=== PATIENT | female | born 1965 | race Caucasian/White ===

== ENCOUNTER 2020-05-15 10:30 | Inpatient (IN) ==
[2020-05-15 13:14] LABS: BASOPHILS % (AUTO) 0.3 % (0.2-1.0); EOSINOPHILS % (AUTO) 0.1 % (0.9-2.9); HEMATOCRIT 40.4 % (36.0-47.0); HEMOGLOBIN 13.4 g/dL (12.0-16.0); LYMPHOCYTES # (AUTO) 0.5 X10^3/uL (1.3-2.9); LYMPHOCYTES % (AUTO) 9.8 % (21.0-51.0); MEAN CORPUSCULAR HEMOGLOBIN 30.5 pg (27.0-34.0); MEAN CORPUSCULAR HGB CONC 33.1 g/dL (33.0-35.0); MEAN CORPUSCULAR VOLUME 92.3 fL (80.0-100.0); MEAN PLATELET VOLUME 7.5 fL (7.4-11.0); MONOCYTES # (AUTO) 0.2 x10^3/uL (0.3-0.8); MONOCYTES % (AUTO) 4.6 % (0.0-13.0); NEUTROPHILS # (AUTO) 4.4 x10^3/uL (2.2-4.8); NEUTROPHILS % (AUTO) 85.2 % (42.0-75.0); PLATELET COUNT 182 X10^3/uL (150.0-450.0); RED BLOOD COUNT 4.37 X10^6/uL (3.5-5.4); WHITE BLOOD COUNT 5.2 X10^3/uL (3.6-10.0)
[2020-05-15] MEDS ORDERED: NS 100 ML IV 100 ML IV ONE ×2 (13:15→15:45)
[2020-05-15 13:22] LABS: ALANINE AMINOTRANSFERASE 94 Units/L (12-78); ALBUMIN 2.8 g/dL (3.4-5.0); ALKALINE PHOSPHATASE 96 Units/L (46-116); ASPARTATE AMINO TRANSFERASE 89 Units/L (15-37); BLOOD UREA NITROGEN 15 mg/dL (7-18); CALCIUM 8.3 mg/dL (8.5-10.1); CHLORIDE 104 mmol/L (98-107); COR CA(FOR HYPOALB) 9.3 mg/dL (8.5-10.1); SODIUM 139 mmol/L (136-145); TOTAL PROTEIN 6.6 g/dL (6.4-8.2); eGFR NON BLACK RACES > 60 (>60)
[2020-05-15] MEDS: ZOSYN VIAL 3.375 GRAMS 3.375 G in NS 50 ML IV + SPIKE MINIBAG* 50 ML IV SCH ×3 (13:31→21:03)
[2020-05-15] MEDS: DUONEB 0.5 MG/3 MG (3 mL) NEB SCH ×3 (13:39→20:48)
[2020-05-15] MEDS: PULMICORT NEB TX 0.5 MG NEB SCH ×2 (13:39→20:48)
[2020-05-15 13:41] LABS: BILIRUBIN,URINE NEGATIVE (NEGATIVE); BLOOD/HEMOGLOBIN,URINE NEGATIVE (NEGATIVE); GLUCOSE, URINE NEGATIVE (NEGATIVE); KETONES,URINE NEGATIVE (NEGATIVE); LEUKOCYTE ESTERASE ,URINE NEGATIVE (NEGATIVE); NITRITES,URINE NEGATIVE (NEGATIVE); PROTEIN,URINE NEGATIVE (NEGATIVE); UROBILINOGEN,URINE NORMAL (NORMAL)
--- NOTE | 2020-05-15 13:42 | DR.H&P ---
H&P - History & Physical for Day of: H&P Date: 05/15/20 - Chief Complaint Chief Complaint: CCC, SOB, COVID - History of Present Illness History of Present Illness: PT IS 54 WM ADMITTED WITH INCREASED SOB, COVID +, FAILED OUT PT THERAPY. PT HAD ONSET OF SYMPTOMS ON TUESDAY, THEN TESTED POSITIVE ON TUESDAY AND TAKING ZITHROMAX, PREDNISONE AND DUO NEBS WITHOUT IMPROVEMENT. PT HAS PMH OF HTN, OA, GERD AND MO. - Past Medical History Past Medical History: Arthritis, Depression, GERD, Hypertension - Past Surgical History Surgical History: , Cholecystectomy, Other - Family History Family Medical History: Diabetes Mellitus, Cancer, NE, Hypertension - Social History Does patient currently use any type of tobacco product: No Have you used tobacco products in the last 12 months: No Type of Tobacco Use: None Does any household member use tobacco: No Alcohol Use: None Drug Use: None - Medications Home Medications: No Known Drug Allergies Allergy (Verified 04/17/18 05:13) CONTINUE taking the following medications acetaminophen-codeine 1 tab PO BID 05/15/20 [History] azithromycin 500 mg PO DAILY 05/15/20 [History] diclofenac sodium 75 mg PO BID 05/15/20 [History] furosemide 20 mg PO DAILY 05/15/20 [History] gabapentin 400 mg PO TID 05/15/20 [History] hydrochlorothiazide 25 mg PO DAILY 05/15/20 [History] magnesium oxide 400 mg PO DAILY 05/15/20 [History] omeprazole 40 mg PO DAILY 05/15/20 [History] paroxetine HCl 20 mg PO DAILY 05/15/20 [History] potassium chloride 10 meq PO DAILY 05/15/20 [History] prednisone 30 mg PO DAILY 05/15/20 [History] promethazine 25 mg PO Q6H PRN 05/15/20 [History] ropinirole 1 mg PO TID 05/15/20 [History] tizanidine 4 mg PO HS 05/15/20 [History] topiramate 50 mg PO DAILY 05/15/20 [History] - Review of Systems Constitutional: Weakness Eyes: No Symptoms Reported ENT: No Symptoms Reported Respiratory: Shortness of Breath, SOB with Excertion Cardiovascular: No Symptoms Reported Gastrointestinal: Nausea Genitourinary: No Symptoms Reported Musculoskeletal: No Symptoms Reported Skin: No Symptoms Reported Neurological: No Symptoms Reported - Physical Exam Vital Signs: Temperature 99.3 F Pulse Rate [Left] 92 Respiratory Rate 30 Blood Pressure [Right Arm] 136/83 Blood Pressure 128/82 O2 Sat by Pulse Oximetry 92 Oriented: Normal Eyes: Normal Ear: Normal Nose: Normal Throat: Normal Respiratory: Wheezes Throughout, RLL Diminished, LLL Diminished Cardiovascular: Normal, Edema : Normal Auscultation: Bowel Sounds: Normal Palpation: Normal Tenderness: Normal Skin: Decreased Turgur Musculoskeletal: Right, Left, Knee, Back:Lumbar Psychiatric: Anxiety Mood Description: Anxious Affect: Anxious Speech Pattern: Clear, Appropriate - Assessment/Plan (1) Pneumonia due to COVID-19 virus Status: Acute Plan: ADMIT, BLOOD AND SPUTUM CULTURE ON ADMISSION. EKG AND CXR, ABG ON ADMISSION. AM LABS, DUO NEBS, VERIFY HOME MEDICATION. IV ATBX, REMDESIVIR, IV SOLU MEDROL - Allergies Allergies/Adverse Reactions: Allergies Allergy/AdvReac Type Severity Reaction Status Date / Time No Known Drug Allergies Allergy Verified 04/17/18 05:13
[2020-05-15 13:45] LABS: APPEARANCE,URINE CLEAR (CLEAR); COLOR,URINE YELLOW (YELLOW)
[2020-05-15 13:45] LABS: ABG BASE EXCESS 3.7 mmol/L (-2.0-2.0); ABG HCO3 28.5 mmol/L (22-26)
[2020-05-15] MEDS ORDERED: REMDESIVIR 200 MG in NS 250 ML IV 250 ML IV NR (14:00)
[2020-05-15] MEDS: NS 1000 ML 1,000 ML IV SCH (15:09)
[2020-05-15] MEDS: PROTONIX INJ 40 MG VIAL IVP SCH ×2 (15:10→20:52)
[2020-05-15] MEDS: ROBITUSSIN DM PO SCH ×3 (15:11→20:52)
[2020-05-15] MEDS: SOLU-Medrol 125 MG VIAL IVP SCH ×2 (15:11→21:03)
[2020-05-15] MEDS: ZITHROMAX INJ 500 MG VIAL 500 MG in NS 250 ML IV 250 ML IV SCH ×2 (15:46→17:41)
[2020-05-15 15:52] LABS: ABG BASE EXCESS 3.9 mmol/L (-2.0-2.0); ABG HCO3 28.5 mmol/L (22-26)
--- NOTE | 2020-05-15 16:27 | CT ---
HISTORY:Elevated D-dimer, COVID-19 positiveStudy: CTA chestComparison:NoneTechnique: Multiple axial images of the chest were obtained after the administration of IV contrast. 3D reconstructions were performed utilizing radial maximum intensity projection imaging. Dose reduction techniques including Automated Exposure Control (AEC) and adjustment of mA and kV were utilized.Findings:No large central pulmonary embolism identified. The distal segmental and subsegmental branches are inadequately opacified to exclude PE. Normal appearance of the heart and pericardium . The aorta appears normal in course and caliber. Multifocal ground-glass infiltrates present throughout the lungs compatible with the provided history of COVID-19. Airways are patient. No effusion or pneumothorax.The soft tissues and osseous structures appear intact . The visualized portions of the upper abdomen are grossly unremarkable. Gallbladder is removed.IMPRESSION:Multifocal ground-glass infiltrates throughout both lungs compatible with the provided history of COVID-19.No large central pulmonary embolism identified. Distal segmental and subsegmental branches are suboptimally opacified.Electronically signed by: COURTNEY MORENO (May 15, 2020 16:26:38)
[2020-05-15] MEDS: LOVENOX INJ 30 MG SYR SC SCH (16:45)
[2020-05-15] MEDS: TYLENOL 325 MG TAB PO PRN (17:58)
[2020-05-15] MEDS: LEVAQUIN PREMIX IV 500 MG 500 MG/100 ML BAG IV SCH (18:10)
[2020-05-15] MEDS: ZANAFLEX PO SCH (20:52)
[2020-05-15] MEDS: NORCO 5/325 MG TAB PO PRN (20:52)
[2020-05-15] MEDS: NEURONTIN CAP 400 MG PO SCH (21:02)
[2020-05-15] MEDS: REQUIP PO SCH (21:03)
[2020-05-15] MEDS ORDERED: NS 250 ML IV 250 ML IV ONE (21:23)
[2020-05-16 04:42] LABS: ABG BASE EXCESS 2.8 mmol/L (-2.0-2.0); ABG HCO3 27.9 mmol/L (22-26)
[2020-05-16] MEDS: SOLU-Medrol 125 MG VIAL IVP SCH ×3 (05:07→21:06)
[2020-05-16] MEDS: REQUIP PO SCH ×2 (05:07→20:38)
[2020-05-16] MEDS: ZOSYN VIAL 3.375 GRAMS 3.375 G in NS 50 ML IV + SPIKE MINIBAG* 50 ML IV SCH ×3 (05:07→21:06)
[2020-05-16] MEDS: NEURONTIN CAP 400 MG PO SCH ×2 (05:07→20:40)
[2020-05-16] MEDS: NORCO 5/325 MG TAB PO PRN ×3 (05:08→22:00)
[2020-05-16] MEDS: NS 1000 ML 1,000 ML IV SCH ×3 (05:08→17:21)
[2020-05-16 05:39] LABS: ALANINE AMINOTRANSFERASE 82 Units/L (12-78); ALBUMIN 2.7 g/dL (3.4-5.0); ALKALINE PHOSPHATASE 95 Units/L (46-116); ASPARTATE AMINO TRANSFERASE 61 Units/L (15-37); BLOOD UREA NITROGEN 16 mg/dL (7-18); CALCIUM 8.8 mg/dL (8.5-10.1); CHLORIDE 104 mmol/L (98-107); COR CA(FOR HYPOALB) 9.8 mg/dL (8.5-10.1); COR NA(FOR HYPERGLY) 143 mmol/L (136-145); SODIUM 141 mmol/L (136-145); TOTAL PROTEIN 6.8 g/dL (6.4-8.2); eGFR NON BLACK RACES > 60 (>60)
--- NOTE | 2020-05-16 05:57 | RAD ---
STUDY: FRONTAL VIEW CHESTCOMPARISON: NoneHISTORY: COVID+FINDINGS:Multifocal alveolar airspace disease is seen throughout the right and left lung baseThe heart size is magnified on this portable techniqueThe mediastinum is unremarkable.There is no evidence of pleural effusion or gross pneumothorax.The trachea is midline.IMPRESSION:1. Multifocal alveolar airspace disease is seen throughout the right and left lung. Given the patient's history, this could represent COVID-19 pneumonia.Electronically signed by: Guanakito Richards (May 16, 2020 05:55:49)
[2020-05-16 06:04] LABS: BASOPHILS % (AUTO) 0.1 % (0.2-1.0); HEMATOCRIT 42.7 % (36.0-47.0); HEMOGLOBIN 13.9 g/dL (12.0-16.0); LYMPHOCYTES # (AUTO) 0.4 X10^3/uL (1.3-2.9); LYMPHOCYTES % (AUTO) 12.6 % (21.0-51.0); MEAN CORPUSCULAR HEMOGLOBIN 30.3 pg (27.0-34.0); MEAN CORPUSCULAR HGB CONC 32.4 g/dL (33.0-35.0); MEAN CORPUSCULAR VOLUME 93.3 fL (80.0-100.0); MEAN PLATELET VOLUME 7.5 fL (7.4-11.0); MONOCYTES # (AUTO) 0.2 x10^3/uL (0.3-0.8); NEUTROPHILS # (AUTO) 2.8 x10^3/uL (2.2-4.8); NEUTROPHILS % (AUTO) 82.3 % (42.0-75.0); PLATELET COUNT 172 X10^3/uL (150.0-450.0); RED BLOOD COUNT 4.58 X10^6/uL (3.5-5.4); RED CELL DISTRIBUTION WIDTH 14.1 % (11.6-16.5); WHITE BLOOD COUNT 3.4 X10^3/uL (3.6-10.0)
[2020-05-16 06:36] LABS: CARBON DIOXIDE 25.2 mmol/L (21-32)
[2020-05-16] MEDS: DUONEB 0.5 MG/3 MG (3 mL) NEB SCH ×4 (08:10→21:31)
[2020-05-16] MEDS: PULMICORT NEB TX 0.5 MG NEB SCH ×2 (08:10→21:31)
[2020-05-16] MEDS: REMDESIVIR 100 MG in NS 250 ML IV 250 ML IV SCH (08:33)
[2020-05-16] MEDS: LOVENOX INJ 30 MG SYR SC SCH ×2 (08:33→20:38)
[2020-05-16] MEDS ORDERED: ZITHROMAX TAB 250 MG PO ONE (09:00)
[2020-05-16] MEDS: MICRO K EXTEN CAP 10 MEQ PO SCH (09:31)
[2020-05-16] MEDS: LASIX PO SCH (09:31)
[2020-05-16] MEDS: PROTONIX INJ 40 MG VIAL IVP SCH ×2 (09:31→20:38)
[2020-05-16] MEDS: PAXIL PO SCH (09:32)
[2020-05-16] MEDS: LEVAQUIN PREMIX IV 500 MG 500 MG/100 ML BAG IV SCH (09:32)
[2020-05-16] MEDS: ROBITUSSIN DM PO SCH ×4 (09:32→20:38)
[2020-05-16] MEDS: ZANAFLEX PO SCH (20:38)
[2020-05-16] MEDS: NS 250 ML IV 250 ML IV PRN (21:06)
[2020-05-17] MEDS ORDERED: AYR NASAL DROPS PRN (03:23)
[2020-05-17 04:16] LABS: ABG BASE EXCESS 4.6 mmol/L (-2.0-2.0)
[2020-05-17 04:18] LABS: ABG HCO3 30.4 mmol/L (22-26)
[2020-05-17] MEDS: SOLU-Medrol 125 MG VIAL IVP SCH ×3 (05:26→21:11)
[2020-05-17] MEDS: ZOSYN VIAL 3.375 GRAMS 3.375 G in NS 50 ML IV + SPIKE MINIBAG* 50 ML IV SCH ×3 (05:26→21:12)
[2020-05-17] MEDS ORDERED: HALDOL INJ ONE (05:53)
--- NOTE | 2020-05-17 06:20 | RAD ---
HISTORYCOVID-19STUDYCHEST, 1 [id number]/18/2020FINDINGSMultiple EKG leads overlie the chest. The cardiac silhouette is enlarged. Pulmonary vasculature remains obscured by bilateral pulmonary airspace disease. No sizable pleural effusion or pneumothorax.IMPRESSIONStable chest.Electronically signed by: Ricky Pearson (May 17, 2020 06:18:53)
[2020-05-17] MEDS: HALDOL INJ IVP SCH ×4 (06:53→21:09)
[2020-05-17] MEDS: NORCO 5/325 MG TAB PO PRN ×3 (07:06→22:33)
[2020-05-17] MEDS: LEVAQUIN PREMIX IV 500 MG 500 MG/100 ML BAG IV SCH (08:12)
[2020-05-17] MEDS: NS 1000 ML 1,000 ML IV SCH ×2 (08:16→22:32)
[2020-05-17 08:34] LABS: BASOPHILS % (AUTO) 0.2 % (0.2-1.0); HEMATOCRIT 41.5 % (36.0-47.0); HEMOGLOBIN 13.5 g/dL (12.0-16.0); LYMPHOCYTES # (AUTO) 0.7 X10^3/uL (1.3-2.9); LYMPHOCYTES % (AUTO) 8.4 % (21.0-51.0); MEAN CORPUSCULAR HEMOGLOBIN 30.2 pg (27.0-34.0); MEAN CORPUSCULAR HGB CONC 32.7 g/dL (33.0-35.0); MEAN CORPUSCULAR VOLUME 92.5 fL (80.0-100.0); MEAN PLATELET VOLUME 7.4 fL (7.4-11.0); MONOCYTES # (AUTO) 0.4 x10^3/uL (0.3-0.8); MONOCYTES % (AUTO) 4.8 % (0.0-13.0); NEUTROPHILS # (AUTO) 7.1 x10^3/uL (2.2-4.8); NEUTROPHILS % (AUTO) 86.6 % (42.0-75.0); PLATELET COUNT 199 X10^3/uL (150.0-450.0); RED BLOOD COUNT 4.48 X10^6/uL (3.5-5.4); RED CELL DISTRIBUTION WIDTH 13.8 % (11.6-16.5); WHITE BLOOD COUNT 8.1 X10^3/uL (3.6-10.0)
[2020-05-17 08:42] LABS: ALANINE AMINOTRANSFERASE 66 Units/L (12-78); ALBUMIN 2.7 g/dL (3.4-5.0); ALKALINE PHOSPHATASE 112 Units/L (46-116); ASPARTATE AMINO TRANSFERASE 70 Units/L (15-37); BLOOD UREA NITROGEN 25 mg/dL (7-18); CALCIUM 8.7 mg/dL (8.5-10.1); CARBON DIOXIDE 28.8 mmol/L (21-32); CHLORIDE 106 mmol/L (98-107); COR CA(FOR HYPOALB) 9.7 mg/dL (8.5-10.1); COR NA(FOR HYPERGLY) 144 mmol/L (136-145); CREATININE 0.96 mg/dL (0.55-1.02); SODIUM 143 mmol/L (136-145); TOTAL PROTEIN 6.6 g/dL (6.4-8.2); eGFR NON BLACK RACES > 60 (>60)
[2020-05-17] MEDS: LASIX PO SCH (09:23)
[2020-05-17] MEDS: LOVENOX INJ 30 MG SYR SC SCH ×2 (09:23→21:10)
[2020-05-17] MEDS: NEURONTIN CAP 400 MG PO SCH ×2 (09:23→21:11)
[2020-05-17] MEDS: MICRO K EXTEN CAP 10 MEQ PO SCH (09:23)
[2020-05-17] MEDS: PAXIL PO SCH (09:24)
[2020-05-17] MEDS: PROTONIX INJ 40 MG VIAL IVP SCH ×2 (09:24→21:11)
[2020-05-17] MEDS: ROBITUSSIN DM PO SCH ×5 (09:45→21:10)
[2020-05-17] MEDS: REMDESIVIR 100 MG in NS 250 ML IV 250 ML IV SCH (09:45)
[2020-05-17] MEDS: PULMICORT NEB TX 0.5 MG NEB SCH ×2 (09:52→21:31)
[2020-05-17] MEDS: DUONEB 0.5 MG/3 MG (3 mL) NEB SCH ×4 (09:52→21:31)
[2020-05-17 10:45] LABS: ABG BASE EXCESS 5.2 mmol/L (-2.0-2.0)
[2020-05-17 10:46] LABS: ABG HCO3 31.8 mmol/L (22-26)
[2020-05-17] MEDS: LASIX IVP SCH (11:56)
[2020-05-17] MEDS: BENADRYL INJ 50 MG VIAL IVP SCH ×2 (13:46→21:12)
[2020-05-17 13:59] LABS: BILIRUBIN,URINE NEGATIVE (NEGATIVE); BLOOD/HEMOGLOBIN,URINE NEGATIVE (NEGATIVE); GLUCOSE, URINE NEGATIVE (NEGATIVE); KETONES,URINE NEGATIVE (NEGATIVE); LEUKOCYTE ESTERASE ,URINE NEGATIVE (NEGATIVE); NITRITES,URINE NEGATIVE (NEGATIVE); PROTEIN,URINE NEGATIVE (NEGATIVE); UROBILINOGEN,URINE NORMAL (NORMAL)
[2020-05-17 14:01] LABS: APPEARANCE,URINE CLEAR (CLEAR); COLOR,URINE YELLOW (YELLOW)
[2020-05-17] MEDS: REQUIP PO SCH (21:09)
[2020-05-17] MEDS: ZANAFLEX PO SCH (21:11)
[2020-05-18] MEDS: BENADRYL INJ 50 MG VIAL IVP SCH ×5 (00:24→21:06)
[2020-05-18] MEDS: HALDOL INJ IVP SCH ×5 (04:13→23:31)
[2020-05-18 05:34] LABS: BASOPHILS % (AUTO) 0.2 % (0.2-1.0); HEMATOCRIT 41.2 % (36.0-47.0); HEMOGLOBIN 13.6 g/dL (12.0-16.0); LYMPHOCYTES # (AUTO) 0.5 X10^3/uL (1.3-2.9); LYMPHOCYTES % (AUTO) 9.3 % (21.0-51.0); MEAN CORPUSCULAR HEMOGLOBIN 30.6 pg (27.0-34.0); MEAN CORPUSCULAR VOLUME 92.8 fL (80.0-100.0); MEAN PLATELET VOLUME 7.5 fL (7.4-11.0); MONOCYTES # (AUTO) 0.3 x10^3/uL (0.3-0.8); MONOCYTES % (AUTO) 5.5 % (0.0-13.0); NEUTROPHILS # (AUTO) 4.6 x10^3/uL (2.2-4.8); PLATELET COUNT 214 X10^3/uL (150.0-450.0); RED BLOOD COUNT 4.44 X10^6/uL (3.5-5.4); RED CELL DISTRIBUTION WIDTH 14.1 % (11.6-16.5); WHITE BLOOD COUNT 5.4 X10^3/uL (3.6-10.0)
[2020-05-18] MEDS: ZOSYN VIAL 3.375 GRAMS 3.375 G in NS 50 ML IV + SPIKE MINIBAG* 50 ML IV SCH ×3 (05:58→21:04)
[2020-05-18] MEDS: SOLU-Medrol 125 MG VIAL IVP SCH ×3 (05:58→21:04)
[2020-05-18 05:59] LABS: ALANINE AMINOTRANSFERASE 67 Units/L (12-78); ALBUMIN 2.7 g/dL (3.4-5.0); ALKALINE PHOSPHATASE 134 Units/L (46-116); ASPARTATE AMINO TRANSFERASE 73 Units/L (15-37); BLOOD UREA NITROGEN 23 mg/dL (7-18); CALCIUM 8.6 mg/dL (8.5-10.1); CARBON DIOXIDE 30.7 mmol/L (21-32); CHLORIDE 105 mmol/L (98-107); COR CA(FOR HYPOALB) 9.6 mg/dL (8.5-10.1); COR NA(FOR HYPERGLY) 144 mmol/L (136-145); CREATININE 0.88 mg/dL (0.55-1.02); SODIUM 143 mmol/L (136-145); TOTAL PROTEIN 6.7 g/dL (6.4-8.2); eGFR NON BLACK RACES > 60 (>60)
[2020-05-18] MEDS: NS 1000 ML 1,000 ML IV SCH ×2 (05:59→13:03)
[2020-05-18] MEDS: DUONEB 0.5 MG/3 MG (3 mL) NEB SCH ×4 (09:19→21:00)
[2020-05-18] MEDS: PULMICORT NEB TX 0.5 MG NEB SCH ×2 (09:19→21:00)
[2020-05-18 09:26] LABS: ABG BASE EXCESS 8.9 mmol/L (-2.0-2.0)
[2020-05-18 09:27] LABS: ABG HCO3 34.6 mmol/L (22-26)
[2020-05-18] MEDS: LEVAQUIN PREMIX IV 500 MG 500 MG/100 ML BAG IV SCH (09:37)
[2020-05-18] MEDS: LASIX IVP SCH (09:37)
[2020-05-18] MEDS: LASIX PO SCH (09:37)
[2020-05-18] MEDS: MICRO K EXTEN CAP 10 MEQ PO SCH (09:38)
[2020-05-18] MEDS: PAXIL PO SCH (09:38)
[2020-05-18] MEDS: NEURONTIN CAP 400 MG PO SCH ×2 (09:38→21:05)
[2020-05-18] MEDS: LOVENOX INJ 30 MG SYR SC SCH ×2 (09:38→21:03)
[2020-05-18] MEDS: ROBITUSSIN DM PO SCH ×4 (09:39→21:05)
[2020-05-18] MEDS: REMDESIVIR 100 MG in NS 250 ML IV 250 ML IV SCH (09:39)
[2020-05-18] MEDS: PROTONIX INJ 40 MG VIAL IVP SCH ×2 (09:39→21:03)
--- NOTE | 2020-05-18 12:19 | RAD ---
EXAM: CHEST X-RAYHISTORY: Covid pneumonia.TECHNIQUE: AP chest x-ray dated 05/18/2020 at 11:01 AM.COMPARISON: CXR dated May 17, [address] dated May 15, 2020.FINDINGS:There is evidence for cardiomegaly. The pulmonary vascularity and interstitial markings are diffusely prominent, differential diagnosis includes (but is not limited to) interstitial (Covid) pneumonia in the appropriate clinical setting, and mild CHF or volume overload.There is no gross focal lung consolidation, pleural effusion, or pneumothorax seen. The visualized bony structures are within normal limits.IMPRESSION:1. Mild interval improvement of diffuse bilateral lung infiltrates in keeping with improving interstitial (Covid) pneumonia and/or CHF or volume overload.2. Recommend clinical correlation and appropriate follow up evaluation (consider CT) to ensure complete clearance.Electronically signed by: Michelet Ag (May 18, 2020 12:17:28)
[2020-05-18] MEDS: NORCO 5/325 MG TAB PO PRN ×2 (14:02→22:00)
[2020-05-18] MEDS: ZANAFLEX PO SCH (21:04)
[2020-05-18] MEDS: REQUIP PO SCH (21:04)
[2020-05-18] MEDS: NS 250 ML IV 250 ML IV PRN (21:07)
[2020-05-19] MEDS: NS 1000 ML 1,000 ML IV SCH ×2 (02:44→16:54)
[2020-05-19 05:07] LABS: ABG BASE EXCESS 11.1 mmol/L (-2.0-2.0)
[2020-05-19 05:08] LABS: ABG ALLEN TEST POS; ABG HCO3 36.4 mmol/L (22-26)
[2020-05-19 05:57] LABS: ALANINE AMINOTRANSFERASE 58 Units/L (12-78); ALBUMIN 2.6 g/dL (3.4-5.0); ALKALINE PHOSPHATASE 143 Units/L (46-116); ASPARTATE AMINO TRANSFERASE 53 Units/L (15-37); BLOOD UREA NITROGEN 24 mg/dL (7-18); CALCIUM 8.7 mg/dL (8.5-10.1); CARBON DIOXIDE 30.6 mmol/L (21-32); CHLORIDE 104 mmol/L (98-107); COR CA(FOR HYPOALB) 9.8 mg/dL (8.5-10.1); COR NA(FOR HYPERGLY) 143 mmol/L (136-145); CREATININE 0.84 mg/dL (0.55-1.02); SODIUM 142 mmol/L (136-145); TOTAL PROTEIN 6.2 g/dL (6.4-8.2); eGFR NON BLACK RACES > 60 (>60)
[2020-05-19 06:06] LABS: BASOPHILS % (AUTO) 0.1 % (0.2-1.0); HEMATOCRIT 41.8 % (36.0-47.0); HEMOGLOBIN 13.7 g/dL (12.0-16.0); LYMPHOCYTES # (AUTO) 0.7 X10^3/uL (1.3-2.9); LYMPHOCYTES % (AUTO) 10.1 % (21.0-51.0); MEAN CORPUSCULAR HEMOGLOBIN 30.2 pg (27.0-34.0); MEAN CORPUSCULAR HGB CONC 32.7 g/dL (33.0-35.0); MEAN CORPUSCULAR VOLUME 92.6 fL (80.0-100.0); MEAN PLATELET VOLUME 7.8 fL (7.4-11.0); MONOCYTES # (AUTO) 0.4 x10^3/uL (0.3-0.8); MONOCYTES % (AUTO) 6.8 % (0.0-13.0); NEUTROPHILS # (AUTO) 5.4 x10^3/uL (2.2-4.8); PLATELET COUNT 207 X10^3/uL (150.0-450.0); RED BLOOD COUNT 4.51 X10^6/uL (3.5-5.4); RED CELL DISTRIBUTION WIDTH 13.7 % (11.6-16.5); WHITE BLOOD COUNT 6.5 X10^3/uL (3.6-10.0)
[2020-05-19] MEDS: SOLU-Medrol 125 MG VIAL IVP SCH ×3 (06:22→21:59)
[2020-05-19] MEDS: HALDOL INJ IVP SCH ×4 (06:22→20:25)
[2020-05-19] MEDS: ZOSYN VIAL 3.375 GRAMS 3.375 G in NS 50 ML IV + SPIKE MINIBAG* 50 ML IV SCH ×3 (06:22→22:00)
[2020-05-19] MEDS: BENADRYL INJ 50 MG VIAL IVP SCH ×3 (06:23→21:59)
[2020-05-19 06:52] LABS: PLATELET MORPHOLOGY COMMENT NORMAL (NORMAL)
--- NOTE | 2020-05-19 07:47 | RAD ---
HISTORYCOVID+STUDYCHEST, 1 [id number]/20/2020FINDINGSThe trachea is midline. There is stable mild cardiomegaly. There is persistent ground-glass diffusely through the lungs. There is no evidence of pneumothorax or pleural effusionIMPRESSIONNo interval change. Stable ground-glass radiopacities throughout the lungs without confluent zones.Electronically signed by: Ekaterina Zazueta (May 19, 2020 07:45:32)
[2020-05-19] MEDS: LEVAQUIN PREMIX IV 500 MG 500 MG/100 ML BAG IV SCH (08:17)
[2020-05-19] MEDS: NEURONTIN CAP 400 MG PO SCH ×2 (09:39→20:26)
[2020-05-19] MEDS: LASIX IVP SCH (09:39)
[2020-05-19] MEDS: MICRO K EXTEN CAP 10 MEQ PO SCH (09:39)
[2020-05-19] MEDS: PAXIL PO SCH (09:40)
[2020-05-19] MEDS: PROTONIX INJ 40 MG VIAL IVP SCH ×2 (09:40→20:26)
[2020-05-19] MEDS: REMDESIVIR 100 MG in NS 250 ML IV 250 ML IV SCH (09:40)
[2020-05-19] MEDS: DUONEB 0.5 MG/3 MG (3 mL) NEB SCH ×2 (09:57→13:56)
[2020-05-19] MEDS: PULMICORT NEB TX 0.5 MG NEB SCH ×2 (09:57→21:05)
[2020-05-19] MEDS: LOVENOX INJ 30 MG SYR SC SCH ×2 (09:57→21:59)
[2020-05-19] MEDS: NORVASC TAB 5 MG PO SCH (09:58)
[2020-05-19] MEDS: ROBITUSSIN DM PO SCH ×4 (09:59→20:26)
[2020-05-19] MEDS ORDERED: PATIENT'S HOME MEDICATION PO SCH ×2 (10:30→21:00)
[2020-05-19] MEDS: NORCO 5/325 MG TAB PO PRN (15:41)
[2020-05-19] MEDS ORDERED: XOPENEX 1.25 MG/3 ML NEBULE NEB ONE (17:14)
[2020-05-19] MEDS: XOPENEX 1.25 MG/3 ML NEBULE NEB SCH (17:24)
[2020-05-19] MEDS: REQUIP PO SCH (20:26)
[2020-05-19] MEDS: ZANAFLEX PO SCH (20:26)
[2020-05-20] MEDS: HALDOL INJ IVP SCH ×4 (02:42→20:48)
[2020-05-20] MEDS: BENADRYL INJ 50 MG VIAL IVP SCH ×3 (05:44→21:08)
[2020-05-20] MEDS: NS 1000 ML 1,000 ML IV SCH ×3 (05:44→21:41)
[2020-05-20] MEDS: SOLU-Medrol 125 MG VIAL IVP SCH ×3 (05:44→21:08)
[2020-05-20] MEDS: ZOSYN VIAL 3.375 GRAMS 3.375 G in NS 50 ML IV + SPIKE MINIBAG* 50 ML IV SCH ×3 (05:45→21:08)
[2020-05-20 06:13] LABS: ALANINE AMINOTRANSFERASE 50 Units/L (12-78); ALBUMIN 2.6 g/dL (3.4-5.0); ALKALINE PHOSPHATASE 153 Units/L (46-116); ASPARTATE AMINO TRANSFERASE 42 Units/L (15-37); BASOPHILS % (AUTO) 0.1 % (0.2-1.0); BLOOD UREA NITROGEN 21 mg/dL (7-18); CALCIUM 8.5 mg/dL (8.5-10.1); CARBON DIOXIDE 33.2 mmol/L (21-32); CHLORIDE 103 mmol/L (98-107); COR CA(FOR HYPOALB) 9.6 mg/dL (8.5-10.1); COR NA(FOR HYPERGLY) 145 mmol/L (136-145); CREATININE 0.84 mg/dL (0.55-1.02); HEMATOCRIT 41.1 % (36.0-47.0); HEMOGLOBIN 13.7 g/dL (12.0-16.0); LYMPHOCYTES # (AUTO) 0.5 X10^3/uL (1.3-2.9); LYMPHOCYTES % (AUTO) 5.5 % (21.0-51.0); MEAN CORPUSCULAR HEMOGLOBIN 30.4 pg (27.0-34.0); MEAN CORPUSCULAR HGB CONC 33.3 g/dL (33.0-35.0); MEAN CORPUSCULAR VOLUME 91.5 fL (80.0-100.0); MEAN PLATELET VOLUME 7.8 fL (7.4-11.0); MONOCYTES # (AUTO) 0.5 x10^3/uL (0.3-0.8); MONOCYTES % (AUTO) 5.4 % (0.0-13.0); NEUTROPHILS # (AUTO) 7.6 x10^3/uL (2.2-4.8); PLATELET COUNT 204 X10^3/uL (150.0-450.0); RED CELL DISTRIBUTION WIDTH 13.5 % (11.6-16.5); SODIUM 143 mmol/L (136-145); TOTAL PROTEIN 6.3 g/dL (6.4-8.2); WHITE BLOOD COUNT 8.5 X10^3/uL (3.6-10.0); eGFR NON BLACK RACES > 60 (>60)
[2020-05-20] MEDS: XOPENEX 1.25 MG/3 ML NEBULE NEB SCH ×3 (06:41→17:43)
--- NOTE | 2020-05-20 07:14 | RAD ---
HISTORYFollow-up COVID-19STUDYChest AP [id number]/21/2020FIND INGSHypo inflation accentuates the heart size. Is likely increased, however. Bilateral ground-glass infiltrates are unchanged. No pleural effusions are identified. Bony thorax is unremarkable.IMPRESSIONNo change marked hypo inflationNo change bilateral ground-glass infiltratesNo change cardiomegaly without congestive heart failureElectronically signed by: CANDELARIA MILLER (May 20, 2020 07:12:59)
[2020-05-20 07:35] LABS: ABG BASE EXCESS 11.9 mmol/L (-2.0-2.0)
[2020-05-20 07:36] LABS: ABG ALLEN TEST POS; ABG HCO3 37.2 mmol/L (22-26)
[2020-05-20] MEDS: PULMICORT NEB TX 0.5 MG NEB SCH ×2 (09:20→20:05)
[2020-05-20] MEDS: LASIX IVP SCH (09:24)
[2020-05-20] MEDS: LOVENOX INJ 30 MG SYR SC SCH ×2 (09:25→21:12)
[2020-05-20] MEDS: NEURONTIN CAP 400 MG PO SCH ×2 (09:26→20:48)
[2020-05-20] MEDS: MICRO K EXTEN CAP 10 MEQ PO SCH (09:26)
[2020-05-20] MEDS: LEVAQUIN PREMIX IV 500 MG 500 MG/100 ML BAG IV SCH (09:26)
[2020-05-20] MEDS: NORVASC TAB 5 MG PO SCH (09:26)
[2020-05-20] MEDS: PAXIL PO SCH (09:27)
[2020-05-20] MEDS: ROBITUSSIN DM PO SCH ×4 (09:27→20:49)
[2020-05-20] MEDS: PROTONIX INJ 40 MG VIAL IVP SCH ×2 (09:32→20:49)
[2020-05-20] MEDS: NORCO 5/325 MG TAB PO PRN (20:00)
[2020-05-20] MEDS: ZANAFLEX PO SCH (20:48)
[2020-05-20] MEDS: REQUIP PO SCH (20:48)
[2020-05-21] MEDS: XOPENEX 1.25 MG/3 ML NEBULE NEB SCH ×5 (00:35→17:35)
[2020-05-21] MEDS: HALDOL INJ IVP SCH ×4 (03:11→21:34)
[2020-05-21 04:41] LABS: ABG BASE EXCESS 12.2 mmol/L (-2.0-2.0)
[2020-05-21 04:42] LABS: ABG ALLEN TEST POS; ABG HCO3 37.8 mmol/L (22-26)
--- NOTE | 2020-05-21 05:16 | RAD ---
HISTORYPNEUMONIASTUDYCHEST, 1 [id number]/22/2020FINDINGSThe trachea is midline. The cardiac silhouette is enlarged, stable. Bilateral pulmonary opacities/infiltrates. Similar to prior exam. No pneumothorax.. The bony thorax is unremarkable.IMPRESSIONNo significant interval change.Electronically signed by: Katheryn Love (May 21, 2020 05:15:06)
[2020-05-21] MEDS: BENADRYL INJ 50 MG VIAL IVP SCH ×3 (05:35→21:36)
[2020-05-21] MEDS: ZOSYN VIAL 3.375 GRAMS 3.375 G in NS 50 ML IV + SPIKE MINIBAG* 50 ML IV SCH ×3 (05:37→21:37)
[2020-05-21] MEDS: SOLU-Medrol 125 MG VIAL IVP SCH ×3 (05:37→21:45)
[2020-05-21 05:42] LABS: BASOPHILS % (AUTO) 0.3 % (0.2-1.0); EOSINOPHILS % (AUTO) 0.4 % (0.9-2.9); HEMATOCRIT 40.5 % (36.0-47.0); HEMOGLOBIN 13.4 g/dL (12.0-16.0); LYMPHOCYTES # (AUTO) 0.6 X10^3/uL (1.3-2.9); LYMPHOCYTES % (AUTO) 5.9 % (21.0-51.0); MEAN CORPUSCULAR HEMOGLOBIN 30.5 pg (27.0-34.0); MEAN CORPUSCULAR HGB CONC 33.1 g/dL (33.0-35.0); MEAN PLATELET VOLUME 7.7 fL (7.4-11.0); MONOCYTES # (AUTO) 0.8 x10^3/uL (0.3-0.8); MONOCYTES % (AUTO) 7.7 % (0.0-13.0); NEUTROPHILS # (AUTO) 8.8 x10^3/uL (2.2-4.8); NEUTROPHILS % (AUTO) 85.7 % (42.0-75.0); PLATELET COUNT 185 X10^3/uL (150.0-450.0); RED BLOOD COUNT 4.41 X10^6/uL (3.5-5.4); RED CELL DISTRIBUTION WIDTH 13.3 % (11.6-16.5); WHITE BLOOD COUNT 10.2 X10^3/uL (3.6-10.0)
[2020-05-21 06:09] LABS: ALANINE AMINOTRANSFERASE 42 Units/L (12-78); ALBUMIN 2.5 g/dL (3.4-5.0); ALKALINE PHOSPHATASE 162 Units/L (46-116); ASPARTATE AMINO TRANSFERASE 32 Units/L (15-37); BLOOD UREA NITROGEN 22 mg/dL (7-18); CALCIUM 8.4 mg/dL (8.5-10.1); CARBON DIOXIDE 32.9 mmol/L (21-32); CHLORIDE 103 mmol/L (98-107); COR CA(FOR HYPOALB) 9.6 mg/dL (8.5-10.1); COR NA(FOR HYPERGLY) 143 mmol/L (136-145); CREATININE 0.86 mg/dL (0.55-1.02); SODIUM 142 mmol/L (136-145); TOTAL PROTEIN 5.9 g/dL (6.4-8.2); eGFR NON BLACK RACES > 60 (>60)
[2020-05-21] MEDS: PULMICORT NEB TX 0.5 MG NEB SCH ×2 (08:50→20:50)
[2020-05-21] MEDS: PAXIL PO SCH (10:06)
[2020-05-21] MEDS: ROBITUSSIN DM PO SCH ×4 (10:06→21:36)
[2020-05-21] MEDS: PROTONIX INJ 40 MG VIAL IVP SCH ×2 (10:06→21:35)
[2020-05-21] MEDS: MICRO K EXTEN CAP 10 MEQ PO SCH (10:06)
[2020-05-21] MEDS: NORVASC TAB 5 MG PO SCH (10:07)
[2020-05-21] MEDS: LOVENOX INJ 30 MG SYR SC SCH ×2 (10:07→21:34)
[2020-05-21] MEDS: NEURONTIN CAP 400 MG PO SCH ×2 (10:07→21:35)
[2020-05-21] MEDS: LEVAQUIN PREMIX IV 500 MG 500 MG/100 ML BAG IV SCH (10:08)
[2020-05-21] MEDS: LASIX IVP SCH (10:08)
[2020-05-21] MEDS: NS 1000 ML 1,000 ML IV SCH (10:09)
[2020-05-21] MEDS: NORCO 5/325 MG TAB PO PRN ×2 (12:44→21:40)
[2020-05-21] MEDS ORDERED: POTASSIUM CHL 40 MEQ/NS 0.45% 500 ML IV PRN (13:51)
[2020-05-21] MEDS ORDERED: K-RIDER 10 MEQ/NS 100 ML 10 MEQ/100 ML BAG IV PRN (13:51)
[2020-05-21] MEDS ORDERED: POTASSIUM CHL 60 MEQ/NS 0.45% 500 ML IV PRN (13:51)
[2020-05-21] MEDS ORDERED: POTASSIUM CHLORIDE LIQ 20 MEQ UDC PO PRN (13:51)
[2020-05-21] MEDS ORDERED: KLOR-CON PO PRN (13:51)
[2020-05-21] MEDS: K-DUR TAB 20 MEQ PO PRN (15:00)
[2020-05-21] MEDS: MAGNESIUM SULFATE 1 GRAM/100 mL PREMIX 1 GM/100 ML BAG IV PRN ×2 (16:43→18:05)
[2020-05-21] MEDS: REQUIP PO SCH (21:36)
[2020-05-21] MEDS: ZANAFLEX PO SCH (21:36)
[2020-05-22] MEDS: NS 1000 ML 1,000 ML IV SCH ×3 (00:09→21:30)
[2020-05-22] MEDS: XOPENEX 1.25 MG/3 ML NEBULE NEB SCH ×4 (00:50→16:58)
[2020-05-22] MEDS: HALDOL INJ IVP SCH ×2 (03:00→10:52)
[2020-05-22 05:35] LABS: BASOPHILS % (AUTO) 0.1 % (0.2-1.0); HEMOGLOBIN 13.4 g/dL (12.0-16.0); LYMPHOCYTES # (AUTO) 0.4 X10^3/uL (1.3-2.9); LYMPHOCYTES % (AUTO) 4.2 % (21.0-51.0); MEAN CORPUSCULAR HEMOGLOBIN 30.1 pg (27.0-34.0); MEAN CORPUSCULAR HGB CONC 32.7 g/dL (33.0-35.0); MEAN CORPUSCULAR VOLUME 91.9 fL (80.0-100.0); MEAN PLATELET VOLUME 7.9 fL (7.4-11.0); MONOCYTES # (AUTO) 0.4 x10^3/uL (0.3-0.8); NEUTROPHILS # (AUTO) 8.8 x10^3/uL (2.2-4.8); NEUTROPHILS % (AUTO) 91.7 % (42.0-75.0); PLATELET COUNT 164 X10^3/uL (150.0-450.0); RED BLOOD COUNT 4.46 X10^6/uL (3.5-5.4); RED CELL DISTRIBUTION WIDTH 13.8 % (11.6-16.5); WHITE BLOOD COUNT 9.6 X10^3/uL (3.6-10.0)
[2020-05-22] MEDS: BENADRYL INJ 50 MG VIAL IVP SCH ×3 (05:48→21:22)
[2020-05-22] MEDS: ZOSYN VIAL 3.375 GRAMS 3.375 G in NS 50 ML IV + SPIKE MINIBAG* 50 ML IV SCH ×3 (05:48→21:30)
[2020-05-22] MEDS: SOLU-Medrol 125 MG VIAL IVP SCH ×3 (05:48→21:30)
[2020-05-22 05:52] LABS: ALANINE AMINOTRANSFERASE 40 Units/L (12-78); ALBUMIN 2.5 g/dL (3.4-5.0); ALKALINE PHOSPHATASE 163 Units/L (46-116); ASPARTATE AMINO TRANSFERASE 30 Units/L (15-37); BLOOD UREA NITROGEN 20 mg/dL (7-18); CALCIUM 8.2 mg/dL (8.5-10.1); CARBON DIOXIDE 33.1 mmol/L (21-32); CHLORIDE 104 mmol/L (98-107); COR CA(FOR HYPOALB) 9.4 mg/dL (8.5-10.1); COR NA(FOR HYPERGLY) 143 mmol/L (136-145); CREATININE 0.86 mg/dL (0.55-1.02); MAGNESIUM 2.3 mg/dL (1.7-2.9); SODIUM 141 mmol/L (136-145); eGFR NON BLACK RACES > 60 (>60)
[2020-05-22 05:57] LABS: PLATELET MORPHOLOGY COMMENT NORMAL (NORMAL)
[2020-05-22 06:03] LABS: ABG BASE EXCESS 10.2 mmol/L (-2.0-2.0); ABG HCO3 35.6 mmol/L (22-26)
[2020-05-22 06:04] LABS: ABG ALLEN TEST POS
[2020-05-22] MEDS: PULMICORT NEB TX 0.5 MG NEB SCH ×2 (08:55→21:20)
[2020-05-22] MEDS: LOVENOX INJ 30 MG SYR SC SCH ×2 (09:30→21:30)
[2020-05-22] MEDS: PAXIL PO SCH (09:30)
[2020-05-22] MEDS: MICRO K EXTEN CAP 10 MEQ PO SCH (09:30)
[2020-05-22] MEDS: LASIX IVP SCH (09:30)
[2020-05-22] MEDS: ROBITUSSIN DM PO SCH ×4 (09:30→21:30)
[2020-05-22] MEDS: PROTONIX INJ 40 MG VIAL IVP SCH ×2 (09:30→21:20)
[2020-05-22] MEDS: NORVASC TAB 5 MG PO SCH (09:30)
[2020-05-22] MEDS: NEURONTIN CAP 400 MG PO SCH ×2 (09:30→21:30)
--- NOTE | 2020-05-22 10:34 | RAD ---
HISTORYPNEUMONIA, COVID +STUDYCHEST, 1 VIEWCOMPARISONPortable chest May 21, 2020FINDINGSThe trachea is midline. The cardiac silhouette is mildly enlarged but stable. The lungs are unchanged from yesterday's exam with interstitial process perihilar region right greater than left. There is no effusion or pneumothorax. The bony thorax is unremarkable.IMPRESSIONStable cardiomegaly and bilateral right greater than left perihilar interstitial infiltrates.Electronically signed by: MISAEL GAONA (May 22, 2020 10:32:43)
[2020-05-22] MEDS: LEVAQUIN PREMIX IV 500 MG 500 MG/100 ML BAG IV SCH (10:55)
[2020-05-22] MEDS ORDERED: HALDOL INJ IVP PRN (11:20)
[2020-05-22] MEDS: NS 250 ML IV 250 ML IV PRN (14:27)
[2020-05-22] MEDS: VALTREX PO SCH ×2 (15:29→21:30)
[2020-05-22] MEDS: NORCO 5/325 MG TAB PO PRN (19:04)
[2020-05-22] MEDS: REQUIP PO SCH (21:30)
[2020-05-22] MEDS: ZANAFLEX PO SCH (21:30)
[2020-05-23] MEDS: XOPENEX 1.25 MG/3 ML NEBULE NEB SCH ×4 (00:10→17:00)
[2020-05-23 04:06] LABS: ABG BASE EXCESS 10.7 mmol/L (-2.0-2.0)
[2020-05-23 04:07] LABS: ABG ALLEN TEST POS; ABG HCO3 36.7 mmol/L (22-26)
[2020-05-23] MEDS: NS 1000 ML 1,000 ML IV SCH (04:26)
[2020-05-23 06:17] LABS: BASOPHILS % (AUTO) 0.2 % (0.2-1.0); HEMATOCRIT 39.3 % (36.0-47.0); HEMOGLOBIN 12.7 g/dL (12.0-16.0); LYMPHOCYTES # (AUTO) 0.3 X10^3/uL (1.3-2.9); LYMPHOCYTES % (AUTO) 2.4 % (21.0-51.0); MEAN CORPUSCULAR HGB CONC 32.3 g/dL (33.0-35.0); MEAN CORPUSCULAR VOLUME 92.8 fL (80.0-100.0); MEAN PLATELET VOLUME 8.1 fL (7.4-11.0); MONOCYTES # (AUTO) 0.5 x10^3/uL (0.3-0.8); MONOCYTES % (AUTO) 3.8 % (0.0-13.0); NEUTROPHILS # (AUTO) 11.6 x10^3/uL (2.2-4.8); NEUTROPHILS % (AUTO) 93.6 % (42.0-75.0); PLATELET COUNT 112 X10^3/uL (150.0-450.0); RED BLOOD COUNT 4.24 X10^6/uL (3.5-5.4); RED CELL DISTRIBUTION WIDTH 13.7 % (11.6-16.5); WHITE BLOOD COUNT 12.5 X10^3/uL (3.6-10.0)
[2020-05-23] MEDS: SOLU-Medrol 125 MG VIAL IVP SCH ×3 (06:29→21:00)
[2020-05-23] MEDS: ZOSYN VIAL 3.375 GRAMS 3.375 G in NS 50 ML IV + SPIKE MINIBAG* 50 ML IV SCH ×3 (06:29→21:00)
[2020-05-23] MEDS: BENADRYL INJ 50 MG VIAL IVP SCH ×3 (06:29→21:00)
[2020-05-23 06:31] LABS: ALANINE AMINOTRANSFERASE 36 Units/L (12-78); ALBUMIN 2.3 g/dL (3.4-5.0); ALKALINE PHOSPHATASE 172 Units/L (46-116); ASPARTATE AMINO TRANSFERASE 32 Units/L (15-37); BLOOD UREA NITROGEN 21 mg/dL (7-18); CALCIUM 8.3 mg/dL (8.5-10.1); CARBON DIOXIDE 31.5 mmol/L (21-32); CHLORIDE 105 mmol/L (98-107); COR CA(FOR HYPOALB) 9.7 mg/dL (8.5-10.1); COR NA(FOR HYPERGLY) 144 mmol/L (136-145); CREATININE 0.82 mg/dL (0.55-1.02); SODIUM 142 mmol/L (136-145); TOTAL PROTEIN 5.6 g/dL (6.4-8.2); eGFR NON BLACK RACES > 60 (>60)
--- NOTE | 2020-05-23 07:12 | RAD ---
HISTORYCOVID+STUDYCHEST, 1 [id number]/24/2020FINDINGSStable cardiomegaly. Multifocal bilateral pulmonary opacities appear stable to slightly worsened. No sizable effusion or visible pneumothorax. No acute osseous finding.IMPRESSIONStable to slight worsening of multifocal bilateral pulmonary opacities.Electronically signed by: Chadwick Bear (May 23, 2020 07:11:08)
[2020-05-23 07:39] LABS: PLATELET MORPHOLOGY COMMENT NORMAL (NORMAL)
[2020-05-23] MEDS: LASIX IVP SCH (09:06)
[2020-05-23] MEDS: LOVENOX INJ 30 MG SYR SC SCH ×2 (09:06→21:01)
[2020-05-23] MEDS: LEVAQUIN PREMIX IV 500 MG 500 MG/100 ML BAG IV SCH (09:06)
[2020-05-23] MEDS: MICRO K EXTEN CAP 10 MEQ PO SCH (09:07)
[2020-05-23] MEDS: NEURONTIN CAP 400 MG PO SCH ×2 (09:07→20:58)
[2020-05-23] MEDS: PROTONIX INJ 40 MG VIAL IVP SCH ×2 (09:08→21:01)
[2020-05-23] MEDS: ROBITUSSIN DM PO SCH ×4 (09:08→21:00)
[2020-05-23] MEDS: PAXIL PO SCH (09:08)
[2020-05-23] MEDS: VALTREX PO SCH ×2 (09:08→20:59)
[2020-05-23] MEDS: NORVASC TAB 5 MG PO SCH (09:08)
[2020-05-23] MEDS: PULMICORT NEB TX 0.5 MG NEB SCH ×2 (09:20→21:52)
--- NOTE | 2020-05-23 11:37 | PCM.PROG ---
Progress Note Progress Note for Day of Date of Exam: 05/23/20 Subjective Subjective: Patient seen at bedside, no overnight events. Patient has been on BiPAP. She was weaned down to 95% just now and sats have been >90%. She reports feeling slightly better this morning. She does use HHF when eating. Denies N/V/D or abdominal pain. Denies fever or chills. Labs: WBC 12.5 Hgb 12.7 Plt: 112 ABG 7.48/33/54/24.6 CRP 89.6 CXR: worsening multifocal bilateral pulmonary opacities Plan: wean down BiPAP as tolerated to keep sats > 90%. Continue IV solumedrol and IV zosyn/Levaquin. Aggressive pulmonary toilet. Continue duonebs and pulmicort. Monitor AM labs. Monitor respiratory status closely. Patient seems to be comfortable and does not have labored breathing. DC IVF. Monitor respiratory status closely. Time spent for clinical assessment, physical examination, reviewing labs/imaging and decision making more than 45 mins. Past Medical Family Social History Past Med/Fam/Surg Hx: No changes since H&P Allergies: Allergies No Known Drug Allergies Allergy (Verified 04/17/18 05:13) Review of Systems ROS: No change since H&P Vital Signs and I&O's Vital Signs: Temperature 97.6 F Pulse Rate [Left] 92 Pulse Rate 97 Respiratory Rate 36 Blood Pressure [Right Arm] 136/83 Blood Pressure 113/60 O2 Sat by Pulse Oximetry 95 Intake and Output: Intake & Output 05/20/20 05/21/20 05/22/20 05/23/20 23:59 23:59 23:59 23:59 Intake Total 4136 / 4136 2249 / 2249 2424 / 2424 240 / 240 Output Total 2049 1925 / 1925 1900 / 1900 300 / 300 Balance 2085 / 2086 324 / 324 524 / 524 -60 / -60 Physical Exam Oriented: Normal Eyes: Normal Ear: Normal Nose: Normal Throat: Normal Respiratory: Generalized, Diminished and Rhonchi Cardiovascular: Normal and Edema Auscultation: Bowel Sounds: Normal Tenderness: Normal Skin: Decreased Turgur Musculoskeletal: Right, Left, Knee and Back:Lumbar Psychiatric: Anxiety Mood Description: Calm Affect: Normal Speech Pattern: Clear and Appropriate Laboratory and Diagnostics Result Diagrams: 05/23/20 04:49 05/23/20 04:49 Labs: 05/15/20 12:35 Blood Blood Culture - Final 05/15/20 12:25 Blood Blood Culture - Final Laboratory WBC 12.5 X10^3/uL (3.6-10.0) H 05/23/20 04:49 RBC 4.24 X10^6/uL (3.5-5.4) 05/23/20 04:49 Hgb 12.7 g/dL (12.0-16.0) 05/23/20 04:49 Hct 39.3 % (36.0-47.0) 05/23/20 04:49 MCV 92.8 fL (80.0-100.0) 05/23/20 04:49 MCH 30.0 pg (27.0-34.0) 05/23/20 04:49 MCHC 32.3 g/dL (33.0-35.0) L 05/23/20 04:49 RDW 13.7 % (11.6-16.5) 05/23/20 04:49 Plt Count 112 X10^3/uL (150.0-450.0) L 05/23/20 04:49 Plt Count Comment Decreased (ADEQUATE) A 05/23/20 04:49 MPV 8.1 fL (7.4-11.0) 05/23/20 04:49 Neut % (Auto) 93.6 % (42.0-75.0) H 05/23/20 04:49 Lymph % (Auto) 2.4 % (21.0-51.0) L 05/23/20 04:49 [place] % (Auto) 3.8 % (0.0-13.0) 05/23/20 04:49 Eos % (Auto) 0.0 % (0.9-2.9) L 05/23/20 04:49 Baso % (Auto) 0.2 % (0.2-1.0) 05/23/20 04:49 Neut # (Auto) 11.6 x10^3/uL (2.2-4.8) H 05/23/20 04:49 Lymph # (Auto) 0.3 X10^3/uL (1.3-2.9) L 05/23/20 04:49 [place] # (Auto) 0.5 x10^3/uL (0.3-0.8) 05/23/20 04:49 Eos # (Auto) 0.0 x10^3/uL (0.0-0.2) 05/23/20 04:49 Baso # (Auto) 0.0 X10^3/uL (0.0-0.1) 05/23/20 04:49 Absolute Nucleated RBC 0.0 /100WBC 05/23/20 04:49 Total Counted 100 05/23/20 04:49 Neutrophils % (Manual) 92 % (39-76) H 05/23/20 04:49 Lymphocytes % (Manual) 6 % (13-43) L 05/23/20 04:49 Monocytes % (Manual) 2 % (4-9) L 05/23/20 04:49 Plt Morphology Comment Normal (NORMAL) 05/23/20 04:49 RBC Morphology Normal (NORMAL) 05/23/20 04:49 D-Dimer 0.80 ug/ml (0.0-0.57) H* 05/15/20 12:25 Sample Site Rr 05/23/20 04:00 ABG pH 7.440 (7.35-7.45) 05/23/20 04:00 ABG pCO2 54.0 mmHg (35.0-45.0) H* 05/23/20 04:00 ABG pO2 73.0 mmHg (80.0-100.0) L 05/23/20 04:00 ABG HCO3 36.7 mmol/L (22-26) H* 05/23/20 04:00 ABG O2 Saturation 95.0 % (90-100) 05/23/20 04:00 ABG Base Excess 10.7 mmol/L (-2.0-2.0) H 05/23/20 04:00 Bigg Test Pos 05/23/20 04:00 A-a Gradient 573.0 mmHg 05/23/20 04:00 FiO2 100.0 05/23/20 04:00 Blood Gas Comments Kaylynn well ae 05/23/20 04:00 Sodium 142 mmol/L (136-145) 05/23/20 04:49 Corrected Sodium 144 mmol/L (136-145) 05/23/20 04:49 Potassium 3.8 mmol/L (3.5-5.1) 05/23/20 04:49 Chloride 105 mmol/L (98-107) 05/23/20 04:49 Carbon Dioxide 31.5 mmol/L (21-32) 05/23/20 04:49 BUN 21 mg/dL (7-18) H 05/23/20 04:49 Creatinine 0.82 mg/dL (0.55-1.02) 05/23/20 04:49 Est GFR (MDRD) Af Amer > 60 (>60) 05/23/20 04:49 Est GFR (MDRD) Non-Af > 60 (>60) 05/23/20 04:49 Glucose 176 mg/dL (65-99) H 05/23/20 04:49 Calcium 8.3 mg/dL (8.5-10.1) L 05/23/20 04:49 Corrected Calcium 9.7 mg/dL (8.5-10.1) 05/23/20 04:49 Magnesium 2.3 mg/dL (1.7-2.9) 05/22/20 04:25 Ferritin 240 ng/mL (8-252) 05/21/20 04:21 Total Bilirubin 0.40 mg/dL (0.2-1.0) 05/23/20 04:49 AST 32 Units/L (15-37) 05/23/20 04:49 ALT 36 Units/L (12-78) 05/23/20 04:49 Alkaline Phosphatase 172 Units/L (46-116) H 05/23/20 04:49 C-Reactive Protein 1.70 mg/L (0-3.0) 05/21/20 04:21 Total Protein 5.6 g/dL (6.4-8.2) L 05/23/20 04:49 Albumin 2.3 g/dL (3.4-5.0) L 05/23/20 04:49 Globulin 3.3 g/dL (2.5-4.5) 05/23/20 04:49 Albumin/Globulin Ratio 0.7 Ratio (1.1-2.1) L 05/23/20 04:49 Specimen Type Catherized urine 05/17/20 13:40 Urine Color Yellow (YELLOW) 05/17/20 13:40 Urine Appearance Clear (CLEAR) 05/17/20 13:40 Urine pH 5.0 (5.0 - 8.0) 05/17/20 13:40 Ur Specific [place] 1.010 (1.000-1.030) 05/17/20 13:40 Urine Protein Negative (NEGATIVE) 05/17/20 13:40 Urine Glucose (UA) Negative (NEGATIVE) 05/17/20 13:40 Urine Ketones Negative (NEGATIVE) 05/17/20 13:40 Urine Occult Blood Negative (NEGATIVE) 05/17/20 13:40 Urine Nitrite Negative (NEGATIVE) 05/17/20 13:40 Urine Bilirubin Negative (NEGATIVE) 05/17/20 13:40 Urine Urobilinogen Normal (NORMAL) 05/17/20 13:40 Ur Leukocyte Esterase Negative (NEGATIVE) 05/17/20 13:40 SARS CoV-2 RNA Rapid KIRA Positive (NEGATIVE) A 05/15/20 13:15 Blood Type O POSITIVE 05/16/20 09:08 Plan (1) Pneumonia due to COVID-19 virus: Status: Acute Plan: ADMIT, BLOOD AND SPUTUM CULTURE ON ADMISSION EKG AND CXR, ABG ON ADMISSION AM LABS, DUO NEBS, VERIFY HOME MEDICATION IV ATBX, REMDESIVIR, IV SOLU MEDROL (2) Acute respiratory failure with hypoxia: Status: Acute (3) Thrombocytopenia: Status: Acute (4) BiPAP (biphasic positive airway pressure) dependence: Status: Acute
[2020-05-23] MEDS: ZANAFLEX PO SCH (20:59)
[2020-05-23] MEDS: REQUIP PO SCH (20:59)
[2020-05-23] MEDS ORDERED: HALDOL INJ ONE (22:41)
[2020-05-24] MEDS: XOPENEX 1.25 MG/3 ML NEBULE NEB SCH ×4 (01:00→17:07)
[2020-05-24] MEDS: BENADRYL INJ 50 MG VIAL IVP SCH ×3 (05:21→21:39)
[2020-05-24] MEDS: ZOSYN VIAL 3.375 GRAMS 3.375 G in NS 50 ML IV + SPIKE MINIBAG* 50 ML IV SCH ×3 (05:21→21:40)
[2020-05-24] MEDS: SOLU-Medrol 125 MG VIAL IVP SCH ×3 (05:22→21:39)
[2020-05-24 05:37] LABS: BASOPHILS % (AUTO) 0.1 % (0.2-1.0); HEMATOCRIT 38.7 % (36.0-47.0); HEMOGLOBIN 12.9 g/dL (12.0-16.0); LYMPHOCYTES # (AUTO) 0.3 X10^3/uL (1.3-2.9); LYMPHOCYTES % (AUTO) 2.9 % (21.0-51.0); MEAN CORPUSCULAR HEMOGLOBIN 30.4 pg (27.0-34.0); MEAN CORPUSCULAR HGB CONC 33.2 g/dL (33.0-35.0); MEAN CORPUSCULAR VOLUME 91.5 fL (80.0-100.0); MEAN PLATELET VOLUME 7.6 fL (7.4-11.0); MONOCYTES # (AUTO) 0.5 x10^3/uL (0.3-0.8); MONOCYTES % (AUTO) 4.6 % (0.0-13.0); NEUTROPHILS # (AUTO) 9.1 x10^3/uL (2.2-4.8); NEUTROPHILS % (AUTO) 92.4 % (42.0-75.0); PLATELET COUNT 78 X10^3/uL (150.0-450.0); RED BLOOD COUNT 4.23 X10^6/uL (3.5-5.4); RED CELL DISTRIBUTION WIDTH 13.6 % (11.6-16.5); WHITE BLOOD COUNT 9.8 X10^3/uL (3.6-10.0)
[2020-05-24 06:11] LABS: ALANINE AMINOTRANSFERASE 33 Units/L (12-78); ALBUMIN 2.2 g/dL (3.4-5.0); ALKALINE PHOSPHATASE 154 Units/L (46-116); ASPARTATE AMINO TRANSFERASE 31 Units/L (15-37); BLOOD UREA NITROGEN 19 mg/dL (7-18); CALCIUM 8.1 mg/dL (8.5-10.1); CARBON DIOXIDE 31.4 mmol/L (21-32); CHLORIDE 104 mmol/L (98-107); COR CA(FOR HYPOALB) 9.5 mg/dL (8.5-10.1); COR NA(FOR HYPERGLY) 145 mmol/L (136-145); CREATININE 0.84 mg/dL (0.55-1.02); SODIUM 142 mmol/L (136-145); TOTAL PROTEIN 5.4 g/dL (6.4-8.2); eGFR NON BLACK RACES > 60 (>60)
--- NOTE | 2020-05-24 06:41 | RAD ---
HISTORYcovidSTUDYAP [id number]/25/2020FINDINGSDiffuse, confluent airspace disease is noted in both lungs, with helena e interval progression especially on the left. The heart is obscured. The study is technically limite d by rotation and technical underpenetration.IMPRESSIONInterval progression of bilateral airspace dis ease consistent with progression of bilateral pneumonia/pulmonary edema.Electronically signed by: JEFFREY MUNROE (May 24, 2020 06:40:16)
[2020-05-24 06:44] LABS: PLATELET MORPHOLOGY COMMENT NORMAL (NORMAL)
[2020-05-24 07:07] LABS: ABG BASE EXCESS 11.4 mmol/L (-2.0-2.0)
[2020-05-24 07:09] LABS: ABG ALLEN TEST POS; ABG HCO3 36.5 mmol/L (22-26)
[2020-05-24] MEDS: PULMICORT NEB TX 0.5 MG NEB SCH ×2 (09:15→21:00)
[2020-05-24] MEDS: ROBITUSSIN DM PO SCH ×4 (09:30→21:39)
[2020-05-24] MEDS ORDERED: LOVENOX INJ 30 MG SYR SC ONE (10:04)
[2020-05-24] MEDS: MICRO K EXTEN CAP 10 MEQ PO SCH (10:06)
[2020-05-24] MEDS: PAXIL PO SCH (10:07)
[2020-05-24] MEDS: VALTREX PO SCH ×2 (10:07→21:39)
[2020-05-24] MEDS: NORVASC TAB 5 MG PO SCH (10:08)
[2020-05-24] MEDS ORDERED: ATIVAN TAB 1 MG PO PRN (11:42)
[2020-05-24] MEDS ORDERED: ATIVAN TAB 0.5 MG PO PRN (12:00)
--- NOTE | 2020-05-24 12:28 | RAD ---
HISTORYcentral line placementSTUDYCHEST, 1 VIEWCOMPARISONEarlier same dayFINDINGSThe trachea is midline. The cardiac silhouette is stable. There is a right-sided IJ line with tip overlying the cavoatrial junction.. The lungs demonstrate persistent edema versus multifocal pneumonia unchanged from prior the bony thorax is unremarkable.IMPRESSIONRight-sided central line placement as above otherwise stable chest.Electronically signed by: GABO BANG (May 24, 2020 12:26:20)
--- NOTE | 2020-05-24 12:29 | DR.UPDATE ---
H&P Update History and Physical Update: History and Physical reviewed and patient examined. Changes noted: NO Yes with the following:will place central line secondary to exhaustion of peripheral iv access. H&P Reviewed: Yes Patient was examined?: Yes Procedures (ALL) - Central Line Placement PCM.CLCO: written consent Time out performed: Yes Patient placed pm monitor/pulse ox: Yes MD prep: mask, gown, gloves, other Centrial line prep: chlorhexidine scrub, sterile drapes applied Local anesthsia used: lidocane 1% Ultrasound used for placement: Yes (right IJ id'd via u/s and cannulation visualized on u/s) Central line lumen ininserted: triple Post procedure: sutured in place, good blood return, all ports aspirated, flushed,capped, sterile dressing applied Post procedure xray: tip oc catheter in good position, no pneumothorax seen Patient tolerated procedure: Yes Complications: none
--- NOTE | 2020-05-24 12:54 | PCM.PROG ---
Progress Note Progress Note for Day of Date of Exam: 05/24/20 Subjective Subjective: Patient seen at bedside. Overnight, patient's BiPAP was turned up to 100% FiO2 due to patient having a panic attack. She was given Haldol prn. She is currently on 100% FiO2 on the BiPAP. She is able to eat with HHF, sats in high 80s. She states her breathing is better compared to yesterday. Denies fever or chills. Denies GI Sx. She does have chronic anxiety, not on any home medications. Denies any bleeding. Patient does not have IV access, multiple attempts made but were unsuccessful. [employer] will be coming to put in a central line. Labs: WBC 9.8 Hgb 12.9 Plt: 78 ABG 7.48/49/48/36.5 CXR: progression of bilateral disease, progression of bilateral pneumonia or edema Received one unit of convalescent plasma on 05/16 Plan: wean down BiPAP as tolerated to keep sats > 90%. Hold lovenox due to thrombocytopenia. Continue IV solumedrol and IV zosyn/Levaquin. Will increase Lasix to 40 mg IV. Aggressive pulmonary toilet. Continue duonebs and pulmicort. Will give another unit of convalescent plasma. Monitor AM labs. Monitor respiratory status closely. Patient seems to be comfortable and does not have labored breathing.Monitor respiratory status closely. Discussed with patient that if BiPAP unable to hold sats up then next step would be mechanical ventilation. Patient vernalized understanding and agrees to be on the vent if needed. Will DC Haldol and start Ativan prn for anxiety. Critical care Time spent for clinical assessment, physical examination, reviewing labs/imaging and decision making more than 75 mins. Past Medical Family Social History Past Med/Fam/Surg Hx: No changes since H&P Allergies: Allergies No Known Drug Allergies Allergy (Verified 04/17/18 05:13) Review of Systems ROS: No change since H&P Vital Signs and I&O's Vital Signs: Temperature 97.8 F Pulse Rate [Left] 92 Pulse Rate 97 Respiratory Rate 38 Blood Pressure [Right Arm] 136/83 Blood Pressure 113/59 O2 Sat by Pulse Oximetry 95 Intake and Output: Intake & Output 05/21/20 05/22/20 05/23/20 05/24/20 23:59 23:59 23:59 23:59 Intake Total 2249 / 2249 2424 / 2424 3065 / 3065 150 / 150 Output Total 192 / 1925 1900 / 1900 1900 / 1900 300 / 300 Balance 324 / 324 524 / 524 1165 / 1165 -150 / -150 Physical Exam Oriented: Normal Eyes: Normal Ear: Normal Nose: Normal Throat: Normal Respiratory: Generalized and Diminished Cardiovascular: Normal and Edema : Normal Auscultation: Bowel Sounds: Normal Tenderness: Normal Musculoskeletal: Right, Left, Knee and Back:Lumbar Psychiatric: Anxiety Mood Description: Calm Affect: Normal Speech Pattern: Clear and Appropriate Laboratory and Diagnostics Result Diagrams: 05/24/20 04:45 05/24/20 04:45 Labs: 05/15/20 12:35 Blood Blood Culture - Final 05/15/20 12:25 Blood Blood Culture - Final Laboratory WBC 9.8 X10^3/uL (3.6-10.0) 05/24/20 04:45 RBC 4.23 X10^6/uL (3.5-5.4) 05/24/20 04:45 Hgb 12.9 g/dL (12.0-16.0) 05/24/20 04:45 Hct 38.7 % (36.0-47.0) 05/24/20 04:45 MCV 91.5 fL (80.0-100.0) 05/24/20 04:45 MCH 30.4 pg (27.0-34.0) 05/24/20 04:45 MCHC 33.2 g/dL (33.0-35.0) 05/24/20 04:45 RDW 13.6 % (11.6-16.5) 05/24/20 04:45 Plt Count 78 X10^3/uL (150.0-450.0) L 05/24/20 04:45 Plt Count Comment Decreased (ADEQUATE) A 05/24/20 04:45 MPV 7.6 fL (7.4-11.0) 05/24/20 04:45 Neut % (Auto) 92.4 % (42.0-75.0) H 05/24/20 04:45 Lymph % (Auto) 2.9 % (21.0-51.0) L 05/24/20 04:45 [place] % (Auto) 4.6 % (0.0-13.0) 05/24/20 04:45 Eos % (Auto) 0.0 % (0.9-2.9) L 05/24/20 04:45 Baso % (Auto) 0.1 % (0.2-1.0) L 05/24/20 04:45 Neut # (Auto) 9.1 x10^3/uL (2.2-4.8) H 05/24/20 04:45 Lymph # (Auto) 0.3 X10^3/uL (1.3-2.9) L 05/24/20 04:45 [place] # (Auto) 0.5 x10^3/uL (0.3-0.8) 05/24/20 04:45 Eos # (Auto) 0.0 x10^3/uL (0.0-0.2) 05/24/20 04:45 Baso # (Auto) 0.0 X10^3/uL (0.0-0.1) 05/24/20 04:45 Absolute Nucleated RBC 0.0 /100WBC 05/24/20 04:45 Total Counted 100 05/24/20 04:45 Neutrophils % (Manual) 95 % (39-76) H 05/24/20 04:45 Lymphocytes % (Manual) 4 % (13-43) L 05/24/20 04:45 Monocytes % (Manual) 1 % (4-9) L 05/24/20 04:45 Plt Morphology Comment Normal (NORMAL) 05/24/20 04:45 RBC Morphology Normal (NORMAL) 05/24/20 04:45 D-Dimer 0.80 ug/ml (0.0-0.57) H* 05/15/20 12:25 Sample Site Rrad 05/24/20 07:05 ABG pH 7.480 (7.35-7.45) H 05/24/20 07:05 ABG pCO2 49.0 mmHg (35.0-45.0) H 05/24/20 07:05 ABG pO2 48.0 mmHg (80.0-100.0) L* 05/24/20 07:05 ABG HCO3 36.5 mmol/L (22-26) H* 05/24/20 07:05 ABG O2 Saturation 87.0 % (90-100) L 05/24/20 07:05 ABG Base Excess 11.4 mmol/L (-2.0-2.0) H 05/24/20 07:05 Bigg Test Pos 05/24/20 07:05 A-a Gradient 604.0 mmHg 05/24/20 07:05 FiO2 100.0 05/24/20 07:05 Blood Gas Comments Kaylynn abg well 05/24/20 07:05 Sodium 142 mmol/L (136-145) 05/24/20 04:45 Corrected Sodium 145 mmol/L (136-145) 05/24/20 04:45 Potassium 3.8 mmol/L (3.5-5.1) 05/24/20 04:45 Chloride 104 mmol/L (98-107) 05/24/20 04:45 Carbon Dioxide 31.4 mmol/L (21-32) 05/24/20 04:45 BUN 19 mg/dL (7-18) H 05/24/20 04:45 Creatinine 0.84 mg/dL (0.55-1.02) 05/24/20 04:45 Est GFR (MDRD) Af Amer > 60 (>60) 05/24/20 04:45 Est GFR (MDRD) Non-Af > 60 (>60) 05/24/20 04:45 Glucose 210 mg/dL (65-99) H 05/24/20 04:45 Calcium 8.1 mg/dL (8.5-10.1) L 05/24/20 04:45 Corrected Calcium 9.5 mg/dL (8.5-10.1) 05/24/20 04:45 Magnesium 2.3 mg/dL (1.7-2.9) 05/22/20 04:25 Ferritin 240 ng/mL (8-252) 05/21/20 04:21 Total Bilirubin 0.50 mg/dL (0.2-1.0) 05/24/20 04:45 AST 31 Units/L (15-37) 05/24/20 04:45 ALT 33 Units/L (12-78) 05/24/20 04:45 Alkaline Phosphatase 154 Units/L (46-116) H 05/24/20 04:45 C-Reactive Protein 1.70 mg/L (0-3.0) 05/21/20 04:21 Total Protein 5.4 g/dL (6.4-8.2) L 05/24/20 04:45 Albumin 2.2 g/dL (3.4-5.0) L 05/24/20 04:45 Globulin 3.2 g/dL (2.5-4.5) 05/24/20 04:45 Albumin/Globulin Ratio 0.7 Ratio (1.1-2.1) L 05/24/20 04:45 Specimen Type Catherized urine 05/17/20 13:40 Urine Color Yellow (YELLOW) 05/17/20 13:40 Urine Appearance Clear (CLEAR) 05/17/20 13:40 Urine pH 5.0 (5.0 - 8.0) 05/17/20 13:40 Ur Specific [place] 1.010 (1.000-1.030) 05/17/20 13:40 Urine Protein Negative (NEGATIVE) 05/17/20 13:40 Urine Glucose (UA) Negative (NEGATIVE) 05/17/20 13:40 Urine Ketones Negative (NEGATIVE) 05/17/20 13:40 Urine Occult Blood Negative (NEGATIVE) 05/17/20 13:40 Urine Nitrite Negative (NEGATIVE) 05/17/20 13:40 Urine Bilirubin Negative (NEGATIVE) 05/17/20 13:40 Urine Urobilinogen Normal (NORMAL) 05/17/20 13:40 Ur Leukocyte Esterase Negative (NEGATIVE) 05/17/20 13:40 SARS CoV-2 RNA Rapid KIRA Positive (NEGATIVE) A 05/15/20 13:15 Blood Type O POSITIVE 05/16/20 09:08 Plan (1) Pneumonia due to COVID-19 virus: Status: Acute Plan: ADMIT, BLOOD AND SPUTUM CULTURE ON ADMISSION EKG AND CXR, ABG ON ADMISSION AM LABS, DUO NEBS, VERIFY HOME MEDICATION IV ATBX, REMDESIVIR, IV SOLU MEDROL (2) Acute respiratory failure with hypoxia: Status: Acute (3) Thrombocytopenia: Status: Acute (4) BiPAP (biphasic positive airway pressure) dependence: Status: Acute (5) Anxiety: Status: Acute
[2020-05-24] MEDS: LOVENOX INJ 30 MG SYR SC SCH (13:29)
[2020-05-24] MEDS: PROTONIX INJ 40 MG VIAL IVP SCH ×2 (13:31→21:37)
[2020-05-24] MEDS: LEVAQUIN PREMIX IV 500 MG 500 MG/100 ML BAG IV SCH (15:09)
[2020-05-24] MEDS: NS 1000 ML 1,000 ML IV SCH (15:11)
[2020-05-24] MEDS: LASIX IVP SCH (15:11)
[2020-05-24] MEDS: NORCO 5/325 MG TAB PO PRN (17:18)
[2020-05-24] MEDS: NEURONTIN CAP 400 MG PO SCH (21:37)
[2020-05-24] MEDS: REQUIP PO SCH (21:37)
[2020-05-24] MEDS: ZANAFLEX PO SCH (21:39)
[2020-05-25] MEDS: XOPENEX 1.25 MG/3 ML NEBULE NEB SCH ×4 (05:29→17:20)
[2020-05-25 05:30] LABS: BASOPHILS % (AUTO) 0 % (0.2-1.0); HEMATOCRIT 38.1 % (36.0-47.0); HEMOGLOBIN 12.4 g/dL (12.0-16.0); LYMPHOCYTES # (AUTO) 0.3 X10^3/uL (1.3-2.9); MEAN CORPUSCULAR HEMOGLOBIN 30.2 pg (27.0-34.0); MEAN CORPUSCULAR HGB CONC 32.5 g/dL (33.0-35.0); MEAN CORPUSCULAR VOLUME 92.7 fL (80.0-100.0); MEAN PLATELET VOLUME 8.1 fL (7.4-11.0); MONOCYTES # (AUTO) 0.4 x10^3/uL (0.3-0.8); MONOCYTES % (AUTO) 3.7 % (0.0-13.0); NEUTROPHILS # (AUTO) 10.1 x10^3/uL (2.2-4.8); NEUTROPHILS % (AUTO) 93.3 % (42.0-75.0); PLATELET COUNT 66 X10^3/uL (150.0-450.0); RED BLOOD COUNT 4.11 X10^6/uL (3.5-5.4); RED CELL DISTRIBUTION WIDTH 13.6 % (11.6-16.5); WHITE BLOOD COUNT 10.9 X10^3/uL (3.6-10.0)
[2020-05-25 05:31] LABS: ABG BASE EXCESS 10.2 mmol/L (-2.0-2.0)
[2020-05-25 05:32] LABS: ABG HCO3 35.6 mmol/L (22-26)
[2020-05-25 05:33] LABS: ABG ALLEN TEST POS
[2020-05-25 05:46] LABS: ALANINE AMINOTRANSFERASE 47 Units/L (12-78); ALBUMIN 2.3 g/dL (3.4-5.0); ALKALINE PHOSPHATASE 163 Units/L (46-116); ASPARTATE AMINO TRANSFERASE 36 Units/L (15-37); BLOOD UREA NITROGEN 20 mg/dL (7-18); CALCIUM 8.3 mg/dL (8.5-10.1); CARBON DIOXIDE 33.8 mmol/L (21-32); CHLORIDE 104 mmol/L (98-107); COR CA(FOR HYPOALB) 9.7 mg/dL (8.5-10.1); COR NA(FOR HYPERGLY) 144 mmol/L (136-145); CREATININE 0.82 mg/dL (0.55-1.02); SODIUM 142 mmol/L (136-145); TOTAL PROTEIN 5.5 g/dL (6.4-8.2); eGFR NON BLACK RACES > 60 (>60)
[2020-05-25] MEDS: ZOSYN VIAL 3.375 GRAMS 3.375 G in NS 50 ML IV + SPIKE MINIBAG* 50 ML IV SCH (06:00)
[2020-05-25] MEDS: SOLU-Medrol 125 MG VIAL IVP SCH ×3 (06:00→21:00)
[2020-05-25] MEDS: BENADRYL INJ 50 MG VIAL IVP SCH ×3 (06:00→23:12)
[2020-05-25 06:47] LABS: PLATELET MORPHOLOGY COMMENT NORMAL (NORMAL)
[2020-05-25] MEDS: MICRO K EXTEN CAP 10 MEQ PO SCH (09:20)
[2020-05-25] MEDS: LEVAQUIN PREMIX IV 500 MG 500 MG/100 ML BAG IV SCH (09:20)
[2020-05-25] MEDS: LASIX IVP SCH (09:20)
[2020-05-25] MEDS: PAXIL PO SCH (09:21)
[2020-05-25] MEDS: PROTONIX INJ 40 MG VIAL IVP SCH (09:21)
[2020-05-25] MEDS: NEURONTIN CAP 400 MG PO SCH ×3 (09:21→23:10)
[2020-05-25] MEDS: ROBITUSSIN DM PO SCH ×4 (09:21→21:00)
[2020-05-25] MEDS: NORVASC TAB 5 MG PO SCH ×2 (09:21→09:57)
[2020-05-25] MEDS: PULMICORT NEB TX 0.5 MG NEB SCH ×2 (09:22→21:15)
[2020-05-25] MEDS: NORCO 5/325 MG TAB PO PRN ×2 (09:35→17:39)
[2020-05-25] MEDS: VALTREX PO SCH (09:56)
[2020-05-25] MEDS ORDERED: NS IV ONE (11:35)
[2020-05-25] MEDS ORDERED: ACTEMRA IV ONE (11:35)
[2020-05-25] MEDS: NYSTATIN SUSP PO SCH ×3 (12:31→21:00)
[2020-05-25] MEDS: PriLOSEC PO SCH (12:31)
--- NOTE | 2020-05-25 12:48 | PCM.PROG ---
Progress Note Progress Note for Day of Date of Exam: 05/25/20 Subjective Subjective: Patient seen at bedside. No acute overnight events. She remains on BiPAP at FiO2 100%. She was not able to wean down yesterday. She does use the HHF while eating with sats in mid 80s. Patient did refuse the 2nd dose of plasma because after the first dose she was noted to have PVCs and Bigeminy. She states she feels about the same as yesterday. She states she is not getting tired and seems to be comfortable wearing the Bipap. She tends to desat while sleeping, likely has underlying SHANIQUE that was not treated. She did have central line placed yesterday for IV access. Labs: WBC 10.9 Hgb 12.4 Plt: 66 ABG 7.46/50/52/35.6 CXR yesterday : progression of bilateral disease, progression of bilateral pneumonia or edema Received one unit of convalescent plasma on 05/16 Plan: wean down BiPAP as tolerated to keep sats > 90%. Hold lovenox due to thrombocytopenia. Continue IV solumedrol and IV zosyn/Levaquin. Continue lasix 40 mg IV. Aggressive pulmonary toilet. Continue duonebs and pulmicort. Will give one dose of Actemra. Monitor AM labs. Patient seems to be comfortable and does not have labored breathing.Monitor respiratory status closely. Discussed with patient if unable to wean off BiPAP then next step would be mechanical ventilation. Patient vernalized understanding and agrees to be on the vent if needed. Patient remains in the critical state. Critical care Time spent for clinical assessment, physical examination, reviewing labs/imaging and decision making more than 75 mins. Past Medical Family Social History Past Med/Fam/Surg Hx: No changes since H&P Allergies: Allergies No Known Drug Allergies Allergy (Verified 04/17/18 05:13) Review of Systems ROS: No change since H&P Vital Signs and I&O's Vital Signs: Temperature 97.9 F Pulse Rate [Left] 92 Pulse Rate 97 Respiratory Rate 22 Blood Pressure [Right Arm] 136/83 Blood Pressure 123/68 O2 Sat by Pulse Oximetry 86 Intake and Output: Intake & Output 05/22/20 05/23/20 05/24/20 05/25/20 23:59 23:59 23:59 23:59 Intake Total 2424 / 2424 3065 / 3065 2625 / 2625 446 / 446 Output Total 1900 / 1900 1900 / 1900 800 / 800 300 / 300 Balance 524 / 524 1165 / 1165 1825 / 1825 146 / 146 Physical Exam Oriented: Normal Eyes: Normal Ear: Normal Nose: Normal Throat: Normal Respiratory: Generalized and Diminished Cardiovascular: Normal and Edema Auscultation: Bowel Sounds: Normal Tenderness: Normal Skin: Decreased Turgur Musculoskeletal: Right, Left, Knee and Back:Lumbar Psychiatric: Anxiety Mood Description: Calm Affect: Normal Speech Pattern: Clear and Appropriate Laboratory and Diagnostics Result Diagrams: 05/25/20 04:40 05/25/20 04:40 Labs: 05/15/20 12:35 Blood Blood Culture - Final 05/15/20 12:25 Blood Blood Culture - Final Laboratory WBC 10.9 X10^3/uL (3.6-10.0) H 05/25/20 04:40 RBC 4.11 X10^6/uL (3.5-5.4) 05/25/20 04:40 Hgb 12.4 g/dL (12.0-16.0) 05/25/20 04:40 Hct 38.1 % (36.0-47.0) 05/25/20 04:40 MCV 92.7 fL (80.0-100.0) 05/25/20 04:40 MCH 30.2 pg (27.0-34.0) 05/25/20 04:40 MCHC 32.5 g/dL (33.0-35.0) L 05/25/20 04:40 RDW 13.6 % (11.6-16.5) 05/25/20 04:40 Plt Count 66 X10^3/uL (150.0-450.0) L 05/25/20 04:40 Plt Count Comment Decreased (ADEQUATE) A 05/25/20 04:40 MPV 8.1 fL (7.4-11.0) 05/25/20 04:40 Neut % (Auto) 93.3 % (42.0-75.0) H 05/25/20 04:40 Lymph % (Auto) 3.0 % (21.0-51.0) L 05/25/20 04:40 [place] % (Auto) 3.7 % (0.0-13.0) 05/25/20 04:40 Eos % (Auto) 0.0 % (0.9-2.9) L 05/25/20 04:40 Baso % (Auto) 0 % (0.2-1.0) L 05/25/20 04:40 Neut # (Auto) 10.1 x10^3/uL (2.2-4.8) H 05/25/20 04:40 Lymph # (Auto) 0.3 X10^3/uL (1.3-2.9) L 05/25/20 04:40 [place] # (Auto) 0.4 x10^3/uL (0.3-0.8) 05/25/20 04:40 Eos # (Auto) 0.0 x10^3/uL (0.0-0.2) 05/25/20 04:40 Baso # (Auto) 0.0 X10^3/uL (0.0-0.1) 05/25/20 04:40 Absolute Nucleated RBC 0.0 /100WBC 05/25/20 04:40 Total Counted 100 05/25/20 04:40 Neutrophils % (Manual) 92 % (39-76) H 05/25/20 04:40 Lymphocytes % (Manual) 6 % (13-43) L 05/25/20 04:40 Monocytes % (Manual) 2 % (4-9) L 05/25/20 04:40 Plt Morphology Comment Normal (NORMAL) 05/25/20 04:40 RBC Morphology Normal (NORMAL) 05/25/20 04:40 D-Dimer 0.80 ug/ml (0.0-0.57) H* 05/15/20 12:25 Sample Site Rr 05/25/20 05:25 ABG pH 7.460 (7.35-7.45) H 05/25/20 05:25 ABG pCO2 50.0 mmHg (35.0-45.0) H 05/25/20 05:25 ABG pO2 52.0 mmHg (80.0-100.0) L 05/25/20 05:25 ABG HCO3 35.6 mmol/L (22-26) H* 05/25/20 05:25 ABG O2 Saturation 88.0 % (90-100) L 05/25/20 05:25 ABG Base Excess 10.2 mmol/L (-2.0-2.0) H 05/25/20 05:25 Bigg Test Pos 05/25/20 05:25 A-a Gradient 599.0 mmHg 05/25/20 05:25 FiO2 100.0 05/25/20 05:25 Blood Gas Comments Kyalynn well ae 05/25/20 05:25 Sodium 142 mmol/L (136-145) 05/25/20 04:40 Corrected Sodium 144 mmol/L (136-145) 05/25/20 04:40 Potassium 4.1 mmol/L (3.5-5.1) 05/25/20 04:40 Chloride 104 mmol/L (98-107) 05/25/20 04:40 Carbon Dioxide 33.8 mmol/L (21-32) H 05/25/20 04:40 BUN 20 mg/dL (7-18) H 05/25/20 04:40 Creatinine 0.82 mg/dL (0.55-1.02) 05/25/20 04:40 Est GFR (MDRD) Af Amer > 60 (>60) 05/25/20 04:40 Est GFR (MDRD) Non-Af > 60 (>60) 05/25/20 04:40 Glucose 193 mg/dL (65-99) H 05/25/20 04:40 Calcium 8.3 mg/dL (8.5-10.1) L 05/25/20 04:40 Corrected Calcium 9.7 mg/dL (8.5-10.1) 05/25/20 04:40 Magnesium 2.3 mg/dL (1.7-2.9) 05/22/20 04:25 Ferritin 240 ng/mL (8-252) 05/21/20 04:21 Total Bilirubin 0.60 mg/dL (0.2-1.0) 05/25/20 04:40 AST 36 Units/L (15-37) 05/25/20 04:40 ALT 47 Units/L (12-78) 05/25/20 04:40 Alkaline Phosphatase 163 Units/L (46-116) H 05/25/20 04:40 C-Reactive Protein 1.70 mg/L (0-3.0) 05/21/20 04:21 Total Protein 5.5 g/dL (6.4-8.2) L 05/25/20 04:40 Albumin 2.3 g/dL (3.4-5.0) L 05/25/20 04:40 Globulin 3.2 g/dL (2.5-4.5) 05/25/20 04:40 Albumin/Globulin Ratio 0.7 Ratio (1.1-2.1) L 05/25/20 04:40 Specimen Type Catherized urine 05/17/20 13:40 Urine Color Yellow (YELLOW) 05/17/20 13:40 Urine Appearance Clear (CLEAR) 05/17/20 13:40 Urine pH 5.0 (5.0 - 8.0) 05/17/20 13:40 Ur Specific [place] 1.010 (1.000-1.030) 05/17/20 13:40 Urine Protein Negative (NEGATIVE) 05/17/20 13:40 Urine Glucose (UA) Negative (NEGATIVE) 05/17/20 13:40 Urine Ketones Negative (NEGATIVE) 05/17/20 13:40 Urine Occult Blood Negative (NEGATIVE) 05/17/20 13:40 Urine Nitrite Negative (NEGATIVE) 05/17/20 13:40 Urine Bilirubin Negative (NEGATIVE) 05/17/20 13:40 Urine Urobilinogen Normal (NORMAL) 05/17/20 13:40 Ur Leukocyte Esterase Negative (NEGATIVE) 05/17/20 13:40 SARS CoV-2 RNA Rapid KIRA Positive (NEGATIVE) A 05/15/20 13:15 Blood Type O POSITIVE 05/16/20 09:08 Plan (1) Pneumonia due to COVID-19 virus: Status: Acute (2) Acute respiratory failure with hypoxia: Status: Acute (3) Thrombocytopenia: Status: Acute (4) BiPAP (biphasic positive airway pressure) dependence: Status: Acute (5) Anxiety: Status: Acute
[2020-05-25] MEDS: NS 1000 ML 1,000 ML IV SCH (18:35)
[2020-05-25] MEDS: REQUIP PO SCH (21:00)
[2020-05-25] MEDS: ZANAFLEX PO SCH (21:00)
[2020-05-26] MEDS: XOPENEX 1.25 MG/3 ML NEBULE NEB SCH ×4 (00:44→17:06)
[2020-05-26] MEDS: NORCO 5/325 MG TAB PO PRN ×3 (03:34→23:00)
[2020-05-26 04:10] LABS: ABG BASE EXCESS 10.8 mmol/L (-2.0-2.0)
[2020-05-26 04:11] LABS: ABG HCO3 36.3 mmol/L (22-26)
[2020-05-26 04:12] LABS: ABG ALLEN TEST POS
[2020-05-26] MEDS: ATIVAN TAB 0.5 MG PO PRN ×2 (04:49→23:00)
[2020-05-26 06:08] LABS: BASOPHILS % (AUTO) 0.1 % (0.2-1.0); HEMOGLOBIN 12.2 g/dL (12.0-16.0); LYMPHOCYTES # (AUTO) 0.3 X10^3/uL (1.3-2.9); LYMPHOCYTES % (AUTO) 3.8 % (21.0-51.0); MEAN CORPUSCULAR HEMOGLOBIN 30.4 pg (27.0-34.0); MEAN CORPUSCULAR VOLUME 92.1 fL (80.0-100.0); MEAN PLATELET VOLUME 9.1 fL (7.4-11.0); MONOCYTES # (AUTO) 0.4 x10^3/uL (0.3-0.8); MONOCYTES % (AUTO) 4.9 % (0.0-13.0); NEUTROPHILS # (AUTO) 7.5 x10^3/uL (2.2-4.8); NEUTROPHILS % (AUTO) 91.2 % (42.0-75.0); PLATELET COUNT 56 X10^3/uL (150.0-450.0); RED BLOOD COUNT 4.02 X10^6/uL (3.5-5.4); RED CELL DISTRIBUTION WIDTH 13.7 % (11.6-16.5); WHITE BLOOD COUNT 8.2 X10^3/uL (3.6-10.0)
--- NOTE | 2020-05-26 06:10 | RAD ---
HISTORYHYPOXIASTUDYCHEST, 1 [id number]/26/2020FINDINGSThe trachea is midline. Right IJ central line tip in SVC unchanged. The cardiac silhouette is stable. Diffuse bilateral interstitial edema and/or infiltrates unchanged. No pneumothorax.. The bony thorax is unremarkable.IMPRESSIONStable portable chestElectronically signed by: Colt Young (May 26, 2020 06:08:57)
[2020-05-26] MEDS: BENADRYL INJ 50 MG VIAL IVP SCH ×2 (06:31→15:04)
[2020-05-26] MEDS: SOLU-Medrol 125 MG VIAL IVP SCH ×3 (06:32→21:00)
[2020-05-26 06:46] LABS: BLOOD UREA NITROGEN 25 mg/dL (7-18); CALCIUM 8.3 mg/dL (8.5-10.1); CARBON DIOXIDE 31.5 mmol/L (21-32); CHLORIDE 103 mmol/L (98-107); COR NA(FOR HYPERGLY) 143 mmol/L (136-145); SODIUM 141 mmol/L (136-145); eGFR NON BLACK RACES > 60 (>60)
[2020-05-26 07:52] LABS: BAND NEUTROPHILS % 3 % (0-10); PLATELET MORPHOLOGY COMMENT NORMAL (NORMAL)
[2020-05-26] MEDS: MICRO K EXTEN CAP 10 MEQ PO SCH (08:15)
[2020-05-26] MEDS: LASIX IVP SCH (08:15)
[2020-05-26] MEDS: NYSTATIN SUSP PO SCH ×5 (08:16→21:00)
[2020-05-26] MEDS: NEURONTIN CAP 400 MG PO SCH ×2 (08:16→08:35)
[2020-05-26] MEDS: NORVASC TAB 5 MG PO SCH (08:16)
[2020-05-26] MEDS: ROBITUSSIN DM PO SCH ×5 (08:16→21:00)
[2020-05-26] MEDS: PriLOSEC PO SCH (08:17)
[2020-05-26] MEDS: PAXIL PO SCH (08:17)
[2020-05-26] MEDS: LEVAQUIN PREMIX IV 500 MG 500 MG/100 ML BAG IV SCH (09:06)
[2020-05-26] MEDS: PULMICORT NEB TX 0.5 MG NEB SCH ×2 (09:53→21:00)
[2020-05-26 12:30] LABS: BASOPHILS % (AUTO) 0 % (0.2-1.0); HEMATOCRIT 39.9 % (36.0-47.0); HEMOGLOBIN 13.3 g/dL (12.0-16.0); LYMPHOCYTES # (AUTO) 0.4 X10^3/uL (1.3-2.9); LYMPHOCYTES % (AUTO) 3.5 % (21.0-51.0); MEAN CORPUSCULAR HEMOGLOBIN 30.3 pg (27.0-34.0); MEAN CORPUSCULAR HGB CONC 33.3 g/dL (33.0-35.0); MEAN CORPUSCULAR VOLUME 90.9 fL (80.0-100.0); MEAN PLATELET VOLUME 7.8 fL (7.4-11.0); MONOCYTES # (AUTO) 0.6 x10^3/uL (0.3-0.8); NEUTROPHILS # (AUTO) 10.7 x10^3/uL (2.2-4.8); NEUTROPHILS % (AUTO) 91.5 % (42.0-75.0); PLATELET COUNT 61 X10^3/uL (150.0-450.0); RED BLOOD COUNT 4.39 X10^6/uL (3.5-5.4); RED CELL DISTRIBUTION WIDTH 13.8 % (11.6-16.5); WHITE BLOOD COUNT 11.7 X10^3/uL (3.6-10.0)
[2020-05-26 12:41] LABS: BAND NEUTROPHILS % 3 % (0-10)
[2020-05-26 12:42] LABS: PLATELET MORPHOLOGY COMMENT NORMAL (NORMAL)
[2020-05-26] MEDS ORDERED: DIFLUCAN 200 MG IV PREMIX* 200 MG/100 ML BAG IV SCH (13:00)
[2020-05-26] MEDS: NS 1000 ML 1,000 ML IV SCH (15:03)
[2020-05-26] MEDS: REQUIP PO SCH (21:00)
[2020-05-26] MEDS: ZANAFLEX PO SCH (21:00)
[2020-05-26] MEDS: NYSTATIN CREAM TOP SCH (21:00)
[2020-05-27] MEDS: XOPENEX 1.25 MG/3 ML NEBULE NEB SCH ×4 (00:05→17:22)
[2020-05-27] MEDS: NEURONTIN CAP 400 MG PO SCH ×3 (00:11→21:53)
[2020-05-27] MEDS: BENADRYL INJ 50 MG VIAL IVP SCH ×4 (00:15→21:55)
[2020-05-27 05:32] LABS: BASOPHILS # (AUTO) 0.2 X10^3/uL (0.0-0.1); BASOPHILS % (AUTO) 1.8 % (0.2-1.0); HEMATOCRIT 38.3 % (36.0-47.0); HEMOGLOBIN 12.4 g/dL (12.0-16.0); LYMPHOCYTES # (AUTO) 0.3 X10^3/uL (1.3-2.9); LYMPHOCYTES % (AUTO) 3.4 % (21.0-51.0); MEAN CORPUSCULAR HEMOGLOBIN 30.1 pg (27.0-34.0); MEAN CORPUSCULAR HGB CONC 32.4 g/dL (33.0-35.0); MEAN PLATELET VOLUME 8.6 fL (7.4-11.0); MONOCYTES # (AUTO) 0.4 x10^3/uL (0.3-0.8); MONOCYTES % (AUTO) 4.5 % (0.0-13.0); NEUTROPHILS # (AUTO) 7.7 x10^3/uL (2.2-4.8); NEUTROPHILS % (AUTO) 90.3 % (42.0-75.0); PLATELET COUNT 56 X10^3/uL (150.0-450.0); RED BLOOD COUNT 4.12 X10^6/uL (3.5-5.4); RED CELL DISTRIBUTION WIDTH 13.6 % (11.6-16.5); WHITE BLOOD COUNT 8.5 X10^3/uL (3.6-10.0)
[2020-05-27 06:05] LABS: ALANINE AMINOTRANSFERASE 52 Units/L (12-78); ALBUMIN 2.3 g/dL (3.4-5.0); ALKALINE PHOSPHATASE 121 Units/L (46-116); ASPARTATE AMINO TRANSFERASE 34 Units/L (15-37); BLOOD UREA NITROGEN 27 mg/dL (7-18); CALCIUM 8.3 mg/dL (8.5-10.1); CARBON DIOXIDE 32.5 mmol/L (21-32); CHLORIDE 104 mmol/L (98-107); COR CA(FOR HYPOALB) 9.7 mg/dL (8.5-10.1); COR NA(FOR HYPERGLY) 144 mmol/L (136-145); CREATININE 0.76 mg/dL (0.55-1.02); SODIUM 141 mmol/L (136-145); TOTAL PROTEIN 5.5 g/dL (6.4-8.2); eGFR NON BLACK RACES > 60 (>60)
[2020-05-27] MEDS: SOLU-Medrol 125 MG VIAL IVP SCH ×3 (06:46→21:55)
[2020-05-27 07:15] LABS: ABG BASE EXCESS 13.5 mmol/L (-2.0-2.0)
[2020-05-27 07:16] LABS: ABG ALLEN TEST POS; ABG HCO3 38.9 mmol/L (22-26)
[2020-05-27 07:21] LABS: BAND NEUTROPHILS % 4 % (0-10); PLATELET MORPHOLOGY COMMENT NORMAL (NORMAL)
[2020-05-27] MEDS: MICRO K EXTEN CAP 10 MEQ PO SCH (08:48)
[2020-05-27] MEDS: LEVAQUIN PREMIX IV 500 MG 500 MG/100 ML BAG IV SCH (08:48)
[2020-05-27] MEDS: LASIX IVP SCH (08:48)
[2020-05-27] MEDS: PAXIL PO SCH (08:49)
[2020-05-27] MEDS: NYSTATIN CREAM TOP SCH ×2 (08:49→21:54)
[2020-05-27] MEDS: ROBITUSSIN DM PO SCH ×4 (08:49→21:54)
[2020-05-27] MEDS: NORVASC TAB 5 MG PO SCH (08:49)
[2020-05-27] MEDS: PriLOSEC PO SCH (08:50)
[2020-05-27] MEDS: NYSTATIN SUSP PO SCH ×4 (08:51→21:54)
[2020-05-27] MEDS: NORCO 5/325 MG TAB PO PRN ×2 (08:58→21:45)
[2020-05-27] MEDS: PULMICORT NEB TX 0.5 MG NEB SCH ×2 (09:53→21:00)
[2020-05-27] MEDS: ATIVAN TAB 0.5 MG PO PRN (10:18)
--- NOTE | 2020-05-27 11:09 | RAD ---
HISTORYFollow-up COVID-19STUDYChest AP [id number]/28/2020FINDIN GSPatient is rotated to the left. There is a right IJ line in good position. The heart remains enlarged. Diffuse bilateral interstitial and ground-glass infiltrates are unchanged. There does appear to be an area of consolidation in the retrocardiac left lower lobe. Air bronchograms are present. No pleural effusions are identified. Bony thorax is unremarkable.IMPRESSIONNo change diffuse bilateral interstitial ground-glass infiltratesArea of consolidation in the retrocardiac area of the left lower lobe better demonstrated on today's examination than on the prior examinationCardiomegaly without definite congestive heart failureElectronically signed by: CANDELARIA MILLER (May 27, 2020 11:08:08)
[2020-05-27] MEDS: NS 1000 ML 1,000 ML IV SCH (13:40)
[2020-05-27] MEDS: REQUIP PO SCH (21:54)
[2020-05-27] MEDS: ZANAFLEX PO SCH (21:55)
[2020-05-28] MEDS: XOPENEX 1.25 MG/3 ML NEBULE NEB SCH ×5 (00:15→21:00)
[2020-05-28] MEDS: ATIVAN TAB 0.5 MG PO PRN (04:24)
[2020-05-28] MEDS: BENADRYL INJ 50 MG VIAL IVP SCH ×3 (05:34→21:46)
[2020-05-28] MEDS: SOLU-Medrol 125 MG VIAL IVP SCH ×3 (05:34→21:46)
[2020-05-28 06:13] LABS: BASOPHILS % (AUTO) 0.2 % (0.2-1.0); HEMATOCRIT 39.5 % (36.0-47.0); HEMOGLOBIN 12.8 g/dL (12.0-16.0); LYMPHOCYTES # (AUTO) 0.2 X10^3/uL (1.3-2.9); MEAN CORPUSCULAR HGB CONC 32.5 g/dL (33.0-35.0); MEAN CORPUSCULAR VOLUME 92.2 fL (80.0-100.0); MEAN PLATELET VOLUME 8.5 fL (7.4-11.0); MONOCYTES # (AUTO) 0.4 x10^3/uL (0.3-0.8); MONOCYTES % (AUTO) 4.4 % (0.0-13.0); NEUTROPHILS # (AUTO) 9.4 x10^3/uL (2.2-4.8); NEUTROPHILS % (AUTO) 93.4 % (42.0-75.0); PLATELET COUNT 67 X10^3/uL (150.0-450.0); RED BLOOD COUNT 4.29 X10^6/uL (3.5-5.4); RED CELL DISTRIBUTION WIDTH 13.7 % (11.6-16.5); WHITE BLOOD COUNT 10.1 X10^3/uL (3.6-10.0)
[2020-05-28 06:27] LABS: ALANINE AMINOTRANSFERASE 60 Units/L (12-78); ALBUMIN 2.6 g/dL (3.4-5.0); ALKALINE PHOSPHATASE 101 Units/L (46-116); ASPARTATE AMINO TRANSFERASE 30 Units/L (15-37); BLOOD UREA NITROGEN 30 mg/dL (7-18); CALCIUM 8.3 mg/dL (8.5-10.1); CARBON DIOXIDE 31.7 mmol/L (21-32); CHLORIDE 103 mmol/L (98-107); COR CA(FOR HYPOALB) 9.4 mg/dL (8.5-10.1); COR NA(FOR HYPERGLY) 144 mmol/L (136-145); CREATININE 0.84 mg/dL (0.55-1.02); SODIUM 141 mmol/L (136-145); TOTAL PROTEIN 5.8 g/dL (6.4-8.2); eGFR NON BLACK RACES > 60 (>60)
--- NOTE | 2020-05-28 06:45 | RAD ---
HISTORYSOBSTUDYCHEST, 1 [id number]/29/2020FINDINGSThe trachea is midline. Right IJ central line tip in SVC. The cardiac silhouette is mildly enlarged.. Diffuse bilateral interstitial and ground-glass infiltrates unchanged. No pneumothorax.. The bony thorax is unremarkable.IMPRESSIONStable portable chestElectronically signed by: Colt Young (May 28, 2020 06:43:37)
[2020-05-28 07:48] LABS: BAND NEUTROPHILS % 3 % (0-10); PLATELET MORPHOLOGY COMMENT NORMAL (NORMAL)
[2020-05-28 08:00] LABS: ABG BASE EXCESS 13.5 mmol/L (-2.0-2.0)
[2020-05-28 08:01] LABS: ABG ALLEN TEST POS; ABG HCO3 38.3 mmol/L (22-26)
[2020-05-28] MEDS: LASIX IVP SCH (08:30)
[2020-05-28] MEDS: NYSTATIN SUSP PO SCH ×4 (08:31→20:43)
[2020-05-28] MEDS: LEVAQUIN PREMIX IV 500 MG 500 MG/100 ML BAG IV SCH (08:31)
[2020-05-28] MEDS: MICRO K EXTEN CAP 10 MEQ PO SCH (08:31)
[2020-05-28] MEDS: ROBITUSSIN DM PO SCH ×4 (08:31→20:44)
[2020-05-28] MEDS: NEURONTIN CAP 400 MG PO SCH ×2 (08:32→20:43)
[2020-05-28] MEDS: NORVASC TAB 5 MG PO SCH (08:32)
[2020-05-28] MEDS: PriLOSEC PO SCH (08:32)
[2020-05-28] MEDS: PAXIL PO SCH (08:32)
[2020-05-28] MEDS: NYSTATIN CREAM TOP SCH ×2 (08:33→20:43)
[2020-05-28] MEDS: PULMICORT NEB TX 0.5 MG NEB SCH (09:40)
[2020-05-28] MEDS: ELIQUIS PO SCH ×2 (10:54→20:42)
[2020-05-28 18:06] LABS: ABG BASE EXCESS 13.5 mmol/L (-2.0-2.0)
[2020-05-28 18:07] LABS: ABG HCO3 38.3 mmol/L (22-26)
[2020-05-28 18:08] LABS: ABG ALLEN TEST POS
[2020-05-28] MEDS: ZANAFLEX PO SCH (20:44)
[2020-05-28] MEDS: REQUIP PO SCH (20:44)
[2020-05-28] MEDS: NS 1000 ML 1,000 ML IV SCH (22:32)
[2020-05-28] MEDS: TYLENOL 325 MG TAB PO PRN (22:58)
[2020-05-29] MEDS: PULMICORT NEB TX 0.5 MG NEB SCH ×3 (04:12→20:35)
[2020-05-29] MEDS: XOPENEX 1.25 MG/3 ML NEBULE NEB SCH ×4 (04:13→17:25)
[2020-05-29] MEDS: SOLU-Medrol 125 MG VIAL IVP SCH ×3 (05:59→22:51)
[2020-05-29] MEDS: BENADRYL INJ 50 MG VIAL IVP SCH ×3 (05:59→23:58)
[2020-05-29 06:24] LABS: BASOPHILS % (AUTO) 0 % (0.2-1.0); HEMATOCRIT 40.9 % (36.0-47.0); HEMOGLOBIN 13.6 g/dL (12.0-16.0); LYMPHOCYTES # (AUTO) 0.3 X10^3/uL (1.3-2.9); LYMPHOCYTES % (AUTO) 2.8 % (21.0-51.0); MEAN CORPUSCULAR HEMOGLOBIN 30.6 pg (27.0-34.0); MEAN CORPUSCULAR HGB CONC 33.2 g/dL (33.0-35.0); MEAN CORPUSCULAR VOLUME 92.2 fL (80.0-100.0); MEAN PLATELET VOLUME 8.7 fL (7.4-11.0); MONOCYTES # (AUTO) 0.5 x10^3/uL (0.3-0.8); MONOCYTES % (AUTO) 4.7 % (0.0-13.0); NEUTROPHILS # (AUTO) 10.3 x10^3/uL (2.2-4.8); NEUTROPHILS % (AUTO) 92.5 % (42.0-75.0); PLATELET COUNT 76 X10^3/uL (150.0-450.0); RED BLOOD COUNT 4.43 X10^6/uL (3.5-5.4); RED CELL DISTRIBUTION WIDTH 13.8 % (11.6-16.5); WHITE BLOOD COUNT 11.1 X10^3/uL (3.6-10.0)
[2020-05-29] MEDS: TYLENOL 325 MG TAB PO PRN (06:26)
[2020-05-29 06:41] LABS: ALANINE AMINOTRANSFERASE 69 Units/L (12-78); ALBUMIN 2.9 g/dL (3.4-5.0); ALKALINE PHOSPHATASE 108 Units/L (46-116); ASPARTATE AMINO TRANSFERASE 32 Units/L (15-37); BLOOD UREA NITROGEN 31 mg/dL (7-18); CALCIUM 8.8 mg/dL (8.5-10.1); CARBON DIOXIDE 33.4 mmol/L (21-32); CHLORIDE 100 mmol/L (98-107); COR CA(FOR HYPOALB) 9.7 mg/dL (8.5-10.1); COR NA(FOR HYPERGLY) 142 mmol/L (136-145); SODIUM 140 mmol/L (136-145); TOTAL PROTEIN 6.1 g/dL (6.4-8.2); eGFR NON BLACK RACES > 60 (>60)
[2020-05-29 07:18] LABS: BAND NEUTROPHILS % 5 % (0-10); PLATELET MORPHOLOGY COMMENT NORMAL (NORMAL)
[2020-05-29] MEDS: NORCO 5/325 MG TAB PO PRN ×2 (08:00→17:00)
[2020-05-29 08:05] LABS: ABG ALLEN TEST POS; ABG BASE EXCESS 13.2 mmol/L (-2.0-2.0); ABG HCO3 38.2 mmol/L (22-26)
[2020-05-29] MEDS: ROBITUSSIN DM PO SCH ×4 (08:30→22:53)
[2020-05-29] MEDS: NYSTATIN SUSP PO SCH ×4 (08:30→22:55)
[2020-05-29] MEDS: NYSTATIN CREAM TOP SCH ×2 (08:30→23:08)
[2020-05-29] MEDS: ELIQUIS PO SCH ×2 (08:30→22:54)
[2020-05-29] MEDS: NORVASC TAB 5 MG PO SCH (08:30)
[2020-05-29] MEDS: PAXIL PO SCH (08:30)
[2020-05-29] MEDS: PriLOSEC PO SCH (08:30)
[2020-05-29] MEDS: LEVAQUIN PREMIX IV 500 MG 500 MG/100 ML BAG IV SCH (09:15)
[2020-05-29] MEDS: LASIX IVP SCH (09:15)
[2020-05-29] MEDS: MICRO K EXTEN CAP 10 MEQ PO SCH (09:16)
[2020-05-29] MEDS: NEURONTIN CAP 400 MG PO SCH ×2 (09:16→22:54)
[2020-05-29] MEDS ORDERED: VOLTAREN 1 % GEL MULTI DOSE TUBE TOP PRN (12:22)
[2020-05-29] MEDS: ATIVAN TAB 0.5 MG PO PRN (18:43)
[2020-05-29] MEDS ORDERED: IVERMECTIN PO ONE (20:27)
[2020-05-29] MEDS ORDERED: VITAMIN A PO SCH (21:00)
[2020-05-29] MEDS: NS IV SCH (22:51)
[2020-05-29] MEDS: ZINC SULFATE PO SCH (22:51)
[2020-05-29] MEDS: ASCORBIC ACID MULTI IV SCH (22:51)
[2020-05-29] MEDS: VIBRAMYCIN PO SCH (22:52)
[2020-05-29] MEDS: ZANAFLEX PO SCH (22:52)
[2020-05-29] MEDS: THIAMINE HCL INJ IVP SCH (22:53)
[2020-05-29] MEDS: LIPITOR TAB 40 MG PO SCH (22:54)
[2020-05-29] MEDS: REQUIP PO SCH (23:05)
[2020-05-29] MEDS: PEPCID TAB 20 MG PO SCH (23:06)
[2020-05-29] MEDS: VITAMIN D (1.25MG) PO SCH (23:08)
[2020-05-30] MEDS: XOPENEX 1.25 MG/3 ML NEBULE NEB SCH ×4 (00:25→17:30)
[2020-05-30] MEDS: NS IV SCH ×4 (02:43→21:36)
[2020-05-30] MEDS: ASCORBIC ACID MULTI IV SCH ×4 (02:43→21:36)
[2020-05-30] MEDS: ATIVAN TAB 0.5 MG PO PRN ×2 (03:15→20:04)
[2020-05-30] MEDS: SOLU-Medrol 125 MG VIAL IVP SCH ×3 (05:27→21:36)
[2020-05-30] MEDS: BENADRYL INJ 50 MG VIAL IVP SCH ×3 (05:27→23:17)
[2020-05-30 06:17] LABS: BASOPHILS % (AUTO) 0.3 % (0.2-1.0); EOSINOPHILS % (AUTO) 0.1 % (0.9-2.9); HEMATOCRIT 39.5 % (36.0-47.0); HEMOGLOBIN 13.2 g/dL (12.0-16.0); LYMPHOCYTES # (AUTO) 0.1 X10^3/uL (1.3-2.9); LYMPHOCYTES % (AUTO) 1.6 % (21.0-51.0); MEAN CORPUSCULAR HEMOGLOBIN 30.7 pg (27.0-34.0); MEAN CORPUSCULAR HGB CONC 33.3 g/dL (33.0-35.0); MEAN PLATELET VOLUME 8.6 fL (7.4-11.0); MONOCYTES # (AUTO) 0.5 x10^3/uL (0.3-0.8); MONOCYTES % (AUTO) 5.7 % (0.0-13.0); NEUTROPHILS # (AUTO) 8.1 x10^3/uL (2.2-4.8); NEUTROPHILS % (AUTO) 92.3 % (42.0-75.0); PLATELET COUNT 67 X10^3/uL (150.0-450.0); RED BLOOD COUNT 4.29 X10^6/uL (3.5-5.4); RED CELL DISTRIBUTION WIDTH 13.8 % (11.6-16.5); WHITE BLOOD COUNT 8.8 X10^3/uL (3.6-10.0)
[2020-05-30 06:29] LABS: ALANINE AMINOTRANSFERASE 71 Units/L (12-78); ALBUMIN 2.7 g/dL (3.4-5.0); ALKALINE PHOSPHATASE 87 Units/L (46-116); ASPARTATE AMINO TRANSFERASE 47 Units/L (15-37); BLOOD UREA NITROGEN 31 mg/dL (7-18); CALCIUM 8.5 mg/dL (8.5-10.1); CARBON DIOXIDE 32.6 mmol/L (21-32); CHLORIDE 102 mmol/L (98-107); COR CA(FOR HYPOALB) 9.5 mg/dL (8.5-10.1); COR NA(FOR HYPERGLY) 144 mmol/L (136-145); CREATININE 0.72 mg/dL (0.55-1.02); SODIUM 141 mmol/L (136-145); TOTAL PROTEIN 5.6 g/dL (6.4-8.2); eGFR NON BLACK RACES > 60 (>60)
--- NOTE | 2020-05-30 07:20 | RAD ---
HISTORYSOB, COVID +STUDYCHEST, 1 [id number]/30/2020TECHNIQUEAP view of the chest, 2 imagesFINDINGSRight IJ central line in good position. Cardiac silhouette is mostly obscured. Stable left worse than right lung airspace disease. No large pleural effusion. No discernible pneumothorax. Soft tissue attenuation limits evaluation.IMPRESSIONNo significant change.Electronically signed by: Reji Obrien (May 30, 2020 07:18:16)
[2020-05-30 07:35] LABS: PLATELET MORPHOLOGY COMMENT NORMAL (NORMAL)
[2020-05-30] MEDS ORDERED: NS 50 ML IV 50 ML IV ONE (08:33)
[2020-05-30] MEDS: LEVAQUIN PREMIX IV 500 MG 500 MG/100 ML BAG IV SCH (08:35)
[2020-05-30] MEDS: PEPCID TAB 20 MG PO SCH ×2 (09:31→21:38)
[2020-05-30] MEDS: ROBITUSSIN DM PO SCH ×5 (09:31→21:38)
[2020-05-30] MEDS: ZINC SULFATE PO SCH ×2 (09:31→21:39)
[2020-05-30] MEDS: MICRO K EXTEN CAP 10 MEQ PO SCH (09:32)
[2020-05-30] MEDS: LIPITOR TAB 40 MG PO SCH (09:32)
[2020-05-30] MEDS: PriLOSEC PO SCH (09:32)
[2020-05-30] MEDS: VITAMIN D (1.25MG) PO SCH (09:33)
[2020-05-30] MEDS: PAXIL PO SCH (09:33)
[2020-05-30] MEDS: NYSTATIN CREAM TOP SCH ×3 (09:34→21:37)
[2020-05-30] MEDS: NORVASC TAB 5 MG PO SCH (09:34)
[2020-05-30] MEDS: LASIX IVP SCH (09:35)
[2020-05-30] MEDS: NYSTATIN SUSP PO SCH ×5 (09:35→21:37)
[2020-05-30] MEDS: NEURONTIN CAP 400 MG PO SCH ×2 (09:35→21:37)
[2020-05-30] MEDS: THIAMINE HCL INJ IVP SCH ×2 (09:36→21:38)
[2020-05-30] MEDS: ELIQUIS PO SCH ×2 (09:37→21:36)
[2020-05-30] MEDS: NS 1000 ML 1,000 ML IV SCH ×3 (09:38→13:02)
[2020-05-30] MEDS: VIBRAMYCIN PO SCH ×2 (09:40→21:39)
[2020-05-30] MEDS: PULMICORT NEB TX 0.5 MG NEB SCH ×2 (10:03→20:10)
[2020-05-30] MEDS: NORCO 5/325 MG TAB PO PRN ×2 (10:09→20:03)
[2020-05-30 10:17] LABS: ABG BASE EXCESS 12.2 mmol/L (-2.0-2.0)
[2020-05-30 10:18] LABS: ABG HCO3 37.8 mmol/L (22-26)
[2020-05-30 10:19] LABS: ABG ALLEN TEST POS
[2020-05-30] MEDS ORDERED: NS 100 ML IV 100 ML IV ONE (12:48)
[2020-05-30] MEDS: ZANAFLEX PO SCH (21:38)
[2020-05-30] MEDS: REQUIP PO SCH (21:39)
[2020-05-31] MEDS: XOPENEX 1.25 MG/3 ML NEBULE NEB SCH ×5 (00:30→17:03)
[2020-05-31] MEDS: ASCORBIC ACID MULTI IV SCH ×4 (03:04→21:37)
[2020-05-31] MEDS: NS IV SCH ×4 (03:04→21:37)
[2020-05-31] MEDS: SOLU-Medrol 125 MG VIAL IVP SCH ×3 (05:14→21:37)
[2020-05-31] MEDS: NS 1000 ML 1,000 ML IV SCH ×2 (05:47→14:13)
[2020-05-31] MEDS: BENADRYL INJ 50 MG VIAL IVP SCH ×3 (05:56→21:37)
[2020-05-31 06:38] LABS: BASOPHILS % (AUTO) 0.6 % (0.2-1.0); HEMATOCRIT 36.6 % (36.0-47.0); HEMOGLOBIN 12.4 g/dL (12.0-16.0); LYMPHOCYTES # (AUTO) 0.2 X10^3/uL (1.3-2.9); LYMPHOCYTES % (AUTO) 2.5 % (21.0-51.0); MEAN CORPUSCULAR HEMOGLOBIN 31.2 pg (27.0-34.0); MEAN CORPUSCULAR VOLUME 91.7 fL (80.0-100.0); MEAN PLATELET VOLUME 7.8 fL (7.4-11.0); MONOCYTES # (AUTO) 0.2 x10^3/uL (0.3-0.8); NEUTROPHILS # (AUTO) 7.3 x10^3/uL (2.2-4.8); NEUTROPHILS % (AUTO) 93.9 % (42.0-75.0); PLATELET COUNT 55 X10^3/uL (150.0-450.0); RED BLOOD COUNT 3.99 X10^6/uL (3.5-5.4); RED CELL DISTRIBUTION WIDTH 13.7 % (11.6-16.5); WHITE BLOOD COUNT 7.8 X10^3/uL (3.6-10.0)
[2020-05-31 06:51] LABS: ALANINE AMINOTRANSFERASE 67 Units/L (12-78); ALBUMIN 2.5 g/dL (3.4-5.0); ALKALINE PHOSPHATASE 79 Units/L (46-116); ASPARTATE AMINO TRANSFERASE 32 Units/L (15-37); BLOOD UREA NITROGEN 30 mg/dL (7-18); CALCIUM 8.4 mg/dL (8.5-10.1); CARBON DIOXIDE 33.6 mmol/L (21-32); CHLORIDE 103 mmol/L (98-107); COR CA(FOR HYPOALB) 9.6 mg/dL (8.5-10.1); COR NA(FOR HYPERGLY) 144 mmol/L (136-145); CREATININE 0.73 mg/dL (0.55-1.02); SODIUM 141 mmol/L (136-145); TOTAL PROTEIN 5.2 g/dL (6.4-8.2); eGFR NON BLACK RACES > 60 (>60)
[2020-05-31 07:44] LABS: BAND NEUTROPHILS % 4 % (0-10); PLATELET MORPHOLOGY COMMENT NORMAL (NORMAL)
[2020-05-31] MEDS: NYSTATIN CREAM TOP SCH ×2 (08:10→21:40)
[2020-05-31] MEDS: LEVAQUIN PREMIX IV 500 MG 500 MG/100 ML BAG IV SCH (08:40)
[2020-05-31] MEDS: PULMICORT NEB TX 0.5 MG NEB SCH ×2 (09:13→21:00)
[2020-05-31] MEDS: VITAMIN D3 125 mcg (5,000 UNITS) PO SCH (09:23)
[2020-05-31] MEDS: ELIQUIS PO SCH ×2 (09:24→21:40)
[2020-05-31] MEDS: PAXIL PO SCH (09:24)
[2020-05-31] MEDS: ROBITUSSIN DM PO SCH ×4 (09:24→21:38)
[2020-05-31] MEDS: PriLOSEC PO SCH (09:24)
[2020-05-31] MEDS: NORVASC TAB 5 MG PO SCH (09:24)
[2020-05-31] MEDS: MICRO K EXTEN CAP 10 MEQ PO SCH (09:24)
[2020-05-31] MEDS: ZINC SULFATE PO SCH ×2 (09:24→21:38)
[2020-05-31] MEDS: VITAMIN A PO SCH (09:25)
[2020-05-31] MEDS: NEURONTIN CAP 400 MG PO SCH ×2 (09:25→21:39)
[2020-05-31] MEDS: NYSTATIN SUSP PO SCH ×4 (09:25→21:39)
[2020-05-31] MEDS: LASIX IVP SCH (09:26)
[2020-05-31] MEDS: THIAMINE HCL INJ IVP SCH ×2 (09:55→21:38)
[2020-05-31] MEDS: LIPITOR TAB 40 MG PO SCH (09:56)
[2020-05-31] MEDS: PEPCID TAB 20 MG PO SCH ×2 (09:56→21:39)
[2020-05-31] MEDS: VIBRAMYCIN PO SCH ×2 (09:56→21:38)
[2020-05-31] MEDS: NORCO 5/325 MG TAB PO PRN (20:04)
[2020-05-31] MEDS: ATIVAN TAB 0.5 MG PO PRN (20:06)
[2020-05-31] MEDS: ZANAFLEX PO SCH (21:37)
[2020-05-31] MEDS: REQUIP PO SCH (21:39)
[2020-06-01] MEDS: XOPENEX 1.25 MG/3 ML NEBULE NEB SCH ×5 (00:15→17:00)
[2020-06-01] MEDS: ATIVAN TAB 0.5 MG PO PRN (02:39)
[2020-06-01] MEDS: ASCORBIC ACID MULTI IV SCH ×4 (03:30→21:01)
[2020-06-01] MEDS: NS IV SCH ×4 (03:30→21:01)
[2020-06-01] MEDS: SOLU-Medrol 125 MG VIAL IVP SCH ×2 (05:30→13:48)
[2020-06-01 06:03] LABS: BASOPHILS # (AUTO) 0.1 X10^3/uL (0.0-0.1); BASOPHILS % (AUTO) 0.9 % (0.2-1.0); HEMATOCRIT 38.1 % (36.0-47.0); HEMOGLOBIN 12.4 g/dL (12.0-16.0); LYMPHOCYTES # (AUTO) 0.1 X10^3/uL (1.3-2.9); LYMPHOCYTES % (AUTO) 1.6 % (21.0-51.0); MEAN CORPUSCULAR HEMOGLOBIN 30.1 pg (27.0-34.0); MEAN CORPUSCULAR HGB CONC 32.4 g/dL (33.0-35.0); MEAN CORPUSCULAR VOLUME 92.8 fL (80.0-100.0); MEAN PLATELET VOLUME 8.6 fL (7.4-11.0); MONOCYTES # (AUTO) 0.3 x10^3/uL (0.3-0.8); MONOCYTES % (AUTO) 3.5 % (0.0-13.0); NEUTROPHILS # (AUTO) 7.3 x10^3/uL (2.2-4.8); PLATELET COUNT 59 X10^3/uL (150.0-450.0); RED BLOOD COUNT 4.11 X10^6/uL (3.5-5.4); RED CELL DISTRIBUTION WIDTH 13.9 % (11.6-16.5); WHITE BLOOD COUNT 7.7 X10^3/uL (3.6-10.0)
[2020-06-01 06:18] LABS: ALANINE AMINOTRANSFERASE 77 Units/L (12-78); ALBUMIN 2.5 g/dL (3.4-5.0); ALKALINE PHOSPHATASE 80 Units/L (46-116); ASPARTATE AMINO TRANSFERASE 35 Units/L (15-37); BLOOD UREA NITROGEN 34 mg/dL (7-18); CALCIUM 8.3 mg/dL (8.5-10.1); CARBON DIOXIDE 32.6 mmol/L (21-32); CHLORIDE 104 mmol/L (98-107); COR CA(FOR HYPOALB) 9.5 mg/dL (8.5-10.1); COR NA(FOR HYPERGLY) 146 mmol/L (136-145); CREATININE 0.79 mg/dL (0.55-1.02); SODIUM 142 mmol/L (136-145); eGFR NON BLACK RACES > 60 (>60)
[2020-06-01] MEDS: BENADRYL INJ 50 MG VIAL IVP SCH ×3 (06:34→21:03)
[2020-06-01 07:20] LABS: PLATELET MORPHOLOGY COMMENT NORMAL (NORMAL)
[2020-06-01] MEDS: LEVAQUIN PREMIX IV 500 MG 500 MG/100 ML BAG IV SCH (08:13)
[2020-06-01] MEDS: THIAMINE HCL INJ IVP SCH ×2 (08:14→21:06)
[2020-06-01] MEDS: PULMICORT NEB TX 0.5 MG NEB SCH ×2 (08:45→21:15)
[2020-06-01] MEDS: PriLOSEC PO SCH (09:19)
[2020-06-01] MEDS: VITAMIN A PO SCH (09:19)
[2020-06-01] MEDS: VITAMIN D3 125 mcg (5,000 UNITS) PO SCH (09:19)
[2020-06-01] MEDS: ELIQUIS PO SCH ×2 (09:20→21:02)
[2020-06-01] MEDS: ROBITUSSIN DM PO SCH ×5 (09:20→21:07)
[2020-06-01] MEDS: LIPITOR TAB 40 MG PO SCH (09:20)
[2020-06-01] MEDS: MICRO K EXTEN CAP 10 MEQ PO SCH (09:20)
[2020-06-01] MEDS: PAXIL PO SCH (09:20)
[2020-06-01] MEDS: NEURONTIN CAP 400 MG PO SCH ×2 (09:21→21:06)
[2020-06-01] MEDS: LASIX IVP SCH (09:21)
[2020-06-01] MEDS: NORVASC TAB 5 MG PO SCH (09:22)
[2020-06-01] MEDS: PEPCID TAB 20 MG PO SCH ×2 (09:22→21:07)
[2020-06-01] MEDS: NYSTATIN SUSP PO SCH ×4 (09:23→21:07)
[2020-06-01] MEDS: NYSTATIN CREAM TOP SCH ×2 (09:23→21:05)
[2020-06-01] MEDS: ZINC SULFATE PO SCH ×2 (09:36→21:02)
[2020-06-01] MEDS: VIBRAMYCIN PO SCH ×2 (09:37→21:04)
[2020-06-01] MEDS ORDERED: NS 100 ML IV 100 ML IV ONE ×2 (09:39→13:48)
[2020-06-01] MEDS: NORCO 5/325 MG TAB PO PRN ×2 (11:52→21:08)
[2020-06-01] MEDS: NS 1000 ML 1,000 ML IV SCH (13:09)
[2020-06-01] MEDS ORDERED: ASCORBIC ACID INJ MULTI-DOSE VIAL IV ONE (13:52)
[2020-06-01] MEDS: ZANAFLEX PO SCH (21:03)
[2020-06-01] MEDS: REQUIP PO SCH (21:06)
[2020-06-02] MEDS: XOPENEX 1.25 MG/3 ML NEBULE NEB SCH ×4 (00:29→19:10)
[2020-06-02] MEDS: ASCORBIC ACID MULTI IV SCH ×4 (02:43→20:00)
[2020-06-02] MEDS: NS IV SCH ×4 (02:43→20:00)
[2020-06-02] MEDS: SOLU-Medrol 40 MG VIAL IVP SCH ×3 (05:33→21:00)
[2020-06-02] MEDS: BENADRYL INJ 50 MG VIAL IVP SCH ×3 (05:59→21:00)
[2020-06-02 06:22] LABS: BASOPHILS % (AUTO) 0.4 % (0.2-1.0); HEMATOCRIT 38.7 % (36.0-47.0); HEMOGLOBIN 13.1 g/dL (12.0-16.0); LYMPHOCYTES # (AUTO) 0.3 X10^3/uL (1.3-2.9); LYMPHOCYTES % (AUTO) 3.1 % (21.0-51.0); MEAN CORPUSCULAR HEMOGLOBIN 30.9 pg (27.0-34.0); MEAN CORPUSCULAR HGB CONC 33.9 g/dL (33.0-35.0); MEAN CORPUSCULAR VOLUME 91.1 fL (80.0-100.0); MEAN PLATELET VOLUME 8.3 fL (7.4-11.0); MONOCYTES # (AUTO) 0.6 x10^3/uL (0.3-0.8); MONOCYTES % (AUTO) 6.1 % (0.0-13.0); NEUTROPHILS # (AUTO) 8.4 x10^3/uL (2.2-4.8); NEUTROPHILS % (AUTO) 90.4 % (42.0-75.0); PLATELET COUNT 59 X10^3/uL (150.0-450.0); RED BLOOD COUNT 4.25 X10^6/uL (3.5-5.4); RED CELL DISTRIBUTION WIDTH 13.6 % (11.6-16.5); WHITE BLOOD COUNT 9.3 X10^3/uL (3.6-10.0)
[2020-06-02 06:35] LABS: ALANINE AMINOTRANSFERASE 85 Units/L (12-78); ALBUMIN 2.6 g/dL (3.4-5.0); ALKALINE PHOSPHATASE 87 Units/L (46-116); ASPARTATE AMINO TRANSFERASE 47 Units/L (15-37); BLOOD UREA NITROGEN 33 mg/dL (7-18); CALCIUM 8.2 mg/dL (8.5-10.1); CARBON DIOXIDE 32.7 mmol/L (21-32); CHLORIDE 104 mmol/L (98-107); COR CA(FOR HYPOALB) 9.3 mg/dL (8.5-10.1); COR NA(FOR HYPERGLY) 145 mmol/L (136-145); SODIUM 142 mmol/L (136-145); TOTAL PROTEIN 5.2 g/dL (6.4-8.2); eGFR NON BLACK RACES > 60 (>60)
[2020-06-02 06:49] LABS: PLATELET MORPHOLOGY COMMENT NORMAL (NORMAL)
--- NOTE | 2020-06-02 08:04 | RAD ---
HISTORYCOVID PNEUMONIASTUDYCHEST, 1 [id number]/31/2020FINDINGSThere is more opacity in the lungs than previously. This represents progressed pneumonia.No pleural effusion or pneumothorax.Cannot evaluate the heart size.Bones are unremarkable.EKG leads are noted. Right jugular central venous catheter is in the expected location of the superior vena cava.IMPRESSION1. Progressed bronchopneumoniaElectronically signed by: Jayce Padilla (Jun 02, 2020 08:03:28)
[2020-06-02] MEDS: PULMICORT NEB TX 0.5 MG NEB SCH ×2 (08:50→20:15)
[2020-06-02] MEDS: LEVAQUIN PREMIX IV 500 MG 500 MG/100 ML BAG IV SCH (09:27)
[2020-06-02] MEDS: ELIQUIS PO SCH ×2 (09:27→20:00)
[2020-06-02] MEDS: LASIX IVP SCH (09:28)
[2020-06-02] MEDS: MICRO K EXTEN CAP 10 MEQ PO SCH (09:28)
[2020-06-02] MEDS: LIPITOR TAB 40 MG PO SCH (09:28)
[2020-06-02] MEDS: PAXIL PO SCH (09:29)
[2020-06-02] MEDS: ZINC SULFATE PO SCH ×2 (09:29→20:00)
[2020-06-02] MEDS: NEURONTIN CAP 400 MG PO SCH ×2 (09:29→20:00)
[2020-06-02] MEDS: PriLOSEC PO SCH (09:30)
[2020-06-02] MEDS: VIBRAMYCIN PO SCH ×2 (09:30→20:00)
[2020-06-02] MEDS: VITAMIN A PO SCH (09:30)
[2020-06-02] MEDS: ROBITUSSIN DM PO SCH ×5 (09:31→21:35)
[2020-06-02] MEDS: VITAMIN D3 125 mcg (5,000 UNITS) PO SCH (09:32)
[2020-06-02] MEDS: THIAMINE HCL INJ IVP SCH ×2 (09:32→20:00)
[2020-06-02] MEDS: PEPCID TAB 20 MG PO SCH ×2 (09:33→20:00)
[2020-06-02] MEDS: NYSTATIN SUSP PO SCH ×4 (10:14→20:00)
[2020-06-02] MEDS: NYSTATIN CREAM TOP SCH ×2 (10:14→20:00)
[2020-06-02] MEDS: NORVASC TAB 5 MG PO SCH (15:34)
[2020-06-02] MEDS: BUTT CREAM (COMPOUND) EXT PRN (18:43)
[2020-06-02] MEDS: REQUIP PO SCH (20:00)
[2020-06-02] MEDS: NORCO 5/325 MG TAB PO PRN (20:00)
[2020-06-02] MEDS: ZANAFLEX PO SCH (21:19)
[2020-06-03] MEDS: XOPENEX 1.25 MG/3 ML NEBULE NEB SCH ×4 (00:25→17:22)
[2020-06-03] MEDS: NS IV SCH ×4 (02:57→20:00)
[2020-06-03] MEDS: ASCORBIC ACID MULTI IV SCH ×4 (02:57→20:00)
[2020-06-03 05:18] LABS: ABG BASE EXCESS 9.2 mmol/L (-2.0-2.0)
[2020-06-03 05:19] LABS: ABG ALLEN TEST POS; ABG HCO3 34.2 mmol/L (22-26)
--- NOTE | 2020-06-03 05:38 | RAD ---
STUDY: CHEST, 1 VIEWCOMPARISON: 06/02/2020HISTORY: PNEUMONIAFINDINGS:Persistent multifocal alveolar airspace disease is seen in the left lung and right lower lung zone. The appearance of the pleural parenchymal lung markings are unchanged. Cardiomediastinal contour is stable.No pleural effusion or pneumothorax is seen.Trachea is midlineIMPRESSION:There is no significant change from prior examElectronically signed by: Guanakito Richards (Jun 03, 2020 05:36:45)
[2020-06-03 05:56] LABS: BASOPHILS % (AUTO) 0.6 % (0.2-1.0); HEMOGLOBIN 13.6 g/dL (12.0-16.0); LYMPHOCYTES # (AUTO) 0.2 X10^3/uL (1.3-2.9); LYMPHOCYTES % (AUTO) 2.4 % (21.0-51.0); MEAN CORPUSCULAR HEMOGLOBIN 29.8 pg (27.0-34.0); MEAN CORPUSCULAR HGB CONC 32.3 g/dL (33.0-35.0); MEAN PLATELET VOLUME 8.3 fL (7.4-11.0); MONOCYTES # (AUTO) 0.4 x10^3/uL (0.3-0.8); MONOCYTES % (AUTO) 4.6 % (0.0-13.0); NEUTROPHILS # (AUTO) 7.1 x10^3/uL (2.2-4.8); NEUTROPHILS % (AUTO) 92.4 % (42.0-75.0); PLATELET COUNT 57 X10^3/uL (150.0-450.0); RED BLOOD COUNT 4.56 X10^6/uL (3.5-5.4); WHITE BLOOD COUNT 7.7 X10^3/uL (3.6-10.0)
[2020-06-03 06:03] LABS: ALANINE AMINOTRANSFERASE 110 Units/L (12-78); ALBUMIN 2.8 g/dL (3.4-5.0); ALKALINE PHOSPHATASE 93 Units/L (46-116); ASPARTATE AMINO TRANSFERASE 73 Units/L (15-37); BLOOD UREA NITROGEN 30 mg/dL (7-18); CALCIUM 8.2 mg/dL (8.5-10.1); CARBON DIOXIDE 31.4 mmol/L (21-32); CHLORIDE 102 mmol/L (98-107); COR CA(FOR HYPOALB) 9.2 mg/dL (8.5-10.1); COR NA(FOR HYPERGLY) 144 mmol/L (136-145); CREATININE 0.62 mg/dL (0.55-1.02); SODIUM 142 mmol/L (136-145); TOTAL PROTEIN 5.5 g/dL (6.4-8.2); eGFR NON BLACK RACES > 60 (>60)
[2020-06-03] MEDS: NS 1000 ML 1,000 ML IV SCH ×2 (06:04→20:53)
[2020-06-03] MEDS: SOLU-Medrol 40 MG VIAL IVP SCH ×3 (06:32→22:00)
[2020-06-03] MEDS: BENADRYL INJ 50 MG VIAL IVP SCH ×3 (06:32→22:00)
[2020-06-03 07:11] LABS: PLATELET MORPHOLOGY COMMENT NORMAL (NORMAL)
[2020-06-03] MEDS: PULMICORT NEB TX 0.5 MG NEB SCH (08:42)
[2020-06-03] MEDS: NORVASC TAB 5 MG PO SCH (09:15)
[2020-06-03] MEDS: ELIQUIS PO SCH ×2 (09:15→20:00)
[2020-06-03] MEDS: PAXIL PO SCH (09:15)
[2020-06-03] MEDS: LIPITOR TAB 40 MG PO SCH (09:15)
[2020-06-03] MEDS: VITAMIN A PO SCH (09:15)
[2020-06-03] MEDS: MICRO K EXTEN CAP 10 MEQ PO SCH (09:15)
[2020-06-03] MEDS: ROBITUSSIN DM PO SCH ×4 (09:15→20:00)
[2020-06-03] MEDS: LASIX IVP SCH (09:15)
[2020-06-03] MEDS: NYSTATIN SUSP PO SCH ×4 (09:15→20:00)
[2020-06-03] MEDS: NYSTATIN CREAM TOP SCH (09:15)
[2020-06-03] MEDS: PEPCID TAB 20 MG PO SCH ×2 (09:15→20:00)
[2020-06-03] MEDS: PriLOSEC PO SCH (09:15)
[2020-06-03] MEDS: VIBRAMYCIN PO SCH ×2 (09:15→20:00)
[2020-06-03] MEDS: THIAMINE HCL INJ IVP SCH ×2 (09:15→20:00)
[2020-06-03] MEDS: ZINC SULFATE PO SCH ×2 (09:15→20:00)
[2020-06-03] MEDS: NEURONTIN CAP 400 MG PO SCH ×2 (09:15→20:00)
[2020-06-03] MEDS: VITAMIN D3 125 mcg (5,000 UNITS) PO SCH (09:15)
[2020-06-03] MEDS: LEVAQUIN PREMIX IV 500 MG 500 MG/100 ML BAG IV SCH (10:13)
[2020-06-03] MEDS: NORCO 5/325 MG TAB PO PRN (12:13)
[2020-06-03] MEDS: ATIVAN TAB 0.5 MG PO PRN (13:40)
[2020-06-03] MEDS: REQUIP PO SCH (20:00)
[2020-06-03] MEDS: NYSTATIN POWDER TOP SCH (20:00)
[2020-06-03] MEDS: ZANAFLEX PO SCH (20:54)
[2020-06-04] MEDS: PULMICORT NEB TX 0.5 MG NEB SCH ×3 (00:24→23:10)
[2020-06-04] MEDS: XOPENEX 1.25 MG/3 ML NEBULE NEB SCH ×5 (00:33→23:10)
[2020-06-04] MEDS: NS IV SCH ×4 (03:35→21:10)
[2020-06-04] MEDS: ASCORBIC ACID MULTI IV SCH ×4 (03:35→21:10)
[2020-06-04 04:46] LABS: ABG BASE EXCESS 5.9 mmol/L (-2.0-2.0)
[2020-06-04 04:47] LABS: ABG ALLEN TEST POS; ABG HCO3 31.2 mmol/L (22-26)
[2020-06-04] MEDS: BENADRYL INJ 50 MG VIAL IVP SCH ×3 (05:43→21:10)
[2020-06-04] MEDS: SOLU-Medrol 40 MG VIAL IVP SCH ×3 (05:44→21:18)
[2020-06-04 05:45] LABS: ALANINE AMINOTRANSFERASE 56 Units/L (12-78); ALBUMIN 2.7 g/dL (3.4-5.0); ALKALINE PHOSPHATASE 52 Units/L (46-116); ASPARTATE AMINO TRANSFERASE 117 Units/L (15-37); BASOPHILS % (AUTO) 0.1 % (0.2-1.0); BLOOD UREA NITROGEN 49 mg/dL (7-18); CALCIUM 7.9 mg/dL (8.5-10.1); CARBON DIOXIDE 36.7 mmol/L (21-32); CHLORIDE 106 mmol/L (98-107); COR CA(FOR HYPOALB) 8.9 mg/dL (8.5-10.1); COR NA(FOR HYPERGLY) 143 mmol/L (136-145); CREATININE 0.93 mg/dL (0.55-1.02); HEMATOCRIT 34.2 % (36.0-47.0); LYMPHOCYTES # (AUTO) 0.3 X10^3/uL (1.3-2.9); LYMPHOCYTES % (AUTO) 1.8 % (21.0-51.0); MEAN CORPUSCULAR HEMOGLOBIN 29.4 pg (27.0-34.0); MEAN CORPUSCULAR HGB CONC 32.2 g/dL (33.0-35.0); MEAN CORPUSCULAR VOLUME 91.3 fL (80.0-100.0); MEAN PLATELET VOLUME 11.2 fL (7.4-11.0); MONOCYTES # (AUTO) 0.3 x10^3/uL (0.3-0.8); MONOCYTES % (AUTO) 1.6 % (0.0-13.0); NEUTROPHILS % (AUTO) 96.5 % (42.0-75.0); PLATELET COUNT 33 X10^3/uL (150.0-450.0); RED BLOOD COUNT 3.74 X10^6/uL (3.5-5.4); RED CELL DISTRIBUTION WIDTH 14.1 % (11.6-16.5); SODIUM 142 mmol/L (136-145); TOTAL PROTEIN 5.3 g/dL (6.4-8.2); WHITE BLOOD COUNT 17.6 X10^3/uL (3.6-10.0); eGFR NON BLACK RACES > 60 (>60)
[2020-06-04 06:55] LABS: BAND NEUTROPHILS % 11 % (0-10)
[2020-06-04 06:56] LABS: PLATELET MORPHOLOGY COMMENT NORMAL (NORMAL)
--- NOTE | 2020-06-04 07:31 | RAD ---
HISTORYFOLLOW UP TO PREVIOUSSTUDYCHEST, 1 VIEWCOMPARISONOne day prior.TECHNIQUEAP view of the chestFINDINGSPatient is significantly rotated limiting evaluation. Right IJ central line likely in good position cardiac and mediastinal contours appear altered. Stable diffuse bilateral airspace disease. No definite pleural effusion or pneumothorax. Soft tissue attenuation limits evaluation.IMPRESSIONStable airspace disease. Right IJ central line likely in good position. Limited study due to patient rotation.Electronically signed by: Reji Obrien (Jun 04, 2020 07:29:53)
[2020-06-04] MEDS: ZINC SULFATE PO SCH ×2 (09:16→21:18)
[2020-06-04] MEDS: VITAMIN D3 125 mcg (5,000 UNITS) PO SCH (09:17)
[2020-06-04] MEDS: ROBITUSSIN DM PO SCH ×4 (09:18→21:20)
[2020-06-04] MEDS: VITAMIN A PO SCH (09:18)
[2020-06-04] MEDS: PriLOSEC PO SCH (09:19)
[2020-06-04] MEDS: PAXIL PO SCH (09:19)
[2020-06-04] MEDS: VIBRAMYCIN PO SCH ×3 (09:19→21:18)
[2020-06-04] MEDS: THIAMINE HCL INJ IVP SCH ×2 (09:19→21:15)
[2020-06-04] MEDS: NYSTATIN SUSP PO SCH ×4 (09:20→21:18)
[2020-06-04] MEDS: NYSTATIN POWDER TOP SCH ×2 (09:20→21:30)
[2020-06-04] MEDS: ELIQUIS PO SCH ×2 (09:21→21:18)
[2020-06-04] MEDS: NEURONTIN CAP 400 MG PO SCH ×2 (09:21→21:18)
[2020-06-04] MEDS: LIPITOR TAB 40 MG PO SCH (09:22)
[2020-06-04 09:23] LABS: ALANINE AMINOTRANSFERASE 104 Units/L (12-78); ALBUMIN 2.7 g/dL (3.4-5.0); ALKALINE PHOSPHATASE 115 Units/L (46-116); ASPARTATE AMINO TRANSFERASE 43 Units/L (15-37); BLOOD UREA NITROGEN 29 mg/dL (7-18); CALCIUM 7.9 mg/dL (8.5-10.1); CARBON DIOXIDE 30.1 mmol/L (21-32); CHLORIDE 104 mmol/L (98-107); COR CA(FOR HYPOALB) 8.9 mg/dL (8.5-10.1); COR NA(FOR HYPERGLY) 144 mmol/L (136-145); CREATININE 0.72 mg/dL (0.55-1.02); SODIUM 141 mmol/L (136-145); TOTAL PROTEIN 5.3 g/dL (6.4-8.2); eGFR NON BLACK RACES > 60 (>60)
[2020-06-04] MEDS: LASIX IVP SCH (09:24)
[2020-06-04] MEDS: NORVASC TAB 5 MG PO SCH (09:24)
[2020-06-04] MEDS: KAYEXALATE SUSP PO SCH ×2 (09:28→09:58)
[2020-06-04] MEDS: PEPCID TAB 20 MG PO SCH ×2 (09:28→21:18)
[2020-06-04] MEDS ORDERED: NS 1/2 1000 ML IV 1,000 ML IV ONE (09:38)
[2020-06-04] MEDS: NS 1/2 1000 ML IV 1,000 ML IV SCH ×2 (09:45→23:24)
[2020-06-04] MEDS: LEVAQUIN PREMIX IV 500 MG 500 MG/100 ML BAG IV SCH (11:00)
[2020-06-04] MEDS: ATIVAN TAB 0.5 MG PO PRN (14:05)
[2020-06-04 19:30] LABS: BASOPHILS % (AUTO) 0 % (0.2-1.0); HEMATOCRIT 39.3 % (36.0-47.0); HEMOGLOBIN 13.2 g/dL (12.0-16.0); LYMPHOCYTES # (AUTO) 0.3 X10^3/uL (1.3-2.9); LYMPHOCYTES % (AUTO) 5.8 % (21.0-51.0); MEAN CORPUSCULAR HEMOGLOBIN 30.5 pg (27.0-34.0); MEAN CORPUSCULAR HGB CONC 33.7 g/dL (33.0-35.0); MEAN CORPUSCULAR VOLUME 90.6 fL (80.0-100.0); MEAN PLATELET VOLUME 8.4 fL (7.4-11.0); MONOCYTES # (AUTO) 0.3 x10^3/uL (0.3-0.8); MONOCYTES % (AUTO) 4.9 % (0.0-13.0); NEUTROPHILS # (AUTO) 4.9 x10^3/uL (2.2-4.8); NEUTROPHILS % (AUTO) 89.3 % (42.0-75.0); PLATELET COUNT 43 X10^3/uL (150.0-450.0); RED BLOOD COUNT 4.33 X10^6/uL (3.5-5.4); RED CELL DISTRIBUTION WIDTH 13.8 % (11.6-16.5)
[2020-06-04 19:35] LABS: WHITE BLOOD COUNT 5.4 X10^3/uL (3.6-10.0)
[2020-06-04] MEDS: NORCO 5/325 MG TAB PO PRN (21:18)
[2020-06-04] MEDS: REQUIP PO SCH (21:18)
[2020-06-04] MEDS: ZANAFLEX PO SCH (23:23)
[2020-06-05] MEDS: NS IV SCH ×4 (02:43→21:50)
[2020-06-05] MEDS: ASCORBIC ACID MULTI IV SCH ×4 (02:43→21:50)
[2020-06-05] MEDS ORDERED: NS 100 ML IV 100 ML IV ONE (04:12)
[2020-06-05] MEDS: SOLU-Medrol 40 MG VIAL IVP SCH ×3 (05:55→22:03)
[2020-06-05] MEDS: BENADRYL INJ 50 MG VIAL IVP SCH ×3 (05:55→22:05)
[2020-06-05 06:06] LABS: BASOPHILS % (AUTO) 0.1 % (0.2-1.0); HEMATOCRIT 37.4 % (36.0-47.0); HEMOGLOBIN 12.6 g/dL (12.0-16.0); LYMPHOCYTES # (AUTO) 0.2 X10^3/uL (1.3-2.9); LYMPHOCYTES % (AUTO) 4.1 % (21.0-51.0); MEAN CORPUSCULAR HEMOGLOBIN 30.6 pg (27.0-34.0); MEAN CORPUSCULAR HGB CONC 33.7 g/dL (33.0-35.0); MEAN CORPUSCULAR VOLUME 90.8 fL (80.0-100.0); MEAN PLATELET VOLUME 8.3 fL (7.4-11.0); MONOCYTES # (AUTO) 0.3 x10^3/uL (0.3-0.8); MONOCYTES % (AUTO) 5.3 % (0.0-13.0); NEUTROPHILS # (AUTO) 4.4 x10^3/uL (2.2-4.8); NEUTROPHILS % (AUTO) 90.5 % (42.0-75.0); PLATELET COUNT 40 X10^3/uL (150.0-450.0); RED BLOOD COUNT 4.12 X10^6/uL (3.5-5.4); RED CELL DISTRIBUTION WIDTH 13.9 % (11.6-16.5); WHITE BLOOD COUNT 4.9 X10^3/uL (3.6-10.0)
[2020-06-05 06:19] LABS: ALANINE AMINOTRANSFERASE 90 Units/L (12-78); ALBUMIN 2.7 g/dL (3.4-5.0); ALKALINE PHOSPHATASE 109 Units/L (46-116); ASPARTATE AMINO TRANSFERASE 34 Units/L (15-37); BLOOD UREA NITROGEN 28 mg/dL (7-18); CALCIUM 8.1 mg/dL (8.5-10.1); CHLORIDE 103 mmol/L (98-107); COR CA(FOR HYPOALB) 9.1 mg/dL (8.5-10.1); COR NA(FOR HYPERGLY) 144 mmol/L (136-145); CREATININE 0.72 mg/dL (0.55-1.02); SODIUM 140 mmol/L (136-145); eGFR NON BLACK RACES > 60 (>60)
[2020-06-05 06:30] LABS: ABG BASE EXCESS 7.8 mmol/L (-2.0-2.0)
[2020-06-05] MEDS: XOPENEX 1.25 MG/3 ML NEBULE NEB SCH ×3 (06:30→17:45)
[2020-06-05 06:32] LABS: ABG HCO3 32.7 mmol/L (22-26)
[2020-06-05 06:33] LABS: ABG ALLEN TEST POSS
[2020-06-05 06:54] LABS: PLATELET MORPHOLOGY COMMENT NORMAL (NORMAL)
[2020-06-05] MEDS: PULMICORT NEB TX 0.5 MG NEB SCH ×2 (09:35→22:21)
[2020-06-05] MEDS: ELIQUIS PO SCH ×2 (09:56→21:57)
[2020-06-05] MEDS: LIPITOR TAB 40 MG PO SCH (09:57)
[2020-06-05] MEDS: LASIX IVP SCH (09:57)
[2020-06-05] MEDS: NORVASC TAB 5 MG PO SCH (09:57)
[2020-06-05] MEDS: NEURONTIN CAP 400 MG PO SCH ×2 (09:57→21:57)
[2020-06-05] MEDS: PAXIL PO SCH (09:58)
[2020-06-05] MEDS: PEPCID TAB 20 MG PO SCH ×2 (09:58→21:47)
[2020-06-05] MEDS: NYSTATIN POWDER TOP SCH ×2 (09:58→21:00)
[2020-06-05] MEDS: NYSTATIN SUSP PO SCH ×4 (09:58→21:57)
[2020-06-05] MEDS: PriLOSEC PO SCH (09:59)
[2020-06-05] MEDS: ROBITUSSIN DM PO SCH ×4 (09:59→21:57)
[2020-06-05] MEDS: VIBRAMYCIN PO SCH ×2 (10:00→21:57)
[2020-06-05] MEDS: VITAMIN D3 125 mcg (5,000 UNITS) PO SCH (10:00)
[2020-06-05] MEDS: THIAMINE HCL INJ IVP SCH ×2 (10:00→22:00)
[2020-06-05] MEDS: ZINC SULFATE PO SCH ×2 (10:00→21:57)
[2020-06-05] MEDS: VITAMIN A PO SCH (10:00)
[2020-06-05] MEDS: LEVAQUIN PREMIX IV 500 MG 500 MG/100 ML BAG IV SCH (11:00)
[2020-06-05] MEDS: NS 1/2 1000 ML IV 1,000 ML IV SCH ×2 (12:53→21:50)
[2020-06-05] MEDS: ATIVAN TAB 0.5 MG PO PRN (13:30)
[2020-06-05 15:43] LABS: BASOPHILS % (AUTO) 0.2 % (0.2-1.0); EOSINOPHILS % (AUTO) 0.2 % (0.9-2.9); HEMATOCRIT 42.2 % (36.0-47.0); HEMOGLOBIN 13.9 g/dL (12.0-16.0); LYMPHOCYTES # (AUTO) 0.4 X10^3/uL (1.3-2.9); LYMPHOCYTES % (AUTO) 5.9 % (21.0-51.0); MEAN CORPUSCULAR HEMOGLOBIN 29.9 pg (27.0-34.0); MEAN CORPUSCULAR HGB CONC 32.8 g/dL (33.0-35.0); MEAN CORPUSCULAR VOLUME 90.9 fL (80.0-100.0); MONOCYTES # (AUTO) 0.5 x10^3/uL (0.3-0.8); MONOCYTES % (AUTO) 6.9 % (0.0-13.0); NEUTROPHILS # (AUTO) 6.4 x10^3/uL (2.2-4.8); NEUTROPHILS % (AUTO) 86.8 % (42.0-75.0); PLATELET COUNT 56 X10^3/uL (150.0-450.0); RED BLOOD COUNT 4.65 X10^6/uL (3.5-5.4); RED CELL DISTRIBUTION WIDTH 13.6 % (11.6-16.5); WHITE BLOOD COUNT 7.3 X10^3/uL (3.6-10.0)
[2020-06-05 15:57] LABS: BAND NEUTROPHILS % 1 % (0-10); METAMYELOCYTES % 1; MYELOCYTES % 1
[2020-06-05 15:58] LABS: PLATELET MORPHOLOGY COMMENT NORMAL (NORMAL)
[2020-06-05] MEDS ORDERED: NS 1/2 1000 ML IV 1,000 ML IV ONE (21:03)
[2020-06-05] MEDS: REQUIP PO SCH (21:57)
[2020-06-05] MEDS: NORCO 5/325 MG TAB PO PRN (21:57)
[2020-06-05] MEDS: ZANAFLEX PO SCH (23:07)
[2020-06-06] MEDS: XOPENEX 1.25 MG/3 ML NEBULE NEB SCH ×5 (00:47→18:30)
[2020-06-06] MEDS: NS 1/2 1000 ML IV 1,000 ML IV SCH ×2 (01:19→13:52)
[2020-06-06] MEDS: ASCORBIC ACID MULTI IV SCH ×4 (02:14→23:18)
[2020-06-06] MEDS: NS IV SCH ×4 (02:14→23:18)
[2020-06-06] MEDS: BENADRYL INJ 50 MG VIAL IVP SCH ×3 (05:30→22:36)
[2020-06-06] MEDS: SOLU-Medrol 40 MG VIAL IVP SCH ×3 (05:30→22:32)
[2020-06-06 06:17] LABS: BASOPHILS % (AUTO) 0.3 % (0.2-1.0); HEMATOCRIT 37.3 % (36.0-47.0); HEMOGLOBIN 12.7 g/dL (12.0-16.0); LYMPHOCYTES # (AUTO) 0.3 X10^3/uL (1.3-2.9); LYMPHOCYTES % (AUTO) 6.9 % (21.0-51.0); MEAN CORPUSCULAR HEMOGLOBIN 30.7 pg (27.0-34.0); MEAN CORPUSCULAR VOLUME 90.5 fL (80.0-100.0); MEAN PLATELET VOLUME 8.6 fL (7.4-11.0); MONOCYTES # (AUTO) 0.2 x10^3/uL (0.3-0.8); MONOCYTES % (AUTO) 5.5 % (0.0-13.0); NEUTROPHILS # (AUTO) 3.7 x10^3/uL (2.2-4.8); NEUTROPHILS % (AUTO) 87.3 % (42.0-75.0); PLATELET COUNT 41 X10^3/uL (150.0-450.0); RED BLOOD COUNT 4.12 X10^6/uL (3.5-5.4); RED CELL DISTRIBUTION WIDTH 13.8 % (11.6-16.5); WHITE BLOOD COUNT 4.2 X10^3/uL (3.6-10.0)
[2020-06-06 06:28] LABS: ALANINE AMINOTRANSFERASE 82 Units/L (12-78); ALBUMIN 2.7 g/dL (3.4-5.0); ALKALINE PHOSPHATASE 106 Units/L (46-116); ASPARTATE AMINO TRANSFERASE 32 Units/L (15-37); BLOOD UREA NITROGEN 30 mg/dL (7-18); CALCIUM 8.1 mg/dL (8.5-10.1); CARBON DIOXIDE 31.3 mmol/L (21-32); CHLORIDE 101 mmol/L (98-107); COR CA(FOR HYPOALB) 9.1 mg/dL (8.5-10.1); COR NA(FOR HYPERGLY) 142 mmol/L (136-145); CREATININE 0.65 mg/dL (0.55-1.02); SODIUM 138 mmol/L (136-145); TOTAL PROTEIN 4.9 g/dL (6.4-8.2); eGFR NON BLACK RACES > 60 (>60)
[2020-06-06 06:39] LABS: ABG BASE EXCESS 8.4 mmol/L (-2.0-2.0)
[2020-06-06 06:40] LABS: ABG ALLEN TEST POS; ABG HCO3 33.4 mmol/L (22-26)
--- NOTE | 2020-06-06 07:24 | RAD ---
HISTORYPNEUMONIA, COVID+STUDYCHEST, 1 VIEWCOMPARISONJanuary 6TECHNIQUEPortable chestFINDINGSHypoventilatory chest x-ray with residual diffuse bilateral alveolar ground-glass opacities with more dense peripheral consolidation noted within the left lower lobe. Air bronchograms are demonstrated within the right perihilar region and left infrahilar region. No evolving pleural fluid collections are identified. There is no evidence of free air or pneumothorax. Central venous catheter position within the right internal jugular vein terminates in the distal SVC. The heart size is stable.IMPRESSIONUnchanged bilateral pulmonary opacities/infiltrates associated with an atypical pneumonia pattern.Electronically signed by: PRESLEY MATIAS (Jun 06, 2020 07:24:45)
[2020-06-06] MEDS: PULMICORT NEB TX 0.5 MG NEB SCH ×2 (09:05→20:00)
[2020-06-06] MEDS: ELIQUIS PO SCH ×2 (09:08→22:30)
[2020-06-06] MEDS: NEURONTIN CAP 400 MG PO SCH ×2 (09:17→22:30)
[2020-06-06] MEDS: LIPITOR TAB 40 MG PO SCH (09:17)
[2020-06-06] MEDS: NYSTATIN SUSP PO SCH ×4 (09:18→22:30)
[2020-06-06] MEDS: NORVASC TAB 5 MG PO SCH (09:18)
[2020-06-06] MEDS: NYSTATIN POWDER TOP SCH ×2 (09:18→22:30)
[2020-06-06] MEDS: PAXIL PO SCH (09:19)
[2020-06-06] MEDS: PEPCID TAB 20 MG PO SCH ×2 (09:20→22:30)
[2020-06-06] MEDS: PriLOSEC PO SCH (09:20)
[2020-06-06] MEDS: ROBITUSSIN DM PO SCH ×4 (09:21→22:30)
[2020-06-06] MEDS: VITAMIN A PO SCH (09:21)
[2020-06-06] MEDS: VIBRAMYCIN PO SCH ×2 (09:21→22:30)
[2020-06-06] MEDS: VITAMIN D3 125 mcg (5,000 UNITS) PO SCH (09:23)
[2020-06-06] MEDS: ZINC SULFATE PO SCH ×2 (09:23→22:30)
[2020-06-06] MEDS: LASIX IVP SCH (09:51)
[2020-06-06] MEDS: THIAMINE HCL INJ IVP SCH ×2 (09:52→22:34)
[2020-06-06] MEDS: LEVAQUIN PREMIX IV 500 MG 500 MG/100 ML BAG IV SCH (10:43)
--- NOTE | 2020-06-06 11:54 | US ---
HISTORYPELVIC PAINSTUDYPELVIC (NON OB)COMPARISONNoneTECHNIQUEMultiple bolivar scale and color flow Doppler images of the pelvis were obtained.FINDINGSThe uterus is normal in its appearance, measuring 6.6 x 3.4 x 3.7 cm. No evidence for myometrial masses or calcifications can be observed . The endometrial stripe is normal in size measuring 0.13 cm. Right ovary measures 1.8 x 1.3 x 1.5 cm, with normal sonographic appearance and normal Doppler flow. Left ovary is reportedly surgically absent. No cystic or solid mass in either adnexa. No free fluid.IMPRESSION1. Unremarkable sonographic appearance of the uterus and right ovary.2. Surgically absent left ovary.Electronically signed by: Ricky Pearson (Jun 06, 2020 11:52:18)
--- NOTE | 2020-06-06 11:55 | US ---
HISTORYBLOOD IN URINESTUDYRENAL USSAINT FRANCIS MED[facility] CENTERPARISONNoneTECHNIQUEMultiple bolivar scale and color flow Doppler images of the kidneys were obtained. The region of the urinary bladder was evaluated as well.FINDINGSThe right kidney is normal in echotexture and size. The right kidney measures 9.6 x 6.6 x 8.1 cm. No focal mass, hydronephrosis, or stones identified.The left kidney is unremarkable in its echotexture and size. The left kidney measures 11.3 x 6.6 x 6.4 cm. No focal mass, hydronephrosis, or stone can be seen within the left kidney.The region of the urinary bladder is grossly unremarkable.IMPRESSIONUnremarkable evaluation of the kidneys.Electronically signed by: Ricky Pearson (Jun 06, 2020 11:53:41)
[2020-06-06 15:56] LABS: BILIRUBIN,URINE NEGATIVE (NEGATIVE); BLOOD/HEMOGLOBIN,URINE 5+ (NEGATIVE); GLUCOSE, URINE 1+ (NEGATIVE); KETONES,URINE 1+ (NEGATIVE); LEUKOCYTE ESTERASE ,URINE 3+ (NEGATIVE); NITRITES,URINE POSITIVE (NEGATIVE); PROTEIN,URINE 3+ (NEGATIVE); UROBILINOGEN,URINE 1+ (NORMAL)
[2020-06-06 16:06] LABS: APPEARANCE,URINE CLOUDY (CLEAR); COLOR,URINE RED (YELLOW); RBC,URINE 30-50 /HPF (0-3)
[2020-06-06 16:07] LABS: BACTERIA,URINE 1+ /HPF (NEGATIVE); SQUAMOUS EPITHELIAL CELL,UR NEGATIVE /HPF (NEGATIVE); YEAST,URINE MODERATE /HPF (NEGATIVE)
[2020-06-06 19:08] LABS: BASOPHILS % (AUTO) 0.6 % (0.2-1.0); HEMATOCRIT 40.7 % (36.0-47.0); HEMOGLOBIN 13.4 g/dL (12.0-16.0); LYMPHOCYTES # (AUTO) 0.4 X10^3/uL (1.3-2.9); LYMPHOCYTES % (AUTO) 6.3 % (21.0-51.0); MEAN CORPUSCULAR HEMOGLOBIN 29.9 pg (27.0-34.0); MEAN CORPUSCULAR VOLUME 90.5 fL (80.0-100.0); MEAN PLATELET VOLUME 8.2 fL (7.4-11.0); MONOCYTES # (AUTO) 0.3 x10^3/uL (0.3-0.8); MONOCYTES % (AUTO) 4.9 % (0.0-13.0); NEUTROPHILS # (AUTO) 5.8 x10^3/uL (2.2-4.8); NEUTROPHILS % (AUTO) 88.2 % (42.0-75.0); PLATELET COUNT 57 X10^3/uL (150.0-450.0); RED CELL DISTRIBUTION WIDTH 13.8 % (11.6-16.5); WHITE BLOOD COUNT 6.6 X10^3/uL (3.6-10.0)
[2020-06-06 19:54] LABS: BAND NEUTROPHILS % 1 % (0-10); PLATELET MORPHOLOGY COMMENT NORMAL (NORMAL)
[2020-06-06] MEDS: NORCO 5/325 MG TAB PO PRN (22:30)
[2020-06-06] MEDS: REQUIP PO SCH (22:30)
[2020-06-07] MEDS: XOPENEX 1.25 MG/3 ML NEBULE NEB SCH ×4 (00:09→17:21)
[2020-06-07] MEDS: ZANAFLEX PO SCH ×2 (02:16→22:12)
[2020-06-07] MEDS: NS 1/2 1000 ML IV 1,000 ML IV SCH ×3 (02:18→14:46)
[2020-06-07] MEDS: ASCORBIC ACID MULTI IV SCH ×4 (02:35→21:00)
[2020-06-07] MEDS: NS IV SCH ×4 (02:35→21:00)
[2020-06-07 05:21] LABS: ABG BASE EXCESS 9.5 mmol/L (-2.0-2.0); ABG HCO3 34.8 mmol/L (22-26)
[2020-06-07 05:22] LABS: ABG ALLEN TEST POS
[2020-06-07] MEDS ORDERED: NS 1/2 1000 ML IV 1,000 ML IV ONE (05:29)
[2020-06-07 05:47] LABS: BASOPHILS % (AUTO) 0.8 % (0.2-1.0); HEMATOCRIT 38.2 % (36.0-47.0); HEMOGLOBIN 12.6 g/dL (12.0-16.0); LYMPHOCYTES # (AUTO) 0.3 X10^3/uL (1.3-2.9); LYMPHOCYTES % (AUTO) 7.3 % (21.0-51.0); MEAN CORPUSCULAR HEMOGLOBIN 29.9 pg (27.0-34.0); MEAN CORPUSCULAR HGB CONC 32.9 g/dL (33.0-35.0); MEAN CORPUSCULAR VOLUME 90.9 fL (80.0-100.0); MEAN PLATELET VOLUME 8.5 fL (7.4-11.0); MONOCYTES # (AUTO) 0.2 x10^3/uL (0.3-0.8); MONOCYTES % (AUTO) 5.6 % (0.0-13.0); NEUTROPHILS # (AUTO) 3.7 x10^3/uL (2.2-4.8); NEUTROPHILS % (AUTO) 86.3 % (42.0-75.0); PLATELET COUNT 43 X10^3/uL (150.0-450.0); RED BLOOD COUNT 4.21 X10^6/uL (3.5-5.4); RED CELL DISTRIBUTION WIDTH 13.8 % (11.6-16.5); WHITE BLOOD COUNT 4.2 X10^3/uL (3.6-10.0)
[2020-06-07 06:08] LABS: ALANINE AMINOTRANSFERASE 82 Units/L (12-78); ALBUMIN 2.7 g/dL (3.4-5.0); ALKALINE PHOSPHATASE 92 Units/L (46-116); ASPARTATE AMINO TRANSFERASE 45 Units/L (15-37); BLOOD UREA NITROGEN 29 mg/dL (7-18); CALCIUM 8.1 mg/dL (8.5-10.1); CARBON DIOXIDE 32.6 mmol/L (21-32); CHLORIDE 102 mmol/L (98-107); COR CA(FOR HYPOALB) 9.1 mg/dL (8.5-10.1); COR NA(FOR HYPERGLY) 141 mmol/L (136-145); CREATININE 0.55 mg/dL (0.55-1.02); SODIUM 137 mmol/L (136-145); TOTAL PROTEIN 4.9 g/dL (6.4-8.2); eGFR NON BLACK RACES > 60 (>60)
--- NOTE | 2020-06-07 06:15 | RAD ---
Chest AP portableIndication: COVID-19 pneumoniaCOMPARISONJanuary 2020FINDINGS: There is no pneumothorax. Right IJ catheter tip is over the cavoatrial junction. Monitor leads obscure minimal detail. Patchy bilateral pulmonary opacities are noted, similar to the prior.IMPRESSIONPersistent pulmonary opacities of viral pneumonitis, unchanged.Electronically signed by: LUAN FRAIRE (Jun 07, 2020 06:13:45)
[2020-06-07] MEDS: BENADRYL INJ 50 MG VIAL IVP SCH ×3 (06:20→21:00)
[2020-06-07] MEDS: SOLU-Medrol 40 MG VIAL IVP SCH ×3 (06:20→21:00)
[2020-06-07] MEDS: ELIQUIS PO SCH ×2 (09:27→21:00)
[2020-06-07] MEDS: NEURONTIN CAP 400 MG PO SCH ×2 (09:28→21:00)
[2020-06-07] MEDS: LIPITOR TAB 40 MG PO SCH (09:28)
[2020-06-07] MEDS: PULMICORT NEB TX 0.5 MG NEB SCH ×2 (09:28→20:53)
[2020-06-07] MEDS: LASIX IVP SCH (09:28)
[2020-06-07] MEDS: NORVASC TAB 5 MG PO SCH (09:34)
[2020-06-07] MEDS: NYSTATIN POWDER TOP SCH ×2 (09:34→21:00)
[2020-06-07] MEDS: NYSTATIN SUSP PO SCH ×4 (09:42→21:00)
[2020-06-07] MEDS: PAXIL PO SCH (09:42)
[2020-06-07] MEDS: PEPCID TAB 20 MG PO SCH ×2 (09:43→21:00)
[2020-06-07] MEDS: PriLOSEC PO SCH (09:43)
[2020-06-07] MEDS: THIAMINE HCL INJ IVP SCH ×2 (09:44→21:00)
[2020-06-07] MEDS: ROBITUSSIN DM PO SCH ×4 (09:44→21:00)
[2020-06-07] MEDS: VITAMIN D3 125 mcg (5,000 UNITS) PO SCH (09:45)
[2020-06-07] MEDS: VITAMIN A PO SCH (09:45)
[2020-06-07] MEDS: ZINC SULFATE PO SCH ×2 (09:46→21:00)
[2020-06-07] MEDS: LEVAQUIN PREMIX IV 500 MG 500 MG/100 ML BAG IV SCH (09:47)
--- NOTE | 2020-06-07 12:42 | PCM.PROG ---
Progress Note Progress Note for Day of Date of Exam: 06/07/20 Subjective Subjective: Patient seen at bedside. No acute overnight events. She remains on BiPAP at FiO2 80%. Patient has been admitted for covid-19 pneumonia with acute respiratory failure. Patient has been BiPAP dependent. Today is Day 23 of her admission. She uses non-rebreather when eating. She reports feeling a little better each day. She is currently on the BiPAP, sats high 80s to low 90s. She appears comfortable with no labored breathing. patient denies active bleeding. She was noted to have hematuria yesterday, pelvic and renal ultrasound were negative for any acute process. Labs: WBC 4.2 Hgb 12.6 Plt: 43 ABG 7.46/49/51/34 sats 88% on BiPAP 80%. CXR: persistent patchy bilateral opacities, no significant change Received one unit of convalescent plasma on 05/16 Plan: wean down BiPAP as tolerated to keep sats > 90%. Continue IV solumedrol and IV Levaquin. Will DC doxycycline. Continue eliquis. Aggressive pulmonary toilet. Continue duonebs and pulmicort. Monitor AM labs, ABG and imaging. Patient seems to be comfortable and does not have labored breathing.Monitor respiratory status closely. Patient remains in the critical state. Critical care Time spent for clinical assessment, physical examination, reviewing labs/imaging and decision making more than 75 mins. Past Medical Family Social History Past Med/Fam/Surg Hx: No changes since H&P Allergies: Allergies No Known Drug Allergies Allergy (Verified 04/17/18 05:13) Review of Systems ROS: No change since H&P Vital Signs and I&O's Vital Signs: Temperature 97.9 F Pulse Rate [Left] 92 Pulse Rate 109 Respiratory Rate 22 Blood Pressure [Right Arm] 136/83 Blood Pressure 117/79 O2 Sat by Pulse Oximetry 93 Intake and Output: Intake & Output 06/04/20 06/05/20 06/06/20 06/07/20 23:59 23:59 23:59 23:59 Intake Total 2460 / 2460 2550 / 2550 2533 / 2533 530 / 530 Output Total 2525 / 2525 1974 / 1974 375 / 375 400 / 400 Balance -65 / -65 575 / 575 2158 / 2158 130 / 130 Physical Exam Oriented: Normal Eyes: Normal Ear: Normal Nose: Normal Throat: Normal Respiratory: Generalized and Diminished Cardiovascular: Normal Auscultation: Bowel Sounds: Normal Tenderness: Normal Skin: Decreased Turgur Musculoskeletal: Right, Left, Knee and Back:Lumbar Psychiatric: Normal Mood Description: Calm Affect: Normal Speech Pattern: Clear and Appropriate Laboratory and Diagnostics Result Diagrams: 06/07/20 04:55 06/07/20 04:55 Labs: 06/06/20 15:30 Urine,Clean Catch Urine Culture - Preliminary 05/15/20 12:35 Blood Blood Culture - Final 05/15/20 12:25 Blood Blood Culture - Final Laboratory WBC 4.2 X10^3/uL (3.6-10.0) 06/07/20 04:55 RBC 4.21 X10^6/uL (3.5-5.4) 06/07/20 04:55 Hgb 12.6 g/dL (12.0-16.0) 06/07/20 04:55 Hct 38.2 % (36.0-47.0) 06/07/20 04:55 MCV 90.9 fL (80.0-100.0) 06/07/20 04:55 MCH 29.9 pg (27.0-34.0) 06/07/20 04:55 MCHC 32.9 g/dL (33.0-35.0) L 06/07/20 04:55 RDW 13.8 % (11.6-16.5) 06/07/20 04:55 Plt Count 43 X10^3/uL (150.0-450.0) L 06/07/20 04:55 Plt Count Comment Decreased (ADEQUATE) A 06/06/20 18:59 MPV 8.5 fL (7.4-11.0) 06/07/20 04:55 Neut % (Auto) 86.3 % (42.0-75.0) H 06/07/20 04:55 Lymph % (Auto) 7.3 % (21.0-51.0) L 06/07/20 04:55 [place] % (Auto) 5.6 % (0.0-13.0) 06/07/20 04:55 Eos % (Auto) 0.0 % (0.9-2.9) L 06/07/20 04:55 Baso % (Auto) 0.8 % (0.2-1.0) 06/07/20 04:55 Neut # (Auto) 3.7 x10^3/uL (2.2-4.8) 06/07/20 04:55 Lymph # (Auto) 0.3 X10^3/uL (1.3-2.9) L 06/07/20 04:55 [place] # (Auto) 0.2 x10^3/uL (0.3-0.8) L 06/07/20 04:55 Eos # (Auto) 0.0 x10^3/uL (0.0-0.2) 06/07/20 04:55 Baso # (Auto) 0.0 X10^3/uL (0.0-0.1) 06/07/20 04:55 Absolute Nucleated RBC 0.2 /100WBC 06/07/20 04:55 Total Counted 100 06/06/20 18:59 Neutrophils % (Manual) 86 % (39-76) H 06/06/20 18:59 Band Neutrophils % 1 % (0-10) 06/06/20 18:59 Lymphocytes % (Manual) 9 % (13-43) L 06/06/20 18:59 Monocytes % (Manual) 4 % (4-9) 06/06/20 18:59 Metamyelocytes % 1 06/05/20 15:33 Myelocytes % 1 06/05/20 15:33 Plt Morphology Comment Normal (NORMAL) 06/06/20 18:59 RBC Morphology Normal (NORMAL) 06/06/20 18:59 D-Dimer 9.09 ug/ml (0.0-0.57) H* 05/28/20 04:55 Sample Site Rr 06/07/20 05:15 ABG pH 7.460 (7.35-7.45) H 06/07/20 05:15 ABG pCO2 49.0 mmHg (35.0-45.0) H 06/07/20 05:15 ABG pO2 51.0 mmHg (80.0-100.0) L 06/07/20 05:15 ABG HCO3 34.8 mmol/L (22-26) H* 06/07/20 05:15 ABG O2 Saturation 88.0 % (90-100) L 06/07/20 05:15 ABG Base Excess 9.5 mmol/L (-2.0-2.0) H 06/07/20 05:15 Bigg Test Pos 06/07/20 05:15 A-a Gradient 458.0 mmHg 06/07/20 05:15 FiO2 80.0 06/07/20 05:15 Blood Gas Comments Kaylynn well ae 06/07/20 05:15 Sodium 137 mmol/L (136-145) 06/07/20 04:55 Corrected Sodium 141 mmol/L (136-145) 06/07/20 04:55 Potassium 4.0 mmol/L (3.5-5.1) 06/07/20 04:55 Chloride 102 mmol/L (98-107) 06/07/20 04:55 Carbon Dioxide 32.6 mmol/L (21-32) H 06/07/20 04:55 BUN 29 mg/dL (7-18) H 06/07/20 04:55 Creatinine 0.55 mg/dL (0.55-1.02) 06/07/20 04:55 Est GFR (MDRD) Af Amer > 60 (>60) 06/07/20 04:55 Est GFR (MDRD) Non-Af > 60 (>60) 06/07/20 04:55 Glucose 276 mg/dL (65-99) H 06/07/20 04:55 Calcium 8.1 mg/dL (8.5-10.1) L 06/07/20 04:55 Corrected Calcium 9.1 mg/dL (8.5-10.1) 06/07/20 04:55 Magnesium 2.3 mg/dL (1.7-2.9) 05/22/20 04:25 Ferritin 240 ng/mL (8-252) 05/21/20 04:21 Total Bilirubin 1.10 mg/dL (0.2-1.0) H 06/07/20 04:55 AST 45 Units/L (15-37) H 06/07/20 04:55 ALT 82 Units/L (12-78) H 06/07/20 04:55 Alkaline Phosphatase 92 Units/L (46-116) 06/07/20 04:55 C-Reactive Protein 1.70 mg/L (0-3.0) 12/23/20 04:21 Total Protein 4.9 g/dL (6.4-8.2) L 06/07/20 04:55 Albumin 2.7 g/dL (3.4-5.0) L 06/07/20 04:55 Globulin 2.2 g/dL (2.5-4.5) L 06/07/20 04:55 Albumin/Globulin Ratio 1.2 Ratio (1.1-2.1) 06/07/20 04:55 Specimen Type Catherized urine 06/06/20 15:30 Urine Color Red (YELLOW) 06/06/20 15:30 Urine Appearance Cloudy (CLEAR) 06/06/20 15:30 Urine pH 5.0 (5.0 - 8.0) 06/06/20 15:30 Ur Specific [place] 1.020 (1.000-1.030) 06/06/20 15:30 Urine Protein 3+ (NEGATIVE) 06/06/20 15:30 Urine Glucose (UA) 1+ (NEGATIVE) 06/06/20 15:30 Urine Ketones 1+ (NEGATIVE) 06/06/20 15:30 Urine Occult Blood 5+ (NEGATIVE) 06/06/20 15:30 Urine Nitrite Positive (NEGATIVE) 06/06/20 15:30 Urine Bilirubin Negative (NEGATIVE) 06/06/20 15:30 Urine Urobilinogen 1+ (NORMAL) 06/06/20 15:30 Ur Leukocyte Esterase 3+ (NEGATIVE) 06/06/20 15:30 Urine RBC 30-50 /HPF (0-3) A 06/06/20 15:30 Urine WBC 10-20 /HPF (0-5) A 06/06/20 15:30 Ur Squamous Epith Cells Negative /HPF (NEGATIVE) 06/06/20 15:30 Urine Bacteria 1+ /HPF (NEGATIVE) 06/06/20 15:30 Urine Yeast Moderate /HPF (NEGATIVE) 06/06/20 15:30 Ur Culture Indicated? No/not indicated 06/06/20 15:30 SARS CoV-2 RNA Rapid KIRA Positive (NEGATIVE) A 05/15/20 13:15 Blood Type O POSITIVE 05/16/20 09:08 Plan (1) Pneumonia due to COVID-19 virus: Status: Acute (2) Acute respiratory failure with hypoxia: Status: Acute (3) Thrombocytopenia: Status: Acute (4) BiPAP (biphasic positive airway pressure) dependence: Status: Acute (5) Anxiety: Status: Acute
[2020-06-07] MEDS: REQUIP PO SCH (21:00)
[2020-06-08] MEDS: XOPENEX 1.25 MG/3 ML NEBULE NEB SCH ×5 (00:59→23:40)
[2020-06-08] MEDS: NS IV SCH ×4 (03:23→20:55)
[2020-06-08] MEDS: ASCORBIC ACID MULTI IV SCH ×4 (03:23→20:55)
[2020-06-08 04:17] LABS: ABG ALLEN TEST POS; ABG BASE EXCESS 12.2 mmol/L (-2.0-2.0); ABG HCO3 37.3 mmol/L (22-26)
[2020-06-08] MEDS: BENADRYL INJ 50 MG VIAL IVP SCH ×3 (05:24→21:51)
[2020-06-08] MEDS: SOLU-Medrol 40 MG VIAL IVP SCH ×3 (05:25→21:52)
[2020-06-08 05:51] LABS: BASOPHILS % (AUTO) 0.1 % (0.2-1.0); HEMATOCRIT 37.8 % (36.0-47.0); HEMOGLOBIN 12.4 g/dL (12.0-16.0); LYMPHOCYTES # (AUTO) 0.3 X10^3/uL (1.3-2.9); LYMPHOCYTES % (AUTO) 5.9 % (21.0-51.0); MEAN CORPUSCULAR HGB CONC 32.9 g/dL (33.0-35.0); MEAN CORPUSCULAR VOLUME 91.2 fL (80.0-100.0); MEAN PLATELET VOLUME 8.3 fL (7.4-11.0); MONOCYTES # (AUTO) 0.3 x10^3/uL (0.3-0.8); MONOCYTES % (AUTO) 5.7 % (0.0-13.0); NEUTROPHILS # (AUTO) 4.6 x10^3/uL (2.2-4.8); NEUTROPHILS % (AUTO) 88.3 % (42.0-75.0); PLATELET COUNT 47 X10^3/uL (150.0-450.0); RED BLOOD COUNT 4.14 X10^6/uL (3.5-5.4); WHITE BLOOD COUNT 5.2 X10^3/uL (3.6-10.0)
[2020-06-08 06:07] LABS: ALANINE AMINOTRANSFERASE 84 Units/L (12-78); ALBUMIN 2.7 g/dL (3.4-5.0); ALKALINE PHOSPHATASE 109 Units/L (46-116); ASPARTATE AMINO TRANSFERASE 41 Units/L (15-37); BLOOD UREA NITROGEN 27 mg/dL (7-18); CALCIUM 8.2 mg/dL (8.5-10.1); CARBON DIOXIDE 32.7 mmol/L (21-32); CHLORIDE 102 mmol/L (98-107); COR CA(FOR HYPOALB) 9.2 mg/dL (8.5-10.1); COR NA(FOR HYPERGLY) 145 mmol/L (136-145); CREATININE 0.65 mg/dL (0.55-1.02); SODIUM 140 mmol/L (136-145); TOTAL PROTEIN 4.9 g/dL (6.4-8.2); eGFR NON BLACK RACES > 60 (>60)
[2020-06-08] MEDS: NS 1/2 1000 ML IV 1,000 ML IV SCH ×2 (06:12→16:29)
[2020-06-08] MEDS: ELIQUIS PO SCH ×2 (09:00→20:59)
[2020-06-08] MEDS: LASIX IVP SCH (09:01)
[2020-06-08] MEDS: LIPITOR TAB 40 MG PO SCH (09:01)
[2020-06-08] MEDS: LEVAQUIN PREMIX IV 500 MG 500 MG/100 ML BAG IV SCH (09:01)
[2020-06-08] MEDS: NYSTATIN POWDER TOP SCH ×2 (09:02→20:59)
[2020-06-08] MEDS: NORVASC TAB 5 MG PO SCH (09:02)
[2020-06-08] MEDS: NEURONTIN CAP 400 MG PO SCH ×2 (09:02→20:57)
[2020-06-08] MEDS: PAXIL PO SCH (09:03)
[2020-06-08] MEDS: NYSTATIN SUSP PO SCH ×4 (09:03→20:57)
[2020-06-08] MEDS: PEPCID TAB 20 MG PO SCH ×2 (09:03→20:56)
[2020-06-08] MEDS: VITAMIN A PO SCH (09:04)
[2020-06-08] MEDS: THIAMINE HCL INJ IVP SCH ×2 (09:04→20:56)
[2020-06-08] MEDS: ROBITUSSIN DM PO SCH ×4 (09:04→20:56)
[2020-06-08] MEDS: VITAMIN D3 125 mcg (5,000 UNITS) PO SCH (09:04)
[2020-06-08] MEDS: PULMICORT NEB TX 0.5 MG NEB SCH ×2 (09:04→21:00)
[2020-06-08] MEDS: PriLOSEC PO SCH (09:04)
[2020-06-08] MEDS: ZINC SULFATE PO SCH ×2 (09:05→20:55)
--- NOTE | 2020-06-08 11:15 | PCM.PROG ---
Progress Note Progress Note for Day of Date of Exam: 06/08/20 Subjective Subjective: Patient seen at bedside. No acute overnight events. Patient states she feels slightly better today. She is on BiPAP at FiO2 75%, sats remain in low 90s. Patient has been admitted for covid-19 pneumonia with acute respiratory failure. Patient has been BiPAP dependent. She uses non-rebreather when eating. She appears comfortable with no labored breathing. patient denies active bleeding. Labs: WBC 52 Hgb 12.4Plt: 47 ABG 7.49/49/63/37 at 94% CXR: persistent patchy bilateral opacities, no significant change Received one unit of convalescent plasma on 05/16 Plan: wean down BiPAP as tolerated to keep sats > 90%. Continue IV solumedrol and IV Levaquin. Continue eliquis. Aggressive pulmonary toilet. Continue duonebs and pulmicort. Monitor AM labs, ABG and imaging. Patient seems to be comfortable and does not have labored breathing.Monitor respiratory status closely. Patient remains in the critical state. Critical care time spent for clinical assessment, physical examination, reviewing labs/imaging, decision making and documentation greater than 75 mins. Past Medical Family Social History Past Med/Fam/Surg Hx: No changes since H&P Allergies: Allergies No Known Drug Allergies Allergy (Verified 04/17/18 05:13) Review of Systems ROS: No change since H&P Vital Signs and I&O's Vital Signs: Temperature 97 F Pulse Rate [Left] 92 Pulse Rate 94 Respiratory Rate 28 Blood Pressure [Right Arm] 136/83 Blood Pressure 111/75 O2 Sat by Pulse Oximetry 89 Intake and Output: Intake & Output 06/05/20 06/06/20 06/07/20 06/08/20 23:59 23:59 23:59 23:59 Intake Total 2550 / 2550 2533 / 2533 2294 / 2294 646 / 646 Output Total 1974 375 / 375 2575 / 2575 500 / 500 Balance 575 / 575 2158 / 2158 -281 / -281 146 / 146 Physical Exam Oriented: Normal Eyes: Normal Ear: Normal Nose: Normal Throat: Normal Respiratory: Generalized and Diminished Cardiovascular: Normal Auscultation: Bowel Sounds: Normal Tenderness: Normal Skin: Decreased Turgur Musculoskeletal: Right, Left, Knee and Back:Lumbar Psychiatric: Normal Mood Description: Calm Affect: Normal Speech Pattern: Clear and Appropriate Laboratory and Diagnostics Result Diagrams: 06/08/20 04:40 06/08/20 04:40 Labs: 06/06/20 15:30 Urine,Clean Catch Urine Culture - Final 05/15/20 12:35 Blood Blood Culture - Final 05/15/20 12:25 Blood Blood Culture - Final Laboratory WBC 5.2 X10^3/uL (3.6-10.0) 06/08/20 04:40 RBC 4.14 X10^6/uL (3.5-5.4) 06/08/20 04:40 Hgb 12.4 g/dL (12.0-16.0) 06/08/20 04:40 Hct 37.8 % (36.0-47.0) 06/08/20 04:40 MCV 91.2 fL (80.0-100.0) 06/08/20 04:40 MCH 30.0 pg (27.0-34.0) 06/08/20 04:40 MCHC 32.9 g/dL (33.0-35.0) L 06/08/20 04:40 RDW 14.0 % (11.6-16.5) 06/08/20 04:40 Plt Count 47 X10^3/uL (150.0-450.0) L 06/08/20 04:40 Plt Count Comment Decreased (ADEQUATE) A 06/06/20 18:59 MPV 8.3 fL (7.4-11.0) 06/08/20 04:40 Neut % (Auto) 88.3 % (42.0-75.0) H 06/08/20 04:40 Lymph % (Auto) 5.9 % (21.0-51.0) L 06/08/20 04:40 [place] % (Auto) 5.7 % (0.0-13.0) 06/08/20 04:40 Eos % (Auto) 0.0 % (0.9-2.9) L 06/08/20 04:40 Baso % (Auto) 0.1 % (0.2-1.0) L 06/08/20 04:40 Neut # (Auto) 4.6 x10^3/uL (2.2-4.8) 06/08/20 04:40 Lymph # (Auto) 0.3 X10^3/uL (1.3-2.9) L 06/08/20 04:40 [place] # (Auto) 0.3 x10^3/uL (0.3-0.8) 06/08/20 04:40 Eos # (Auto) 0.0 x10^3/uL (0.0-0.2) 06/08/20 04:40 Baso # (Auto) 0.0 X10^3/uL (0.0-0.1) 06/08/20 04:40 Absolute Nucleated RBC 0.2 /100WBC 06/08/20 04:40 Total Counted 100 06/06/20 18:59 Neutrophils % (Manual) 86 % (39-76) H 06/06/20 18:59 Band Neutrophils % 1 % (0-10) 06/06/20 18:59 Lymphocytes % (Manual) 9 % (13-43) L 06/06/20 18:59 Monocytes % (Manual) 4 % (4-9) 06/06/20 18:59 Metamyelocytes % 1 06/05/20 15:33 Myelocytes % 1 06/05/20 15:33 Plt Morphology Comment Normal (NORMAL) 06/06/20 18:59 RBC Morphology Normal (NORMAL) 06/06/20 18:59 D-Dimer 9.09 ug/ml (0.0-0.57) H* 05/28/20 04:55 Sample Site Rr 06/08/20 04:12 ABG pH 7.490 (7.35-7.45) H 06/08/20 04:12 ABG pCO2 49.0 mmHg (35.0-45.0) H 06/08/20 04:12 ABG pO2 63.0 mmHg (80.0-100.0) L 06/08/20 04:12 ABG HCO3 37.3 mmol/L (22-26) H* 06/08/20 04:12 ABG O2 Saturation 94.0 % (90-100) 06/08/20 04:12 ABG Base Excess 12.2 mmol/L (-2.0-2.0) H 06/08/20 04:12 Bigg Test Pos 06/08/20 04:12 A-a Gradient 446.0 mmHg 06/08/20 04:12 FiO2 80.0 06/08/20 04:12 Blood Gas Comments Kaylynn well ae 06/08/20 04:12 Sodium 140 mmol/L (136-145) 06/08/20 04:40 Corrected Sodium 145 mmol/L (136-145) 06/08/20 04:40 Potassium 3.7 mmol/L (3.5-5.1) 06/08/20 04:40 Chloride 102 mmol/L (98-107) 06/08/20 04:40 Carbon Dioxide 32.7 mmol/L (21-32) H 06/08/20 04:40 BUN 27 mg/dL (7-18) H 06/08/20 04:40 Creatinine 0.65 mg/dL (0.55-1.02) 06/08/20 04:40 Est GFR (MDRD) Af Amer > 60 (>60) 06/08/20 04:40 Est GFR (MDRD) Non-Af > 60 (>60) 06/08/20 04:40 Glucose 294 mg/dL (65-99) H 06/08/20 04:40 Calcium 8.2 mg/dL (8.5-10.1) L 06/08/20 04:40 Corrected Calcium 9.2 mg/dL (8.5-10.1) 06/08/20 04:40 Magnesium 2.3 mg/dL (1.7-2.9) 05/22/20 04:25 Ferritin 240 ng/mL (8-252) 05/21/20 04:21 Total Bilirubin 1.00 mg/dL (0.2-1.0) 06/08/20 04:40 AST 41 Units/L (15-37) H 06/08/20 04:40 ALT 84 Units/L (12-78) H 06/08/20 04:40 Alkaline Phosphatase 109 Units/L (46-116) 06/08/20 04:40 C-Reactive Protein 1.70 mg/L (0-3.0) 05/21/20 04:21 Total Protein 4.9 g/dL (6.4-8.2) L 06/08/20 04:40 Albumin 2.7 g/dL (3.4-5.0) L 06/08/20 04:40 Globulin 2.2 g/dL (2.5-4.5) L 06/08/20 04:40 Albumin/Globulin Ratio 1.2 Ratio (1.1-2.1) 06/08/20 04:40 Specimen Type Catherized urine 06/06/20 15:30 Urine Color Red (YELLOW) 06/06/20 15:30 Urine Appearance Cloudy (CLEAR) 06/06/20 15:30 Urine pH 5.0 (5.0 - 8.0) 06/06/20 15:30 Ur Specific [place] 1.020 (1.000-1.030) 06/06/20 15:30 Urine Protein 3+ (NEGATIVE) 06/06/20 15:30 Urine Glucose (UA) 1+ (NEGATIVE) 06/06/20 15:30 Urine Ketones 1+ (NEGATIVE) 06/06/20 15:30 Urine Occult Blood 5+ (NEGATIVE) 06/06/20 15:30 Urine Nitrite Positive (NEGATIVE) 06/06/20 15:30 Urine Bilirubin Negative (NEGATIVE) 06/06/20 15:30 Urine Urobilinogen 1+ (NORMAL) 06/06/20 15:30 Ur Leukocyte Esterase 3+ (NEGATIVE) 06/06/20 15:30 Urine RBC 30-50 /HPF (0-3) A 06/06/20 15:30 Urine WBC 10-20 /HPF (0-5) A 06/06/20 15:30 Ur Squamous Epith Cells Negative /HPF (NEGATIVE) 06/06/20 15:30 Urine Bacteria 1+ /HPF (NEGATIVE) 06/06/20 15:30 Urine Yeast Moderate /HPF (NEGATIVE) 06/06/20 15:30 Ur Culture Indicated? No/not indicated 06/06/20 15:30 SARS CoV-2 RNA Rapid KIRA Positive (NEGATIVE) A 05/15/20 13:15 Blood Type O POSITIVE 05/16/20 09:08 Plan (1) Pneumonia due to COVID-19 virus: Status: Acute Plan: ADMIT, BLOOD AND SPUTUM CULTURE ON ADMISSION EKG AND CXR, ABG ON ADMISSION AM LABS, DUO NEBS, VERIFY HOME MEDICATION IV ATBX, REMDESIVIR, IV SOLU MEDROL (2) Acute respiratory failure with hypoxia: Status: Acute (3) Thrombocytopenia: Status: Acute (4) BiPAP (biphasic positive airway pressure) dependence: Status: Acute (5) Anxiety: Status: Acute
[2020-06-08] MEDS: ATIVAN TAB 0.5 MG PO PRN (18:01)
[2020-06-08] MEDS: ZANAFLEX PO SCH (20:55)
[2020-06-08] MEDS: REQUIP PO SCH (20:56)
[2020-06-09] MEDS: ASCORBIC ACID MULTI IV SCH ×4 (02:15→21:31)
[2020-06-09] MEDS: NS IV SCH ×4 (02:15→21:31)
[2020-06-09] MEDS: BENADRYL INJ 50 MG VIAL IVP SCH ×3 (05:07→21:29)
[2020-06-09] MEDS: SOLU-Medrol 40 MG VIAL IVP SCH ×3 (05:07→21:28)
[2020-06-09] MEDS: XOPENEX 1.25 MG/3 ML NEBULE NEB SCH ×3 (05:35→17:21)
[2020-06-09 06:09] LABS: BASOPHILS % (AUTO) 0.1 % (0.2-1.0); EOSINOPHILS % (AUTO) 0.1 % (0.9-2.9); HEMOGLOBIN 11.8 g/dL (12.0-16.0); LYMPHOCYTES # (AUTO) 0.3 X10^3/uL (1.3-2.9); LYMPHOCYTES % (AUTO) 7.1 % (21.0-51.0); MEAN CORPUSCULAR HEMOGLOBIN 31.2 pg (27.0-34.0); MEAN CORPUSCULAR HGB CONC 34.7 g/dL (33.0-35.0); MEAN CORPUSCULAR VOLUME 90.1 fL (80.0-100.0); MEAN PLATELET VOLUME 8.1 fL (7.4-11.0); MONOCYTES # (AUTO) 0.2 x10^3/uL (0.3-0.8); MONOCYTES % (AUTO) 4.5 % (0.0-13.0); NEUTROPHILS # (AUTO) 3.3 x10^3/uL (2.2-4.8); NEUTROPHILS % (AUTO) 88.2 % (42.0-75.0); PLATELET COUNT 40 X10^3/uL (150.0-450.0); RED BLOOD COUNT 3.78 X10^6/uL (3.5-5.4); RED CELL DISTRIBUTION WIDTH 14.1 % (11.6-16.5); WHITE BLOOD COUNT 3.8 X10^3/uL (3.6-10.0)
[2020-06-09 06:22] LABS: BLOOD UREA NITROGEN 22 mg/dL (7-18); CALCIUM 7.8 mg/dL (8.5-10.1); CARBON DIOXIDE 33.5 mmol/L (21-32); CHLORIDE 102 mmol/L (98-107); COR NA(FOR HYPERGLY) 143 mmol/L (136-145); CREATININE 0.57 mg/dL (0.55-1.02); SODIUM 139 mmol/L (136-145); eGFR NON BLACK RACES > 60 (>60)
[2020-06-09] MEDS ORDERED: NS 100 ML IV 100 ML IV ONE ×2 (07:08→17:44)
[2020-06-09] MEDS: NS 1/2 1000 ML IV 1,000 ML IV SCH ×2 (08:10→21:28)
[2020-06-09] MEDS: LASIX IVP SCH (08:50)
[2020-06-09] MEDS: NYSTATIN POWDER TOP SCH ×2 (08:50→21:30)
[2020-06-09] MEDS: PULMICORT NEB TX 0.5 MG NEB SCH ×2 (09:01→20:31)
[2020-06-09] MEDS: ATIVAN TAB 0.5 MG PO PRN ×2 (09:06→21:31)
[2020-06-09] MEDS: ELIQUIS PO SCH ×2 (09:06→21:31)
[2020-06-09] MEDS: LIPITOR TAB 40 MG PO SCH (09:06)
[2020-06-09] MEDS: PEPCID TAB 20 MG PO SCH ×2 (09:07→21:30)
[2020-06-09] MEDS: NORVASC TAB 5 MG PO SCH (09:07)
[2020-06-09] MEDS: NYSTATIN SUSP PO SCH ×4 (09:07→21:30)
[2020-06-09] MEDS: NEURONTIN CAP 400 MG PO SCH ×2 (09:07→21:31)
[2020-06-09] MEDS: PAXIL PO SCH (09:07)
[2020-06-09] MEDS: THIAMINE HCL INJ IVP SCH ×2 (09:08→21:29)
[2020-06-09] MEDS: VITAMIN A PO SCH (09:08)
[2020-06-09] MEDS: VITAMIN D3 125 mcg (5,000 UNITS) PO SCH (09:08)
[2020-06-09] MEDS: ROBITUSSIN DM PO SCH ×4 (09:08→21:30)
[2020-06-09] MEDS: PriLOSEC PO SCH (09:08)
[2020-06-09] MEDS: ZINC SULFATE PO SCH ×2 (09:09→21:29)
[2020-06-09] MEDS: LEVAQUIN PREMIX IV 500 MG 500 MG/100 ML BAG IV SCH (09:41)
--- NOTE | 2020-06-09 10:44 | RAD ---
HISTORYPNEUMONIASTUDYCHEST, 1 VIEWCOMPARISONChest radiograph dated June 07, 2020.FINDINGSThe trachea is midline. The cardiac silhouette is enlarged. There is abnormal but stable interstitial disease and patchy ground-glass changes seen throughout the lung stark with dense consolidation in the right medial lung base and retrocardiac region of the chest. These findings are most concerning for pneumonia or atypical edema. COVID-19 is possible. Subtle lucency around the superior pericardium could reflect pneumomediastinum. Follow-up with chest CT imaging is suggested when medically feasible.There is a stable right IJ CVL. No pneumothorax is observed. No other cardiopulmonary changes seen. The bony thorax is grossly stable.IMPRESSIONAs above.Electronically signed by: CADY MERCEDES III (Jun 09, 2020 10:41:53)
[2020-06-09] MEDS ORDERED: MAGIC MOUTHWASH MT PRN (13:52)
[2020-06-09] MEDS: MAGIC MOUTHWASH MT SCH ×3 (14:50→21:31)
[2020-06-09 16:24] LABS: ABG BASE EXCESS 11.3 mmol/L (-2.0-2.0)
[2020-06-09 16:25] LABS: ABG HCO3 35.9 mmol/L (22-26)
[2020-06-09 16:26] LABS: ABG ALLEN TEST POS
--- NOTE | 2020-06-09 18:14 | RAD ---
HISTORYPNEUMONIASTUDYCHEST, 1 VIEWCOMPARISONJanuary 2020FINDINGSThe trachea is midline. The cardiac silhouette is stable. The lungs demonstrate persistent multifocal airspace disease unchanged compared to prior. The bony thorax is unremarkable.IMPRESSIONStable multifocal pneumonia.Electronically signed by: GABO BANG (Jun 09, 2020 18:12:48)
[2020-06-09] MEDS: ZOVIRAX VIAL 500 MG 500 MG in NS 100 ML IV 100 ML IV SCH ×2 (18:32→23:00)
[2020-06-09] MEDS ORDERED: NS 1/2 1000 ML IV 1,000 ML IV ONE (19:42)
[2020-06-09] MEDS: ZANAFLEX PO SCH (21:29)
[2020-06-09] MEDS: REQUIP PO SCH (21:30)
[2020-06-09] MEDS: NORCO 5/325 MG TAB PO PRN (21:32)
[2020-06-10] MEDS: XOPENEX 1.25 MG/3 ML NEBULE NEB SCH ×2 (00:45→06:42)
[2020-06-10] MEDS ORDERED: NS 100 ML IV 100 ML IV ONE (02:36)
[2020-06-10] MEDS: NS IV SCH ×4 (03:48→22:00)
[2020-06-10] MEDS: ASCORBIC ACID MULTI IV SCH ×4 (03:48→22:00)
[2020-06-10 04:53] LABS: ABG ALLEN TEST POS; ABG BASE EXCESS 12.9 mmol/L (-2.0-2.0); ABG HCO3 38.1 mmol/L (22-26)
[2020-06-10] MEDS: SOLU-Medrol 40 MG VIAL IVP SCH ×3 (05:12→21:53)
[2020-06-10 06:25] LABS: BASOPHILS % (AUTO) 0 % (0.2-1.0); EOSINOPHILS % (AUTO) 0.1 % (0.9-2.9); HEMOGLOBIN 12.3 g/dL (12.0-16.0); LYMPHOCYTES # (AUTO) 0.2 X10^3/uL (1.3-2.9); LYMPHOCYTES % (AUTO) 6.9 % (21.0-51.0); MEAN CORPUSCULAR HEMOGLOBIN 30.8 pg (27.0-34.0); MEAN CORPUSCULAR VOLUME 90.5 fL (80.0-100.0); MONOCYTES # (AUTO) 0.2 x10^3/uL (0.3-0.8); MONOCYTES % (AUTO) 4.3 % (0.0-13.0); NEUTROPHILS # (AUTO) 3.1 x10^3/uL (2.2-4.8); NEUTROPHILS % (AUTO) 88.7 % (42.0-75.0); PLATELET COUNT 41 X10^3/uL (150.0-450.0); RED BLOOD COUNT 3.98 X10^6/uL (3.5-5.4); RED CELL DISTRIBUTION WIDTH 14.2 % (11.6-16.5); WHITE BLOOD COUNT 3.5 X10^3/uL (3.6-10.0)
[2020-06-10] MEDS: BENADRYL INJ 50 MG VIAL IVP SCH ×3 (06:30→21:51)
[2020-06-10] MEDS: ZOVIRAX VIAL 500 MG 500 MG in NS 100 ML IV 100 ML IV SCH ×3 (06:30→22:38)
[2020-06-10 07:05] LABS: ALANINE AMINOTRANSFERASE 93 Units/L (12-78); ALBUMIN 2.8 g/dL (3.4-5.0); ALKALINE PHOSPHATASE 99 Units/L (46-116); ASPARTATE AMINO TRANSFERASE 38 Units/L (15-37); BLOOD UREA NITROGEN 23 mg/dL (7-18); CALCIUM 8.6 mg/dL (8.5-10.1); CARBON DIOXIDE 33.4 mmol/L (21-32); CHLORIDE 104 mmol/L (98-107); COR CA(FOR HYPOALB) 9.6 mg/dL (8.5-10.1); COR NA(FOR HYPERGLY) 146 mmol/L (136-145); CREATININE 0.64 mg/dL (0.55-1.02); SODIUM 141 mmol/L (136-145); eGFR NON BLACK RACES > 60 (>60)
[2020-06-10] MEDS: NS 1/2 1000 ML IV 1,000 ML IV SCH ×2 (08:38→22:43)
[2020-06-10] MEDS: ELIQUIS PO SCH ×2 (08:38→21:57)
[2020-06-10] MEDS: LIPITOR TAB 40 MG PO SCH (08:39)
[2020-06-10] MEDS: LASIX IVP SCH (08:39)
[2020-06-10] MEDS: LEVAQUIN PREMIX IV 500 MG 500 MG/100 ML BAG IV SCH (08:39)
[2020-06-10] MEDS: MAGIC MOUTHWASH MT SCH ×4 (08:40→22:01)
[2020-06-10] MEDS: NORVASC TAB 5 MG PO SCH (08:40)
[2020-06-10] MEDS: NEURONTIN CAP 400 MG PO SCH ×2 (08:40→21:57)
[2020-06-10] MEDS: PAXIL PO SCH (08:41)
[2020-06-10] MEDS: PriLOSEC PO SCH (08:41)
[2020-06-10] MEDS: PEPCID TAB 20 MG PO SCH ×2 (08:41→21:57)
[2020-06-10] MEDS: NYSTATIN POWDER TOP SCH ×2 (08:41→22:50)
[2020-06-10] MEDS: NYSTATIN SUSP PO SCH ×4 (08:41→21:59)
[2020-06-10] MEDS: VITAMIN A PO SCH (08:42)
[2020-06-10] MEDS: THIAMINE HCL INJ IVP SCH ×2 (08:42→21:55)
[2020-06-10] MEDS: ROBITUSSIN DM PO SCH ×4 (08:42→21:58)
[2020-06-10] MEDS: VITAMIN D3 125 mcg (5,000 UNITS) PO SCH (08:42)
[2020-06-10] MEDS: ZINC SULFATE PO SCH ×2 (08:43→21:57)
--- NOTE | 2020-06-10 09:03 | RAD ---
HISTORYFollow-up COVID-19STUDYChest AP [id number]/[id number] appears to have been removal of the large bore right IJ eve e and replacement with a smaller right IJ line. Its tip is in the expected position of the superior v jayde cava. Heart size is difficult to assess due to obscuration of both heart borders by bilateral john und-glass and alveolar infiltrates unchanged in appearance from the prior examination. Hypo inflation remains present. No pleural effusions are identified. Bony thorax is unremarkable.IMPRESSIONNo arroyo e bilateral lung infiltratesElectronically signed by: CANDELARIA MILLER (Jun 10, 2020 09:01:51)
[2020-06-10] MEDS: PULMICORT NEB TX 0.5 MG NEB SCH ×2 (10:04→20:20)
[2020-06-10] MEDS: BUTT CREAM (COMPOUND) EXT PRN (20:55)
[2020-06-10] MEDS: ATIVAN TAB 0.5 MG PO PRN (21:57)
[2020-06-10] MEDS: REQUIP PO SCH (21:57)
[2020-06-10] MEDS: NORCO 5/325 MG TAB PO PRN (21:57)
[2020-06-10] MEDS: ZANAFLEX PO SCH (22:45)
[2020-06-11] MEDS: XOPENEX 1.25 MG/3 ML NEBULE NEB SCH ×5 (00:47→18:06)
[2020-06-11] MEDS: ASCORBIC ACID MULTI IV SCH ×4 (02:58→20:34)
[2020-06-11] MEDS: NS IV SCH ×4 (02:58→20:34)
[2020-06-11] MEDS: SOLU-Medrol 40 MG VIAL IVP SCH ×3 (06:04→21:35)
[2020-06-11] MEDS: BENADRYL INJ 50 MG VIAL IVP SCH ×3 (06:06→21:37)
[2020-06-11] MEDS: ZOVIRAX VIAL 500 MG 500 MG in NS 100 ML IV 100 ML IV SCH ×3 (06:08→21:40)
[2020-06-11 07:36] LABS: BASOPHILS % (AUTO) 0.2 % (0.2-1.0); EOSINOPHILS % (AUTO) 0.1 % (0.9-2.9); HEMATOCRIT 34.4 % (36.0-47.0); HEMOGLOBIN 11.9 g/dL (12.0-16.0); LYMPHOCYTES # (AUTO) 0.2 X10^3/uL (1.3-2.9); LYMPHOCYTES % (AUTO) 7.9 % (21.0-51.0); MEAN CORPUSCULAR HEMOGLOBIN 31.2 pg (27.0-34.0); MEAN CORPUSCULAR HGB CONC 34.5 g/dL (33.0-35.0); MEAN CORPUSCULAR VOLUME 90.2 fL (80.0-100.0); MEAN PLATELET VOLUME 8.3 fL (7.4-11.0); MONOCYTES # (AUTO) 0.1 x10^3/uL (0.3-0.8); MONOCYTES % (AUTO) 3.6 % (0.0-13.0); NEUTROPHILS # (AUTO) 2.6 x10^3/uL (2.2-4.8); NEUTROPHILS % (AUTO) 88.2 % (42.0-75.0); PLATELET COUNT 36 X10^3/uL (150.0-450.0); RED BLOOD COUNT 3.81 X10^6/uL (3.5-5.4); RED CELL DISTRIBUTION WIDTH 14.3 % (11.6-16.5); WHITE BLOOD COUNT 2.9 X10^3/uL (3.6-10.0)
[2020-06-11 07:40] LABS: ALANINE AMINOTRANSFERASE 94 Units/L (12-78); ALBUMIN 2.7 g/dL (3.4-5.0); ALKALINE PHOSPHATASE 108 Units/L (46-116); ASPARTATE AMINO TRANSFERASE 41 Units/L (15-37); BLOOD UREA NITROGEN 20 mg/dL (7-18); CALCIUM 8.3 mg/dL (8.5-10.1); CARBON DIOXIDE 31.9 mmol/L (21-32); CHLORIDE 104 mmol/L (98-107); COR CA(FOR HYPOALB) 9.3 mg/dL (8.5-10.1); COR NA(FOR HYPERGLY) 145 mmol/L (136-145); CREATININE 0.52 mg/dL (0.55-1.02); SODIUM 140 mmol/L (136-145); TOTAL PROTEIN 4.9 g/dL (6.4-8.2); eGFR NON BLACK RACES > 60 (>60)
[2020-06-11] MEDS ORDERED: NS 1/2 1000 ML IV 1,000 ML IV ONE (07:42)
[2020-06-11 07:55] LABS: PLATELET MORPHOLOGY COMMENT NORMAL (NORMAL)
[2020-06-11] MEDS: NORVASC TAB 5 MG PO SCH (08:15)
[2020-06-11] MEDS: ROBITUSSIN DM PO SCH ×4 (08:15→20:29)
[2020-06-11] MEDS: ELIQUIS PO SCH ×2 (08:15→20:28)
[2020-06-11] MEDS: LASIX IVP SCH (08:15)
[2020-06-11] MEDS: NEURONTIN CAP 400 MG PO SCH ×2 (08:15→20:28)
[2020-06-11] MEDS: LIPITOR TAB 40 MG PO SCH (08:15)
[2020-06-11] MEDS: PEPCID TAB 20 MG PO SCH ×2 (08:15→20:28)
[2020-06-11] MEDS: NS 1/2 1000 ML IV 1,000 ML IV SCH ×2 (08:15→23:38)
[2020-06-11] MEDS: THIAMINE HCL INJ IVP SCH ×2 (08:15→20:31)
[2020-06-11] MEDS: VITAMIN A PO SCH (08:15)
[2020-06-11] MEDS: ZINC SULFATE PO SCH ×2 (08:15→20:28)
[2020-06-11] MEDS: NYSTATIN SUSP PO SCH ×4 (08:15→20:30)
[2020-06-11] MEDS: PriLOSEC PO SCH (08:15)
[2020-06-11] MEDS: VITAMIN D3 125 mcg (5,000 UNITS) PO SCH (08:15)
[2020-06-11] MEDS: MAGIC MOUTHWASH MT SCH ×4 (08:15→20:31)
[2020-06-11] MEDS: LEVAQUIN PREMIX IV 500 MG 500 MG/100 ML BAG IV SCH (08:15)
[2020-06-11] MEDS: PAXIL PO SCH (08:15)
[2020-06-11] MEDS: NYSTATIN POWDER TOP SCH ×2 (08:15→22:16)
[2020-06-11] MEDS: PULMICORT NEB TX 0.5 MG NEB SCH ×2 (11:17→21:00)
[2020-06-11] MEDS: BUTT CREAM (COMPOUND) EXT PRN (20:20)
[2020-06-11] MEDS: NORCO 5/325 MG TAB PO PRN (20:28)
[2020-06-11] MEDS: REQUIP PO SCH (20:28)
[2020-06-11] MEDS: ATIVAN TAB 0.5 MG PO PRN (20:28)
[2020-06-11] MEDS: ZANAFLEX PO SCH (22:19)
[2020-06-12] MEDS: XOPENEX 1.25 MG/3 ML NEBULE NEB SCH ×3 (00:25→12:00)
[2020-06-12] MEDS: NS IV SCH ×4 (02:48→22:15)
[2020-06-12] MEDS: ASCORBIC ACID MULTI IV SCH ×4 (02:48→22:15)
[2020-06-12 05:15] LABS: ABG BASE EXCESS 12.2 mmol/L (-2.0-2.0)
[2020-06-12 05:16] LABS: ABG ALLEN TEST POS; ABG HCO3 37.8 mmol/L (22-26)
[2020-06-12] MEDS: SOLU-Medrol 40 MG VIAL IVP SCH ×3 (05:30→22:17)
[2020-06-12] MEDS: BENADRYL INJ 50 MG VIAL IVP SCH ×3 (05:32→22:18)
[2020-06-12] MEDS: ZOVIRAX VIAL 500 MG 500 MG in NS 100 ML IV 100 ML IV SCH ×3 (05:34→22:18)
[2020-06-12] MEDS ORDERED: NS 1/2 1000 ML IV 1,000 ML IV ONE (06:18)
[2020-06-12 06:23] LABS: BASOPHILS % (AUTO) 0.3 % (0.2-1.0); EOSINOPHILS % (AUTO) 0.1 % (0.9-2.9); HEMATOCRIT 35.7 % (36.0-47.0); HEMOGLOBIN 12.2 g/dL (12.0-16.0); LYMPHOCYTES # (AUTO) 0.3 X10^3/uL (1.3-2.9); MEAN CORPUSCULAR HGB CONC 34.2 g/dL (33.0-35.0); MEAN CORPUSCULAR VOLUME 90.6 fL (80.0-100.0); MEAN PLATELET VOLUME 8.1 fL (7.4-11.0); MONOCYTES # (AUTO) 0.1 x10^3/uL (0.3-0.8); MONOCYTES % (AUTO) 3.7 % (0.0-13.0); NEUTROPHILS # (AUTO) 2.7 x10^3/uL (2.2-4.8); NEUTROPHILS % (AUTO) 84.9 % (42.0-75.0); PLATELET COUNT 42 X10^3/uL (150.0-450.0); RED BLOOD COUNT 3.95 X10^6/uL (3.5-5.4); RED CELL DISTRIBUTION WIDTH 14.3 % (11.6-16.5); WHITE BLOOD COUNT 3.2 X10^3/uL (3.6-10.0)
[2020-06-12 06:33] LABS: ALANINE AMINOTRANSFERASE 102 Units/L (12-78); ALBUMIN 2.8 g/dL (3.4-5.0); ALKALINE PHOSPHATASE 110 Units/L (46-116); ASPARTATE AMINO TRANSFERASE 39 Units/L (15-37); BLOOD UREA NITROGEN 21 mg/dL (7-18); CALCIUM 8.2 mg/dL (8.5-10.1); CARBON DIOXIDE 32.6 mmol/L (21-32); CHLORIDE 103 mmol/L (98-107); COR CA(FOR HYPOALB) 9.2 mg/dL (8.5-10.1); COR NA(FOR HYPERGLY) 147 mmol/L (136-145); CREATININE 0.57 mg/dL (0.55-1.02); SODIUM 141 mmol/L (136-145); TOTAL PROTEIN 5.1 g/dL (6.4-8.2); eGFR NON BLACK RACES > 60 (>60)
--- NOTE | 2020-06-12 07:32 | RAD ---
Chest AP portableIndication: COVID-19Comparison: June 10, 2020.FINDINGSThere is no pneumothorax. Right IJ catheter tip is unchanged. Patient is rotated. Prominent heart size and patchy pulmonary opacities are similar to the prior, worse in the left lung.IMPRESSIONNo change in the bilateral pulmonary opacitiesElectronically signed by: LUAN FRAIRE (Jun 12, 2020 07:31:13)
[2020-06-12] MEDS ORDERED: HumuLIN R SUBCUT PRN (08:29)
[2020-06-12] MEDS: PULMICORT NEB TX 0.5 MG NEB SCH ×2 (09:00→22:00)
[2020-06-12] MEDS: PEPCID TAB 20 MG PO SCH ×2 (10:00→22:16)
[2020-06-12] MEDS: LIPITOR TAB 40 MG PO SCH (10:00)
[2020-06-12] MEDS: PAXIL PO SCH (10:00)
[2020-06-12] MEDS: MAGIC MOUTHWASH MT SCH ×4 (10:00→22:15)
[2020-06-12] MEDS: LEVAQUIN PREMIX IV 500 MG 500 MG/100 ML BAG IV SCH (10:00)
[2020-06-12] MEDS: VITAMIN A PO SCH (10:00)
[2020-06-12] MEDS: PriLOSEC PO SCH (10:00)
[2020-06-12] MEDS: NYSTATIN POWDER TOP SCH ×2 (10:00→22:16)
[2020-06-12] MEDS: VITAMIN D3 125 mcg (5,000 UNITS) PO SCH (10:00)
[2020-06-12] MEDS: ZINC SULFATE PO SCH ×2 (10:00→22:17)
[2020-06-12] MEDS: ELIQUIS PO SCH ×2 (10:00→22:15)
[2020-06-12] MEDS: NORVASC TAB 5 MG PO SCH (10:00)
[2020-06-12] MEDS: NYSTATIN SUSP PO SCH ×4 (10:00→22:16)
[2020-06-12] MEDS: ROBITUSSIN DM PO SCH ×4 (10:00→22:17)
[2020-06-12] MEDS: NEURONTIN CAP 400 MG PO SCH ×2 (10:00→22:15)
[2020-06-12] MEDS: LASIX IVP SCH (10:00)
[2020-06-12] MEDS: THIAMINE HCL INJ IVP SCH ×2 (10:00→22:17)
[2020-06-12] MEDS: HumuLIN R SUBCUT PRN ×3 (13:10→22:20)
[2020-06-12] MEDS: NS 1/2 1000 ML IV 1,000 ML IV SCH (16:05)
[2020-06-12] MEDS ORDERED: ARTIFICIAL TEARS DROPS AFFEYE SCH (21:00)
[2020-06-12] MEDS: SNACK - Diabetic Appropriate PO SCH (22:14)
[2020-06-12] MEDS: REQUIP PO SCH (22:16)
[2020-06-12] MEDS: ZANAFLEX PO SCH (22:17)
[2020-06-12] MEDS: ATIVAN TAB 0.5 MG PO PRN (22:19)
[2020-06-12] MEDS: NORCO 5/325 MG TAB PO PRN (22:19)
[2020-06-13] MEDS: XOPENEX 1.25 MG/3 ML NEBULE NEB SCH ×5 (00:15→22:00)
[2020-06-13] MEDS: NS 1/2 1000 ML IV 1,000 ML IV SCH ×3 (01:09→15:31)
[2020-06-13] MEDS: NS IV SCH ×4 (02:31→21:22)
[2020-06-13] MEDS: ASCORBIC ACID MULTI IV SCH ×4 (02:31→21:22)
[2020-06-13] MEDS: BENADRYL INJ 50 MG VIAL IVP SCH ×3 (05:50→21:22)
[2020-06-13] MEDS: HumuLIN R SUBCUT PRN ×4 (05:51→22:27)
[2020-06-13] MEDS: ZOVIRAX VIAL 500 MG 500 MG in NS 100 ML IV 100 ML IV SCH ×3 (05:51→21:22)
[2020-06-13 06:26] LABS: ABG BASE EXCESS 12.1 mmol/L (-2.0-2.0)
[2020-06-13 06:28] LABS: ABG ALLEN TEST POSS; ABG HCO3 36.7 mmol/L (22-26)
[2020-06-13 06:54] LABS: BASOPHILS % (AUTO) 0.1 % (0.2-1.0); HEMATOCRIT 36.1 % (36.0-47.0); HEMOGLOBIN 12.2 g/dL (12.0-16.0); LYMPHOCYTES # (AUTO) 0.3 X10^3/uL (1.3-2.9); LYMPHOCYTES % (AUTO) 9.2 % (21.0-51.0); MEAN CORPUSCULAR HEMOGLOBIN 30.8 pg (27.0-34.0); MEAN CORPUSCULAR HGB CONC 33.8 g/dL (33.0-35.0); MEAN CORPUSCULAR VOLUME 91.1 fL (80.0-100.0); MEAN PLATELET VOLUME 7.7 fL (7.4-11.0); MONOCYTES # (AUTO) 0.2 x10^3/uL (0.3-0.8); MONOCYTES % (AUTO) 5.6 % (0.0-13.0); NEUTROPHILS # (AUTO) 2.9 x10^3/uL (2.2-4.8); NEUTROPHILS % (AUTO) 85.1 % (42.0-75.0); PLATELET COUNT 49 X10^3/uL (150.0-450.0); RED BLOOD COUNT 3.96 X10^6/uL (3.5-5.4); RED CELL DISTRIBUTION WIDTH 14.3 % (11.6-16.5); WHITE BLOOD COUNT 3.5 X10^3/uL (3.6-10.0)
[2020-06-13 07:06] LABS: ALANINE AMINOTRANSFERASE 105 Units/L (12-78); ALBUMIN 2.7 g/dL (3.4-5.0); ALKALINE PHOSPHATASE 130 Units/L (46-116); ASPARTATE AMINO TRANSFERASE 40 Units/L (15-37); BLOOD UREA NITROGEN 21 mg/dL (7-18); CALCIUM 8.3 mg/dL (8.5-10.1); CHLORIDE 102 mmol/L (98-107); COR CA(FOR HYPOALB) 9.3 mg/dL (8.5-10.1); COR NA(FOR HYPERGLY) 147 mmol/L (136-145); CREATININE 0.61 mg/dL (0.55-1.02); SODIUM 141 mmol/L (136-145); TOTAL PROTEIN 5.1 g/dL (6.4-8.2); eGFR NON BLACK RACES > 60 (>60)
[2020-06-13 07:57] LABS: PLATELET MORPHOLOGY COMMENT NORMAL (NORMAL)
[2020-06-13] MEDS: LASIX IVP SCH (08:01)
[2020-06-13] MEDS: ELIQUIS PO SCH ×2 (08:01→21:23)
[2020-06-13] MEDS: NEURONTIN CAP 400 MG PO SCH ×2 (08:02→21:23)
[2020-06-13] MEDS: MAGIC MOUTHWASH MT SCH ×4 (08:02→21:47)
[2020-06-13] MEDS: LIPITOR TAB 40 MG PO SCH (08:02)
[2020-06-13] MEDS: NORVASC TAB 5 MG PO SCH (08:03)
[2020-06-13] MEDS: NYSTATIN POWDER TOP SCH ×2 (08:04→21:23)
[2020-06-13] MEDS: NYSTATIN SUSP PO SCH ×4 (08:04→21:47)
[2020-06-13] MEDS: ROBITUSSIN DM PO SCH ×4 (08:05→21:48)
[2020-06-13] MEDS: PriLOSEC PO SCH (08:05)
[2020-06-13] MEDS: PEPCID TAB 20 MG PO SCH ×2 (08:05→21:48)
[2020-06-13] MEDS: PAXIL PO SCH (08:05)
[2020-06-13] MEDS: SOLU-Medrol 40 MG VIAL IVP SCH ×2 (08:06→21:23)
[2020-06-13] MEDS: THIAMINE HCL INJ IVP SCH ×2 (08:06→21:23)
[2020-06-13] MEDS: VITAMIN A PO SCH (08:07)
[2020-06-13] MEDS: VITAMIN D3 125 mcg (5,000 UNITS) PO SCH (08:08)
[2020-06-13] MEDS: ZINC SULFATE PO SCH ×2 (08:08→21:22)
[2020-06-13] MEDS: PULMICORT NEB TX 0.5 MG NEB SCH ×2 (09:25→22:00)
[2020-06-13] MEDS ORDERED: ARTIFICIAL TEARS DROPS AFFEYE PRN (09:28)
[2020-06-13] MEDS: LEVAQUIN PREMIX IV 500 MG 500 MG/100 ML BAG IV SCH (10:30)
[2020-06-13] MEDS: ATIVAN TAB 0.5 MG PO PRN ×2 (14:07→22:27)
--- NOTE | 2020-06-13 15:37 | PCM.PROG ---
Progress Note - Progress Note for Day of Date of Exam: 06/13/20 - Subjective Subjective: Mrs. Estes is a 54-year-old white female who is currently being treated for bilateral COVID-19 pneumonia with hypoxia and respiratory failure requiring BiPAP therapy. The patient is still on antibiotic therapy, as well as anticoagulant therapy. She is on blood pressure control. The patient is still receiving Duonebs. She is on BiPAP, which has been decreased down to 70% FIO2 with PO2 at 49 today. The patient has been afebrile. Her blood pressure was stable this morning at 117/83. Her white count was 3.5, hemoglobin 12.2, and platelets 49. She has experienced some thrombocytopenia which has been going on for about two weeks now but her hemoglobin has been stable. We will continue to monitor. She has not had any obvious blood in stool, nose bleeding, or hemoptysis. The patient has had some hyperglycemia with no history of diabetes mellitus. The patient does have a history of obesity and has been on an extended course of corticosteroid therapy pretty much since admission. We did decrease her Solu-Medrol down to 40 mg every eight hours and we decreased it down to 40 every 12 hours today to help with weaning patient, as well as hyperglycemia. We obtained an A1C and started her on sliding scale insulin coverage with blood sugars before meals and at bedtime per protocol. This morning, the patient denied any chest pain. She states she feels well. The patient is tolerating good p.o. intake. The patient denies any headaches, nausea, or vomiting. - Past Medical Family Social History Past Med/Fam/Surg Hx: No changes since H&P Allergies: Allergies No Known Drug Allergies Allergy (Verified 04/17/18 05:13) - Review of Systems ROS: No change since H&P - Vital Signs and I&O's Vital Signs: Temperature 98.9 F Pulse Rate [Left] 92 Pulse Rate 104 Respiratory Rate 28 Blood Pressure [Right Arm] 136/83 Blood Pressure 126/84 O2 Sat by Pulse Oximetry 81 Intake and Output: Intake & Output 06/11/20 06/12/20 06/13/20 06/14/20 11:59 11:59 11:59 11:59 Intake Total 3621 / 3621 2073 / 2073 2519 / 2519 1339 / 1339 Output Total 3650 / 3650 3575 / 3575 3300 / 3300 1350 / 1350 Balance -29 / -29 -1502 / -1502 -781 / -781 -11 - Physical Exam Oriented: Normal Eyes: Normal Ear: Normal Nose: Normal Throat: Normal Respiratory: Generalized, Diminished Cardiovascular: Normal : Normal Auscultation: Bowel Sounds: Normal Tenderness: Normal Skin: Decreased Turgur Musculoskeletal: Right, Left, Knee, Back:Lumbar Psychiatric: Normal Mood Description: Calm Affect: Normal Speech Pattern: Clear, Appropriate - Laboratory and Diagnostics Result Diagrams: 06/13/20 05:40 06/13/20 05:40 Labs: 06/06/20 15:30 Urine,Clean Catch Urine Culture - Final 05/15/20 12:35 Blood Blood Culture - Final 05/15/20 12:25 Blood Blood Culture - Final Laboratory WBC 3.5 X10^3/uL (3.6-10.0) L 06/13/20 05:40 RBC 3.96 X10^6/uL (3.5-5.4) 06/13/20 05:40 Hgb 12.2 g/dL (12.0-16.0) 06/13/20 05:40 Hct 36.1 % (36.0-47.0) 06/13/20 05:40 MCV 91.1 fL (80.0-100.0) 06/13/20 05:40 MCH 30.8 pg (27.0-34.0) 06/13/20 05:40 MCHC 33.8 g/dL (33.0-35.0) 06/13/20 05:40 RDW 14.3 % (11.6-16.5) 06/13/20 05:40 Plt Count 49 X10^3/uL (150.0-450.0) L 06/13/20 05:40 Plt Count Comment Decreased (ADEQUATE) A 06/13/20 05:40 MPV 7.7 fL (7.4-11.0) 06/13/20 05:40 Neut % (Auto) 85.1 % (42.0-75.0) H 06/13/20 05:40 Lymph % (Auto) 9.2 % (21.0-51.0) L 06/13/20 05:40 [place] % (Auto) 5.6 % (0.0-13.0) 06/13/20 05:40 Eos % (Auto) 0.0 % (0.9-2.9) L 06/13/20 05:40 Baso % (Auto) 0.1 % (0.2-1.0) L 06/13/20 05:40 Neut # (Auto) 2.9 x10^3/uL (2.2-4.8) 06/13/20 05:40 Lymph # (Auto) 0.3 X10^3/uL (1.3-2.9) L 06/13/20 05:40 [place] # (Auto) 0.2 x10^3/uL (0.3-0.8) L 06/13/20 05:40 Eos # (Auto) 0.0 x10^3/uL (0.0-0.2) 06/13/20 05:40 Baso # (Auto) 0.0 X10^3/uL (0.0-0.1) 06/13/20 05:40 Absolute Nucleated RBC 0.9 /100WBC 06/13/20 05:40 Total Counted 100 06/06/20 18:59 Neutrophils % (Manual) 86 % (39-76) H 06/06/20 18:59 Band Neutrophils % 1 % (0-10) 06/06/20 18:59 Lymphocytes % (Manual) 9 % (13-43) L 06/06/20 18:59 Monocytes % (Manual) 4 % (4-9) 06/06/20 18:59 Metamyelocytes % 1 06/05/20 15:33 Myelocytes % 1 06/05/20 15:33 Plt Morphology Comment Normal (NORMAL) 06/13/20 05:40 RBC Morphology Normal (NORMAL) 06/13/20 05:40 D-Dimer 9.09 ug/ml (0.0-0.57) H* 05/28/20 04:55 Sample Site L rad 06/13/20 06:20 ABG pH 7.510 (7.35-7.45) H 06/13/20 06:20 ABG pCO2 46.0 mmHg (35.0-45.0) H 06/13/20 06:20 ABG pO2 49.0 mmHg (80.0-100.0) L* 06/13/20 06:20 ABG HCO3 36.7 mmol/L (22-26) H* 06/13/20 06:20 ABG O2 Saturation 88.0 % (90-100) L 06/13/20 06:20 ABG Base Excess 12.1 mmol/L (-2.0-2.0) H 06/13/20 06:20 Bigg Test Poss 06/13/20 06:20 A-a Gradient 393.0 mmHg 06/13/20 06:20 FiO2 70.0 06/13/20 06:20 Blood Gas Comments Kaylynn well kb 06/13/20 06:20 Sodium 141 mmol/L (136-145) 06/13/20 05:40 Corrected Sodium 147 mmol/L (136-145) H 06/13/20 05:40 Potassium 3.6 mmol/L (3.5-5.1) 06/13/20 05:40 Chloride 102 mmol/L (98-107) 06/13/20 05:40 Carbon Dioxide 33.0 mmol/L (21-32) H 06/13/20 05:40 BUN 21 mg/dL (7-18) H 06/13/20 05:40 Creatinine 0.61 mg/dL (0.55-1.02) 06/13/20 05:40 Est GFR (MDRD) Af Amer > 60 (>60) 06/13/20 05:40 Est GFR (MDRD) Non-Af > 60 (>60) 06/13/20 05:40 Glucose 337 mg/dL (65-99) H 06/13/20 05:40 POC Glucose (mg/dL) 349 mg/dL (65-99) H 06/13/20 12:15 Calcium 8.3 mg/dL (8.5-10.1) L 06/13/20 05:40 Corrected Calcium 9.3 mg/dL (8.5-10.1) 06/13/20 05:40 Magnesium 2.3 mg/dL (1.7-2.9) 05/22/20 04:25 Ferritin 240 ng/mL (8-252) 05/21/20 04:21 Total Bilirubin 1.10 mg/dL (0.2-1.0) H 06/13/20 05:40 AST 40 Units/L (15-37) H 06/13/20 05:40 ALT 105 Units/L (12-78) H 06/13/20 05:40 Alkaline Phosphatase 130 Units/L (46-116) H 06/13/20 05:40 C-Reactive Protein 1.70 mg/L (0-3.0) 05/21/20 04:21 Total Protein 5.1 g/dL (6.4-8.2) L 06/13/20 05:40 Albumin 2.7 g/dL (3.4-5.0) L 06/13/20 05:40 Globulin 2.4 g/dL (2.5-4.5) L 06/13/20 05:40 Albumin/Globulin Ratio 1.1 Ratio (1.1-2.1) 06/13/20 05:40 Specimen Type Catherized urine 06/06/20 15:30 Urine Color Red (YELLOW) 06/06/20 15:30 Urine Appearance Cloudy (CLEAR) 06/06/20 15:30 Urine pH 5.0 (5.0 - 8.0) 06/06/20 15:30 Ur Specific [place] 1.020 (1.000-1.030) 06/06/20 15:30 Urine Protein 3+ (NEGATIVE) 06/06/20 15:30 Urine Glucose (UA) 1+ (NEGATIVE) 06/06/20 15: Urine Ketones 1+ (NEGATIVE) 06/06/20 15:30 Urine Occult Blood 5+ (NEGATIVE) 06/06/20 15:30 Urine Nitrite Positive (NEGATIVE) 06/06/20 15:30 Urine Bilirubin Negative (NEGATIVE) 06/06/20 15:30 Urine Urobilinogen 1+ (NORMAL) 06/06/20 15:30 Ur Leukocyte Esterase 3+ (NEGATIVE) 06/06/20 15:30 Urine RBC 30-50 /HPF (0-3) A 06/06/20 15:30 Urine WBC 10-20 /HPF (0-5) A 06/06/20 15:30 Ur Squamous Epith Cells Negative /HPF (NEGATIVE) 06/06/20 15:30 Urine Bacteria 1+ /HPF (NEGATIVE) 06/06/20 15:30 Urine Yeast Moderate /HPF (NEGATIVE) 06/06/20 15:30 Ur Culture Indicated? No/not indicated 06/06/20 15:30 SARS CoV-2 RNA Rapid KIRA Positive (NEGATIVE) A 05/15/20 13:15 Blood Type O POSITIVE 05/16/20 09:08 - Plan (1) Pneumonia due to COVID-19 virus Status: Acute Plan: ADMIT, BLOOD AND SPUTUM CULTURE ON ADMISSION. EKG AND CXR, ABG ON ADMISSION. AM LABS, DUO NEBS, VERIFY HOME MEDICATION. IV ATBX, REMDESIVIR, IV SOLU MEDROL
[2020-06-13 16:36] LABS: HEMOGLOBIN A1C 7.7 %
[2020-06-13] MEDS: SNACK - Diabetic Appropriate PO SCH (21:21)
[2020-06-13] MEDS: ZANAFLEX PO SCH (21:23)
[2020-06-13] MEDS: NORCO 5/325 MG TAB PO PRN (21:47)
[2020-06-13] MEDS: REQUIP PO SCH (21:48)
[2020-06-14] MEDS: ASCORBIC ACID MULTI IV SCH ×4 (02:31→21:00)
[2020-06-14] MEDS: NS IV SCH ×4 (02:31→21:00)
[2020-06-14] MEDS: NS 1/2 1000 ML IV 1,000 ML IV SCH ×2 (03:28→15:45)
[2020-06-14] MEDS: ZOVIRAX VIAL 500 MG 500 MG in NS 100 ML IV 100 ML IV SCH ×3 (05:29→21:00)
[2020-06-14] MEDS: BENADRYL INJ 50 MG VIAL IVP SCH ×3 (05:29→21:00)
[2020-06-14] MEDS: HumuLIN R SUBCUT PRN ×4 (05:41→21:05)
[2020-06-14] MEDS: XOPENEX 1.25 MG/3 ML NEBULE NEB SCH ×4 (06:10→18:00)
[2020-06-14 06:52] LABS: BASOPHILS % (AUTO) 0.1 % (0.2-1.0); EOSINOPHILS % (AUTO) 0.1 % (0.9-2.9); HEMATOCRIT 34.3 % (36.0-47.0); HEMOGLOBIN 11.3 g/dL (12.0-16.0); LYMPHOCYTES # (AUTO) 0.3 X10^3/uL (1.3-2.9); LYMPHOCYTES % (AUTO) 14.8 % (21.0-51.0); MEAN CORPUSCULAR HEMOGLOBIN 30.3 pg (27.0-34.0); MEAN CORPUSCULAR HGB CONC 33.1 g/dL (33.0-35.0); MEAN CORPUSCULAR VOLUME 91.6 fL (80.0-100.0); MEAN PLATELET VOLUME 7.3 fL (7.4-11.0); MONOCYTES # (AUTO) 0.1 x10^3/uL (0.3-0.8); MONOCYTES % (AUTO) 5.3 % (0.0-13.0); NEUTROPHILS # (AUTO) 1.9 x10^3/uL (2.2-4.8); NEUTROPHILS % (AUTO) 79.7 % (42.0-75.0); PLATELET COUNT 58 X10^3/uL (150.0-450.0); RED BLOOD COUNT 3.74 X10^6/uL (3.5-5.4); RED CELL DISTRIBUTION WIDTH 14.6 % (11.6-16.5); WHITE BLOOD COUNT 2.3 X10^3/uL (3.6-10.0)
[2020-06-14 07:06] LABS: ALANINE AMINOTRANSFERASE 95 Units/L (12-78); ALBUMIN 2.6 g/dL (3.4-5.0); ALKALINE PHOSPHATASE 109 Units/L (46-116); ASPARTATE AMINO TRANSFERASE 33 Units/L (15-37); BLOOD UREA NITROGEN 22 mg/dL (7-18); CALCIUM 8.1 mg/dL (8.5-10.1); CARBON DIOXIDE 33.5 mmol/L (21-32); CHLORIDE 103 mmol/L (98-107); COR CA(FOR HYPOALB) 9.2 mg/dL (8.5-10.1); COR NA(FOR HYPERGLY) 147 mmol/L (136-145); CREATININE 0.47 mg/dL (0.55-1.02); SODIUM 142 mmol/L (136-145); eGFR NON BLACK RACES > 60 (>60)
[2020-06-14 07:47] LABS: BAND NEUTROPHILS % 10 % (0-10); PLATELET MORPHOLOGY COMMENT NORMAL (NORMAL)
[2020-06-14] MEDS: LASIX IVP SCH (08:00)
[2020-06-14] MEDS: NEURONTIN CAP 400 MG PO SCH ×2 (08:01→21:00)
[2020-06-14] MEDS: MAGIC MOUTHWASH MT SCH ×4 (08:01→21:00)
[2020-06-14] MEDS: LEVAQUIN PREMIX IV 500 MG 500 MG/100 ML BAG IV SCH (08:01)
[2020-06-14] MEDS: NYSTATIN POWDER TOP SCH ×2 (08:02→21:00)
[2020-06-14] MEDS: NYSTATIN SUSP PO SCH ×4 (08:02→21:00)
[2020-06-14] MEDS: SOLU-Medrol 40 MG VIAL IVP SCH ×2 (08:02→21:00)
[2020-06-14] MEDS: ROBITUSSIN DM PO SCH ×4 (08:03→21:00)
[2020-06-14] MEDS: THIAMINE HCL INJ IVP SCH ×2 (08:04→21:00)
[2020-06-14] MEDS: VITAMIN D3 125 mcg (5,000 UNITS) PO SCH (08:05)
[2020-06-14] MEDS: PAXIL PO SCH (08:05)
[2020-06-14] MEDS: NORVASC TAB 5 MG PO SCH (08:06)
[2020-06-14] MEDS: ELIQUIS PO SCH ×2 (08:07→21:00)
[2020-06-14] MEDS: LIPITOR TAB 40 MG PO SCH (08:07)
[2020-06-14] MEDS: PriLOSEC PO SCH (08:08)
[2020-06-14] MEDS: PEPCID TAB 20 MG PO SCH ×2 (08:09→21:00)
[2020-06-14] MEDS: ZINC SULFATE PO SCH ×2 (08:10→21:00)
[2020-06-14] MEDS: VITAMIN A PO SCH (08:10)
[2020-06-14] MEDS: PULMICORT NEB TX 0.5 MG NEB SCH ×2 (09:00→20:25)
[2020-06-14] MEDS ORDERED: NS 100 ML IV 100 ML IV ONE ×2 (09:51→14:15)
[2020-06-14] MEDS: NORCO 5/325 MG TAB PO PRN ×2 (14:38→21:00)
[2020-06-14] MEDS: ATIVAN TAB 0.5 MG PO PRN (21:00)
[2020-06-14] MEDS: SNACK - Diabetic Appropriate PO SCH (21:00)
[2020-06-14] MEDS: REQUIP PO SCH (21:00)
[2020-06-14] MEDS: ZANAFLEX PO SCH (23:27)
[2020-06-15] MEDS: XOPENEX 1.25 MG/3 ML NEBULE NEB SCH ×4 (00:30→18:00)
[2020-06-15] MEDS: ASCORBIC ACID MULTI IV SCH ×4 (02:27→21:28)
[2020-06-15] MEDS: NS IV SCH ×4 (02:27→21:28)
[2020-06-15] MEDS: NS 1/2 1000 ML IV 1,000 ML IV SCH ×2 (05:51→22:25)
[2020-06-15] MEDS: ZOVIRAX VIAL 500 MG 500 MG in NS 100 ML IV 100 ML IV SCH ×3 (05:51→22:32)
[2020-06-15] MEDS: BENADRYL INJ 50 MG VIAL IVP SCH ×3 (05:52→21:36)
[2020-06-15] MEDS: HumuLIN R SUBCUT PRN ×4 (05:54→21:39)
[2020-06-15 06:06] LABS: ABG BASE EXCESS 12.6 mmol/L (-2.0-2.0)
[2020-06-15 06:10] LABS: ABG ALLEN TEST POSS
[2020-06-15 06:14] LABS: BASOPHILS % (AUTO) 0.3 % (0.2-1.0); EOSINOPHILS % (AUTO) 0.2 % (0.9-2.9); HEMATOCRIT 34.2 % (36.0-47.0); HEMOGLOBIN 11.8 g/dL (12.0-16.0); LYMPHOCYTES # (AUTO) 0.4 X10^3/uL (1.3-2.9); LYMPHOCYTES % (AUTO) 16.1 % (21.0-51.0); MEAN CORPUSCULAR HEMOGLOBIN 31.2 pg (27.0-34.0); MEAN CORPUSCULAR HGB CONC 34.4 g/dL (33.0-35.0); MEAN CORPUSCULAR VOLUME 90.5 fL (80.0-100.0); MEAN PLATELET VOLUME 7.6 fL (7.4-11.0); MONOCYTES # (AUTO) 0.1 x10^3/uL (0.3-0.8); MONOCYTES % (AUTO) 3.8 % (0.0-13.0); NEUTROPHILS # (AUTO) 1.7 x10^3/uL (2.2-4.8); NEUTROPHILS % (AUTO) 79.6 % (42.0-75.0); PLATELET COUNT 58 X10^3/uL (150.0-450.0); RED BLOOD COUNT 3.78 X10^6/uL (3.5-5.4); RED CELL DISTRIBUTION WIDTH 14.3 % (11.6-16.5); WHITE BLOOD COUNT 2.2 X10^3/uL (3.6-10.0)
[2020-06-15 06:22] LABS: ALANINE AMINOTRANSFERASE 93 Units/L (12-78); ALBUMIN 2.6 g/dL (3.4-5.0); ALKALINE PHOSPHATASE 105 Units/L (46-116); ASPARTATE AMINO TRANSFERASE 39 Units/L (15-37); BLOOD UREA NITROGEN 18 mg/dL (7-18); CALCIUM 8.2 mg/dL (8.5-10.1); CARBON DIOXIDE 32.4 mmol/L (21-32); CHLORIDE 102 mmol/L (98-107); COR CA(FOR HYPOALB) 9.3 mg/dL (8.5-10.1); COR NA(FOR HYPERGLY) 147 mmol/L (136-145); SODIUM 142 mmol/L (136-145); TOTAL PROTEIN 5.2 g/dL (6.4-8.2); eGFR NON BLACK RACES > 60 (>60)
[2020-06-15 06:42] LABS: PLATELET MORPHOLOGY COMMENT NORMAL (NORMAL)
--- NOTE | 2020-06-15 07:01 | RAD ---
HISTORY:PneumoniaStudy: Single view chestComparison:06/12/2020FINDINGS/IMPRESSION:Lung volumes are reduced with persistent bilateral lung infiltrates that do not appear significantly changed from prior, worse in the left lower lobe. Stable right IJ CVL. No pneumothorax identified.Electronically signed by: COURTNEY MORENO (Jun 15, 2020 06:59:59)
[2020-06-15] MEDS: LEVAQUIN PREMIX IV 500 MG 500 MG/100 ML BAG IV SCH (08:52)
[2020-06-15] MEDS: ELIQUIS PO SCH ×2 (08:52→21:29)
[2020-06-15] MEDS: LASIX IVP SCH (08:52)
[2020-06-15] MEDS: NORVASC TAB 5 MG PO SCH (08:53)
[2020-06-15] MEDS: MAGIC MOUTHWASH MT SCH ×4 (08:53→21:35)
[2020-06-15] MEDS: NYSTATIN POWDER TOP SCH ×2 (08:53→21:46)
[2020-06-15] MEDS: LIPITOR TAB 40 MG PO SCH (08:53)
[2020-06-15] MEDS: NYSTATIN SUSP PO SCH ×4 (08:53→21:34)
[2020-06-15] MEDS: NEURONTIN CAP 400 MG PO SCH ×2 (08:53→21:29)
[2020-06-15] MEDS: PAXIL PO SCH (08:54)
[2020-06-15] MEDS: PEPCID TAB 20 MG PO SCH ×2 (08:54→21:29)
[2020-06-15] MEDS: PriLOSEC PO SCH (08:54)
[2020-06-15] MEDS: SOLU-Medrol 40 MG VIAL IVP SCH ×2 (08:54→21:37)
[2020-06-15] MEDS: ROBITUSSIN DM PO SCH ×4 (08:54→21:33)
[2020-06-15] MEDS: ZINC SULFATE PO SCH ×2 (08:55→21:29)
[2020-06-15] MEDS: VITAMIN D3 125 mcg (5,000 UNITS) PO SCH (08:55)
[2020-06-15] MEDS: VITAMIN A PO SCH (08:55)
[2020-06-15] MEDS: THIAMINE HCL INJ IVP SCH ×2 (08:55→21:40)
[2020-06-15] MEDS: ATIVAN TAB 0.5 MG PO PRN ×2 (09:45→21:29)
[2020-06-15] MEDS: PULMICORT NEB TX 0.5 MG NEB SCH ×2 (11:00→21:30)
[2020-06-15] MEDS: NORCO 5/325 MG TAB PO PRN ×2 (13:25→21:53)
[2020-06-15] MEDS: SNACK - Diabetic Appropriate PO SCH (20:45)
[2020-06-15] MEDS: REQUIP PO SCH (21:29)
[2020-06-15] MEDS: ZANAFLEX PO SCH (21:47)
[2020-06-15] MEDS: BUTT CREAM (COMPOUND) EXT PRN (21:53)
[2020-06-15] MEDS ORDERED: NS 1/2 1000 ML IV 1,000 ML IV ONE (22:24)
[2020-06-16] MEDS: XOPENEX 1.25 MG/3 ML NEBULE NEB SCH ×5 (00:38→21:20)
[2020-06-16] MEDS: NS 1/2 1000 ML IV 1,000 ML IV SCH ×3 (00:41→20:54)
[2020-06-16] MEDS: NS IV SCH ×4 (03:11→20:54)
[2020-06-16] MEDS: ASCORBIC ACID MULTI IV SCH ×4 (03:11→20:54)
[2020-06-16] MEDS: ZOVIRAX VIAL 500 MG 500 MG in NS 100 ML IV 100 ML IV SCH ×3 (05:40→21:03)
[2020-06-16] MEDS: BENADRYL INJ 50 MG VIAL IVP SCH ×3 (05:46→21:03)
[2020-06-16] MEDS: HumuLIN R SUBCUT PRN ×2 (06:03→21:05)
[2020-06-16 06:33] LABS: ALANINE AMINOTRANSFERASE 93 Units/L (12-78); ALBUMIN 2.4 g/dL (3.4-5.0); ALKALINE PHOSPHATASE 94 Units/L (46-116); ASPARTATE AMINO TRANSFERASE 45 Units/L (15-37); BLOOD UREA NITROGEN 19 mg/dL (7-18); CARBON DIOXIDE 32.5 mmol/L (21-32); CHLORIDE 104 mmol/L (98-107); COR CA(FOR HYPOALB) 9.3 mg/dL (8.5-10.1); COR NA(FOR HYPERGLY) 147 mmol/L (136-145); CREATININE 0.48 mg/dL (0.55-1.02); SODIUM 142 mmol/L (136-145); TOTAL PROTEIN 5.1 g/dL (6.4-8.2); eGFR NON BLACK RACES > 60 (>60)
[2020-06-16 07:22] LABS: BASOPHILS % (AUTO) 0.2 % (0.2-1.0); EOSINOPHILS % (AUTO) 0.2 % (0.9-2.9); HEMATOCRIT 34.6 % (36.0-47.0); HEMOGLOBIN 11.4 g/dL (12.0-16.0); LYMPHOCYTES # (AUTO) 0.4 X10^3/uL (1.3-2.9); LYMPHOCYTES % (AUTO) 16.3 % (21.0-51.0); MEAN CORPUSCULAR HEMOGLOBIN 30.5 pg (27.0-34.0); MEAN CORPUSCULAR VOLUME 92.5 fL (80.0-100.0); MEAN PLATELET VOLUME 7.5 fL (7.4-11.0); MONOCYTES # (AUTO) 0.1 x10^3/uL (0.3-0.8); MONOCYTES % (AUTO) 4.2 % (0.0-13.0); NEUTROPHILS # (AUTO) 2.1 x10^3/uL (2.2-4.8); NEUTROPHILS % (AUTO) 79.1 % (42.0-75.0); PLATELET COUNT 76 X10^3/uL (150.0-450.0); RED BLOOD COUNT 3.74 X10^6/uL (3.5-5.4); RED CELL DISTRIBUTION WIDTH 14.6 % (11.6-16.5); WHITE BLOOD COUNT 2.7 X10^3/uL (3.6-10.0)
[2020-06-16] MEDS: NORCO 5/325 MG TAB PO PRN ×2 (07:45→21:04)
[2020-06-16 07:59] LABS: BAND NEUTROPHILS % 1 % (0-10); PLATELET MORPHOLOGY COMMENT NORMAL (NORMAL)
[2020-06-16] MEDS: PULMICORT NEB TX 0.5 MG NEB SCH ×2 (09:00→21:20)
[2020-06-16] MEDS: SOLU-Medrol 40 MG VIAL IVP SCH ×2 (09:04→20:57)
[2020-06-16] MEDS: PEPCID TAB 20 MG PO SCH ×2 (09:04→20:56)
[2020-06-16] MEDS: NYSTATIN POWDER TOP SCH ×2 (09:05→20:56)
[2020-06-16] MEDS: LIPITOR TAB 40 MG PO SCH (09:05)
[2020-06-16] MEDS: ELIQUIS PO SCH ×2 (09:05→20:55)
[2020-06-16] MEDS: VITAMIN A PO SCH (09:05)
[2020-06-16] MEDS: ZINC SULFATE PO SCH ×2 (09:06→20:57)
[2020-06-16] MEDS: NORVASC TAB 5 MG PO SCH (09:06)
[2020-06-16] MEDS: VITAMIN D3 125 mcg (5,000 UNITS) PO SCH (09:07)
[2020-06-16] MEDS: NEURONTIN CAP 400 MG PO SCH ×2 (09:07→20:55)
[2020-06-16] MEDS: LEVAQUIN PREMIX IV 500 MG 500 MG/100 ML BAG IV SCH (09:08)
[2020-06-16] MEDS: PAXIL PO SCH (09:08)
[2020-06-16] MEDS: PriLOSEC PO SCH (09:08)
[2020-06-16] MEDS: ROBITUSSIN DM PO SCH ×4 (09:09→20:56)
[2020-06-16] MEDS: LASIX IVP SCH (09:09)
[2020-06-16] MEDS: THIAMINE HCL INJ IVP SCH ×2 (09:09→20:57)
[2020-06-16] MEDS: NYSTATIN SUSP PO SCH ×4 (09:15→20:56)
[2020-06-16] MEDS: MAGIC MOUTHWASH MT SCH ×4 (09:15→20:55)
[2020-06-16] MEDS: ATIVAN TAB 0.5 MG PO PRN ×2 (12:40→21:04)
[2020-06-16] MEDS: MUCOMYST 20% 200 MG/ML NEB SCH ×2 (17:25→21:20)
[2020-06-16] MEDS: SNACK - Diabetic Appropriate PO SCH (20:55)
[2020-06-16] MEDS: REQUIP PO SCH (20:56)
[2020-06-16] MEDS: ZANAFLEX PO SCH (20:57)
[2020-06-17] MEDS: XOPENEX 1.25 MG/3 ML NEBULE NEB SCH ×5 (00:38→18:23)
[2020-06-17] MEDS: NS IV SCH ×4 (02:14→21:38)
[2020-06-17] MEDS: ASCORBIC ACID MULTI IV SCH ×4 (02:14→21:38)
[2020-06-17] MEDS: BENADRYL INJ 50 MG VIAL IVP SCH ×3 (05:26→21:40)
[2020-06-17] MEDS: ZOVIRAX VIAL 500 MG 500 MG in NS 100 ML IV 100 ML IV SCH ×3 (05:26→21:40)
[2020-06-17] MEDS: HumuLIN R SUBCUT PRN ×4 (05:46→22:25)
[2020-06-17] MEDS: PEPCID TAB 20 MG PO SCH ×2 (08:23→21:39)
[2020-06-17] MEDS: NYSTATIN POWDER TOP SCH ×2 (08:23→21:38)
[2020-06-17] MEDS: LIPITOR TAB 40 MG PO SCH (08:24)
[2020-06-17] MEDS: NEURONTIN CAP 400 MG PO SCH ×2 (08:25→21:38)
[2020-06-17] MEDS: VITAMIN D3 125 mcg (5,000 UNITS) PO SCH (08:26)
[2020-06-17] MEDS: PriLOSEC PO SCH (08:26)
[2020-06-17] MEDS: ELIQUIS PO SCH ×2 (08:27→21:38)
[2020-06-17] MEDS: ZINC SULFATE PO SCH ×2 (08:27→21:40)
[2020-06-17] MEDS: SOLU-Medrol 40 MG VIAL IVP SCH ×2 (08:28→21:39)
[2020-06-17] MEDS: ROBITUSSIN DM PO SCH ×4 (08:29→21:39)
[2020-06-17] MEDS: NYSTATIN SUSP PO SCH ×4 (08:30→21:39)
[2020-06-17] MEDS: NORVASC TAB 5 MG PO SCH (08:30)
[2020-06-17] MEDS: LEVAQUIN PREMIX IV 500 MG 500 MG/100 ML BAG IV SCH (08:31)
[2020-06-17] MEDS: LASIX IVP SCH (08:33)
[2020-06-17] MEDS: MUCOMYST 20% 200 MG/ML NEB SCH ×3 (08:33→14:21)
[2020-06-17] MEDS: MAGIC MOUTHWASH MT SCH ×4 (08:34→21:38)
[2020-06-17] MEDS: PULMICORT NEB TX 0.5 MG NEB SCH ×2 (08:34→21:35)
[2020-06-17] MEDS: THIAMINE HCL INJ IVP SCH ×2 (08:35→21:39)
[2020-06-17] MEDS: VITAMIN A PO SCH (08:36)
[2020-06-17] MEDS: NS 1/2 1000 ML IV 1,000 ML IV SCH ×2 (08:37→22:25)
[2020-06-17] MEDS: PAXIL PO SCH (08:37)
[2020-06-17] MEDS: ATIVAN TAB 0.5 MG PO PRN ×2 (09:35→21:40)
[2020-06-17 10:13] LABS: ABG BASE EXCESS 14.4 mmol/L (-2.0-2.0)
[2020-06-17 10:14] LABS: ABG ALLEN TEST POS; ABG HCO3 39.2 mmol/L (22-26)
[2020-06-17] MEDS ORDERED: NS 100 ML IV 100 ML IV ONE (12:59)
[2020-06-17] MEDS: NORCO 5/325 MG TAB PO PRN (20:04)
[2020-06-17] MEDS: SNACK - Diabetic Appropriate PO SCH (21:37)
[2020-06-17] MEDS: REQUIP PO SCH (21:39)
[2020-06-17] MEDS: ZANAFLEX PO SCH (21:39)
[2020-06-18] MEDS: MUCOMYST (RESPIRATORY USE ONLY) NEB SCH ×4 (00:30→17:30)
[2020-06-18] MEDS: XOPENEX 1.25 MG/3 ML NEBULE NEB SCH ×4 (00:30→17:30)
[2020-06-18] MEDS: ASCORBIC ACID MULTI IV SCH ×4 (02:48→20:51)
[2020-06-18] MEDS: NS IV SCH ×4 (02:48→20:51)
[2020-06-18] MEDS: NORCO 5/325 MG TAB PO PRN ×2 (04:21→20:59)
[2020-06-18 05:15] LABS: ABG BASE EXCESS 13.2 mmol/L (-2.0-2.0)
[2020-06-18 05:16] LABS: ABG HCO3 38.7 mmol/L (22-26)
[2020-06-18 05:17] LABS: ABG ALLEN TEST POSS
[2020-06-18] MEDS: ZOVIRAX VIAL 500 MG 500 MG in NS 100 ML IV 100 ML IV SCH ×3 (05:25→21:37)
[2020-06-18] MEDS: BENADRYL INJ 50 MG VIAL IVP SCH ×3 (05:25→21:34)
[2020-06-18] MEDS: HumuLIN R SUBCUT PRN ×4 (05:34→20:52)
[2020-06-18 06:34] LABS: ALANINE AMINOTRANSFERASE 107 Units/L (12-78); ALBUMIN 2.5 g/dL (3.4-5.0); ALKALINE PHOSPHATASE 94 Units/L (46-116); ASPARTATE AMINO TRANSFERASE 53 Units/L (15-37); BLOOD UREA NITROGEN 21 mg/dL (7-18); CALCIUM 8.3 mg/dL (8.5-10.1); CHLORIDE 101 mmol/L (98-107); COR CA(FOR HYPOALB) 9.5 mg/dL (8.5-10.1); COR NA(FOR HYPERGLY) 145 mmol/L (136-145); CREATININE 0.57 mg/dL (0.55-1.02); SODIUM 140 mmol/L (136-145); TOTAL PROTEIN 5.2 g/dL (6.4-8.2); eGFR NON BLACK RACES > 60 (>60)
[2020-06-18 06:39] LABS: BASOPHILS % (AUTO) 0.3 % (0.2-1.0); EOSINOPHILS % (AUTO) 0.1 % (0.9-2.9); HEMATOCRIT 33.1 % (36.0-47.0); LYMPHOCYTES # (AUTO) 0.7 X10^3/uL (1.3-2.9); LYMPHOCYTES % (AUTO) 21.5 % (21.0-51.0); MEAN CORPUSCULAR HEMOGLOBIN 30.8 pg (27.0-34.0); MEAN CORPUSCULAR HGB CONC 33.3 g/dL (33.0-35.0); MEAN CORPUSCULAR VOLUME 92.5 fL (80.0-100.0); MEAN PLATELET VOLUME 7.8 fL (7.4-11.0); MONOCYTES # (AUTO) 0.1 x10^3/uL (0.3-0.8); MONOCYTES % (AUTO) 4.4 % (0.0-13.0); NEUTROPHILS # (AUTO) 2.3 x10^3/uL (2.2-4.8); NEUTROPHILS % (AUTO) 73.7 % (42.0-75.0); PLATELET COUNT 87 X10^3/uL (150.0-450.0); RED BLOOD COUNT 3.58 X10^6/uL (3.5-5.4); RED CELL DISTRIBUTION WIDTH 14.6 % (11.6-16.5); WHITE BLOOD COUNT 3.1 X10^3/uL (3.6-10.0)
--- NOTE | 2020-06-18 06:45 | RAD ---
Chest AP portableIndication: COVID-19 pneumonia follow-upCOMPARISONJan2020FINDINGSThere is cardiomegaly with increased interstitial markings. Right IJ catheter tip is over the SVC. There is no pneumothorax.IMPRESSION: Bilateral patchy pulmonary opacities compatible with COVID-19 viral pneumonitis/ARDS are unchanged.Electronically signed by: LUAN FRAIRE (Jun 18, 2020 06:43:33)
[2020-06-18 07:19] LABS: BAND NEUTROPHILS % 4 % (0-10); PLATELET MORPHOLOGY COMMENT NORMAL (NORMAL)
[2020-06-18] MEDS: LEVAQUIN PREMIX IV 500 MG 500 MG/100 ML BAG IV SCH (08:02)
[2020-06-18] MEDS: VITAMIN A PO SCH (08:41)
[2020-06-18] MEDS: ELIQUIS PO SCH ×2 (08:41→20:59)
[2020-06-18] MEDS: VITAMIN D3 125 mcg (5,000 UNITS) PO SCH (08:41)
[2020-06-18] MEDS: NYSTATIN SUSP PO SCH ×4 (08:42→21:07)
[2020-06-18] MEDS: ROBITUSSIN DM PO SCH ×4 (08:42→21:00)
[2020-06-18] MEDS: PriLOSEC PO SCH (08:42)
[2020-06-18] MEDS: PEPCID TAB 20 MG PO SCH ×2 (08:42→20:59)
[2020-06-18] MEDS: PAXIL PO SCH (08:43)
[2020-06-18] MEDS: ZINC SULFATE PO SCH ×2 (08:43→20:59)
[2020-06-18] MEDS: SOLU-Medrol 40 MG VIAL IVP SCH ×2 (08:43→20:55)
[2020-06-18] MEDS: LIPITOR TAB 40 MG PO SCH (08:43)
[2020-06-18] MEDS: THIAMINE HCL INJ IVP SCH ×2 (08:43→20:56)
[2020-06-18] MEDS: NEURONTIN CAP 400 MG PO SCH ×2 (08:44→20:59)
[2020-06-18] MEDS: LASIX IVP SCH (08:44)
[2020-06-18] MEDS: MAGIC MOUTHWASH MT SCH ×4 (08:45→21:06)
[2020-06-18] MEDS: NORVASC TAB 5 MG PO SCH (08:45)
[2020-06-18] MEDS: NYSTATIN POWDER TOP SCH ×2 (08:45→21:07)
[2020-06-18] MEDS: PULMICORT NEB TX 0.5 MG NEB SCH ×2 (09:03→22:00)
[2020-06-18] MEDS: LEVEMIR SC SCH (09:48)
[2020-06-18] MEDS: NS 1/2 1000 ML IV 1,000 ML IV SCH ×2 (10:20→20:49)
[2020-06-18] MEDS: MAGNESIUM SULFATE 1 GRAM/100 mL PREMIX 1 GM/100 ML BAG IV PRN ×2 (12:43→15:32)
[2020-06-18] MEDS: K-DUR TAB 20 MEQ PO PRN ×2 (14:01→18:00)
[2020-06-18] MEDS ORDERED: NS 1/2 1000 ML IV 1,000 ML IV ONE (20:13)
[2020-06-18] MEDS: REQUIP PO SCH (20:59)
[2020-06-18] MEDS: ATIVAN TAB 0.5 MG PO PRN (20:59)
[2020-06-18] MEDS: SNACK - Diabetic Appropriate PO SCH (21:05)
[2020-06-18] MEDS: ZANAFLEX PO SCH (21:09)
[2020-06-19] MEDS: ZOVIRAX VIAL 500 MG 500 MG in NS 100 ML IV 100 ML IV SCH ×3 (00:30→14:45)
[2020-06-19] MEDS: NS 1/2 1000 ML IV 1,000 ML IV SCH ×2 (00:57→17:52)
[2020-06-19] MEDS: XOPENEX 1.25 MG/3 ML NEBULE NEB SCH ×4 (01:30→17:15)
[2020-06-19] MEDS: MUCOMYST (RESPIRATORY USE ONLY) NEB SCH ×4 (01:30→17:15)
[2020-06-19] MEDS: NS IV SCH ×4 (02:46→21:04)
[2020-06-19] MEDS: ASCORBIC ACID MULTI IV SCH ×4 (02:46→21:04)
[2020-06-19] MEDS: BENADRYL INJ 50 MG VIAL IVP SCH ×2 (05:32→14:45)
[2020-06-19] MEDS: HumuLIN R SUBCUT PRN (05:54)
[2020-06-19 06:31] LABS: BASOPHILS % (AUTO) 0.3 % (0.2-1.0); HEMOGLOBIN 10.7 g/dL (12.0-16.0); LYMPHOCYTES # (AUTO) 0.8 X10^3/uL (1.3-2.9); MEAN CORPUSCULAR HEMOGLOBIN 31.5 pg (27.0-34.0); MEAN CORPUSCULAR HGB CONC 34.4 g/dL (33.0-35.0); MEAN CORPUSCULAR VOLUME 91.5 fL (80.0-100.0); MEAN PLATELET VOLUME 7.1 fL (7.4-11.0); MONOCYTES # (AUTO) 0.1 x10^3/uL (0.3-0.8); NEUTROPHILS # (AUTO) 2.7 x10^3/uL (2.2-4.8); NEUTROPHILS % (AUTO) 73.7 % (42.0-75.0); PLATELET COUNT 82 X10^3/uL (150.0-450.0); RED BLOOD COUNT 3.39 X10^6/uL (3.5-5.4); RED CELL DISTRIBUTION WIDTH 15.5 % (11.6-16.5); WHITE BLOOD COUNT 3.6 X10^3/uL (3.6-10.0)
[2020-06-19 06:40] LABS: ALANINE AMINOTRANSFERASE 103 Units/L (12-78); ALBUMIN 2.5 g/dL (3.4-5.0); ALKALINE PHOSPHATASE 94 Units/L (46-116); ASPARTATE AMINO TRANSFERASE 51 Units/L (15-37); BLOOD UREA NITROGEN 22 mg/dL (7-18); CALCIUM 8.2 mg/dL (8.5-10.1); CARBON DIOXIDE 33.5 mmol/L (21-32); CHLORIDE 102 mmol/L (98-107); COR CA(FOR HYPOALB) 9.4 mg/dL (8.5-10.1); COR NA(FOR HYPERGLY) 144 mmol/L (136-145); CREATININE 0.47 mg/dL (0.55-1.02); MAGNESIUM 1.9 mg/dL (1.7-2.9); SODIUM 140 mmol/L (136-145); TOTAL PROTEIN 5.2 g/dL (6.4-8.2); eGFR NON BLACK RACES > 60 (>60)
[2020-06-19 07:13] LABS: BAND NEUTROPHILS % 8 % (0-10); METAMYELOCYTES % 1; PLATELET MORPHOLOGY COMMENT NORMAL (NORMAL)
[2020-06-19 07:29] LABS: ABG BASE EXCESS 14.1 mmol/L (-2.0-2.0)
[2020-06-19 07:31] LABS: ABG HCO3 39.6 mmol/L (22-26)
[2020-06-19 07:32] LABS: ABG ALLEN TEST POSS
[2020-06-19] MEDS: PULMICORT NEB TX 0.5 MG NEB SCH ×2 (09:35→20:05)
[2020-06-19] MEDS: LEVAQUIN PREMIX IV 500 MG 500 MG/100 ML BAG IV SCH (09:38)
[2020-06-19] MEDS: ELIQUIS PO SCH ×2 (09:38→21:06)
[2020-06-19] MEDS: LASIX IVP SCH (09:38)
[2020-06-19] MEDS: LEVEMIR SC SCH (09:41)
[2020-06-19] MEDS: NEURONTIN CAP 400 MG PO SCH ×2 (09:42→21:07)
[2020-06-19] MEDS: LIPITOR TAB 40 MG PO SCH (09:42)
[2020-06-19] MEDS: MAGIC MOUTHWASH MT SCH ×4 (09:42→21:06)
[2020-06-19] MEDS: NYSTATIN POWDER TOP SCH ×2 (09:43→21:08)
[2020-06-19] MEDS: PAXIL PO SCH (09:43)
[2020-06-19] MEDS: NORVASC TAB 5 MG PO SCH (09:43)
[2020-06-19] MEDS: NYSTATIN SUSP PO SCH ×4 (09:43→21:08)
[2020-06-19] MEDS: ROBITUSSIN DM PO SCH ×4 (09:44→21:10)
[2020-06-19] MEDS: SOLU-Medrol 40 MG VIAL IVP SCH ×2 (09:44→21:10)
[2020-06-19] MEDS: PEPCID TAB 20 MG PO SCH ×2 (09:44→21:09)
[2020-06-19] MEDS: PriLOSEC PO SCH (09:44)
[2020-06-19] MEDS: VITAMIN D3 125 mcg (5,000 UNITS) PO SCH (09:45)
[2020-06-19] MEDS: ZINC SULFATE PO SCH ×2 (09:45→21:12)
[2020-06-19] MEDS: THIAMINE HCL INJ IVP SCH ×2 (09:45→21:11)
[2020-06-19] MEDS: VITAMIN A PO SCH (09:45)
[2020-06-19] MEDS: NORCO 5/325 MG TAB PO PRN (09:46)
[2020-06-19] MEDS: ATIVAN TAB 0.5 MG PO PRN ×3 (09:47→22:36)
[2020-06-19] MEDS: SNACK - Diabetic Appropriate PO SCH (21:05)
[2020-06-19] MEDS: REQUIP PO SCH (21:09)
[2020-06-19] MEDS: ZANAFLEX PO SCH (21:11)
[2020-06-19] MEDS ORDERED: XOPENEX 1.25 MG/3 ML NEBULE NEB ONE (23:57)
[2020-06-20] MEDS: BENADRYL INJ 50 MG VIAL IVP SCH ×4 (00:25→22:00)
[2020-06-20] MEDS: ZOVIRAX VIAL 500 MG 500 MG in NS 100 ML IV 100 ML IV SCH ×5 (00:26→23:29)
[2020-06-20] MEDS: XOPENEX 1.25 MG/3 ML NEBULE NEB SCH ×4 (00:51→17:05)
[2020-06-20] MEDS: MUCOMYST (RESPIRATORY USE ONLY) NEB SCH ×4 (00:51→17:05)
[2020-06-20] MEDS: ASCORBIC ACID MULTI IV SCH ×4 (02:41→21:52)
[2020-06-20] MEDS: NS IV SCH ×4 (02:41→21:52)
[2020-06-20] MEDS: NS 1/2 1000 ML IV 1,000 ML IV SCH (05:52)
[2020-06-20] MEDS: HumuLIN R SUBCUT PRN ×4 (06:27→21:53)
[2020-06-20 06:47] LABS: BASOPHILS % (AUTO) 0.2 % (0.2-1.0); EOSINOPHILS % (AUTO) 0.1 % (0.9-2.9); HEMATOCRIT 33.1 % (36.0-47.0); HEMOGLOBIN 11.1 g/dL (12.0-16.0); LYMPHOCYTES % (AUTO) 20.9 % (21.0-51.0); MEAN CORPUSCULAR HEMOGLOBIN 31.2 pg (27.0-34.0); MEAN CORPUSCULAR HGB CONC 33.4 g/dL (33.0-35.0); MEAN CORPUSCULAR VOLUME 93.3 fL (80.0-100.0); MEAN PLATELET VOLUME 8.6 fL (7.4-11.0); MONOCYTES # (AUTO) 0.2 x10^3/uL (0.3-0.8); MONOCYTES % (AUTO) 3.8 % (0.0-13.0); NEUTROPHILS # (AUTO) 3.7 x10^3/uL (2.2-4.8); PLATELET COUNT 90 X10^3/uL (150.0-450.0); RED BLOOD COUNT 3.55 X10^6/uL (3.5-5.4); RED CELL DISTRIBUTION WIDTH 16.2 % (11.6-16.5)
[2020-06-20 06:52] LABS: ALANINE AMINOTRANSFERASE 116 Units/L (12-78); ALBUMIN 2.5 g/dL (3.4-5.0); ALKALINE PHOSPHATASE 94 Units/L (46-116); ASPARTATE AMINO TRANSFERASE 61 Units/L (15-37); BLOOD UREA NITROGEN 22 mg/dL (7-18); CALCIUM 8.4 mg/dL (8.5-10.1); CARBON DIOXIDE 34.8 mmol/L (21-32); CHLORIDE 101 mmol/L (98-107); COR CA(FOR HYPOALB) 9.6 mg/dL (8.5-10.1); COR NA(FOR HYPERGLY) 144 mmol/L (136-145); CREATININE 0.54 mg/dL (0.55-1.02); SODIUM 140 mmol/L (136-145); TOTAL PROTEIN 5.5 g/dL (6.4-8.2); eGFR NON BLACK RACES > 60 (>60)
[2020-06-20 08:10] LABS: BAND NEUTROPHILS % 7 % (0-10)
[2020-06-20 08:11] LABS: PLATELET MORPHOLOGY COMMENT NORMAL (NORMAL)
[2020-06-20 08:48] LABS: ABG BASE EXCESS 14.8 mmol/L (-2.0-2.0)
[2020-06-20 08:49] LABS: ABG ALLEN TEST POS; ABG HCO3 39.9 mmol/L (22-26)
[2020-06-20] MEDS: PULMICORT NEB TX 0.5 MG NEB SCH ×2 (09:10→21:15)
--- NOTE | 2020-06-20 09:40 | RAD ---
HISTORYCOVIDSTUDYCHEST, 1 [id number]/20/2021TECHNIQUEAP view of the chest, 2 imagesFINDINGSRight IJ central line in good position. The cardiac silhouette is stably enlarged. Mediastinal contours appear stable. No significant change in bilateral airspace and interstitial opacities. Soft tissue attenuation limits evaluation. No definite pleural effusion or pneumothorax.IMPRESSIONNo significant change.Electronically signed by: Reji Obrien (Jun 20, 2020 09:38:54)
[2020-06-20] MEDS: LEVAQUIN PREMIX IV 500 MG 500 MG/100 ML BAG IV SCH (10:04)
[2020-06-20] MEDS: ELIQUIS PO SCH ×2 (10:05→23:50)
[2020-06-20] MEDS: NYSTATIN SUSP PO SCH ×3 (10:06→18:00)
[2020-06-20] MEDS: VITAMIN A PO SCH (10:06)
[2020-06-20] MEDS: ZINC SULFATE PO SCH ×2 (10:06→20:50)
[2020-06-20] MEDS: VITAMIN D3 125 mcg (5,000 UNITS) PO SCH (10:07)
[2020-06-20] MEDS: SOLU-Medrol 40 MG VIAL IVP SCH (10:07)
[2020-06-20] MEDS: LEVEMIR SC SCH (10:07)
[2020-06-20] MEDS: ROBITUSSIN DM PO SCH ×4 (10:08→21:09)
[2020-06-20] MEDS: PEPCID TAB 20 MG PO SCH ×2 (10:10→20:52)
[2020-06-20] MEDS: LASIX IVP SCH (10:10)
[2020-06-20] MEDS: PriLOSEC PO SCH (10:11)
[2020-06-20] MEDS: LIPITOR TAB 40 MG PO SCH (10:11)
[2020-06-20] MEDS: THIAMINE HCL INJ IVP SCH ×2 (10:12→20:53)
[2020-06-20] MEDS: NEURONTIN CAP 400 MG PO SCH ×2 (10:12→21:00)
[2020-06-20] MEDS: NYSTATIN POWDER TOP SCH ×2 (10:13→21:00)
[2020-06-20] MEDS: NORVASC TAB 5 MG PO SCH (10:14)
[2020-06-20] MEDS: PAXIL PO SCH (10:17)
[2020-06-20] MEDS: ATIVAN TAB 0.5 MG PO PRN ×2 (11:07→20:45)
[2020-06-20] MEDS: MAGIC MOUTHWASH MT SCH ×3 (11:07→17:59)
[2020-06-20] MEDS: NORCO 5/325 MG TAB PO PRN ×2 (11:10→20:54)
[2020-06-20] MEDS ORDERED: SOLU-Medrol 40 MG VIAL IVP ONE (11:44)
--- NOTE | 2020-06-20 12:05 | VAS ---
HISTORYR/O DVT, EDEMASTUDYLOWER EXT VENOUS, BILATERALCOMPARISONNoneTECHNIQUEMultiple bolivar scale and color flow Doppler images of the deep venous system were obtained of the right and left lower extremity.FINDINGSThe deep venous system of the right and left lower extremities were evaluated from the level of the common femoral vein through the popliteal vein. Normal color flow and augmentation can be observed. In addition, normal compression is seen throughout the deep venous system.IMPRESSIONNegative for DVT.Electronically signed by: GABO BANG (Jun 20, 2020 12:03:52)
[2020-06-20] MEDS: SOLU-Medrol 125 MG VIAL IVP SCH ×2 (13:38→20:47)
--- NOTE | 2020-06-20 14:29 | PCM.PROG ---
Progress Note - Progress Note for Day of Date of Exam: 06/19/20 - Subjective Subjective: Mrs. Estes is a 54-year-old white female currently being treated for complications following COVID-19, continued bilateral pneumonia, and respiratory failure requiring BiPAP therapy. The patient has agreed for an LTAC referral, which Case Management is working on. She is still adamant that she is going to be strong enough to go home but has allowed us to do an LTAC referral. She is still requiring 80% FIO2 with oxygen saturation in the 90s, it was 94 during the night. O2 sats 88% this am on 80%. The patient has been very emotional. She has now 3 pressure ulcerations on her left lateral side, which she favors because of a history of right advanced osteoarthritis despite being on pain control. 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 - Past Medical Family Social History Past Med/Fam/Surg Hx: No changes since H&P Allergies: Allergies No Known Drug Allergies Allergy (Verified 04/17/18 05:13) - Review of Systems ROS: No change since H&P - Vital Signs and I&O's Vital Signs: Temperature 99.1 F Pulse Rate [Left] 118 Pulse Rate 86 Respiratory Rate 28 Blood Pressure [Left Arm] 103/85 Blood Pressure [Left Calf] 114/77 Blood Pressure [Right Arm] 136/83 Blood Pressure 127/78 O2 Sat by Pulse Oximetry 86 Intake and Output: Intake & Output 06/18/20 06/19/20 06/20/20 06/21/20 11:59 11:59 11:59 11:59 Intake Total 2740 / 2740 2076 / 2076 1410 / 1410 Output Total 2925 / 2925 2100 / 2100 1100 / 1100 Balance -185 / -185 -24 / -24 310 / 310 - Physical Exam Oriented: Normal Eyes: Normal Ear: Normal Nose: Normal Throat: Normal Respiratory: Generalized, Diminished Cardiovascular: Normal : Normal Auscultation: Bowel Sounds: Normal Tenderness: Normal Skin: Decreased Turgur, Wound (stage 1 left lateral hip, stage 2 left lateral lower abdomen, and left lower lateral back/flank), Bruising Musculoskeletal: Right, Left, Knee, Back:Lumbar Psychiatric: Anxiety, Depression Mood Description: Depressed, Anxious Affect: Anxious, Depressed Speech Pattern: Clear, Appropriate - Laboratory and Diagnostics Result Diagrams: 06/20/20 06:05 06/20/20 06:05 Labs: 06/06/20 15:30 Urine,Clean Catch Urine Culture - Final 05/15/20 12:35 Blood Blood Culture - Final 05/15/20 12:25 Blood Blood Culture - Final Laboratory WBC 5.0 X10^3/uL (3.6-10.0) 06/20/20 06:05 RBC 3.55 X10^6/uL (3.5-5.4) 06/20/20 06:05 Hgb 11.1 g/dL (12.0-16.0) L 06/20/20 06:05 Hct 33.1 % (36.0-47.0) L 06/20/20 06:05 MCV 93.3 fL (80.0-100.0) 06/20/20 06:05 MCH 31.2 pg (27.0-34.0) 06/20/20 06:05 MCHC 33.4 g/dL (33.0-35.0) 06/20/20 06:05 RDW 16.2 % (11.6-16.5) 06/20/20 06:05 Plt Count 90 X10^3/uL (150.0-450.0) L 06/20/20 06:05 Plt Count Comment Decreased (ADEQUATE) A 06/20/20 06:05 MPV 8.6 fL (7.4-11.0) 06/20/20 06:05 Neut % (Auto) 75.0 % (42.0-75.0) 06/20/20 06:05 Lymph % (Auto) 20.9 % (21.0-51.0) L 06/20/20 06:05 [place] % (Auto) 3.8 % (0.0-13.0) 06/20/20 06:05 Eos % (Auto) 0.1 % (0.9-2.9) L 06/20/20 06:05 Baso % (Auto) 0.2 % (0.2-1.0) 06/20/20 06:05 Neut # (Auto) 3.7 x10^3/uL (2.2-4.8) 06/20/20 06:05 Lymph # (Auto) 1.0 X10^3/uL (1.3-2.9) L 06/20/20 06:05 [place] # (Auto) 0.2 x10^3/uL (0.3-0.8) L 06/20/20 06:05 Eos # (Auto) 0.0 x10^3/uL (0.0-0.2) 06/20/20 06:05 Baso # (Auto) 0.0 X10^3/uL (0.0-0.1) 06/20/20 06:05 Absolute Nucleated RBC 0.6 /100WBC 06/20/20 06:05 Total Counted 100 06/20/20 06:05 Neutrophils % (Manual) 68 % (39-76) 06/20/20 06:05 Band Neutrophils % 7 % (0-10) 06/20/20 06:05 Lymphocytes % (Manual) 20 % (13-43) 06/20/20 06:05 Monocytes % (Manual) 5 % (4-9) 06/20/20 06:05 Metamyelocytes % 1 06/19/20 05:34 Myelocytes % 1 06/05/20 15:33 Nucleated RBCs 2 06/18/20 05:13 Plt Clumps, EDTA Rare 06/20/20 06:05 Plt Morphology Comment Normal (NORMAL) 06/20/20 06:05 RBC Morphology Normal (NORMAL) 06/20/20 06:05 D-Dimer 9.09 ug/ml (0.0-0.57) H* 05/28/20 04:55 Sample Site Lrad 06/20/20 08:42 ABG pH 7.510 (7.35-7.45) H 06/20/20 08:42 ABG pCO2 50.0 mmHg (35.0-45.0) H 06/20/20 08:42 ABG pO2 64.0 mmHg (80.0-100.0) L 06/20/20 08:42 ABG HCO3 39.9 mmol/L (22-26) H* 06/20/20 08:42 ABG O2 Saturation 94.0 % (90-100) 06/20/20 08:42 ABG Base Excess 14.8 mmol/L (-2.0-2.0) H 06/20/20 08:42 Bigg Test Pos 06/20/20 08:42 A-a Gradient 444.0 mmHg 06/20/20 08:42 FiO2 80.0 06/20/20 08:42 Blood Gas Comments Pt tommy well elj 06/20/20 08:42 Sodium 140 mmol/L (136-145) 06/20/20 06:05 Corrected Sodium 144 mmol/L (136-145) 06/20/20 06:05 Potassium 4.1 mmol/L (3.5-5.1) 06/20/20 06:05 Chloride 101 mmol/L (98-107) 06/20/20 06:05 Carbon Dioxide 34.8 mmol/L (21-32) H 06/20/20 06:05 BUN 22 mg/dL (7-18) H 06/20/20 06:05 Creatinine 0.54 mg/dL (0.55-1.02) L 06/20/20 06:05 Est GFR (MDRD) Af Amer > 60 (>60) 06/20/20 06:05 Est GFR (MDRD) Non-Af > 60 (>60) 06/20/20 06:05 Glucose 277 mg/dL (65-99) H 06/20/20 06:05 POC Glucose (mg/dL) 219 mg/dL (65-99) H 06/20/20 12:14 Hemoglobin A1c 7.7 % 06/13/20 05:40 Calcium 8.4 mg/dL (8.5-10.1) L 06/20/20 06:05 Corrected Calcium 9.6 mg/dL (8.5-10.1) 06/20/20 06:05 Magnesium 1.9 mg/dL (1.7-2.9) 06/19/20 05:34 Ferritin 240 ng/mL (8-252) 05/21/20 04:21 Total Bilirubin 1.40 mg/dL (0.2-1.0) H 06/20/20 06:05 AST 61 Units/L (15-37) H 06/20/20 06:05 ALT 116 Units/L (12-78) H 06/20/20 06:05 Alkaline Phosphatase 94 Units/L (46-116) 06/20/20 06:05 C-Reactive Protein 1.10 mg/L (0-3.0) 06/13/20 05:40 Total Protein 5.5 g/dL (6.4-8.2) L 06/20/20 06:05 Albumin 2.5 g/dL (3.4-5.0) L 06/20/20 06:05 Globulin 3.0 g/dL (2.5-4.5) 06/20/20 06:05 Albumin/Globulin Ratio 0.8 Ratio (1.1-2.1) L 06/20/20 06:05 Specimen Type Catherized urine 06/06/20 15:30 Urine Color Red (YELLOW) 06/06/20 15:30 Urine Appearance Cloudy (CLEAR) 06/06/20 15:30 Urine pH 5.0 (5.0 - 8.0) 06/06/20 15:30 Ur Specific [place] 1.020 (1.000-1.030) 06/06/20 15:30 Urine Protein 3+ (NEGATIVE) 06/06/20 15:30 Urine Glucose (UA) 1+ (NEGATIVE) 06/06/20 15:30 Urine Ketones 1+ (NEGATIVE) 06/06/20 15:30 Urine Occult Blood 5+ (NEGATIVE) 06/06/20 15:30 Urine Nitrite Positive (NEGATIVE) 06/06/20 15:30 Urine Bilirubin Negative (NEGATIVE) 06/06/20 15:30 Urine Urobilinogen 1+ (NORMAL) 06/06/20 15:30 Ur Leukocyte Esterase 3+ (NEGATIVE) 06/06/20 15:30 Urine RBC 30-50 /HPF (0-3) A 06/06/20 15:30 Urine WBC 10-20 /HPF (0-5) A 06/06/20 15:30 Ur Squamous Epith Cells Negative /HPF (NEGATIVE) 06/06/20 15:30 Urine Bacteria 1+ /HPF (NEGATIVE) 06/06/20 15:30 Urine Yeast Moderate /HPF (NEGATIVE) 06/06/20 15:30 Ur Culture Indicated? No/not indicated 06/06/20 15:30 SARS CoV-2 RNA Rapid KIRA Positive (NEGATIVE) A 05/15/20 13:15 Miscellaneous Test Covid 19 06/10/20 06:36 Blood Type O POSITIVE 05/16/20 09:08 - Plan (1) Pneumonia due to COVID-19 virus Status: Acute Plan: COVID-19 pneumonia with hypoxia. We will continue antibiotic therapy, corticosteroids, PT, OT, and RT, aggressive respiratory weaning, as well as LTAC referral. wound care, strict i&os blood sugar control
[2020-06-20] MEDS: SNACK - Diabetic Appropriate PO SCH (20:43)
[2020-06-20] MEDS: REQUIP PO SCH (20:51)
[2020-06-21] MEDS: XOPENEX 1.25 MG/3 ML NEBULE NEB SCH ×4 (00:13→17:35)
[2020-06-21] MEDS: MUCOMYST (RESPIRATORY USE ONLY) NEB SCH ×4 (00:13→17:35)
[2020-06-21] MEDS: MAGIC MOUTHWASH MT SCH ×5 (00:41→23:55)
[2020-06-21] MEDS: ZANAFLEX PO SCH (00:47)
[2020-06-21] MEDS: NYSTATIN SUSP PO SCH ×5 (01:11→21:27)
[2020-06-21] MEDS: NS IV SCH ×4 (02:30→21:27)
[2020-06-21] MEDS: ASCORBIC ACID MULTI IV SCH ×4 (02:30→21:27)
[2020-06-21 05:32] LABS: ABG BASE EXCESS 14.4 mmol/L (-2.0-2.0)
[2020-06-21 05:33] LABS: ABG ALLEN TEST POS; ABG HCO3 40.2 mmol/L (22-26)
[2020-06-21] MEDS: NORCO 5/325 MG TAB PO PRN ×2 (06:12→21:29)
[2020-06-21] MEDS: BENADRYL INJ 50 MG VIAL IVP SCH ×3 (06:13→21:28)
[2020-06-21] MEDS: ZOVIRAX VIAL 500 MG 500 MG in NS 100 ML IV 100 ML IV SCH ×2 (06:14→16:42)
[2020-06-21] MEDS: NS 1/2 1000 ML IV 1,000 ML IV SCH ×2 (06:25→21:26)
[2020-06-21] MEDS: HumuLIN R SUBCUT PRN ×4 (06:30→22:00)
[2020-06-21 06:55] LABS: BASOPHILS % (AUTO) 0.5 % (0.2-1.0); EOSINOPHILS % (AUTO) 0.1 % (0.9-2.9); HEMATOCRIT 31.6 % (36.0-47.0); HEMOGLOBIN 10.7 g/dL (12.0-16.0); LYMPHOCYTES # (AUTO) 1.2 X10^3/uL (1.3-2.9); LYMPHOCYTES % (AUTO) 21.3 % (21.0-51.0); MEAN CORPUSCULAR HEMOGLOBIN 31.8 pg (27.0-34.0); MEAN CORPUSCULAR VOLUME 93.5 fL (80.0-100.0); MEAN PLATELET VOLUME 7.2 fL (7.4-11.0); MONOCYTES # (AUTO) 0.2 x10^3/uL (0.3-0.8); MONOCYTES % (AUTO) 2.9 % (0.0-13.0); NEUTROPHILS # (AUTO) 4.3 x10^3/uL (2.2-4.8); NEUTROPHILS % (AUTO) 75.2 % (42.0-75.0); PLATELET COUNT 96 X10^3/uL (150.0-450.0); RED BLOOD COUNT 3.37 X10^6/uL (3.5-5.4); RED CELL DISTRIBUTION WIDTH 15.8 % (11.6-16.5); WHITE BLOOD COUNT 5.8 X10^3/uL (3.6-10.0)
[2020-06-21 07:03] LABS: ALANINE AMINOTRANSFERASE 113 Units/L (12-78); ALBUMIN 2.6 g/dL (3.4-5.0); ALKALINE PHOSPHATASE 109 Units/L (46-116); ASPARTATE AMINO TRANSFERASE 53 Units/L (15-37); BLOOD UREA NITROGEN 17 mg/dL (7-18); CALCIUM 8.6 mg/dL (8.5-10.1); CARBON DIOXIDE 36.5 mmol/L (21-32); CHLORIDE 101 mmol/L (98-107); COR CA(FOR HYPOALB) 9.7 mg/dL (8.5-10.1); COR NA(FOR HYPERGLY) 146 mmol/L (136-145); SODIUM 141 mmol/L (136-145); TOTAL PROTEIN 5.6 g/dL (6.4-8.2); eGFR NON BLACK RACES > 60 (>60)
[2020-06-21] MEDS: LEVEMIR SC SCH (09:00)
[2020-06-21] MEDS: LEVAQUIN PREMIX IV 500 MG 500 MG/100 ML BAG IV SCH (09:03)
[2020-06-21] MEDS: PriLOSEC PO SCH (09:04)
[2020-06-21] MEDS: PEPCID TAB 20 MG PO SCH ×2 (09:05→21:26)
[2020-06-21] MEDS: ZINC SULFATE PO SCH ×2 (09:06→21:30)
[2020-06-21] MEDS: LASIX IVP SCH (09:06)
[2020-06-21] MEDS: ELIQUIS PO SCH ×2 (09:07→21:27)
[2020-06-21] MEDS: LIPITOR TAB 40 MG PO SCH (09:07)
[2020-06-21] MEDS: NEURONTIN CAP 400 MG PO SCH ×2 (09:08→21:28)
[2020-06-21] MEDS: VITAMIN D3 125 mcg (5,000 UNITS) PO SCH (09:09)
[2020-06-21] MEDS: THIAMINE HCL INJ IVP SCH ×2 (09:09→21:30)
[2020-06-21] MEDS: NYSTATIN POWDER TOP SCH ×2 (09:11→21:30)
[2020-06-21] MEDS: NORVASC TAB 5 MG PO SCH (09:11)
[2020-06-21] MEDS: VITAMIN A PO SCH (09:11)
[2020-06-21 09:13] LABS: BAND NEUTROPHILS % 6 % (0-10)
[2020-06-21 09:14] LABS: METAMYELOCYTES % 4; PLATELET MORPHOLOGY COMMENT NORMAL (NORMAL)
[2020-06-21] MEDS: PAXIL PO SCH (09:15)
[2020-06-21] MEDS: ROBITUSSIN DM PO SCH ×4 (09:16→21:30)
[2020-06-21] MEDS: SOLU-Medrol 125 MG VIAL IVP SCH ×2 (09:16→21:30)
[2020-06-21] MEDS: ATIVAN TAB 0.5 MG PO PRN (09:22)
[2020-06-21] MEDS: PULMICORT NEB TX 0.5 MG NEB SCH ×2 (09:30→21:30)
[2020-06-21] MEDS: SNACK - Diabetic Appropriate PO SCH (20:00)
[2020-06-21] MEDS ORDERED: NS 1/2 1000 ML IV 1,000 ML IV ONE (20:27)
[2020-06-21] MEDS ORDERED: XOPENEX 1.25 MG/3 ML NEBULE NEB ONE (21:07)
[2020-06-21] MEDS: REQUIP PO SCH (21:30)
[2020-06-22] MEDS: ZANAFLEX PO SCH ×2 (00:03→21:11)
[2020-06-22] MEDS: NS 1/2 1000 ML IV 1,000 ML IV SCH ×3 (00:53→19:42)
[2020-06-22] MEDS: MUCOMYST (RESPIRATORY USE ONLY) NEB SCH ×4 (01:33→17:05)
[2020-06-22] MEDS: XOPENEX 1.25 MG/3 ML NEBULE NEB SCH ×4 (01:33→17:05)
[2020-06-22] MEDS: ASCORBIC ACID MULTI IV SCH ×4 (03:30→20:01)
[2020-06-22] MEDS: NS IV SCH ×4 (03:30→20:01)
[2020-06-22 05:17] LABS: ABG BASE EXCESS 15.7 mmol/L (-2.0-2.0)
[2020-06-22 05:18] LABS: ABG HCO3 41.3 mmol/L (22-26)
[2020-06-22 05:19] LABS: ABG ALLEN TEST POS
[2020-06-22] MEDS: ZOVIRAX VIAL 500 MG 500 MG in NS 100 ML IV 100 ML IV SCH ×3 (06:00→21:13)
[2020-06-22] MEDS: BENADRYL INJ 50 MG VIAL IVP SCH ×3 (06:00→21:13)
[2020-06-22 06:47] LABS: BASOPHILS % (AUTO) 0.4 % (0.2-1.0); HEMATOCRIT 33.2 % (36.0-47.0); HEMOGLOBIN 11.1 g/dL (12.0-16.0); LYMPHOCYTES # (AUTO) 0.9 X10^3/uL (1.3-2.9); LYMPHOCYTES % (AUTO) 16.8 % (21.0-51.0); MEAN CORPUSCULAR HEMOGLOBIN 31.8 pg (27.0-34.0); MEAN CORPUSCULAR HGB CONC 33.3 g/dL (33.0-35.0); MEAN CORPUSCULAR VOLUME 95.5 fL (80.0-100.0); MEAN PLATELET VOLUME 7.2 fL (7.4-11.0); MONOCYTES # (AUTO) 0.2 x10^3/uL (0.3-0.8); MONOCYTES % (AUTO) 3.8 % (0.0-13.0); NEUTROPHILS # (AUTO) 4.4 x10^3/uL (2.2-4.8); PLATELET COUNT 109 X10^3/uL (150.0-450.0); RED BLOOD COUNT 3.48 X10^6/uL (3.5-5.4); RED CELL DISTRIBUTION WIDTH 16.4 % (11.6-16.5); WHITE BLOOD COUNT 5.6 X10^3/uL (3.6-10.0)
[2020-06-22 06:50] LABS: ALANINE AMINOTRANSFERASE 114 Units/L (12-78); ALBUMIN 2.8 g/dL (3.4-5.0); ALKALINE PHOSPHATASE 118 Units/L (46-116); ASPARTATE AMINO TRANSFERASE 45 Units/L (15-37); BLOOD UREA NITROGEN 22 mg/dL (7-18); CALCIUM 8.7 mg/dL (8.5-10.1); CARBON DIOXIDE 35.2 mmol/L (21-32); CHLORIDE 102 mmol/L (98-107); COR CA(FOR HYPOALB) 9.7 mg/dL (8.5-10.1); COR NA(FOR HYPERGLY) 147 mmol/L (136-145); CREATININE 0.61 mg/dL (0.55-1.02); SODIUM 142 mmol/L (136-145); TOTAL PROTEIN 5.9 g/dL (6.4-8.2); eGFR NON BLACK RACES > 60 (>60)
[2020-06-22] MEDS: HumuLIN R SUBCUT PRN ×4 (07:05→21:08)
--- NOTE | 2020-06-22 07:16 | RAD ---
HISTORYSOBSTUDYPortable AP [id number] cardiac enlargement with similar extent and distribution of bilateral infiltrates, left greater than right. Right IJ line extends to the right atrium. No complicating extrapulmonary air collection or developing pleural effusion. Detail is limited by patient habitus.IMPRESSIONNo change in appearance of the chest. Cardiomegaly and bilateral infiltrates/pneumonia.Electronically signed by: SHAUN MUNROE (Jun 22, 2020 07:15:02)
[2020-06-22 08:17] LABS: BAND NEUTROPHILS % 6 % (0-10); METAMYELOCYTES % 4; PLATELET MORPHOLOGY COMMENT NORMAL (NORMAL)
[2020-06-22] MEDS: PULMICORT NEB TX 0.5 MG NEB SCH ×2 (09:10→20:20)
[2020-06-22] MEDS: K-DUR TAB 20 MEQ PO PRN (09:30)
[2020-06-22] MEDS: LEVAQUIN PREMIX IV 500 MG 500 MG/100 ML BAG IV SCH (09:36)
[2020-06-22] MEDS: ZINC SULFATE PO SCH ×2 (09:38→21:12)
[2020-06-22] MEDS: VITAMIN D3 125 mcg (5,000 UNITS) PO SCH (09:38)
[2020-06-22] MEDS: THIAMINE HCL INJ IVP SCH ×2 (09:39→21:11)
[2020-06-22] MEDS: VITAMIN A PO SCH (09:39)
[2020-06-22] MEDS: SOLU-Medrol 125 MG VIAL IVP SCH ×2 (09:39→21:11)
[2020-06-22] MEDS: NYSTATIN SUSP PO SCH ×4 (09:41→21:08)
[2020-06-22] MEDS: ROBITUSSIN DM PO SCH ×4 (09:42→21:10)
[2020-06-22] MEDS: PriLOSEC PO SCH (09:42)
[2020-06-22] MEDS: PEPCID TAB 20 MG PO SCH ×2 (09:43→21:10)
[2020-06-22] MEDS: PAXIL PO SCH (09:43)
[2020-06-22] MEDS: NYSTATIN POWDER TOP SCH ×2 (09:44→21:08)
[2020-06-22] MEDS: NORVASC TAB 5 MG PO SCH (09:44)
[2020-06-22] MEDS: NEURONTIN CAP 400 MG PO SCH ×2 (09:45→20:02)
[2020-06-22] MEDS: MAGIC MOUTHWASH MT SCH ×4 (09:45→20:02)
[2020-06-22] MEDS: LASIX IVP SCH (09:46)
[2020-06-22] MEDS: LEVEMIR SC SCH (09:46)
[2020-06-22] MEDS: LIPITOR TAB 40 MG PO SCH (09:46)
[2020-06-22] MEDS: ELIQUIS PO SCH ×2 (09:47→20:02)
[2020-06-22 09:55] LABS: ABG BASE EXCESS 17.7 mmol/L (-2.0-2.0)
[2020-06-22 09:56] LABS: ABG HCO3 43.7 mmol/L (22-26)
[2020-06-22 09:57] LABS: ABG ALLEN TEST POS
[2020-06-22] MEDS: ATIVAN TAB 0.5 MG PO PRN ×2 (09:57→20:03)
[2020-06-22] MEDS: NORCO 5/325 MG TAB PO PRN ×2 (09:57→20:03)
[2020-06-22] MEDS: SNACK - Diabetic Appropriate PO SCH (19:42)
[2020-06-22] MEDS: REQUIP PO SCH (21:10)
--- NOTE | 2020-06-22 21:33 | PCM.PROG ---
Progress Note - Progress Note for Day of Date of Exam: 06/21/20 - Subjective Subjective: IS A 54 YEAR OLD PATIENT OF . SHE HAS BEEN IN THE HOSPITAL FOR APPROXIMTELY 5 WEEKS DUE TO COMPLICATIONS FROM COVID-19 PNEUMONIA WITH HYPOXIA AND RESPIRATORY FAILURE. SHE HAS ALSO HAD NEW ONSET HYPERTENSION. SHE HAS A HISTORY OF DIABETES MELLITIS. SHE HAS DEVELOPED THREE, STAGE 2, PRESSURE ULCERS DURING HER STAY. SHE HAS HAD NO OVERNIGHT EVENTS. STODAY, SHE IS ALERT, LYING IN BED ON MORNING ROUNDS. SHE CONTINUES WITH COMPLAINTS OF SHORTNESS OF BREATH AND WEAKNESS. HE REPORTS IMPROVEMENT IN SYMPTOMS SINCE YESTERDAY. SHE CONTINUES TO UTILIZE THE BIPAP. SATURATIONS HAVE BEEN 84-93% THIS MORNING AND THROUGHOUT THE NIGHT. STAFF REPORTS THAT WHILE LYING ON HER BACK, HER SATURATIONS FALL TO THE 70s. WHEN TURNING BACK TO HER LEFT SIDE, SATURATIONS INCREASE TO THE UPPER 80s TO LOWER 90s. ON EXAMINATION, HEART IS REGULAR IN RATE AND RHYTHM. BILATERAL LUNG SOUNDS ARE NOTED WITH EXPIRATORY WHEEZING, DIMINISHED. ABDOMEN IS OBESE, BUT NON-TENDER. NORMAL BOWEL SOUNDS ARE NOTED IN ALL QUADRANTS. THERE IS 1+ PITTING EDEMA TO LOWER EXTREMITIES. SHE HAS TWO STAGE 2 PRESSURE ULCERS, ONE TO THE LEFT LOWER ABDOMEN AND THE OTHER IS TO THE LEFT LOWER BACK. SHE ALSO HAS A STAGE 1 ULCER TO THE LEFT HIP AREA. THERE IS DRAINAGE NOTED TO THE LEFT LOWER BACK. THERE IS A BELLO CATHETER NOTED TO BEDSIDE DRAINAGE. HER VITALS THIS MORNING ARE: [id number]/77. LABS WERE OBTAINED. ABNORMAL LAB VALUES INCLUDE THE FOLLOWING: RBC 3.37, HGB 10.7, HCT 31.6, PLT COUNT 96, D-DIMER 0.84, POTASSIUM 3.4, CARBON DIOXIDE 36.5, CREATININE 0.50, GLUCOSE 306, AST 53, ALT 113, CRP 21.30, TOTAL PROTEIN 5.6, ALBUMIN 2.6. ABG REVEALED: PH 7.480, PC02 54, P02 52, HC03 40.2, 02 SAT 89, BASE EXCESS 14.4, A-A GRADIENT 451, FI02 80. PHYSICAL THERAPY HAS BEEN WORKING WITH PATIENT. PATIENT IS COOPERATIVE. TODAY, WE WILL CONTINUE WITH HER IV FLUIDS, IV ANTIBIOTICS, RESPIRATORY TREATMENTS, INSULIN, STEROIDS, AND CURRENT PLAN OF CARE. OTHERWISE, WE PLAN TO FOLLOW UP WITH AM LABS, ABG, CHEST XRAY, AND CONTINUE TO MONITOR. TIME SPENT ON CLINICAL ASSESSMENT, REVIEWING LABS AND IMAGING, DECISION MAKING, AND DOCUMENTATION GREATER THAN 75 MINUTES. - Past Medical Family Social History Past Med/Fam/Surg Hx: No changes since H&P Allergies: Allergies No Known Drug Allergies Allergy (Verified 04/17/18 05:13) - Review of Systems ROS: No change since H&P - Vital Signs and I&O's Vital Signs: Temperature 98.6 F Pulse Rate [Left] 122 Pulse Rate 99 Respiratory Rate 26 Blood Pressure [Left Arm] 138/69 Blood Pressure [Left Calf] 114/77 Blood Pressure [Right Arm] 114/78 Blood Pressure 127/78 O2 Sat by Pulse Oximetry 34 Intake and Output: Intake & Output 06/20/20 06/21/20 06/22/20 06/23/20 11:59 11:59 11:59 11:59 Intake Total 1410 / 1410 1322 / 1322 1760 / 1760 475 / 475 Output Total 1100 / 1100 1800 / 1800 1475 / 1475 1600 / 1600 Balance 310 / 310 -478 / -478 285 / 285 -1125 / -1125 - Physical Exam Oriented: Normal Eyes: Normal Ear: Normal Nose: Normal Throat: Normal Respiratory: Generalized, Diminished, Wheezes Cardiovascular: Normal : Normal Auscultation: Bowel Sounds: Normal Palpation: Normal Tenderness: Normal Skin: Decreased Turgur, Wound (stage 1 left lateral hip, stage 2 left lateral lower abdomen, and left lower lateral back/flank), Bruising Musculoskeletal: Right, Left, Knee, Back:Lumbar Psychiatric: Anxiety, Depression Mood Description: Depressed, Anxious Affect: Anxious, Depressed Speech Pattern: Clear - Laboratory and Diagnostics Result Diagrams: 06/22/20 05:35 06/22/20 05:35 Labs: 06/06/20 15:30 Urine,Clean Catch Urine Culture - Final 05/15/20 12:35 Blood Blood Culture - Final 05/15/20 12:25 Blood Blood Culture - Final Laboratory WBC 5.6 X10^3/uL (3.6-10.0) 06/22/20 05:35 RBC 3.48 X10^6/uL (3.5-5.4) L 06/22/20 05:35 Hgb 11.1 g/dL (12.0-16.0) L 06/22/20 05:35 Hct 33.2 % (36.0-47.0) L 06/22/20 05:35 MCV 95.5 fL (80.0-100.0) 06/22/20 05:35 MCH 31.8 pg (27.0-34.0) 06/22/20 05:35 MCHC 33.3 g/dL (33.0-35.0) 06/22/20 05:35 RDW 16.4 % (11.6-16.5) 06/22/20 05:35 Plt Count 109 X10^3/uL (150.0-450.0) L 06/22/20 05:35 Plt Count Comment Decreased (ADEQUATE) A 06/22/20 05:35 MPV 7.2 fL (7.4-11.0) L 06/22/20 05:35 Neut % (Auto) 79.0 % (42.0-75.0) H 06/22/20 05:35 Lymph % (Auto) 16.8 % (21.0-51.0) L 06/22/20 05:35 [place] % (Auto) 3.8 % (0.0-13.0) 06/22/20 05:35 Eos % (Auto) 0.0 % (0.9-2.9) L 06/22/20 05:35 Baso % (Auto) 0.4 % (0.2-1.0) 06/22/20 05:35 Neut # (Auto) 4.4 x10^3/uL (2.2-4.8) 06/22/20 05:35 Lymph # (Auto) 0.9 X10^3/uL (1.3-2.9) L 06/22/20 05:35 [place] # (Auto) 0.2 x10^3/uL (0.3-0.8) L 06/22/20 05:35 Eos # (Auto) 0.0 x10^3/uL (0.0-0.2) 06/22/20 05:35 Baso # (Auto) 0.0 X10^3/uL (0.0-0.1) 06/22/20 05:35 Absolute Nucleated RBC 0.6 /100WBC 06/22/20 05:35 Total Counted 100 06/22/20 05:35 Neutrophils % (Manual) 64 % (39-76) 06/22/20 05:35 Band Neutrophils % 6 % (0-10) 06/22/20 05:35 Lymphocytes % (Manual) 25 % (13-43) 06/22/20 05:35 Monocytes % (Manual) 1 % (4-9) L 06/22/20 05:35 Metamyelocytes % 4 06/22/20 05:35 Myelocytes % 1 06/05/20 15:33 Nucleated RBCs 2 06/18/20 05:13 Plt Clumps, EDTA Rare 06/20/20 06:05 Plt Morphology Comment Normal (NORMAL) 06/22/20 05:35 RBC Morphology Normal (NORMAL) 06/22/20 05:35 D-Dimer 0.33 ug/ml (0.0-0.57) 06/22/20 05:35 Sample Site Rra 06/22/20 09:13 ABG pH 7.500 (7.35-7.45) H 06/22/20 09:13 ABG pCO2 56.0 mmHg (35.0-45.0) H* 06/22/20 09:13 ABG pO2 83.0 mmHg (80.0-100.0) 06/22/20 09:13 ABG HCO3 43.7 mmol/L (22-26) H* 06/22/20 09:13 ABG O2 Saturation 97.0 % (90-100) 06/22/20 09:13 ABG Base Excess 17.7 mmol/L (-2.0-2.0) H 06/22/20 09:13 Bigg Test Pos 06/22/20 09:13 A-a Gradient 560.0 mmHg 06/22/20 09:13 FiO2 100 06/22/20 09:13 Blood Gas Comments Pt tommy well mt 06/22/20 09:13 Sodium 142 mmol/L (136-145) 06/22/20 05:35 Corrected Sodium 147 mmol/L (136-145) H 06/22/20 05:35 Potassium 3.4 mmol/L (3.5-5.1) L 06/22/20 05:35 Chloride 102 mmol/L (98-107) 06/22/20 05:35 Carbon Dioxide 35.2 mmol/L (21-32) H 06/22/20 05:35 BUN 22 mg/dL (7-18) H 06/22/20 05:35 Creatinine 0.61 mg/dL (0.55-1.02) 06/22/20 05:35 Est GFR (MDRD) Af Amer > 60 (>60) 06/22/20 05:35 Est GFR (MDRD) Non-Af > 60 (>60) 06/22/20 05:35 Glucose 317 mg/dL (65-99) H 06/22/20 05:35 POC Glucose (mg/dL) 349 mg/dL (65-99) H 06/22/20 19:13 Hemoglobin A1c 7.7 % 06/13/20 05:40 Calcium 8.7 mg/dL (8.5-10.1) 06/22/20 05:35 Corrected Calcium 9.7 mg/dL (8.5-10.1) 06/22/20 05:35 Magnesium 1.9 mg/dL (1.7-2.9) 06/19/20 05:34 Ferritin 240 ng/mL (8-252) 05/21/20 04:21 Total Bilirubin 1.00 mg/dL (0.2-1.0) 06/22/20 05:35 AST 45 Units/L (15-37) H 06/22/20 05:35 ALT 114 Units/L (12-78) H 06/22/20 05:35 Alkaline Phosphatase 118 Units/L (46-116) H 06/22/20 05:35 C-Reactive Protein 10.20 mg/L (0-3.0) H 06/22/20 05:35 B-Natriuretic Peptide 31.4 pg/mL (0-79) 06/22/20 05:35 Total Protein 5.9 g/dL (6.4-8.2) L 06/22/20 05:35 Albumin 2.8 g/dL (3.4-5.0) L 06/22/20 05:35 Globulin 3.1 g/dL (2.5-4.5) 06/22/20 05:35 Albumin/Globulin Ratio 0.9 Ratio (1.1-2.1) L 06/22/20 05:35 Specimen Type Catherized urine 06/06/20 15:30 Urine Color Red (YELLOW) 06/06/20 15:30 Urine Appearance Cloudy (CLEAR) 06/06/20 15:30 Urine pH 5.0 (5.0 - 8.0) 06/06/20 15:30 Ur Specific [place] 1.020 (1.000-1.030) 06/06/20 15:30 Urine Protein 3+ (NEGATIVE) 06/06/20 15:30 Urine Glucose (UA) 1+ (NEGATIVE) 06/06/20 15:30 Urine Ketones 1+ (NEGATIVE) 06/06/20 15:30 Urine Occult Blood 5+ (NEGATIVE) 06/06/20 15:30 Urine Nitrite Positive (NEGATIVE) 06/06/20 15:30 Urine Bilirubin Negative (NEGATIVE) 06/06/20 15:30 Urine Urobilinogen 1+ (NORMAL) 06/06/20 15:30 Ur Leukocyte Esterase 3+ (NEGATIVE) 06/06/20 15:30 Urine RBC 30-50 /HPF (0-3) A 06/06/20 15:30 Urine WBC 10-20 /HPF (0-5) A 06/06/20 15:30 Ur Squamous Epith Cells Negative /HPF (NEGATIVE) 06/06/20 15:30 Urine Bacteria 1+ /HPF (NEGATIVE) 06/06/20 15:30 Urine Yeast Moderate /HPF (NEGATIVE) 06/06/20 15:30 Ur Culture Indicated? No/not indicated 06/06/20 15:30 SARS CoV-2 RNA Rapid KIRA Positive (NEGATIVE) A 05/15/20 13:15 Miscellaneous Test Covid 19 06/10/20 06:36 Blood Type O POSITIVE 05/16/20 09:08 - Plan (1) Pneumonia due to COVID-19 virus Status: Acute Plan: COVID-19 pneumonia with hypoxia. We will continue antibiotic therapy, corticosteroids, PT, OT, and RT, aggressive respiratory weaning, wound care, strict i&os blood sugar control (2) Acute respiratory failure with hypoxia Status: Acute (3) BiPAP (biphasic positive airway pressure) dependence Status: Acute (4) Thrombocytopenia Status: Acute (5) Diabetes Status: Chronic Qualifiers: Diabetes mellitus type: type 2 Diabetes mellitus mcfp insulin use: unspecified terminal computer operator insulin use status Diabetes mellitus complication status: without complication Qualified Code(s): E11.9 - Type 2 diabetes mellitus without complications
--- NOTE | 2020-06-22 21:50 | PCM.PROG ---
Progress Note - Progress Note for Day of Date of Exam: 06/22/20 - Subjective Subjective: IS A 54 YEAR OLD PATIENT OF . SHE HAS BEEN IN THE HOSPITAL FOR APPROXIMTELY 5 WEEKS DUE TO COMPLICATIONS FROM COVID-19 PNEUMONIA WITH HYPOXIA AND RESPIRATORY FAILURE. SHE HAS ALSO HAD NEW ONSET HYPERTENSION. SHE HAS A HISTORY OF DIABETES MELLITIS. SHE HAS DEVELOPED THREE, STAGE 2, PRESSURE ULCERS DURING HER STAY. SHE HAS HAD NO OVERNIGHT EVENTS. TODAY, SHE IS ALERT, LYING IN BED ON MORNING ROUNDS. SHE CONTINUES WITH COMPLAINTS OF SHORTNESS OF BREATH AND WEAKNESS. SHE DENIES SIGNIFICANT IMPROVEMENT IN SYMPTOMS SINCE YESTERDAY. SHE CONTINUES TO UTILIZE THE BIPAP. SA TURATIONS HAVE BEEN 85-99% THIS MORNING AND THROUGHOUT THE NIGHT. HER SATURATIONS DID DROP TO THE 70s WHILE PATIENT WAS ON HER BACK THIS MORNING. IT INCREASED TO THE LOW 90s WHEN SHE TURNED TO HER LEFT SIDE. ON EXAMINATION, HEART IS REGULAR IN RATE AND RHYTHM. BILATERAL LUNG SOUNDS ARE NOTED WITH EXPIRATORY WHEEZING, DIMINISHED. ABDOMEN IS OBESE, BUT NON-TENDER. NORMAL BOWEL SOUNDS ARE NOTED IN ALL QUADRANTS. THERE IS 1+ PITTING EDEMA TO LOWER EXTREMITIES. SHE HAS TWO STAGE 2 PRESSURE ULCERS, ONE TO THE LEFT LOWER ABDOMEN AND THE OTHER IS TO THE LEFT LOWER BACK. SHE ALSO HAS A STAGE 1 ULCER TO THE LEFT HIP AREA. THERE IS DRAINAGE NOTED TO THE LEFT LOWER BACK. THERE IS A BELLO CATHETER NOTED TO BEDSIDE DRAINAGE. HER VITALS THIS MORNING ARE: 97.9-100-35-98%-114/76. LABS WERE OBTAINED. ABNORMAL LAB VALUES INCLUDE THE FOLLOWING: RBC 3.48, HGB 11.1, HCT 33.2, PLT COUNT 109, POTASSIUM 3.4, BUN 22, GLUCOSE 317, AST 45, ALT 114, ALK PHOS 118 CRP 10.20, TOTAL PROTEIN 5.9, ALBUMIN 2.8. ABG REVEALED: PH 7.500, PC02 56, P02 83, HC03 43.7, 02 SAT 97, A-A GRADIENT 560, FI02 100. A CHEST XRAY WAS O BTAINED AND REVEALED: No change in appearance of the chest. Cardiomegaly and bilateral infiltrates/pneumonia. PHYSICAL THERAPY HAS BEEN WORKING WITH PATIENT. PATIENT IS COOPERATIVE. TODAY, WE WILL CONTINUE WITH HER IV FLUIDS, IV ANTIBIOTICS, RESPIRATORY TREATMENTS, INSULIN, STEROIDS, AND CURRENT PLAN OF CARE. OTHERWISE, WE PLAN TO FOLLOW UP WITH AM LABS, ABG, CHEST XRAY, AND CONTINUE TO MONITOR. TIME SPENT ON CLINICAL ASSESSMENT, REVIEWING LABS AND IMAGING, DECISION MAKING, AND DOCUMENTATION GREATER THAN 75 MINUTES. - Past Medical Family Social History Past Med/Fam/Surg Hx: No changes since H&P Allergies: Allergies No Known Drug Allergies Allergy (Verified 04/17/18 05:13) - Review of Systems ROS: No change since H&P - Vital Signs and I&O's Vital Signs: Temperature 98.6 F Pulse Rate [Left] 122 Pulse Rate 99 Respiratory Rate 26 Blood Pressure [Left Arm] 138/69 Blood Pressure [Left Calf] 114/77 Blood Pressure [Right Arm] 114/78 Blood Pressure 127/78 O2 Sat by Pulse Oximetry 34 Intake and Output: Intake & Output 06/20/20 06/21/20 06/22/20 06/23/20 11:59 11:59 11:59 11:59 Intake Total 1410 / 1410 1322 / 1322 1760 / 1760 475 / 475 Output Total 1100 / 1100 1800 / 1800 1475 / 1475 1600 / 1600 Balance 310 / 310 -478 / -478 285 / 285 -1125 / -1125 - Physical Exam Oriented: Normal Eyes: Normal Ear: Normal Nose: Normal Throat: Normal Respiratory: Generalized, Diminished, Wheezes Cardiovascular: Normal : Normal Auscultation: Bowel Sounds: Normal Palpation: Normal Tenderness: Normal Skin: Decreased Turgur, Wound (stage 1 left lateral hip, stage 2 left lateral lower abdomen, and left lower lateral back/flank), Bruising Musculoskeletal: Right, Left, Knee, Back:Lumbar Psychiatric: Anxiety, Depression Mood Description: Depressed, Anxious Affect: Anxious, Depressed Speech Pattern: Clear - Laboratory and Diagnostics Result Diagrams: 06/22/20 05:35 06/22/20 05:35 Labs: 06/06/20 15:30 Urine,Clean Catch Urine Culture - Final 05/15/20 12:35 Blood Blood Culture - Final 05/15/20 12:25 Blood Blood Culture - Final Laboratory WBC 5.6 X10^3/uL (3.6-10.0) 06/22/20 05:35 RBC 3.48 X10^6/uL (3.5-5.4) L 06/22/20 05:35 Hgb 11.1 g/dL (12.0-16.0) L 06/22/20 05:35 Hct 33.2 % (36.0-47.0) L 06/22/20 05:35 MCV 95.5 fL (80.0-100.0) 06/22/20 05:35 MCH 31.8 pg (27.0-34.0) 06/22/20 05:35 MCHC 33.3 g/dL (33.0-35.0) 06/22/20 05:35 RDW 16.4 % (11.6-16.5) 06/22/20 05:35 Plt Count 109 X10^3/uL (150.0-450.0) L 06/22/20 05:35 Plt Count Comment Decreased (ADEQUATE) A 06/22/20 05:35 MPV 7.2 fL (7.4-11.0) L 06/22/20 05:35 Neut % (Auto) 79.0 % (42.0-75.0) H 06/22/20 05:35 Lymph % (Auto) 16.8 % (21.0-51.0) L 06/22/20 05:35 [place] % (Auto) 3.8 % (0.0-13.0) 06/22/20 05:35 Eos % (Auto) 0.0 % (0.9-2.9) L 06/22/20 05:35 Baso % (Auto) 0.4 % (0.2-1.0) 06/22/20 05:35 Neut # (Auto) 4.4 x10^3/uL (2.2-4.8) 06/22/20 05:35 Lymph # (Auto) 0.9 X10^3/uL (1.3-2.9) L 06/22/20 05:35 [place] # (Auto) 0.2 x10^3/uL (0.3-0.8) L 06/22/20 05:35 Eos # (Auto) 0.0 x10^3/uL (0.0-0.2) 06/22/20 05:35 Baso # (Auto) 0.0 X10^3/uL (0.0-0.1) 06/22/20 05:35 Absolute Nucleated RBC 0.6 /100WBC 06/22/20 05:35 Total Counted 100 06/22/20 05:35 Neutrophils % (Manual) 64 % (39-76) 06/22/20 05:35 Band Neutrophils % 6 % (0-10) 06/22/20 05:35 Lymphocytes % (Manual) 25 % (13-43) 06/22/20 05:35 Monocytes % (Manual) 1 % (4-9) L 06/22/20 05:35 Metamyelocytes % 4 06/22/20 05:35 Myelocytes % 1 06/05/20 15:33 Nucleated RBCs 2 06/18/20 05:13 Plt Clumps, EDTA Rare 06/20/20 06:05 Plt Morphology Comment Normal (NORMAL) 06/22/20 05:35 RBC Morphology Normal (NORMAL) 06/22/20 05:35 D-Dimer 0.33 ug/ml (0.0-0.57) 06/22/20 05:35 Sample Site Rra 06/22/20 09:13 ABG pH 7.500 (7.35-7.45) H 06/22/20 09:13 ABG pCO2 56.0 mmHg (35.0-45.0) H* 06/22/20 09:13 ABG pO2 83.0 mmHg (80.0-100.0) 06/22/20 09:13 ABG HCO3 43.7 mmol/L (22-26) H* 06/22/20 09:13 ABG O2 Saturation 97.0 % (90-100) 06/22/20 09:13 ABG Base Excess 17.7 mmol/L (-2.0-2.0) H 06/22/20 09:13 Bigg Test Pos 06/22/20 09:13 A-a Gradient 560.0 mmHg 06/22/20 09:13 FiO2 100 06/22/20 09:13 Blood Gas Comments Pt tommy well mt 06/22/20 09:13 Sodium 142 mmol/L (136-145) 06/22/20 05:35 Corrected Sodium 147 mmol/L (136-145) H 06/22/20 05:35 Potassium 3.4 mmol/L (3.5-5.1) L 06/22/20 05:35 Chloride 102 mmol/L (98-107) 06/22/20 05:35 Carbon Dioxide 35.2 mmol/L (21-32) H 06/22/20 05:35 BUN 22 mg/dL (7-18) H 06/22/20 05:35 Creatinine 0.61 mg/dL (0.55-1.02) 06/22/20 05:35 Est GFR (MDRD) Af Amer > 60 (>60) 06/22/20 05:35 Est GFR (MDRD) Non-Af > 60 (>60) 06/22/20 05:35 Glucose 317 mg/dL (65-99) H 06/22/20 05:35 POC Glucose (mg/dL) 349 mg/dL (65-99) H 06/22/20 19:13 Hemoglobin A1c 7.7 % 06/13/20 05:40 Calcium 8.7 mg/dL (8.5-10.1) 06/22/20 05:35 Corrected Calcium 9.7 mg/dL (8.5-10.1) 06/22/20 05:35 Magnesium 1.9 mg/dL (1.7-2.9) 06/19/20 05:34 Ferritin 240 ng/mL (8-252) 05/21/20 04:21 Total Bilirubin 1.00 mg/dL (0.2-1.0) 06/22/20 05:35 AST 45 Units/L (15-37) H 06/22/20 05:35 ALT 114 Units/L (12-78) H 06/22/20 05:35 Alkaline Phosphatase 118 Units/L (46-116) H 06/22/20 05:35 C-Reactive Protein 10.20 mg/L (0-3.0) H 06/22/20 05:35 B-Natriuretic Peptide 31.4 pg/mL (0-79) 06/22/20 05:35 Total Protein 5.9 g/dL (6.4-8.2) L 06/22/20 05:35 Albumin 2.8 g/dL (3.4-5.0) L 06/22/20 05:35 Globulin 3.1 g/dL (2.5-4.5) 06/22/20 05:35 Albumin/Globulin Ratio 0.9 Ratio (1.1-2.1) L 06/22/20 05:35 Specimen Type Catherized urine 06/06/20 15:30 Urine Color Red (YELLOW) 06/06/20 15:30 Urine Appearance Cloudy (CLEAR) 06/06/20 15:30 Urine pH 5.0 (5.0 - 8.0) 06/06/20 15:30 Ur Specific [place] 1.020 (1.000-1.030) 06/06/20 15:30 Urine Protein 3+ (NEGATIVE) 06/06/20 15:30 Urine Glucose (UA) 1+ (NEGATIVE) 06/06/20 15:30 Urine Ketones 1+ (NEGATIVE) 06/06/20 15:30 Urine Occult Blood 5+ (NEGATIVE) 06/06/20 15:30 Urine Nitrite Positive (NEGATIVE) 06/06/20 15:30 Urine Bilirubin Negative (NEGATIVE) 06/06/20 15:30 Urine Urobilinogen 1+ (NORMAL) 06/06/20 15:30 Ur Leukocyte Esterase 3+ (NEGATIVE) 06/06/20 15:30 Urine RBC 30-50 /HPF (0-3) A 06/06/20 15:30 Urine WBC 10-20 /HPF (0-5) A 06/06/20 15:30 Ur Squamous Epith Cells Negative /HPF (NEGATIVE) 06/06/20 15:30 Urine Bacteria 1+ /HPF (NEGATIVE) 06/06/20 15:30 Urine Yeast Moderate /HPF (NEGATIVE) 06/06/20 15:30 Ur Culture Indicated? No/not indicated 06/06/20 15:30 SARS CoV-2 RNA Rapid KIRA Positive (NEGATIVE) A 05/15/20 13:15 Miscellaneous Test Covid 19 06/10/20 06:36 Blood Type O POSITIVE 05/16/20 09:08 - Plan (1) Pneumonia due to COVID-19 virus Status: Acute Plan: COVID-19 pneumonia with hypoxia. We will continue antibiotic therapy, corticosteroids, PT, OT, and RT, aggressive respiratory weaning, wound care, strict i&os blood sugar control (2) Acute respiratory failure with hypoxia Status: Acute (3) BiPAP (biphasic positive airway pressure) dependence Status: Acute (4) Thrombocytopenia Status: Acute (5) Diabetes Status: Chronic Qualifiers: Diabetes mellitus type: type 2 Diabetes mellitus intermediate designer insulin use: unspecified intermediate designer insulin use status Diabetes mellitus complication status: without complication Qualified Code(s): E11.9 - Type 2 diabetes mellitus without complications
[2020-06-23] MEDS ORDERED: NORCO 5/325 MG TAB ONE (00:02)
[2020-06-23] MEDS: XOPENEX 1.25 MG/3 ML NEBULE NEB SCH ×4 (00:05→17:23)
[2020-06-23] MEDS: MUCOMYST (RESPIRATORY USE ONLY) NEB SCH ×4 (00:05→17:23)
[2020-06-23] MEDS: NORCO 5/325 MG TAB PO PRN ×3 (00:16→21:39)
[2020-06-23] MEDS: NS IV SCH ×4 (02:19→21:33)
[2020-06-23] MEDS: ASCORBIC ACID MULTI IV SCH ×4 (02:19→21:33)
[2020-06-23] MEDS: BENADRYL INJ 50 MG VIAL IVP SCH ×3 (06:08→21:36)
[2020-06-23] MEDS: ZOVIRAX VIAL 500 MG 500 MG in NS 100 ML IV 100 ML IV SCH ×3 (06:09→23:10)
[2020-06-23] MEDS: HumuLIN R SUBCUT PRN ×4 (06:10→22:55)
[2020-06-23 06:23] LABS: BASOPHILS % (AUTO) 0.3 % (0.2-1.0); HEMATOCRIT 28.1 % (36.0-47.0); HEMOGLOBIN 9.7 g/dL (12.0-16.0); LYMPHOCYTES # (AUTO) 0.7 X10^3/uL (1.3-2.9); LYMPHOCYTES % (AUTO) 18.1 % (21.0-51.0); MEAN CORPUSCULAR HGB CONC 34.5 g/dL (33.0-35.0); MEAN CORPUSCULAR VOLUME 95.5 fL (80.0-100.0); MEAN PLATELET VOLUME 7.5 fL (7.4-11.0); MONOCYTES # (AUTO) 0.2 x10^3/uL (0.3-0.8); MONOCYTES % (AUTO) 5.4 % (0.0-13.0); NEUTROPHILS # (AUTO) 2.9 x10^3/uL (2.2-4.8); NEUTROPHILS % (AUTO) 76.2 % (42.0-75.0); PLATELET COUNT 85 X10^3/uL (150.0-450.0); RED BLOOD COUNT 2.94 X10^6/uL (3.5-5.4); RED CELL DISTRIBUTION WIDTH 15.5 % (11.6-16.5); WHITE BLOOD COUNT 3.8 X10^3/uL (3.6-10.0)
[2020-06-23 06:28] LABS: ALANINE AMINOTRANSFERASE 102 Units/L (12-78); ALBUMIN 2.4 g/dL (3.4-5.0); ALKALINE PHOSPHATASE 106 Units/L (46-116); ASPARTATE AMINO TRANSFERASE 46 Units/L (15-37); BLOOD UREA NITROGEN 22 mg/dL (7-18); CALCIUM 8.7 mg/dL (8.5-10.1); CARBON DIOXIDE 37.6 mmol/L (21-32); CHLORIDE 101 mmol/L (98-107); COR NA(FOR HYPERGLY) 148 mmol/L (136-145); CREATININE 0.58 mg/dL (0.55-1.02); SODIUM 143 mmol/L (136-145); TOTAL PROTEIN 5.1 g/dL (6.4-8.2); eGFR NON BLACK RACES > 60 (>60)
[2020-06-23 07:09] LABS: BAND NEUTROPHILS % 2 % (0-10)
[2020-06-23 07:10] LABS: PLATELET MORPHOLOGY COMMENT NORMAL (NORMAL)
[2020-06-23] MEDS: THIAMINE HCL INJ IVP SCH ×2 (09:15→21:37)
[2020-06-23] MEDS: ELIQUIS PO SCH ×2 (09:15→21:39)
[2020-06-23] MEDS: VITAMIN D3 125 mcg (5,000 UNITS) PO SCH (09:16)
[2020-06-23] MEDS: ZINC SULFATE PO SCH ×2 (09:16→21:39)
[2020-06-23] MEDS: VITAMIN A PO SCH (09:16)
[2020-06-23] MEDS: ROBITUSSIN DM PO SCH ×4 (09:17→21:40)
[2020-06-23] MEDS: SOLU-Medrol 125 MG VIAL IVP SCH ×2 (09:17→21:35)
[2020-06-23] MEDS: PriLOSEC PO SCH (09:17)
[2020-06-23] MEDS: PAXIL PO SCH (09:18)
[2020-06-23] MEDS: PEPCID TAB 20 MG PO SCH ×2 (09:18→21:39)
[2020-06-23] MEDS: NYSTATIN SUSP PO SCH ×2 (09:18→12:27)
[2020-06-23] MEDS: NORVASC TAB 5 MG PO SCH (09:19)
[2020-06-23] MEDS: NEURONTIN CAP 400 MG PO SCH ×2 (09:19→21:39)
[2020-06-23] MEDS: LIPITOR TAB 40 MG PO SCH (09:20)
[2020-06-23] MEDS: LEVEMIR SC SCH (09:20)
[2020-06-23] MEDS: LASIX IVP SCH (09:21)
[2020-06-23] MEDS: LEVAQUIN PREMIX IV 500 MG 500 MG/100 ML BAG IV SCH (09:22)
[2020-06-23] MEDS: PULMICORT NEB TX 0.5 MG NEB SCH ×2 (09:34→20:29)
[2020-06-23] MEDS ORDERED: NS 1/2 1000 ML IV 1,000 ML IV ONE (09:34)
[2020-06-23] MEDS: NS 1/2 1000 ML IV 1,000 ML IV SCH ×2 (09:36→22:06)
[2020-06-23] MEDS: ATIVAN TAB 0.5 MG PO PRN ×2 (10:20→21:39)
[2020-06-23] MEDS: TobraDEX OPHTH SUSP AFFEYE SCH ×3 (12:25→22:08)
[2020-06-23] MEDS: MAGIC MOUTHWASH MT SCH ×2 (12:25→12:28)
[2020-06-23] MEDS: ZyrTEC TAB 10 MG PO SCH (12:26)
[2020-06-23] MEDS ORDERED: MAGIC MOUTHWASH MT PRN (16:26)
[2020-06-23] MEDS: NYSTATIN POWDER TOP SCH ×2 (17:56→22:06)
[2020-06-23] MEDS: REQUIP PO SCH (21:39)
[2020-06-23] MEDS: SNACK - Diabetic Appropriate PO SCH (22:05)
[2020-06-23] MEDS: ZANAFLEX PO SCH (22:08)
[2020-06-24] MEDS: MUCOMYST (RESPIRATORY USE ONLY) NEB SCH ×4 (00:04→17:10)
[2020-06-24] MEDS: XOPENEX 1.25 MG/3 ML NEBULE NEB SCH ×4 (00:04→17:10)
[2020-06-24] MEDS: NS IV SCH ×4 (02:39→21:26)
[2020-06-24] MEDS: ASCORBIC ACID MULTI IV SCH ×4 (02:39→21:26)
[2020-06-24] MEDS: TobraDEX OPHTH SUSP AFFEYE SCH ×4 (02:42→21:15)
[2020-06-24 04:28] LABS: ABG BASE EXCESS 20.9 mmol/L (-2.0-2.0)
[2020-06-24 04:29] LABS: ABG ALLEN TEST POS; ABG HCO3 47.6 mmol/L (22-26)
[2020-06-24] MEDS: BENADRYL INJ 50 MG VIAL IVP SCH ×3 (05:55→21:25)
[2020-06-24] MEDS: ZOVIRAX VIAL 500 MG 500 MG in NS 100 ML IV 100 ML IV SCH ×3 (05:56→22:23)
[2020-06-24] MEDS: HumuLIN R SUBCUT PRN ×4 (06:20→22:24)
[2020-06-24 06:22] LABS: BASOPHILS % (AUTO) 0.3 % (0.2-1.0); HEMOGLOBIN 9.4 g/dL (12.0-16.0); LYMPHOCYTES # (AUTO) 0.8 X10^3/uL (1.3-2.9); LYMPHOCYTES % (AUTO) 22.2 % (21.0-51.0); MEAN CORPUSCULAR HEMOGLOBIN 32.9 pg (27.0-34.0); MONOCYTES # (AUTO) 0.2 x10^3/uL (0.3-0.8); MONOCYTES % (AUTO) 5.7 % (0.0-13.0); NEUTROPHILS # (AUTO) 2.6 x10^3/uL (2.2-4.8); NEUTROPHILS % (AUTO) 71.8 % (42.0-75.0); PLATELET COUNT 82 X10^3/uL (150.0-450.0); RED BLOOD COUNT 2.87 X10^6/uL (3.5-5.4); RED CELL DISTRIBUTION WIDTH 16.8 % (11.6-16.5); WHITE BLOOD COUNT 3.6 X10^3/uL (3.6-10.0)
[2020-06-24 06:39] LABS: ALANINE AMINOTRANSFERASE 99 Units/L (12-78); ALBUMIN 2.4 g/dL (3.4-5.0); ALKALINE PHOSPHATASE 101 Units/L (46-116); ASPARTATE AMINO TRANSFERASE 43 Units/L (15-37); BLOOD UREA NITROGEN 25 mg/dL (7-18); CALCIUM 8.3 mg/dL (8.5-10.1); CHLORIDE 102 mmol/L (98-107); COR CA(FOR HYPOALB) 9.6 mg/dL (8.5-10.1); COR NA(FOR HYPERGLY) 147 mmol/L (136-145); CREATININE 0.53 mg/dL (0.55-1.02); SODIUM 142 mmol/L (136-145); eGFR NON BLACK RACES > 60 (>60)
[2020-06-24 07:32] LABS: BAND NEUTROPHILS % 2 % (0-10); PLATELET MORPHOLOGY COMMENT NORMAL (NORMAL)
[2020-06-24] MEDS: PULMICORT NEB TX 0.5 MG NEB SCH ×2 (08:17→21:30)
[2020-06-24] MEDS: LEVAQUIN PREMIX IV 500 MG 500 MG/100 ML BAG IV SCH (08:47)
[2020-06-24] MEDS: LASIX IVP SCH (08:48)
[2020-06-24] MEDS: LEVEMIR SC SCH (08:48)
[2020-06-24] MEDS: NORVASC TAB 5 MG PO SCH (08:49)
[2020-06-24] MEDS: LIPITOR TAB 40 MG PO SCH (08:49)
[2020-06-24] MEDS: NYSTATIN POWDER TOP SCH ×2 (08:49→23:16)
[2020-06-24] MEDS: NEURONTIN CAP 400 MG PO SCH ×2 (08:49→21:29)
[2020-06-24] MEDS: ROBITUSSIN DM PO SCH ×4 (08:50→21:00)
[2020-06-24] MEDS: PAXIL PO SCH (08:50)
[2020-06-24] MEDS: PriLOSEC PO SCH (08:50)
[2020-06-24] MEDS: SOLU-Medrol 125 MG VIAL IVP SCH ×2 (08:50→21:24)
[2020-06-24] MEDS: PEPCID TAB 20 MG PO SCH ×2 (08:50→21:29)
[2020-06-24] MEDS: VITAMIN D3 125 mcg (5,000 UNITS) PO SCH (08:51)
[2020-06-24] MEDS: ELIQUIS PO SCH ×2 (08:51→21:29)
[2020-06-24] MEDS: VITAMIN A PO SCH (08:51)
[2020-06-24] MEDS: ZyrTEC TAB 10 MG PO SCH (08:52)
[2020-06-24] MEDS: ZINC SULFATE PO SCH ×2 (08:52→21:29)
[2020-06-24] MEDS: NORCO 5/325 MG TAB PO PRN ×2 (09:06→21:29)
[2020-06-24] MEDS: ATIVAN TAB 0.5 MG PO PRN ×2 (09:06→21:29)
--- NOTE | 2020-06-24 09:23 | RAD ---
HISTORYSOBSTUDYCHEST, 1 VIEWCOMPARISONChest x-ray dated June 22, 2020.FINDINGSRight IJ central venous catheter appears unchanged given technique. The trachea is midline. The cardiac silhouette is unchanged given technique. Worsening bilateral airspace disease. Obscuration of the left hemidiaphragm which may represent small pleural effusion. No obvious pneumothorax. The bony thorax is unremarkable.IMPRESSIONWorsening bilateral airspace disease.Electronically signed by: PRECIOUS CHAPIN (Jun 24, 2020 09:22:12)
[2020-06-24] MEDS: THIAMINE HCL INJ IVP SCH (11:39)
[2020-06-24] MEDS: NS 1/2 1000 ML IV 1,000 ML IV SCH ×2 (12:35→23:18)
[2020-06-24] MEDS ORDERED: NS 1/2 1000 ML IV 1,000 ML IV ONE (12:41)
[2020-06-24] MEDS: SNACK - Diabetic Appropriate PO SCH (20:00)
[2020-06-24 21:15] LABS: BILIRUBIN,URINE NEGATIVE (NEGATIVE); BLOOD/HEMOGLOBIN,URINE 5+ (NEGATIVE); GLUCOSE, URINE 4+ (NEGATIVE); KETONES,URINE 1+ (NEGATIVE); LEUKOCYTE ESTERASE ,URINE 3+ (NEGATIVE); NITRITES,URINE NEGATIVE (NEGATIVE); PROTEIN,URINE 2+ (NEGATIVE); UROBILINOGEN,URINE 2+ (NORMAL)
[2020-06-24 21:22] LABS: APPEARANCE,URINE CLOUDY (CLEAR); COLOR,URINE BROWN (YELLOW)
[2020-06-24 21:23] LABS: RBC,URINE TNTC /HPF (0-3)
[2020-06-24 21:24] LABS: BACTERIA,URINE TRACE /HPF (NEGATIVE); SQUAMOUS EPITHELIAL CELL,UR RARE /HPF (NEGATIVE); YEAST,URINE NUMEROUS /HPF (NEGATIVE)
[2020-06-24] MEDS: REQUIP PO SCH (21:29)
[2020-06-24] MEDS: ZANAFLEX PO SCH (23:17)
[2020-06-25] MEDS: MUCOMYST (RESPIRATORY USE ONLY) NEB SCH ×4 (00:20→18:54)
[2020-06-25] MEDS: XOPENEX 1.25 MG/3 ML NEBULE NEB SCH ×4 (00:20→18:54)
[2020-06-25] MEDS: NS IV SCH ×2 (03:02→08:56)
[2020-06-25] MEDS: ASCORBIC ACID MULTI IV SCH ×2 (03:02→08:56)
[2020-06-25] MEDS: NORCO 5/325 MG TAB PO PRN ×4 (03:05→21:55)
[2020-06-25] MEDS: TobraDEX OPHTH SUSP AFFEYE SCH ×4 (03:14→20:46)
[2020-06-25 05:05] LABS: ABG ALLEN TEST POS; ABG BASE EXCESS 16.2 mmol/L (-2.0-2.0); ABG HCO3 42.4 mmol/L (22-26)
[2020-06-25] MEDS: ZOVIRAX VIAL 500 MG 500 MG in NS 100 ML IV 100 ML IV SCH ×3 (05:48→22:20)
[2020-06-25] MEDS: BENADRYL INJ 50 MG VIAL IVP SCH (05:50)
[2020-06-25] MEDS: HumuLIN R SUBCUT PRN ×4 (06:09→21:16)
[2020-06-25 06:44] LABS: BASOPHILS % (AUTO) 0.2 % (0.2-1.0); HEMATOCRIT 27.1 % (36.0-47.0); HEMOGLOBIN 9.4 g/dL (12.0-16.0); LYMPHOCYTES # (AUTO) 0.7 X10^3/uL (1.3-2.9); LYMPHOCYTES % (AUTO) 18.6 % (21.0-51.0); MEAN CORPUSCULAR HEMOGLOBIN 32.6 pg (27.0-34.0); MEAN CORPUSCULAR HGB CONC 34.6 g/dL (33.0-35.0); MEAN CORPUSCULAR VOLUME 94.3 fL (80.0-100.0); MEAN PLATELET VOLUME 7.5 fL (7.4-11.0); MONOCYTES # (AUTO) 0.2 x10^3/uL (0.3-0.8); MONOCYTES % (AUTO) 5.7 % (0.0-13.0); NEUTROPHILS # (AUTO) 2.8 x10^3/uL (2.2-4.8); NEUTROPHILS % (AUTO) 75.5 % (42.0-75.0); PLATELET COUNT 86 X10^3/uL (150.0-450.0); RED BLOOD COUNT 2.87 X10^6/uL (3.5-5.4); RED CELL DISTRIBUTION WIDTH 17.5 % (11.6-16.5); WHITE BLOOD COUNT 3.7 X10^3/uL (3.6-10.0)
[2020-06-25 07:03] LABS: ALANINE AMINOTRANSFERASE 95 Units/L (12-78); ALBUMIN 2.5 g/dL (3.4-5.0); ALKALINE PHOSPHATASE 110 Units/L (46-116); ASPARTATE AMINO TRANSFERASE 44 Units/L (15-37); BLOOD UREA NITROGEN 19 mg/dL (7-18); CALCIUM 8.5 mg/dL (8.5-10.1); CARBON DIOXIDE 36.2 mmol/L (21-32); CHLORIDE 101 mmol/L (98-107); COR CA(FOR HYPOALB) 9.7 mg/dL (8.5-10.1); COR NA(FOR HYPERGLY) 146 mmol/L (136-145); CREATININE 0.43 mg/dL (0.55-1.02); SODIUM 141 mmol/L (136-145); TOTAL PROTEIN 5.1 g/dL (6.4-8.2); eGFR NON BLACK RACES > 60 (>60)
[2020-06-25 07:44] LABS: BAND NEUTROPHILS % 3 % (0-10); PLATELET MORPHOLOGY COMMENT NORMAL (NORMAL)
[2020-06-25] MEDS: ELIQUIS PO SCH ×2 (08:56→20:40)
[2020-06-25] MEDS: LASIX IVP SCH (09:00)
[2020-06-25] MEDS: LEVAQUIN PREMIX IV 500 MG 500 MG/100 ML BAG IV SCH (09:01)
[2020-06-25] MEDS: LEVEMIR SC SCH (09:01)
[2020-06-25] MEDS: LIPITOR TAB 40 MG PO SCH (09:02)
[2020-06-25] MEDS: NEURONTIN CAP 400 MG PO SCH ×2 (09:02→20:40)
[2020-06-25] MEDS: NORVASC TAB 5 MG PO SCH (09:02)
[2020-06-25] MEDS: NYSTATIN POWDER TOP SCH ×2 (09:03→21:49)
[2020-06-25] MEDS: PEPCID TAB 20 MG PO SCH ×2 (09:03→20:40)
[2020-06-25] MEDS: PAXIL PO SCH (09:03)
[2020-06-25] MEDS: PriLOSEC PO SCH (09:03)
[2020-06-25] MEDS: SOLU-Medrol 125 MG VIAL IVP SCH ×2 (09:04→20:42)
[2020-06-25] MEDS: ROBITUSSIN DM PO SCH ×5 (09:04→20:44)
[2020-06-25] MEDS: ZyrTEC TAB 10 MG PO SCH (09:06)
[2020-06-25] MEDS: VITAMIN D3 125 mcg (5,000 UNITS) PO SCH (09:06)
[2020-06-25] MEDS: K-DUR TAB 20 MEQ PO PRN (09:07)
[2020-06-25] MEDS: ATIVAN TAB 0.5 MG PO PRN ×2 (10:01→20:40)
[2020-06-25] MEDS: ZINC SULFATE PO SCH ×2 (10:02→20:40)
[2020-06-25] MEDS: VITAMIN A PO SCH (10:04)
[2020-06-25] MEDS: PULMICORT NEB TX 0.5 MG NEB SCH ×2 (11:55→20:00)
[2020-06-25] MEDS: PREVACID PO SCH (11:57)
[2020-06-25] MEDS ORDERED: NS 1/2 1000 ML IV 1,000 ML IV ONE (16:37)
[2020-06-25] MEDS: NS 1/2 1000 ML IV 1,000 ML IV SCH ×2 (17:32→20:06)
[2020-06-25 18:26] LABS: MAGNESIUM 1.6 mg/dL (1.7-2.9)
[2020-06-25] MEDS: MAGNESIUM SULFATE 1 GRAM/100 mL PREMIX 1 GM/100 ML BAG IV PRN ×2 (20:08→21:15)
[2020-06-25] MEDS: REQUIP PO SCH (20:40)
[2020-06-25] MEDS: SNACK - Diabetic Appropriate PO SCH (21:48)
[2020-06-25] MEDS: ZANAFLEX PO SCH (21:51)
[2020-06-26] MEDS: XOPENEX 1.25 MG/3 ML NEBULE NEB SCH ×4 (00:20→17:45)
[2020-06-26] MEDS: MUCOMYST (RESPIRATORY USE ONLY) NEB SCH ×4 (00:20→17:45)
[2020-06-26] MEDS: NS 1/2 1000 ML IV 1,000 ML IV SCH ×3 (03:53→22:38)
[2020-06-26] MEDS: TobraDEX OPHTH SUSP AFFEYE SCH ×4 (03:54→21:40)
[2020-06-26] MEDS: ZOVIRAX VIAL 500 MG 500 MG in NS 100 ML IV 100 ML IV SCH ×2 (05:51→13:43)
[2020-06-26] MEDS: HumuLIN R SUBCUT PRN ×4 (05:52→20:36)
[2020-06-26 05:56] LABS: ABG HCO3 41.9 mmol/L (22-26)
[2020-06-26 06:21] LABS: BASOPHILS % (AUTO) 0.2 % (0.2-1.0); HEMATOCRIT 27.7 % (36.0-47.0); HEMOGLOBIN 9.5 g/dL (12.0-16.0); LYMPHOCYTES # (AUTO) 0.7 X10^3/uL (1.3-2.9); MEAN CORPUSCULAR HEMOGLOBIN 32.9 pg (27.0-34.0); MEAN CORPUSCULAR HGB CONC 34.4 g/dL (33.0-35.0); MEAN CORPUSCULAR VOLUME 95.6 fL (80.0-100.0); MONOCYTES # (AUTO) 0.2 x10^3/uL (0.3-0.8); MONOCYTES % (AUTO) 5.2 % (0.0-13.0); NEUTROPHILS # (AUTO) 3.3 x10^3/uL (2.2-4.8); NEUTROPHILS % (AUTO) 78.6 % (42.0-75.0); PLATELET COUNT 90 X10^3/uL (150.0-450.0); RED BLOOD COUNT 2.89 X10^6/uL (3.5-5.4); WHITE BLOOD COUNT 4.2 X10^3/uL (3.6-10.0)
[2020-06-26 07:01] LABS: BAND NEUTROPHILS % 1 % (0-10); PLATELET MORPHOLOGY COMMENT NORMAL (NORMAL)
[2020-06-26 07:06] LABS: ALANINE AMINOTRANSFERASE 102 Units/L (12-78); ALBUMIN 2.5 g/dL (3.4-5.0); ALKALINE PHOSPHATASE 127 Units/L (46-116); ASPARTATE AMINO TRANSFERASE 45 Units/L (15-37); BLOOD UREA NITROGEN 22 mg/dL (7-18); CALCIUM 8.4 mg/dL (8.5-10.1); CARBON DIOXIDE 37.3 mmol/L (21-32); CHLORIDE 101 mmol/L (98-107); COR CA(FOR HYPOALB) 9.6 mg/dL (8.5-10.1); COR NA(FOR HYPERGLY) 146 mmol/L (136-145); MAGNESIUM 2.2 mg/dL (1.7-2.9); SODIUM 141 mmol/L (136-145); eGFR NON BLACK RACES > 60 (>60)
[2020-06-26] MEDS: PULMICORT NEB TX 0.5 MG NEB SCH ×2 (08:20→21:05)
[2020-06-26] MEDS: ELIQUIS PO SCH ×2 (08:43→20:33)
[2020-06-26] MEDS: LASIX IVP SCH (08:43)
[2020-06-26] MEDS: LEVAQUIN PREMIX IV 500 MG 500 MG/100 ML BAG IV SCH (08:44)
[2020-06-26] MEDS: LIPITOR TAB 40 MG PO SCH (08:46)
[2020-06-26] MEDS: NORVASC TAB 5 MG PO SCH (08:46)
[2020-06-26] MEDS: NEURONTIN CAP 400 MG PO SCH ×2 (08:46→20:34)
[2020-06-26] MEDS: NYSTATIN POWDER TOP SCH ×2 (08:47→20:34)
[2020-06-26] MEDS: PAXIL PO SCH (08:47)
[2020-06-26] MEDS: PEPCID TAB 20 MG PO SCH ×2 (08:48→20:33)
[2020-06-26] MEDS: PriLOSEC PO SCH (08:48)
[2020-06-26] MEDS: PREVACID PO SCH (08:48)
[2020-06-26] MEDS: ROBITUSSIN DM PO SCH ×4 (08:48→20:35)
[2020-06-26] MEDS: VITAMIN A PO SCH (08:50)
[2020-06-26] MEDS: VITAMIN D3 125 mcg (5,000 UNITS) PO SCH (08:50)
[2020-06-26] MEDS: ZINC SULFATE PO SCH ×2 (08:51→20:33)
[2020-06-26] MEDS: ZyrTEC TAB 10 MG PO SCH (08:51)
[2020-06-26] MEDS: NORCO 5/325 MG TAB PO PRN ×2 (08:52→20:37)
[2020-06-26] MEDS: ATIVAN TAB 0.5 MG PO PRN ×2 (08:52→20:38)
[2020-06-26] MEDS: LEVEMIR SC SCH (08:54)
[2020-06-26] MEDS: SOLU-Medrol 40 MG VIAL IVP SCH ×2 (09:19→20:35)
--- NOTE | 2020-06-26 18:11 | PCM.PROG ---
Progress Note - Progress Note for Day of Date of Exam: 06/25/20 - Subjective Subjective: IS A 54 YEAR OLD PATIENT OF . SHE HAS BEEN IN THE HOSPITAL FOR APPROXIMTELY 6 WEEKS DUE TO COMPLICATIONS FROM COVID-19 PNEUMONIA WITH HYPOXIA AND RESPIRATORY FAILURE. SHE HAS ALSO HAD NEW ONSET HYPERTENSION. SHE HAS A HISTORY OF DIABETES MELLITIS. SHE HAS DEVELOPED THREE, STAGE 2, PRESSURE ULCERS DURING HER STAY. SHE HAS HAD NO OVERNIGHT EVENTS. TODAY, SHE IS ALERT, LYING IN BED ON MORNING ROUNDS. SHE CONTINUES WITH COMPLAINTS OF SHORTNESS OF BREATH AND WEAKNESS. SHE DENIES SIGNIFICANT IMPROVEMENT IN SYMPTOMS SINCE YESTERDAY. SHE CONTINUES TO UTILIZE THE BIPAP. SA TURATIONS HAVE BEEN 85-99% - Past Medical Family Social History Past Med/Fam/Surg Hx: No changes since H&P Allergies: Allergies No Known Drug Allergies Allergy (Verified 04/17/18 05:13) - Review of Systems ROS: No change since H&P - Vital Signs and I&O's Vital Signs: Temperature 99.3 F Pulse Rate [Left] 115 Pulse Rate 110 Respiratory Rate 26 Blood Pressure [Right Calf] 125/71 Blood Pressure [Left Arm] 121/79 Blood Pressure [Left Calf] 114/77 Blood Pressure [Right Arm] 114/78 Blood Pressure 127/78 O2 Sat by Pulse Oximetry 90 Intake and Output: Intake & Output 06/24/20 06/25/20 06/26/20 06/27/20 11:59 11:59 11:59 11:59 Intake Total 2444 / 2444 2442 / 2442 2877 / 2877 1050 / 1050 Output Total 5 / 1925 1974 / 1974 2725 / 2725 1300 / 1300 Balance 519 / 519 467 / 467 152 / 152 -250 / -250 - Physical Exam Oriented: Normal Eyes: Normal Ear: Normal Nose: Normal Throat: Normal Respiratory: Generalized, Diminished, Wheezes Cardiovascular: Normal : Normal Auscultation: Bowel Sounds: Normal Tenderness: Normal Skin: Decreased Turgur, Wound (stage 1 left lateral hip, stage 2 left lateral lower abdomen, and left lower lateral back/flank), Bruising Musculoskeletal: Right, Left, Knee, Back:Lumbar Psychiatric: Anxiety, Depression Mood Description: Depressed, Anxious Affect: Anxious, Depressed Speech Pattern: Clear - Laboratory and Diagnostics Result Diagrams: 06/26/20 05:15 06/26/20 05:15 Labs: 06/24/20 21:01 Urine,Catheterized Urine Culture - Final 06/06/20 15:30 Urine,Clean Catch Urine Culture - Final 05/15/20 12:35 Blood Blood Culture - Final 05/15/20 12:25 Blood Blood Culture - Final Laboratory WBC 4.2 X10^3/uL (3.6-10.0) 06/26/20 05:15 RBC 2.89 X10^6/uL (3.5-5.4) L 06/26/20 05:15 Hgb 9.5 g/dL (12.0-16.0) L 06/26/20 05:15 Hct 27.7 % (36.0-47.0) L 06/26/20 05:15 MCV 95.6 fL (80.0-100.0) 06/26/20 05:15 MCH 32.9 pg (27.0-34.0) 06/26/20 05:15 MCHC 34.4 g/dL (33.0-35.0) 06/26/20 05:15 RDW 18.0 % (11.6-16.5) H 06/26/20 05:15 Plt Count 90 X10^3/uL (150.0-450.0) L 06/26/20 05:15 Plt Count Comment Decreased (ADEQUATE) A 06/26/20 05:15 MPV 7.0 fL (7.4-11.0) L 06/26/20 05:15 Neut % (Auto) 78.6 % (42.0-75.0) H 06/26/20 05:15 Lymph % (Auto) 16.0 % (21.0-51.0) L 06/26/20 05:15 [place] % (Auto) 5.2 % (0.0-13.0) 06/26/20 05:15 Eos % (Auto) 0.0 % (0.9-2.9) L 06/26/20 05:15 Baso % (Auto) 0.2 % (0.2-1.0) 06/26/20 05:15 Neut # (Auto) 3.3 x10^3/uL (2.2-4.8) 06/26/20 05:15 Lymph # (Auto) 0.7 X10^3/uL (1.3-2.9) L 06/26/20 05:15 [place] # (Auto) 0.2 x10^3/uL (0.3-0.8) L 06/26/20 05:15 Eos # (Auto) 0.0 x10^3/uL (0.0-0.2) 06/26/20 05:15 Baso # (Auto) 0.0 X10^3/uL (0.0-0.1) 06/26/20 05:15 Absolute Nucleated RBC 0.6 /100WBC 06/26/20 05:15 Total Counted 100 06/26/20 05:15 Neutrophils % (Manual) 79 % (39-76) H 06/26/20 05:15 Band Neutrophils % 1 % (0-10) 06/26/20 05:15 Lymphocytes % (Manual) 11 % (13-43) L 06/26/20 05:15 Monocytes % (Manual) 9 % (4-9) 06/26/20 05:15 Metamyelocytes % 4 06/22/20 05:35 Myelocytes % 1 06/05/20 15:33 Nucleated RBCs 2 06/18/20 05:13 Plt Clumps, EDTA Rare 06/20/20 06:05 Plt Morphology Comment Normal (NORMAL) 06/26/20 05:15 RBC Morphology Normal (NORMAL) 06/26/20 05:15 D-Dimer 0.35 ug/ml (0.0-0.57) 06/24/20 05:45 Sample Site Lb 06/26/20 05:49 ABG pH 7.490 (7.35-7.45) H 06/26/20 05:49 ABG pCO2 55.0 mmHg (35.0-45.0) H* 06/26/20 05:49 ABG pO2 44.0 mmHg (80.0-100.0) L* 06/26/20 05:49 ABG HCO3 41.9 mmol/L (22-26) H* 06/26/20 05:49 ABG O2 Saturation 84.0 % (90-100) L* 06/26/20 05:49 ABG Base Excess 16.0 mmol/L (-2.0-2.0) H 06/26/20 05:49 Bigg Test N/a 06/26/20 05:49 A-a Gradient 529.0 mmHg 06/26/20 05:49 FiO2 90.0 06/26/20 05:49 Blood Gas Comments [facility]ly[facility] well ae 06/26/20 05:49 Sodium 141 mmol/L (136-145) 06/26/20 05:15 Corrected Sodium 146 mmol/L (136-145) H 06/26/20 05:15 Potassium 3.6 mmol/L (3.5-5.1) 06/26/20 05:15 Chloride 101 mmol/L (98-107) 06/26/20 05:15 Carbon Dioxide 37.3 mmol/L (21-32) H 06/26/20 05:15 BUN 22 mg/dL (7-18) H 06/26/20 05:15 Creatinine 0.50 mg/dL (0.55-1.02) L 06/26/20 05:15 Est GFR (MDRD) Af Amer > 60 (>60) 06/26/20 05:15 Est GFR (MDRD) Non-Af > 60 (>60) 06/26/20 05:15 Glucose 307 mg/dL (65-99) H 06/26/20 05:15 POC Glucose (mg/dL) 342 mg/dL (65-99) H 06/26/20 16:44 Hemoglobin A1c 7.7 % 06/13/20 05:40 Calcium 8.4 mg/dL (8.5-10.1) L 06/26/20 05:15 Corrected Calcium 9.6 mg/dL (8.5-10.1) 06/26/20 05:15 Magnesium 2.2 mg/dL (1.7-2.9) 06/26/20 05:15 Ferritin 240 ng/mL (8-252) 05/21/20 04:21 Total Bilirubin 0.80 mg/dL (0.2-1.0) 06/26/20 05:15 AST 45 Units/L (15-37) H 06/26/20 05:15 ALT 102 Units/L (12-78) H 06/26/20 05:15 Alkaline Phosphatase 127 Units/L (46-116) H 06/26/20 05:15 C-Reactive Protein < 0.50 mg/L (0-3.0) 06/25/20 05:49 B-Natriuretic Peptide 58.5 pg/mL (0-79) 06/25/20 05:49 Total Protein 5.0 g/dL (6.4-8.2) L 06/26/20 05:15 Albumin 2.5 g/dL (3.4-5.0) L 06/26/20 05:15 Globulin 2.5 g/dL (2.5-4.5) 06/26/20 05:15 Albumin/Globulin Ratio 1.0 Ratio (1.1-2.1) L 06/26/20 05:15 Specimen Type Catherized urine 06/24/20 21:01 Urine Color Brown (YELLOW) 06/24/20 21:01 Urine Appearance Cloudy (CLEAR) 06/24/20 21:01 Urine pH 6.0 (5.0 - 8.0) 06/24/20 21:01 Ur Specific [place] 1.020 (1.000-1.030) 06/24/20 21:01 Urine Protein 2+ (NEGATIVE) 06/24/20 21:01 Urine Glucose (UA) 4+ (NEGATIVE) 06/24/20 21:01 Urine Ketones 1+ (NEGATIVE) 06/24/20 21:01 Urine Occult Blood 5+ (NEGATIVE) 06/24/20 21: Urine Nitrite Negative (NEGATIVE) 06/24/20 21: Urine Bilirubin Negative (NEGATIVE) 06/24/20 21:01 Urine Urobilinogen 2+ (NORMAL) 06/24/20 21:01 Ur Leukocyte Esterase 3+ (NEGATIVE) 06/24/20 21:01 Urine RBC Tntc /HPF (0-3) A 06/24/20 21:01 Urine WBC 20-30 /HPF (0-5) A 06/24/20 21:01 Ur Squamous Epith Cells Rare /HPF (NEGATIVE) 06/24/20 21:01 Urine Bacteria Trace /HPF (NEGATIVE) 06/24/20 21:01 Urine Yeast Numerous /HPF (NEGATIVE) 06/24/20 21:01 Ur Culture Indicated? Yes/culture set up 06/24/20 21:01 SARS CoV-2 RNA Rapid KIRA Positive (NEGATIVE) A 05/15/20 13:15 Miscellaneous Test Covid 19 06/10/20 06:36 Blood Type O POSITIVE 05/16/20 09:08 - Plan (1) Pneumonia due to COVID-19 virus Status: Acute Plan: COVID-19 pneumonia with hypoxia. We will continue antibiotic therapy, corticosteroids, PT, OT, and RT, aggressive respiratory weaning, wound care, strict i&os blood sugar control
[2020-06-26] MEDS: SNACK - Diabetic Appropriate PO SCH (20:33)
[2020-06-26] MEDS: REQUIP PO SCH (20:34)
[2020-06-26] MEDS: ZANAFLEX PO SCH (20:35)
[2020-06-26] MEDS ORDERED: NS 1/2 1000 ML IV 1,000 ML IV ONE (21:24)
[2020-06-27] MEDS: XOPENEX 1.25 MG/3 ML NEBULE NEB SCH ×4 (00:15→17:30)
[2020-06-27] MEDS: MUCOMYST (RESPIRATORY USE ONLY) NEB SCH ×4 (00:15→17:30)
[2020-06-27] MEDS: TobraDEX OPHTH SUSP AFFEYE SCH ×4 (03:50→21:34)
[2020-06-27] MEDS: NS 1/2 1000 ML IV 1,000 ML IV SCH ×3 (03:50→20:00)
[2020-06-27] MEDS: ATIVAN TAB 0.5 MG PO PRN ×2 (05:55→21:32)
[2020-06-27] MEDS: HumuLIN R SUBCUT PRN ×4 (05:56→21:36)
[2020-06-27] MEDS: NORCO 5/325 MG TAB PO PRN ×2 (05:57→21:51)
--- NOTE | 2020-06-27 06:06 | RAD ---
HISTORYPNEUMONIASTUDYCHEST, 1 [id number]/26/2021.TECHNIQUEAP view of the chestFINDINGSCardiac silhouette is partially obscured particularly on the left. No significant change in left worse than right airspace and interstitial lung opacities. No definite pleural effusion or pneumothorax. Soft tissue attenuation limits evaluation. Right IJ central line in good position.IMPRESSIONNo significant change.Electronically signed by: Reji Obrien (Jun 27, 2020 06:04:49)
[2020-06-27 06:42] LABS: ALANINE AMINOTRANSFERASE 97 Units/L (12-78); ALBUMIN 2.5 g/dL (3.4-5.0); ALKALINE PHOSPHATASE 107 Units/L (46-116); ASPARTATE AMINO TRANSFERASE 42 Units/L (15-37); BLOOD UREA NITROGEN 22 mg/dL (7-18); CALCIUM 8.4 mg/dL (8.5-10.1); CARBON DIOXIDE 39.3 mmol/L (21-32); CHLORIDE 101 mmol/L (98-107); COR CA(FOR HYPOALB) 9.6 mg/dL (8.5-10.1); COR NA(FOR HYPERGLY) 144 mmol/L (136-145); CREATININE 0.39 mg/dL (0.55-1.02); SODIUM 140 mmol/L (136-145); eGFR NON BLACK RACES > 60 (>60)
[2020-06-27 06:48] LABS: BASOPHILS % (AUTO) 0.4 % (0.2-1.0); HEMATOCRIT 27.3 % (36.0-47.0); HEMOGLOBIN 9.4 g/dL (12.0-16.0); LYMPHOCYTES % (AUTO) 22.5 % (21.0-51.0); MEAN CORPUSCULAR HEMOGLOBIN 32.9 pg (27.0-34.0); MEAN CORPUSCULAR HGB CONC 34.4 g/dL (33.0-35.0); MEAN CORPUSCULAR VOLUME 95.5 fL (80.0-100.0); MEAN PLATELET VOLUME 7.2 fL (7.4-11.0); MONOCYTES # (AUTO) 0.2 x10^3/uL (0.3-0.8); MONOCYTES % (AUTO) 4.4 % (0.0-13.0); NEUTROPHILS # (AUTO) 3.1 x10^3/uL (2.2-4.8); NEUTROPHILS % (AUTO) 72.7 % (42.0-75.0); PLATELET COUNT 83 X10^3/uL (150.0-450.0); RED BLOOD COUNT 2.86 X10^6/uL (3.5-5.4); RED CELL DISTRIBUTION WIDTH 18.7 % (11.6-16.5); WHITE BLOOD COUNT 4.3 X10^3/uL (3.6-10.0)
[2020-06-27 07:48] LABS: ANISOCYTOSIS SLIGHT; BAND NEUTROPHILS % 4 % (0-10); PLATELET MORPHOLOGY COMMENT NORMAL (NORMAL)
[2020-06-27] MEDS: PULMICORT NEB TX 0.5 MG NEB SCH ×2 (08:55→20:54)
[2020-06-27] MEDS: LASIX IVP SCH (09:38)
[2020-06-27] MEDS: ELIQUIS PO SCH ×2 (09:38→21:32)
[2020-06-27] MEDS: LEVAQUIN PREMIX IV 500 MG 500 MG/100 ML BAG IV SCH (09:38)
[2020-06-27] MEDS: ZINC SULFATE PO SCH ×2 (09:39→21:32)
[2020-06-27] MEDS: ZyrTEC TAB 10 MG PO SCH (09:39)
[2020-06-27] MEDS: VITAMIN D3 125 mcg (5,000 UNITS) PO SCH (09:39)
[2020-06-27] MEDS: VITAMIN A PO SCH (09:40)
[2020-06-27] MEDS: SOLU-Medrol 40 MG VIAL IVP SCH ×2 (09:40→21:32)
[2020-06-27] MEDS: PREVACID PO SCH (09:41)
[2020-06-27] MEDS: ROBITUSSIN DM PO SCH ×4 (09:41→21:34)
[2020-06-27] MEDS: PEPCID TAB 20 MG PO SCH ×2 (09:41→21:31)
[2020-06-27] MEDS: PAXIL PO SCH (09:42)
[2020-06-27] MEDS: NYSTATIN POWDER TOP SCH ×2 (09:42→21:33)
[2020-06-27] MEDS: NEURONTIN CAP 400 MG PO SCH ×2 (09:43→21:35)
[2020-06-27] MEDS: LIPITOR TAB 40 MG PO SCH (09:43)
[2020-06-27] MEDS: NORVASC TAB 5 MG PO SCH (09:43)
[2020-06-27] MEDS: LEVEMIR SC SCH (09:44)
[2020-06-27] MEDS: LEVSIN/MAALOX/LIDOC VISC PO SCH ×4 (11:30→21:32)
[2020-06-27] MEDS ORDERED: NS 1/2 1000 ML IV 1,000 ML IV ONE (19:15)
[2020-06-27] MEDS: SNACK - Diabetic Appropriate PO SCH (20:33)
[2020-06-27] MEDS: REQUIP PO SCH (21:31)
[2020-06-27] MEDS: PROTONIX INJ 40 MG VIAL IVP SCH (21:33)
[2020-06-27] MEDS: ZANAFLEX PO SCH (21:33)
[2020-06-28] MEDS: MUCOMYST (RESPIRATORY USE ONLY) NEB SCH ×4 (00:13→17:36)
[2020-06-28] MEDS: XOPENEX 1.25 MG/3 ML NEBULE NEB SCH ×4 (00:13→17:36)
[2020-06-28] MEDS: TobraDEX OPHTH SUSP AFFEYE SCH ×4 (03:08→21:58)
[2020-06-28] MEDS: NORCO 5/325 MG TAB PO PRN ×2 (07:45→21:57)
[2020-06-28] MEDS: PULMICORT NEB TX 0.5 MG NEB SCH ×2 (08:37→21:12)
[2020-06-28] MEDS: NYSTATIN POWDER TOP SCH ×2 (09:25→22:35)
[2020-06-28] MEDS: NORVASC TAB 5 MG PO SCH (09:25)
[2020-06-28] MEDS: PEPCID TAB 20 MG PO SCH ×2 (09:25→21:57)
[2020-06-28] MEDS: LIPITOR TAB 40 MG PO SCH (09:25)
[2020-06-28] MEDS: LEVEMIR SC SCH (09:25)
[2020-06-28] MEDS: VITAMIN D3 125 mcg (5,000 UNITS) PO SCH (09:25)
[2020-06-28] MEDS: NEURONTIN CAP 400 MG PO SCH ×2 (09:25→21:57)
[2020-06-28] MEDS: ZyrTEC TAB 10 MG PO SCH (09:25)
[2020-06-28] MEDS: PAXIL PO SCH (09:25)
[2020-06-28] MEDS: VITAMIN A PO SCH (09:25)
[2020-06-28] MEDS: LASIX IVP SCH (09:25)
[2020-06-28] MEDS: PROTONIX INJ 40 MG VIAL IVP SCH ×2 (09:25→21:54)
[2020-06-28] MEDS: ZINC SULFATE PO SCH ×2 (09:25→21:57)
[2020-06-28] MEDS: ELIQUIS PO SCH ×2 (09:25→21:57)
[2020-06-28] MEDS: LEVAQUIN PREMIX IV 500 MG 500 MG/100 ML BAG IV SCH (09:30)
[2020-06-28] MEDS: ROBITUSSIN DM PO SCH ×4 (09:45→22:37)
[2020-06-28] MEDS: SOLU-Medrol 40 MG VIAL IVP SCH ×2 (09:46→21:55)
[2020-06-28] MEDS: LEVSIN/MAALOX/LIDOC VISC PO SCH ×4 (09:53→22:34)
[2020-06-28 10:12] LABS: BASOPHILS # (AUTO) 0.1 X10^3/uL (0.0-0.1); BASOPHILS % (AUTO) 0.8 % (0.2-1.0); EOSINOPHILS % (AUTO) 0.1 % (0.9-2.9); LYMPHOCYTES # (AUTO) 2.1 X10^3/uL (1.3-2.9); LYMPHOCYTES % (AUTO) 23.1 % (21.0-51.0); MEAN CORPUSCULAR HEMOGLOBIN 32.6 pg (27.0-34.0); MEAN CORPUSCULAR HGB CONC 34.3 g/dL (33.0-35.0); MEAN CORPUSCULAR VOLUME 95.2 fL (80.0-100.0); MEAN PLATELET VOLUME 6.7 fL (7.4-11.0); MONOCYTES # (AUTO) 0.2 x10^3/uL (0.3-0.8); MONOCYTES % (AUTO) 2.2 % (0.0-13.0); NEUTROPHILS # (AUTO) 6.7 x10^3/uL (2.2-4.8); NEUTROPHILS % (AUTO) 73.8 % (42.0-75.0); PLATELET COUNT 109 X10^3/uL (150.0-450.0); RED BLOOD COUNT 3.36 X10^6/uL (3.5-5.4); RED CELL DISTRIBUTION WIDTH 20.6 % (11.6-16.5); WHITE BLOOD COUNT 9.1 X10^3/uL (3.6-10.0)
[2020-06-28 10:22] LABS: BLOOD UREA NITROGEN 20 mg/dL (7-18); CALCIUM 8.4 mg/dL (8.5-10.1); CARBON DIOXIDE 38.2 mmol/L (21-32); CHLORIDE 97 mmol/L (98-107); COR NA(FOR HYPERGLY) 141 mmol/L (136-145); CREATININE 0.59 mg/dL (0.55-1.02); SODIUM 139 mmol/L (136-145); eGFR NON BLACK RACES > 60 (>60)
[2020-06-28 10:46] LABS: ANISOCYTOSIS 1+; BAND NEUTROPHILS % 5 % (0-10); PLATELET MORPHOLOGY COMMENT NORMAL (NORMAL)
[2020-06-28] MEDS: HumuLIN R SUBCUT PRN ×3 (12:15→21:56)
--- NOTE | 2020-06-28 12:50 | PCM.PROG ---
Progress Note Progress Note for Day of Date of Exam: 06/28/20 Subjective Subjective: Patient seen at bedside, no overnight events. She states she feels fine. She remains on BiPAP at FiO2 95% with sats in the high 80s. She states her sats at night were around 96% when she sleeps. She has been using HHFNC when eating and sats have been in the mid 80s. She has been in the hospital for 44 days due to complications from covid including hypoxic respiratory failure. Patient is alert and oriented on exam and resting comfortably on Bipap. She is able to answer questions appropriately, no labored breathing noted. Labs: Hgb 11 Plt 109 K 3.0 CO2 38.2 ABG pending Plan: continue aggressive pulmonary toilet, PT/OT as tolerated. Continue IS. Wean BiPAP as tolerated. Patient has been referred to LTAC but needs to be at FiO2 < 60%. She is currently on 95%. Continue solumedrol, levaquin and eliquis. Patient remains in critical condition. Time spent for clinical assessment, physical exam, reviewing labs//imaging, decision making and documentation over 75 mins. Past Medical Family Social History Past Med/Fam/Surg Hx: No changes since H&P Allergies: Allergies No Known Drug Allergies Allergy (Verified 04/17/18 05:13) Review of Systems ROS: No change since H&P Vital Signs and I&O's Vital Signs: Temperature 98.2 F Pulse Rate [Left] 98 Pulse Rate 98 Respiratory Rate 26 Blood Pressure [Right Calf] 154/91 Blood Pressure [Left Arm] 144/80 Blood Pressure [Left Calf] 114/77 Blood Pressure [Right Arm] 114/78 Blood Pressure 127/78 O2 Sat by Pulse Oximetry 90 Intake and Output: Intake & Output 06/25/20 06/26/20 06/27/20 06/28/20 23:59 23:59 23:59 23:59 Intake Total 2990 / 2990 2428 / 2428 2162 / 2162 266 / 266 Output Total 2675 / 2675 1949 / 1950 1974 / 1974 300 / 300 Balance 315 / 315 478 / 478 187 / 187 -34 / -34 Physical Exam Oriented: Normal Eyes: Normal Ear: Normal Nose: Normal Throat: Normal Respiratory: Generalized and Diminished Cardiovascular: Normal Auscultation: Bowel Sounds: Normal Tenderness: Normal Skin: Decreased Turgur, Wound (stage 1 left lateral hip, stage 2 left lateral lower abdomen, and left lower lateral back/flank) and Bruising Musculoskeletal: Right, Left, Knee and Back:Lumbar Psychiatric: Anxiety Mood Description: Depressed and Anxious Affect: Anxious and Depressed Speech Pattern: Clear and Appropriate Laboratory and Diagnostics Result Diagrams: 06/28/20 09:59 06/28/20 09:59 Labs: 06/24/20 21:01 Urine,Catheterized Urine Culture - Final 06/06/20 15:30 Urine,Clean Catch Urine Culture - Final 05/15/20 12:35 Blood Blood Culture - Final 05/15/20 12:25 Blood Blood Culture - Final Laboratory WBC 9.1 X10^3/uL (3.6-10.0) 06/28/20 09:59 RBC 3.36 X10^6/uL (3.5-5.4) L 06/28/20 09:59 Hgb 11.0 g/dL (12.0-16.0) L 06/28/20 09:59 Hct 32.0 % (36.0-47.0) L 06/28/20 09:59 MCV 95.2 fL (80.0-100.0) 06/28/20 09:59 MCH 32.6 pg (27.0-34.0) 06/28/20 09:59 MCHC 34.3 g/dL (33.0-35.0) 06/28/20 09:59 RDW 20.6 % (11.6-16.5) H 06/28/20 09:59 Plt Count 109 X10^3/uL (150.0-450.0) L 06/28/20 09:59 Plt Count Comment Decreased (ADEQUATE) A 06/28/20 09:59 MPV 6.7 fL (7.4-11.0) L 06/28/20 09:59 Neut % (Auto) 73.8 % (42.0-75.0) 06/28/20 09:59 Lymph % (Auto) 23.1 % (21.0-51.0) 06/28/20 09:59 [place] % (Auto) 2.2 % (0.0-13.0) 06/28/20 09:59 Eos % (Auto) 0.1 % (0.9-2.9) L 06/28/20 09:59 Baso % (Auto) 0.8 % (0.2-1.0) 06/28/20 09:59 Neut # (Auto) 6.7 x10^3/uL (2.2-4.8) H 06/28/20 09:59 Lymph # (Auto) 2.1 X10^3/uL (1.3-2.9) 06/28/20 09:59 [place] # (Auto) 0.2 x10^3/uL (0.3-0.8) L 06/28/20 09:59 Eos # (Auto) 0.0 x10^3/uL (0.0-0.2) 06/28/20 09:59 Baso # (Auto) 0.1 X10^3/uL (0.0-0.1) 06/28/20 09:59 Absolute Nucleated RBC 0.4 /100WBC 06/28/20 09:59 Total Counted 100 06/28/20 09:59 Neutrophils % (Manual) 70 % (39-76) 06/28/20 09:59 Band Neutrophils % 5 % (0-10) 06/28/20 09:59 Lymphocytes % (Manual) 19 % (13-43) 06/28/20 09:59 Monocytes % (Manual) 6 % (4-9) 06/28/20 09:59 Metamyelocytes % 4 06/22/20 05:35 Myelocytes % 1 06/05/20 15:33 Nucleated RBCs 1 06/28/20 09:59 Plt Clumps, EDTA Rare 06/20/20 06:05 Plt Morphology Comment Normal (NORMAL) 06/28/20 09:59 RBC Morphology Abnormal (NORMAL) A 06/28/20 09:59 Anisocytosis 1+ A 06/28/20 09:59 D-Dimer 0.35 ug/ml (0.0-0.57) 06/24/20 05:45 Sample Site Lb 06/26/20 05:49 ABG pH 7.490 (7.35-7.45) H 06/26/20 05:49 ABG pCO2 55.0 mmHg (35.0-45.0) H* 06/26/20 05:49 ABG pO2 44.0 mmHg (80.0-100.0) L* 06/26/20 05:49 ABG HCO3 41.9 mmol/L (22-26) H* 06/26/20 05:49 ABG O2 Saturation 84.0 % (90-100) L* 06/26/20 05:49 ABG Base Excess 16.0 mmol/L (-2.0-2.0) H 06/26/20 05:49 Bigg Test N/a 06/26/20 05:49 A-a Gradient 529.0 mmHg 06/26/20 05:49 FiO2 90.0 06/26/20 05:49 Blood Gas Comments Kaylynn well ae 06/26/20 05:49 Sodium 139 mmol/L (136-145) 06/28/20 09:59 Corrected Sodium 141 mmol/L (136-145) 06/28/20 09:59 Potassium 3.0 mmol/L (3.5-5.1) L* 06/28/20 09:59 Chloride 97 mmol/L (98-107) L 06/28/20 09:59 Carbon Dioxide 38.2 mmol/L (21-32) H 06/28/20 09:59 BUN 20 mg/dL (7-18) H 06/28/20 09:59 Creatinine 0.59 mg/dL (0.55-1.02) 06/28/20 09:59 Est GFR (MDRD) Af Amer > 60 (>60) 06/28/20 09:59 Est GFR (MDRD) Non-Af > 60 (>60) 06/28/20 09:59 Glucose 179 mg/dL (65-99) H 06/28/20 09:59 POC Glucose (mg/dL) 252 mg/dL (65-99) H 06/28/20 12:09 Hemoglobin A1c 7.7 % 06/13/20 05:40 Calcium 8.4 mg/dL (8.5-10.1) L 06/28/20 09:59 Corrected Calcium 9.6 mg/dL (8.5-10.1) 06/27/20 05:30 Magnesium 2.2 mg/dL (1.7-2.9) 06/26/20 05:15 Ferritin 240 ng/mL (8-252) 05/21/20 04:21 Total Bilirubin 0.90 mg/dL (0.2-1.0) 06/27/20 05:30 AST 42 Units/L (15-37) H 06/27/20 05:30 ALT 97 Units/L (12-78) H 06/27/20 05:30 Alkaline Phosphatase 107 Units/L (46-116) 06/27/20 05:30 C-Reactive Protein < 0.50 mg/L (0-3.0) 06/25/20 05:49 B-Natriuretic Peptide 58.5 pg/mL (0-79) 06/25/20 05:49 Total Protein 5.0 g/dL (6.4-8.2) L 06/27/20 05:30 Albumin 2.5 g/dL (3.4-5.0) L 06/27/20 05:30 Globulin 2.5 g/dL (2.5-4.5) 06/27/20 05:30 Albumin/Globulin Ratio 1.0 Ratio (1.1-2.1) L 06/27/20 05:30 Specimen Type Catherized urine 06/24/20 21:01 Urine Color Brown (YELLOW) 06/24/20 21: Urine Appearance Cloudy (CLEAR) 06/24/20 21: Urine pH 6.0 (5.0 - 8.0) 06/24/20 21: Ur Specific [place] 1.020 (1.000-1.030) 06/24/20 21:01 Urine Protein 2+ (NEGATIVE) 06/24/20 21: Urine Glucose (UA) 4+ (NEGATIVE) 06/24/20 21: Urine Ketones 1+ (NEGATIVE) 06/24/20 21: Urine Occult Blood 5+ (NEGATIVE) 06/24/20 21: Urine Nitrite Negative (NEGATIVE) 06/24/20 21: Urine Bilirubin Negative (NEGATIVE) 06/24/20 21: Urine Urobilinogen 2+ (NORMAL) 06/24/20 21: Ur Leukocyte Esterase 3+ (NEGATIVE) 06/24/20 21: Urine RBC Tntc /HPF (0-3) A 06/24/20 21:01 Urine WBC 20-30 /HPF (0-5) A 06/24/20 21: Ur Squamous Epith Cells Rare /HPF (NEGATIVE) 06/24/20 21: Urine Bacteria Trace /HPF (NEGATIVE) 06/24/20 21:01 Urine Yeast Numerous /HPF (NEGATIVE) 06/24/20 21:01 Ur Culture Indicated? Yes/culture set up 06/24/20 21:01 SARS CoV-2 RNA Rapid KIRA Positive (NEGATIVE) A 05/15/20 13:15 Miscellaneous Test Covid 19 06/10/20 06:36 Blood Type O POSITIVE 05/16/20 09:08 Plan (1) Pneumonia due to COVID-19 virus: Status: Acute Plan: COVID-19 pneumonia with hypoxia. We will continue antibiotic therapy, corticosteroids, PT, OT, and RT, aggressive respiratory weaning, wound care, strict i&os blood sugar control (2) Acute respiratory failure with hypoxia: Status: Acute (3) BiPAP (biphasic positive airway pressure) dependence: Status: Acute (4) Thrombocytopenia: Status: Acute (5) Diabetes: Status: Chronic Qualifiers: Diabetes mellitus complication status: without complication Diabetes mellitus rodent exterminator insulin use: unspecified senior care insulin use status Diabetes mellitus type: type 2 Qualified Code(s): E11.9 - Type 2 diabetes mellitus without complications (6) HTN (hypertension): Status: Acute Qualifiers: Hypertension type: essential hypertension Qualified Code(s): I10 - Essential (primary) hypertension (7) Hypokalemia: Status: Acute (8) Pressure ulcer: Status: Acute Qualifiers: Laterality: unspecified laterality Pressure injury location: buttock Pressure injury stage: stage 2 Qualified Code(s): L89.302 - Pressure ulcer of unspecified buttock, stage 2
[2020-06-28 13:24] LABS: ABG BASE EXCESS 16.8 mmol/L (-2.0-2.0)
[2020-06-28 13:26] LABS: ABG HCO3 42.3 mmol/L (22-26)
[2020-06-28 13:27] LABS: ABG ALLEN TEST POS
[2020-06-28] MEDS: K-DUR TAB 20 MEQ PO PRN (14:00)
[2020-06-28] MEDS: BUTT CREAM (COMPOUND) EXT PRN (21:00)
[2020-06-28] MEDS: ATIVAN TAB 0.5 MG PO PRN (21:57)
[2020-06-28] MEDS: REQUIP PO SCH (21:57)
[2020-06-28] MEDS: NS 1/2 1000 ML IV 1,000 ML IV SCH (22:33)
[2020-06-28] MEDS: SNACK - Diabetic Appropriate PO SCH (22:33)
[2020-06-28] MEDS: ZANAFLEX PO SCH (22:37)
[2020-06-29] MEDS: MUCOMYST (RESPIRATORY USE ONLY) NEB SCH ×4 (00:09→17:02)
[2020-06-29] MEDS: XOPENEX 1.25 MG/3 ML NEBULE NEB SCH ×4 (00:09→17:02)
[2020-06-29] MEDS: TobraDEX OPHTH SUSP AFFEYE SCH ×4 (04:15→21:45)
[2020-06-29 06:08] LABS: BLOOD UREA NITROGEN 16 mg/dL (7-18); CALCIUM 8.3 mg/dL (8.5-10.1); CARBON DIOXIDE 37.6 mmol/L (21-32); CHLORIDE 99 mmol/L (98-107); COR NA(FOR HYPERGLY) 144 mmol/L (136-145); SODIUM 139 mmol/L (136-145); eGFR NON BLACK RACES > 60 (>60)
[2020-06-29 06:10] LABS: BASOPHILS % (AUTO) 0.1 % (0.2-1.0); HEMATOCRIT 29.1 % (36.0-47.0); LYMPHOCYTES # (AUTO) 0.5 X10^3/uL (1.3-2.9); MEAN CORPUSCULAR HEMOGLOBIN 33.5 pg (27.0-34.0); MEAN CORPUSCULAR HGB CONC 34.2 g/dL (33.0-35.0); MEAN CORPUSCULAR VOLUME 97.7 fL (80.0-100.0); MEAN PLATELET VOLUME 7.5 fL (7.4-11.0); MONOCYTES # (AUTO) 0.1 x10^3/uL (0.3-0.8); MONOCYTES % (AUTO) 2.4 % (0.0-13.0); NEUTROPHILS # (AUTO) 3.9 x10^3/uL (2.2-4.8); NEUTROPHILS % (AUTO) 85.5 % (42.0-75.0); PLATELET COUNT 75 X10^3/uL (150.0-450.0); RED BLOOD COUNT 2.97 X10^6/uL (3.5-5.4); RED CELL DISTRIBUTION WIDTH 20.7 % (11.6-16.5); WHITE BLOOD COUNT 4.5 X10^3/uL (3.6-10.0)
[2020-06-29] MEDS: HumuLIN R SUBCUT PRN ×3 (06:19→21:42)
[2020-06-29 07:27] LABS: PLATELET MORPHOLOGY COMMENT NORMAL (NORMAL)
[2020-06-29 07:28] LABS: ANISOCYTOSIS 1+
[2020-06-29 08:58] LABS: BAND NEUTROPHILS % 5 % (0-10)
[2020-06-29] MEDS: PULMICORT NEB TX 0.5 MG NEB SCH ×2 (09:31→20:15)
[2020-06-29] MEDS: ELIQUIS PO SCH ×2 (10:04→21:44)
[2020-06-29] MEDS: LASIX IVP SCH (10:04)
[2020-06-29] MEDS: LEVAQUIN PREMIX IV 500 MG 500 MG/100 ML BAG IV SCH (10:04)
[2020-06-29] MEDS: LEVSIN/MAALOX/LIDOC VISC PO SCH ×5 (10:05→22:42)
[2020-06-29] MEDS: LIPITOR TAB 40 MG PO SCH (10:06)
[2020-06-29] MEDS: NEURONTIN CAP 400 MG PO SCH ×2 (10:07→21:44)
[2020-06-29] MEDS: NORVASC TAB 5 MG PO SCH (10:07)
[2020-06-29] MEDS: PEPCID TAB 20 MG PO SCH ×2 (10:08→21:44)
[2020-06-29] MEDS: PAXIL PO SCH (10:08)
[2020-06-29] MEDS: NYSTATIN POWDER TOP SCH ×2 (10:08→22:44)
[2020-06-29] MEDS: PROTONIX INJ 40 MG VIAL IVP SCH ×2 (10:09→21:40)
[2020-06-29] MEDS: SOLU-Medrol 40 MG VIAL IVP SCH ×2 (10:09→21:41)
[2020-06-29] MEDS: ROBITUSSIN DM PO SCH ×4 (10:09→20:00)
[2020-06-29] MEDS: VITAMIN A PO SCH (10:10)
[2020-06-29] MEDS: VITAMIN D3 125 mcg (5,000 UNITS) PO SCH (10:10)
[2020-06-29] MEDS: ZINC SULFATE PO SCH ×2 (10:10→21:44)
[2020-06-29] MEDS: LEVEMIR SC SCH ×2 (10:11→22:51)
[2020-06-29] MEDS: ZyrTEC TAB 10 MG PO SCH (10:14)
--- NOTE | 2020-06-29 11:49 | PCM.PROG ---
Progress Note Progress Note for Day of Date of Exam: 06/29/20 Subjective Subjective: Patient seen at bedside, overnight patient was noted to have episodes with sats in the 70s so was increased to FiO2 100% on the BiPAP. She is currently saturating in low 90s. She states she feels fine. Patient is alert and oriented on exam and resting comfortably on Bipap. She is able to answer questions appropriately, no labored breathing noted. She states she feels too much pressure when she is on 100% FiO2. Denies fever or chills. Labs: Hgb 10 Plt75 K 4.2 CO2 37 ABG yesterday: 7.51/53/40/42.3 on 95% FiO2 Plan: Will repeat CXR today. Continue aggressive pulmonary toilet, PT/OT as tolerated. Continue IS. Wean BiPAP as tolerated. Patient has been referred to LTAC but needs to be at FiO2 < 60%. Continue solumedrol, levaquin and eliquis. Patient and her family have refused mechanical ventilation. Will increase Levemir to 18 units qAm, continue SSI. Patient remains in critical condition. Time spent for clinical assessment, physical exam, reviewing labs//imaging, decision making and documentation over 75 mins. Past Medical Family Social History Past Med/Fam/Surg Hx: No changes since H&P Allergies: Allergies No Known Drug Allergies Allergy (Verified 04/17/18 05:13) Review of Systems ROS: No change since H&P Vital Signs and I&O's Vital Signs: Temperature 98.8 F Pulse Rate [Left] 112 Pulse Rate 110 Respiratory Rate 25 Blood Pressure [Right Calf] 154/91 Blood Pressure [Left Arm] 106/69 Blood Pressure [Left Calf] 114/77 Blood Pressure [Right Arm] 114/78 Blood Pressure 127/78 O2 Sat by Pulse Oximetry 97 Intake and Output: Intake & Output 06/26/20 06/27/20 06/28/20 06/29/20 23:59 23:59 23:59 23:59 Intake Total 2428 / 2428 2162 / 2162 1107 / 1107 386 / 386 Output Total 1949 / 1949 1775 / 1775 475 / 475 Balance 478 / 478 187 / 187 -668 / -668 -89 / -89 Physical Exam Oriented: Normal Eyes: Normal Ear: Normal Nose: Normal Throat: Normal Respiratory: Generalized and Diminished Cardiovascular: Normal Auscultation: Bowel Sounds: Normal Tenderness: Normal Skin: Decreased Turgur, Wound (stage 1 left lateral hip, stage 2 left lateral lower abdomen, and left lower lateral back/flank) and Bruising Musculoskeletal: Right, Left, Knee and Back:Lumbar Psychiatric: Anxiety Mood Description: Depressed and Anxious Affect: Anxious and Depressed Speech Pattern: Clear and Appropriate Laboratory and Diagnostics Result Diagrams: 06/29/20 04:20 06/29/20 04:20 Labs: 06/24/20 21:01 Urine,Catheterized Urine Culture - Final 06/06/20 15:30 Urine,Clean Catch Urine Culture - Final 05/15/20 12:35 Blood Blood Culture - Final 05/15/20 12:25 Blood Blood Culture - Final Laboratory WBC 4.5 X10^3/uL (3.6-10.0) 06/29/20 04:20 RBC 2.97 X10^6/uL (3.5-5.4) L 06/29/20 04:20 Hgb 10.0 g/dL (12.0-16.0) L 06/29/20 04:20 Hct 29.1 % (36.0-47.0) L 06/29/20 04:20 MCV 97.7 fL (80.0-100.0) 06/29/20 04:20 MCH 33.5 pg (27.0-34.0) 06/29/20 04:20 MCHC 34.2 g/dL (33.0-35.0) 06/29/20 04:20 RDW 20.7 % (11.6-16.5) H 06/29/20 04:20 Plt Count 75 X10^3/uL (150.0-450.0) L 06/29/20 04:20 Plt Count Comment Decreased (ADEQUATE) A 06/29/20 04:20 MPV 7.5 fL (7.4-11.0) 06/29/20 04:20 Neut % (Auto) 85.5 % (42.0-75.0) H 06/29/20 04:20 Lymph % (Auto) 12.0 % (21.0-51.0) L 06/29/20 04:20 [place] % (Auto) 2.4 % (0.0-13.0) 06/29/20 04:20 Eos % (Auto) 0.0 % (0.9-2.9) L 06/29/20 04:20 Baso % (Auto) 0.1 % (0.2-1.0) L 06/29/20 04:20 Neut # (Auto) 3.9 x10^3/uL (2.2-4.8) 06/29/20 04:20 Lymph # (Auto) 0.5 X10^3/uL (1.3-2.9) L 06/29/20 04:20 [place] # (Auto) 0.1 x10^3/uL (0.3-0.8) L 06/29/20 04:20 Eos # (Auto) 0.0 x10^3/uL (0.0-0.2) 06/29/20 04:20 Baso # (Auto) 0.0 X10^3/uL (0.0-0.1) 06/29/20 04:20 Absolute Nucleated RBC 0.7 /100WBC 06/29/20 04:20 Total Counted 100 06/29/20 04:20 Neutrophils % (Manual) 80 % (39-76) H 06/29/20 04:20 Band Neutrophils % 5 % (0-10) 06/29/20 04:20 Lymphocytes % (Manual) 11 % (13-43) L 06/29/20 04:20 Monocytes % (Manual) 4 % (4-9) 06/29/20 04:20 Metamyelocytes % 4 06/22/20 05:35 Myelocytes % 1 06/05/20 15:33 Nucleated RBCs 1 06/28/20 09:59 Plt Clumps, EDTA Rare 06/20/20 06:05 Plt Morphology Comment Normal (NORMAL) 06/29/20 04:20 RBC Morphology Abnormal (NORMAL) A 06/29/20 04:20 Anisocytosis 1+ A 06/29/20 04:20 D-Dimer 0.35 ug/ml (0.0-0.57) 06/24/20 05:45 Sample Site Lba 06/28/20 13:22 ABG pH 7.510 (7.35-7.45) H 06/28/20 13:22 ABG pCO2 53.0 mmHg (35.0-45.0) H* 06/28/20 13:22 ABG pO2 40.0 mmHg (80.0-100.0) L* 06/28/20 13:22 ABG HCO3 42.3 mmol/L (22-26) H* 06/28/20 13:22 ABG O2 Saturation 81.0 % (90-100) L* 06/28/20 13:22 ABG Base Excess 16.8 mmol/L (-2.0-2.0) H 06/28/20 13:22 Bigg Test Pos 06/28/20 13:22 A-a Gradient 571.0 mmHg 06/28/20 13:22 FiO2 95.0 06/28/20 13:22 Blood Gas Comments Kaylynn well mt 06/28/20 13:22 Sodium 139 mmol/L (136-145) 06/29/20 04:20 Corrected Sodium 144 mmol/L (136-145) 06/29/20 04:20 Potassium 4.2 mmol/L (3.5-5.1) 06/29/20 04:20 Chloride 99 mmol/L (98-107) 06/29/20 04:20 Carbon Dioxide 37.6 mmol/L (21-32) H 06/29/20 04:20 BUN 16 mg/dL (7-18) 06/29/20 04:20 Creatinine 0.50 mg/dL (0.55-1.02) L 06/29/20 04:20 Est GFR (MDRD) Af Amer > 60 (>60) 06/29/20 04:20 Est GFR (MDRD) Non-Af > 60 (>60) 06/29/20 04:20 Glucose 289 mg/dL (65-99) H 06/29/20 04:20 POC Glucose (mg/dL) 261 mg/dL (65-99) H 06/29/20 10:27 Hemoglobin A1c 7.7 % 06/13/20 05:40 Calcium 8.3 mg/dL (8.5-10.1) L 06/29/20 04:20 Corrected Calcium 9.6 mg/dL (8.5-10.1) 06/27/20 05:30 Magnesium 2.2 mg/dL (1.7-2.9) 06/26/20 05:15 Ferritin 240 ng/mL (8-252) 05/21/20 04:21 Total Bilirubin 0.90 mg/dL (0.2-1.0) 06/27/20 05:30 AST 42 Units/L (15-37) H 06/27/20 05:30 ALT 97 Units/L (12-78) H 06/27/20 05:30 Alkaline Phosphatase 107 Units/L (46-116) 06/27/20 05:30 C-Reactive Protein < 0.50 mg/L (0-3.0) 06/25/20 05:49 B-Natriuretic Peptide 58.5 pg/mL (0-79) 06/25/20 05:49 Total Protein 5.0 g/dL (6.4-8.2) L 06/27/20 05:30 Albumin 2.5 g/dL (3.4-5.0) L 06/27/20 05:30 Globulin 2.5 g/dL (2.5-4.5) 06/27/20 05:30 Albumin/Globulin Ratio 1.0 Ratio (1.1-2.1) L 06/27/20 05:30 Specimen Type Catherized urine 06/24/20 21:01 Urine Color Brown (YELLOW) 06/24/20 21:01 Urine Appearance Cloudy (CLEAR) 06/24/20 21:01 Urine pH 6.0 (5.0 - 8.0) 06/24/20 21:01 Ur Specific [place] 1.020 (1.000-1.030) 06/24/20 21:01 Urine Protein 2+ (NEGATIVE) 06/24/20 21: Urine Glucose (UA) 4+ (NEGATIVE) 06/24/20 21: Urine Ketones 1+ (NEGATIVE) 06/24/20 21:01 Urine Occult Blood 5+ (NEGATIVE) 06/24/20 21: Urine Nitrite Negative (NEGATIVE) 06/24/20 21: Urine Bilirubin Negative (NEGATIVE) 06/24/20 21: Urine Urobilinogen 2+ (NORMAL) 06/24/20 21:01 Ur Leukocyte Esterase 3+ (NEGATIVE) 06/24/20 21:01 Urine RBC Tntc /HPF (0-3) A 06/24/20 21:01 Urine WBC 20-30 /HPF (0-5) A 06/24/20 21:01 Ur Squamous Epith Cells Rare /HPF (NEGATIVE) 06/24/20 21:01 Urine Bacteria Trace /HPF (NEGATIVE) 06/24/20 21:01 Urine Yeast Numerous /HPF (NEGATIVE) 06/24/20 21:01 Ur Culture Indicated? Yes/culture set up 06/24/20 21:01 SARS CoV-2 RNA Rapid KIRA Positive (NEGATIVE) A 05/15/20 13:15 Miscellaneous Test Covid 19 06/10/20 06:36 Blood Type O POSITIVE 05/16/20 09:08 Plan (1) Pneumonia due to COVID-19 virus: Status: Acute Plan: COVID-19 pneumonia with hypoxia. We will continue antibiotic therapy, corticosteroids, PT, OT, and RT, aggressive respiratory weaning, wound care, strict i&os blood sugar control (2) Acute respiratory failure with hypoxia: Status: Acute (3) BiPAP (biphasic positive airway pressure) dependence: Status: Acute (4) Thrombocytopenia: Status: Acute (5) Diabetes: Status: Chronic Qualifiers: Diabetes mellitus complication status: without complication Diabetes mellitus fci insulin use: unspecified fci insulin use status Diabetes mellitus type: type 2 Qualified Code(s): E11.9 - Type 2 diabetes mellitus without complications (6) HTN (hypertension): Status: Acute Qualifiers: Hypertension type: essential hypertension Qualified Code(s): I10 - Essential (primary) hypertension (7) Hypokalemia: Status: Acute (8) Pressure ulcer: Status: Acute Qualifiers: Laterality: unspecified laterality Pressure injury location: buttock Pressure injury stage: stage 2 Qualified Code(s): L89.302 - Pressure ulcer of unspecified buttock, stage 2
--- NOTE | 2020-06-29 14:42 | RAD ---
HISTORYcovid pneumonia, hypoxiaSTUDYCHEST, 1 [id number]/29/2021.FINDINGSThe trachea is midline. The cardiac silhouette is grossly unchanged. Patchy interstitial and airspace opacities throughout both lungs are grossly unchanged. There is no significant pleural effusion or evidence of pneumothorax. The bony thorax is grossly unremarkable.IMPRESSIONBilateral multifocal pneumonia without significant change compared with 2 days earlier.Electronically signed by: FARHAT MEEKS (Jun 29, 2020 14:40:08)
[2020-06-29] MEDS ORDERED: NS 1/2 1000 ML IV 1,000 ML IV ONE (20:52)
[2020-06-29] MEDS: NORCO 5/325 MG TAB PO PRN (21:44)
[2020-06-29] MEDS: REQUIP PO SCH (21:44)
[2020-06-29] MEDS: ATIVAN TAB 0.5 MG PO PRN (21:44)
[2020-06-29] MEDS: SNACK - Diabetic Appropriate PO SCH (22:41)
[2020-06-29] MEDS: ZANAFLEX PO SCH (22:47)
[2020-06-29] MEDS: NS 1/2 1000 ML IV 1,000 ML IV SCH (23:01)
[2020-06-30] MEDS: MUCOMYST (RESPIRATORY USE ONLY) NEB SCH ×4 (00:30→17:27)
[2020-06-30] MEDS: XOPENEX 1.25 MG/3 ML NEBULE NEB SCH ×4 (00:30→17:27)
[2020-06-30] MEDS: TobraDEX OPHTH SUSP AFFEYE SCH ×4 (02:55→21:11)
[2020-06-30 05:27] LABS: ABG ALLEN TEST POS
[2020-06-30] MEDS: HumuLIN R SUBCUT PRN ×4 (05:52→21:11)
[2020-06-30 06:59] LABS: BLOOD UREA NITROGEN 17 mg/dL (7-18); CALCIUM 8.3 mg/dL (8.5-10.1); CARBON DIOXIDE 35.4 mmol/L (21-32); CHLORIDE 100 mmol/L (98-107); COR NA(FOR HYPERGLY) 144 mmol/L (136-145); CREATININE 0.45 mg/dL (0.55-1.02); SODIUM 139 mmol/L (136-145); eGFR NON BLACK RACES > 60 (>60)
[2020-06-30 07:12] LABS: BASOPHILS % (AUTO) 0.2 % (0.2-1.0); EOSINOPHILS % (AUTO) 0.1 % (0.9-2.9); HEMATOCRIT 28.9 % (36.0-47.0); HEMOGLOBIN 9.6 g/dL (12.0-16.0); LYMPHOCYTES # (AUTO) 0.6 X10^3/uL (1.3-2.9); LYMPHOCYTES % (AUTO) 11.2 % (21.0-51.0); MEAN CORPUSCULAR HEMOGLOBIN 32.7 pg (27.0-34.0); MEAN CORPUSCULAR HGB CONC 33.4 g/dL (33.0-35.0); MEAN PLATELET VOLUME 7.5 fL (7.4-11.0); MONOCYTES # (AUTO) 0.2 x10^3/uL (0.3-0.8); MONOCYTES % (AUTO) 3.3 % (0.0-13.0); NEUTROPHILS # (AUTO) 4.4 x10^3/uL (2.2-4.8); NEUTROPHILS % (AUTO) 85.2 % (42.0-75.0); PLATELET COUNT 82 X10^3/uL (150.0-450.0); RED BLOOD COUNT 2.95 X10^6/uL (3.5-5.4); RED CELL DISTRIBUTION WIDTH 21.6 % (11.6-16.5); WHITE BLOOD COUNT 5.1 X10^3/uL (3.6-10.0)
[2020-06-30 08:07] LABS: ANISOCYTOSIS 1+; BAND NEUTROPHILS % 1 % (0-10); METAMYELOCYTES % 1; PLATELET MORPHOLOGY COMMENT NORMAL (NORMAL)
[2020-06-30] MEDS: LEVEMIR SC SCH (09:30)
[2020-06-30] MEDS: PEPCID TAB 20 MG PO SCH ×2 (09:30→21:11)
[2020-06-30] MEDS: LIPITOR TAB 40 MG PO SCH (09:30)
[2020-06-30] MEDS: VITAMIN A PO SCH (09:30)
[2020-06-30] MEDS: VITAMIN D3 125 mcg (5,000 UNITS) PO SCH (09:30)
[2020-06-30] MEDS: NORVASC TAB 5 MG PO SCH (09:30)
[2020-06-30] MEDS: NEURONTIN CAP 400 MG PO SCH ×2 (09:30→21:11)
[2020-06-30] MEDS: ZyrTEC TAB 10 MG PO SCH (09:30)
[2020-06-30] MEDS: PAXIL PO SCH (09:30)
[2020-06-30] MEDS: SOLU-Medrol 40 MG VIAL IVP SCH ×2 (09:30→21:11)
[2020-06-30] MEDS: LASIX IVP SCH (09:30)
[2020-06-30] MEDS: LEVAQUIN PREMIX IV 500 MG 500 MG/100 ML BAG IV SCH (09:30)
[2020-06-30] MEDS: ELIQUIS PO SCH ×2 (09:30→21:11)
[2020-06-30] MEDS: ZINC SULFATE PO SCH ×2 (09:30→21:11)
[2020-06-30] MEDS: ROBITUSSIN DM PO SCH ×4 (09:30→22:39)
[2020-06-30] MEDS: NORCO 5/325 MG TAB PO PRN ×2 (09:30→21:11)
[2020-06-30] MEDS: ATIVAN TAB 0.5 MG PO PRN ×2 (09:30→21:11)
[2020-06-30] MEDS: PROTONIX INJ 40 MG VIAL IVP SCH ×2 (09:30→21:11)
[2020-06-30] MEDS: NYSTATIN POWDER TOP SCH ×2 (09:30→22:35)
[2020-06-30] MEDS: PULMICORT NEB TX 0.5 MG NEB SCH ×2 (09:31→21:34)
[2020-06-30] MEDS: LEVSIN/MAALOX/LIDOC VISC PO SCH ×4 (09:52→22:34)
[2020-06-30] MEDS ORDERED: ANCEF 1 GRAM IV PREMIX* 2 G/100 ML BAG IV ONE (14:53)
[2020-06-30] MEDS ORDERED: LR 1000 ML IV 1,000 ML IV ONE (14:53)
[2020-06-30] MEDS: REQUIP PO SCH (21:11)
[2020-06-30] MEDS: NS 1/2 1000 ML IV 1,000 ML IV SCH (22:33)
[2020-06-30] MEDS: SNACK - Diabetic Appropriate PO SCH (22:37)
[2020-06-30] MEDS: ZANAFLEX PO SCH (22:39)
[2020-07-01] MEDS: XOPENEX 1.25 MG/3 ML NEBULE NEB SCH ×4 (00:10→17:33)
[2020-07-01] MEDS: MUCOMYST (RESPIRATORY USE ONLY) NEB SCH ×4 (00:10→17:33)
[2020-07-01] MEDS: TobraDEX OPHTH SUSP AFFEYE SCH ×4 (03:14→22:25)
--- NOTE | 2020-07-01 05:29 | RAD ---
PROCEDURE: Chest X-ray 1 View .HISTORY: PNEUMONIA .TECHNIQUE: AP view .COMPARISON: 06/29/2020.TECHNICAL QUALITY: Satisfactory .FINDINGS:Right internal jugular central venous line tip projected near the superior cavoatrial junction.Unchanged prominent heart.Patchy consolidation lung bases consistent with pneumonia similar to previous study allowing for technical differences. No pleural fluid or pneumothorax.IMPRESSION:Unchanged patchy consolidation both lung stark consistent with pneumonia.Electronically signed by: Lenny Andrea (Jul 01, 2020 05:27:29)
[2020-07-01] MEDS: HumuLIN R SUBCUT PRN ×4 (06:32→22:27)
[2020-07-01 06:56] LABS: ALANINE AMINOTRANSFERASE 100 Units/L (12-78); ALBUMIN 2.7 g/dL (3.4-5.0); ALKALINE PHOSPHATASE 122 Units/L (46-116); ASPARTATE AMINO TRANSFERASE 41 Units/L (15-37); BASOPHILS % (AUTO) 0.3 % (0.2-1.0); BLOOD UREA NITROGEN 25 mg/dL (7-18); CALCIUM 8.6 mg/dL (8.5-10.1); CARBON DIOXIDE 35.2 mmol/L (21-32); CHLORIDE 99 mmol/L (98-107); COR CA(FOR HYPOALB) 9.6 mg/dL (8.5-10.1); COR NA(FOR HYPERGLY) 143 mmol/L (136-145); CREATININE 0.47 mg/dL (0.55-1.02); HEMATOCRIT 29.9 % (36.0-47.0); LYMPHOCYTES # (AUTO) 0.9 X10^3/uL (1.3-2.9); LYMPHOCYTES % (AUTO) 13.6 % (21.0-51.0); MEAN CORPUSCULAR HEMOGLOBIN 32.6 pg (27.0-34.0); MEAN CORPUSCULAR HGB CONC 33.5 g/dL (33.0-35.0); MEAN CORPUSCULAR VOLUME 97.5 fL (80.0-100.0); MEAN PLATELET VOLUME 7.4 fL (7.4-11.0); MONOCYTES # (AUTO) 0.2 x10^3/uL (0.3-0.8); MONOCYTES % (AUTO) 3.4 % (0.0-13.0); NEUTROPHILS # (AUTO) 5.4 x10^3/uL (2.2-4.8); NEUTROPHILS % (AUTO) 82.7 % (42.0-75.0); PLATELET COUNT 90 X10^3/uL (150.0-450.0); RED BLOOD COUNT 3.07 X10^6/uL (3.5-5.4); RED CELL DISTRIBUTION WIDTH 22.1 % (11.6-16.5); SODIUM 138 mmol/L (136-145); TOTAL PROTEIN 5.3 g/dL (6.4-8.2); WHITE BLOOD COUNT 6.6 X10^3/uL (3.6-10.0); eGFR NON BLACK RACES > 60 (>60)
[2020-07-01 07:45] LABS: ANISOCYTOSIS 2+; BAND NEUTROPHILS % 8 % (0-10); PLATELET MORPHOLOGY COMMENT NORMAL (NORMAL)
[2020-07-01 07:51] LABS: ABG BASE EXCESS 16.8 mmol/L (-2.0-2.0)
[2020-07-01 07:52] LABS: ABG ALLEN TEST POS; ABG HCO3 41.8 mmol/L (22-26)
[2020-07-01] MEDS: ATIVAN TAB 0.5 MG PO PRN ×2 (08:16→22:26)
[2020-07-01] MEDS: LEVAQUIN PREMIX IV 500 MG 500 MG/100 ML BAG IV SCH (08:16)
[2020-07-01] MEDS: PROTONIX INJ 40 MG VIAL IVP SCH ×2 (08:17→22:24)
[2020-07-01] MEDS: SOLU-Medrol 40 MG VIAL IVP SCH ×2 (08:17→22:25)
[2020-07-01] MEDS: PAXIL PO SCH (08:17)
[2020-07-01] MEDS: ROBITUSSIN DM PO SCH ×4 (08:17→22:24)
[2020-07-01] MEDS: VITAMIN D3 125 mcg (5,000 UNITS) PO SCH (08:18)
[2020-07-01] MEDS: LIPITOR TAB 40 MG PO SCH (08:18)
[2020-07-01] MEDS: ZINC SULFATE PO SCH ×2 (08:18→22:25)
[2020-07-01] MEDS: NORCO 5/325 MG TAB PO PRN ×2 (08:19→22:26)
[2020-07-01] MEDS: NORVASC TAB 5 MG PO SCH (08:20)
[2020-07-01] MEDS: ZyrTEC TAB 10 MG PO SCH (08:20)
[2020-07-01] MEDS: VITAMIN A PO SCH (08:21)
[2020-07-01] MEDS: PEPCID TAB 20 MG PO SCH ×2 (08:21→22:24)
[2020-07-01] MEDS: LEVEMIR SC SCH (08:22)
[2020-07-01] MEDS: NYSTATIN POWDER TOP SCH ×2 (08:22→22:24)
[2020-07-01] MEDS: NEURONTIN CAP 400 MG PO SCH ×2 (08:23→22:24)
[2020-07-01] MEDS: ELIQUIS PO SCH ×2 (08:23→22:23)
[2020-07-01] MEDS: LASIX IVP SCH (08:23)
[2020-07-01] MEDS: LEVSIN/MAALOX/LIDOC VISC PO SCH ×4 (08:24→22:23)
[2020-07-01] MEDS: PULMICORT NEB TX 0.5 MG NEB SCH ×2 (09:00→20:59)
[2020-07-01] MEDS: ZOFRAN INJ 4 MG VIAL IVP PRN (11:12)
--- NOTE | 2020-07-01 17:34 | PCM.PROG ---
Progress Note - Progress Note for Day of Date of Exam: 07/01/20 - Subjective Subjective: Patient remains in critical condition.Mrs. Estes is a 54-year-old white female suffering from complications following COVID-19 pneumonia including hypoxia. We are working with Respiratory and Physical Therapy to aggressively wean the patient off of her supplemental oxygen. She is still requiring BiPAP at night. This morning, the patient was on heated high flow and had been working with physical therapy. She was still noted to be hypoxic this morning with her oxygen saturations in the low 80s. She was tachycardic with a heart rate of 105. The patient does have improving reflux since changing her to IV Protonix. Her platelets, 90 and hemoglobin, 10.0have remained pretty stable. Her BUN was 25 with creatine of 0.47. We increased her basal insulin, She continued with glucose of 281 even though we also have her on an 1800 ADA. The patient was saturating 97% on BiPAP during the night which was documented. The patient complains of improving anxiety. She has a very positive attitude. I think she is really making an effort to work with therapy to try and wean respiratory and gain respiratory strength to wean her off of supplemental oxygen, as well as Physical Therapy to improve her physical mobility. - Past Medical Family Social History Past Med/Fam/Surg Hx: No changes since H&P Allergies: Allergies No Known Drug Allergies Allergy (Verified 04/17/18 05:13) - Review of Systems ROS: No change since H&P - Vital Signs and I&O's Vital Signs: Temperature 97.7 F Pulse Rate [Left] 123 Pulse Rate 119 Respiratory Rate 27 Blood Pressure [Right Calf] 132/84 Blood Pressure [Left Arm] 130/88 Blood Pressure [Left Calf] 114/77 Blood Pressure [Right Arm] 114/78 Blood Pressure 127/78 O2 Sat by Pulse Oximetry 88 Intake and Output: Intake & Output 06/29/20 06/30/20 07/01/20 07/02/20 11:59 11:59 11:59 11:59 Intake Total 1227 / 1227 20167 / 7 895 / 895 Output Total 1949 / 1949 2450 / 2450 1700 / 1700 1000 / 1000 Balance -723 / -723 -433 / -433 237 / 237 -105 / -105 - Physical Exam Oriented: Normal Eyes: Normal Ear: Normal Nose: Normal Throat: Normal Respiratory: Generalized, Diminished Cardiovascular: Normal : Normal Auscultation: Bowel Sounds: Normal Tenderness: Normal Skin: Decreased Turgur, Wound (stage 1 left lateral hip, stage 2 left lateral lower abdomen, and left lower lateral back/flank), Bruising Musculoskeletal: Right, Left, Knee, Back:Lumbar, Motor Deficit, Instability Psychiatric: Anxiety Mood Description: Depressed, Anxious Affect: Anxious, Depressed Speech Pattern: Clear, Appropriate - Laboratory and Diagnostics Result Diagrams: 07/01/20 04:10 07/01/20 04:10 Labs: 06/24/20 21:01 Urine,Catheterized Urine Culture - Final 06/06/20 15:30 Urine,Clean Catch Urine Culture - Final 05/15/20 12:35 Blood Blood Culture - Final 05/15/20 12:25 Blood Blood Culture - Final Laboratory WBC 6.6 X10^3/uL (3.6-10.0) 07/01/20 04:10 RBC 3.07 X10^6/uL (3.5-5.4) L 07/01/20 04:10 Hgb 10.0 g/dL (12.0-16.0) L 07/01/20 04:10 Hct 29.9 % (36.0-47.0) L 07/01/20 04:10 MCV 97.5 fL (80.0-100.0) 07/01/20 04:10 MCH 32.6 pg (27.0-34.0) 07/01/20 04:10 MCHC 33.5 g/dL (33.0-35.0) 07/01/20 04:10 RDW 22.1 % (11.6-16.5) H 07/01/20 04:10 Plt Count 90 X10^3/uL (150.0-450.0) L 07/01/20 04:10 Plt Count Comment Decreased (ADEQUATE) A 07/01/20 04:10 MPV 7.4 fL (7.4-11.0) 07/01/20 04:10 Neut % (Auto) 82.7 % (42.0-75.0) H 07/01/20 04:10 Lymph % (Auto) 13.6 % (21.0-51.0) L 07/01/20 04:10 [place] % (Auto) 3.4 % (0.0-13.0) 07/01/20 04:10 Eos % (Auto) 0.0 % (0.9-2.9) L 07/01/20 04:10 Baso % (Auto) 0.3 % (0.2-1.0) 07/01/20 04:10 Neut # (Auto) 5.4 x10^3/uL (2.2-4.8) H 07/01/20 04:10 Lymph # (Auto) 0.9 X10^3/uL (1.3-2.9) L 07/01/20 04:10 [place] # (Auto) 0.2 x10^3/uL (0.3-0.8) L 07/01/20 04:10 Eos # (Auto) 0.0 x10^3/uL (0.0-0.2) 07/01/20 04:10 Baso # (Auto) 0.0 X10^3/uL (0.0-0.1) 07/01/20 04:10 Absolute Nucleated RBC 0.7 /100WBC 07/01/20 04:10 Total Counted 100 07/01/20 04:10 Neutrophils % (Manual) 77 % (39-76) H 07/01/20 04:10 Band Neutrophils % 8 % (0-10) 07/01/20 04:10 Lymphocytes % (Manual) 9 % (13-43) L 07/01/20 04:10 Monocytes % (Manual) 5 % (4-9) 07/01/20 04:10 Metamyelocytes % 1 06/30/20 04:15 Myelocytes % 1 06/05/20 15:33 Nucleated RBCs 1 06/28/20 09:59 Plt Clumps, EDTA Rare 06/20/20 06:05 Plt Morphology Comment Normal (NORMAL) 07/01/20 04:10 RBC Morphology Abnormal (NORMAL) A 07/01/20 04:10 Anisocytosis 2+ A 07/01/20 04:10 D-Dimer 0.35 ug/ml (0.0-0.57) 06/24/20 05:45 Sample Site Right radial 07/01/20 07:45 ABG pH 7.530 (7.35-7.45) H 07/01/20 07:45 ABG pCO2 50.0 mmHg (35.0-45.0) H 07/01/20 07:45 ABG pO2 63.0 mmHg (80.0-100.0) L 07/01/20 07:45 ABG HCO3 41.8 mmol/L (22-26) H* 07/01/20 07:45 ABG O2 Saturation 94.0 % (90-100) 07/01/20 07:45 ABG Base Excess 16.8 mmol/L (-2.0-2.0) H 07/01/20 07:45 Bigg Test Pos 07/01/20 07:45 A-a Gradient 516.0 mmHg 07/01/20 07:45 FiO2 90.0 07/01/20 07:45 Blood Gas Comments [facility] 07/01/20 07:45 Sodium 138 mmol/L (136-145) 07/01/20 04:10 Corrected Sodium 143 mmol/L (136-145) 07/01/20 04:10 Potassium 3.8 mmol/L (3.5-5.1) 07/01/20 04:10 Chloride 99 mmol/L (98-107) 07/01/20 04:10 Carbon Dioxide 35.2 mmol/L (21-32) H 07/01/20 04:10 BUN 25 mg/dL (7-18) H 07/01/20 04:10 Creatinine 0.47 mg/dL (0.55-1.02) L 07/01/20 04:10 Est GFR (MDRD) Af Amer > 60 (>60) 07/01/20 04:10 Est GFR (MDRD) Non-Af > 60 (>60) 07/01/20 04:10 Glucose 291 mg/dL (65-99) H 07/01/20 04:10 POC Glucose (mg/dL) 298 mg/dL (65-99) H 07/01/20 16:35 Hemoglobin A1c 7.7 % 06/13/20 05:40 Calcium 8.6 mg/dL (8.5-10.1) 07/01/20 04:10 Corrected Calcium 9.6 mg/dL (8.5-10.1) 07/01/20 04:10 Magnesium 2.2 mg/dL (1.7-2.9) 06/26/20 05:15 Ferritin 240 ng/mL (8-252) 05/21/20 04:21 Total Bilirubin 1.10 mg/dL (0.2-1.0) H 07/01/20 04:10 AST 41 Units/L (15-37) H 07/01/20 04:10 ALT 100 Units/L (12-78) H 07/01/20 04:10 Alkaline Phosphatase 122 Units/L (46-116) H 07/01/20 04:10 C-Reactive Protein < 0.50 mg/L (0-3.0) 06/25/20 05:49 B-Natriuretic Peptide 58.5 pg/mL (0-79) 06/25/20 05:49 Total Protein 5.3 g/dL (6.4-8.2) L 07/01/20 04:10 Albumin 2.7 g/dL (3.4-5.0) L 07/01/20 04:10 Globulin 2.6 g/dL (2.5-4.5) 07/01/20 04:10 Albumin/Globulin Ratio 1.0 Ratio (1.1-2.1) L 07/01/20 04:10 Specimen Type Catherized urine 06/24/20 21:01 Urine Color Brown (YELLOW) 06/24/20 21:01 Urine Appearance Cloudy (CLEAR) 06/24/20 21:01 Urine pH 6.0 (5.0 - 8.0) 06/24/20 21:01 Ur Specific [place] 1.020 (1.000-1.030) 06/24/20 21:01 Urine Protein 2+ (NEGATIVE) 06/24/20 21: Urine Glucose (UA) 4+ (NEGATIVE) 06/24/20 21:01 Urine Ketones 1+ (NEGATIVE) 06/24/20 21: Urine Occult Blood 5+ (NEGATIVE) 06/24/20 21: Urine Nitrite Negative (NEGATIVE) 06/24/20 21: Urine Bilirubin Negative (NEGATIVE) 06/24/20 21: Urine Urobilinogen 2+ (NORMAL) 06/24/20 21:01 Ur Leukocyte Esterase 3+ (NEGATIVE) 06/24/20 21:01 Urine RBC Tntc /HPF (0-3) A 06/24/20 21: Urine WBC 20-30 /HPF (0-5) A 06/24/20 21:01 Ur Squamous Epith Cells Rare /HPF (NEGATIVE) 06/24/20 21:01 Urine Bacteria Trace /HPF (NEGATIVE) 06/24/20 21:01 Urine Yeast Numerous /HPF (NEGATIVE) 06/24/20 21:01 Ur Culture Indicated? Yes/culture set up 06/24/20 21:01 SARS CoV-2 RNA Rapid KIRA Positive (NEGATIVE) A 05/15/20 13:15 Miscellaneous Test Covid 19 06/10/20 06:36 Blood Type O POSITIVE 05/16/20 09:08 - Plan (1) Pneumonia due to COVID-19 virus Status: Acute Plan: COVID-19 pneumonia with hypoxia. We will continue antibiotic therapy, corticosteroids, PT, OT, and RT, aggressive respiratory weaning, wound care, strict i&os blood sugar control
[2020-07-01] MEDS: NS 1/2 1000 ML IV 1,000 ML IV SCH (22:23)
[2020-07-01] MEDS: SNACK - Diabetic Appropriate PO SCH (22:23)
[2020-07-01] MEDS: REQUIP PO SCH (22:24)
[2020-07-01] MEDS: ZANAFLEX PO SCH (22:25)
[2020-07-02] MEDS: MUCOMYST (RESPIRATORY USE ONLY) NEB SCH ×4 (01:00→17:23)
[2020-07-02] MEDS: XOPENEX 1.25 MG/3 ML NEBULE NEB SCH ×4 (01:00→17:23)
[2020-07-02] MEDS: TobraDEX OPHTH SUSP AFFEYE SCH ×4 (05:03→21:52)
[2020-07-02] MEDS ORDERED: NS 1/2 1000 ML IV 1,000 ML IV ONE (05:26)
[2020-07-02 05:40] LABS: ABG BASE EXCESS 15.6 mmol/L (-2.0-2.0)
[2020-07-02 05:41] LABS: ABG HCO3 41.7 mmol/L (22-26)
[2020-07-02 05:42] LABS: ABG ALLEN TEST POSS
[2020-07-02 06:03] LABS: BASOPHILS % (AUTO) 0.3 % (0.2-1.0); EOSINOPHILS % (AUTO) 0.1 % (0.9-2.9); HEMATOCRIT 27.7 % (36.0-47.0); HEMOGLOBIN 9.6 g/dL (12.0-16.0); LYMPHOCYTES # (AUTO) 0.8 X10^3/uL (1.3-2.9); MEAN CORPUSCULAR HEMOGLOBIN 33.6 pg (27.0-34.0); MEAN CORPUSCULAR HGB CONC 34.4 g/dL (33.0-35.0); MEAN CORPUSCULAR VOLUME 97.5 fL (80.0-100.0); MEAN PLATELET VOLUME 7.8 fL (7.4-11.0); MONOCYTES # (AUTO) 0.2 x10^3/uL (0.3-0.8); MONOCYTES % (AUTO) 4.3 % (0.0-13.0); NEUTROPHILS # (AUTO) 4.2 x10^3/uL (2.2-4.8); NEUTROPHILS % (AUTO) 80.3 % (42.0-75.0); PLATELET COUNT 71 X10^3/uL (150.0-450.0); RED BLOOD COUNT 2.85 X10^6/uL (3.5-5.4); RED CELL DISTRIBUTION WIDTH 21.4 % (11.6-16.5); WHITE BLOOD COUNT 5.2 X10^3/uL (3.6-10.0)
[2020-07-02 06:12] LABS: ALANINE AMINOTRANSFERASE 95 Units/L (12-78); ALBUMIN 2.6 g/dL (3.4-5.0); ALKALINE PHOSPHATASE 127 Units/L (46-116); ASPARTATE AMINO TRANSFERASE 40 Units/L (15-37); BLOOD UREA NITROGEN 25 mg/dL (7-18); CALCIUM 8.5 mg/dL (8.5-10.1); CARBON DIOXIDE 37.3 mmol/L (21-32); CHLORIDE 101 mmol/L (98-107); COR CA(FOR HYPOALB) 9.6 mg/dL (8.5-10.1); COR NA(FOR HYPERGLY) 146 mmol/L (136-145); CREATININE 0.53 mg/dL (0.55-1.02); SODIUM 140 mmol/L (136-145); eGFR NON BLACK RACES > 60 (>60)
[2020-07-02] MEDS: NS 1/2 1000 ML IV 1,000 ML IV SCH ×2 (06:44→23:54)
[2020-07-02] MEDS: HumuLIN R SUBCUT PRN ×4 (06:44→21:48)
[2020-07-02 07:12] LABS: BAND NEUTROPHILS % 3 % (0-10); PLATELET MORPHOLOGY COMMENT NORMAL (NORMAL)
[2020-07-02] MEDS: VITAMIN A PO SCH (09:17)
[2020-07-02] MEDS: ZINC SULFATE PO SCH ×2 (09:17→21:49)
[2020-07-02] MEDS: ELIQUIS PO SCH ×2 (09:17→21:49)
[2020-07-02] MEDS: LEVAQUIN PREMIX IV 500 MG 500 MG/100 ML BAG IV SCH (09:17)
[2020-07-02] MEDS: PROTONIX INJ 40 MG VIAL IVP SCH ×2 (09:17→21:46)
[2020-07-02] MEDS: SOLU-Medrol 40 MG VIAL IVP SCH ×2 (09:17→21:47)
[2020-07-02] MEDS: VITAMIN D3 125 mcg (5,000 UNITS) PO SCH (09:17)
[2020-07-02] MEDS: ZyrTEC TAB 10 MG PO SCH (09:17)
[2020-07-02] MEDS: ROBITUSSIN DM PO SCH ×4 (09:17→23:57)
[2020-07-02] MEDS: LASIX IVP SCH (09:17)
[2020-07-02] MEDS: PULMICORT NEB TX 0.5 MG NEB SCH ×2 (09:20→20:55)
[2020-07-02] MEDS: PEPCID TAB 20 MG PO SCH ×2 (09:26→21:49)
[2020-07-02] MEDS: NORVASC TAB 5 MG PO SCH (09:26)
[2020-07-02] MEDS: LIPITOR TAB 40 MG PO SCH (09:26)
[2020-07-02] MEDS: PAXIL PO SCH (09:26)
[2020-07-02] MEDS: NYSTATIN POWDER TOP SCH ×2 (09:26→23:56)
[2020-07-02] MEDS: LEVEMIR SC SCH (09:27)
[2020-07-02] MEDS: NEURONTIN CAP 400 MG PO SCH ×2 (09:27→21:49)
[2020-07-02] MEDS: LEVSIN/MAALOX/LIDOC VISC PO SCH ×4 (09:28→23:55)
[2020-07-02] MEDS: ATIVAN TAB 0.5 MG PO PRN ×2 (10:03→21:49)
[2020-07-02] MEDS: NORCO 5/325 MG TAB PO PRN ×2 (10:03→21:49)
[2020-07-02] MEDS: REQUIP PO SCH (21:49)
[2020-07-02] MEDS: SNACK - Diabetic Appropriate PO SCH (23:55)
[2020-07-02] MEDS: ZANAFLEX PO SCH (23:58)
[2020-07-03] MEDS: MUCOMYST (RESPIRATORY USE ONLY) NEB SCH ×4 (00:30→16:56)
[2020-07-03] MEDS: XOPENEX 1.25 MG/3 ML NEBULE NEB SCH ×4 (00:30→16:56)
[2020-07-03] MEDS: TobraDEX OPHTH SUSP AFFEYE SCH ×4 (02:53→22:00)
[2020-07-03] MEDS: HumuLIN R SUBCUT PRN ×4 (06:14→21:51)
[2020-07-03 06:39] LABS: BASOPHILS % (AUTO) 0.5 % (0.2-1.0); HEMATOCRIT 29.3 % (36.0-47.0); HEMOGLOBIN 10.1 g/dL (12.0-16.0); LYMPHOCYTES # (AUTO) 0.9 X10^3/uL (1.3-2.9); LYMPHOCYTES % (AUTO) 14.2 % (21.0-51.0); MEAN CORPUSCULAR HEMOGLOBIN 33.5 pg (27.0-34.0); MEAN CORPUSCULAR HGB CONC 34.5 g/dL (33.0-35.0); MEAN CORPUSCULAR VOLUME 96.9 fL (80.0-100.0); MONOCYTES # (AUTO) 0.3 x10^3/uL (0.3-0.8); NEUTROPHILS # (AUTO) 5.3 x10^3/uL (2.2-4.8); NEUTROPHILS % (AUTO) 80.3 % (42.0-75.0); PLATELET COUNT 72 X10^3/uL (150.0-450.0); RED BLOOD COUNT 3.02 X10^6/uL (3.5-5.4); RED CELL DISTRIBUTION WIDTH 22.6 % (11.6-16.5); WHITE BLOOD COUNT 6.6 X10^3/uL (3.6-10.0)
[2020-07-03 06:55] LABS: ALANINE AMINOTRANSFERASE 98 Units/L (12-78); ALBUMIN 2.8 g/dL (3.4-5.0); ALKALINE PHOSPHATASE 138 Units/L (46-116); ASPARTATE AMINO TRANSFERASE 45 Units/L (15-37); BLOOD UREA NITROGEN 26 mg/dL (7-18); CALCIUM 8.5 mg/dL (8.5-10.1); CARBON DIOXIDE 36.4 mmol/L (21-32); CHLORIDE 98 mmol/L (98-107); COR CA(FOR HYPOALB) 9.5 mg/dL (8.5-10.1); COR NA(FOR HYPERGLY) 146 mmol/L (136-145); SODIUM 140 mmol/L (136-145); TOTAL PROTEIN 5.6 g/dL (6.4-8.2); eGFR NON BLACK RACES > 60 (>60)
[2020-07-03 07:04] LABS: BAND NEUTROPHILS % 1 % (0-10); METAMYELOCYTES % 1; PLATELET MORPHOLOGY COMMENT NORMAL (NORMAL)
[2020-07-03 07:05] LABS: ANISOCYTOSIS 2+
[2020-07-03] MEDS: PULMICORT NEB TX 0.5 MG NEB SCH ×2 (09:23→20:30)
[2020-07-03 09:29] LABS: ABG BASE EXCESS 13.5 mmol/L (-2.0-2.0)
[2020-07-03 09:30] LABS: ABG ALLEN TEST POS; ABG HCO3 38.3 mmol/L (22-26)
[2020-07-03] MEDS: ELIQUIS PO SCH ×2 (09:32→21:54)
[2020-07-03] MEDS: VITAMIN D3 125 mcg (5,000 UNITS) PO SCH (09:33)
[2020-07-03] MEDS: ZINC SULFATE PO SCH ×2 (09:33→21:55)
[2020-07-03] MEDS: VITAMIN A PO SCH (09:33)
[2020-07-03] MEDS: ZyrTEC TAB 10 MG PO SCH (09:33)
[2020-07-03] MEDS: SOLU-Medrol 40 MG VIAL IVP SCH ×2 (09:34→21:50)
[2020-07-03] MEDS: PROTONIX INJ 40 MG VIAL IVP SCH ×2 (09:34→21:49)
[2020-07-03] MEDS: PAXIL PO SCH (09:35)
[2020-07-03] MEDS: NYSTATIN POWDER TOP SCH ×2 (09:35→23:26)
[2020-07-03] MEDS: ROBITUSSIN DM PO SCH ×4 (09:35→23:28)
[2020-07-03] MEDS: NORVASC TAB 5 MG PO SCH (09:35)
[2020-07-03] MEDS: PEPCID TAB 20 MG PO SCH ×2 (09:35→21:55)
[2020-07-03] MEDS: LEVEMIR SC SCH (09:36)
[2020-07-03] MEDS: LEVSIN/MAALOX/LIDOC VISC PO SCH ×4 (09:36→23:26)
[2020-07-03] MEDS: NEURONTIN CAP 400 MG PO SCH ×2 (09:36→21:55)
[2020-07-03] MEDS: LIPITOR TAB 40 MG PO SCH (09:36)
[2020-07-03] MEDS: LEVAQUIN PREMIX IV 500 MG 500 MG/100 ML BAG IV SCH (09:37)
[2020-07-03] MEDS: LASIX IVP SCH (09:37)
[2020-07-03] MEDS: NORCO 5/325 MG TAB PO PRN ×3 (09:38→22:05)
[2020-07-03] MEDS: ATIVAN TAB 0.5 MG PO PRN ×2 (09:41→21:54)
--- NOTE | 2020-07-03 09:59 | RAD ---
HISTORYPneumoniaSTUDYCHEST, 1 VIEWCOMPARISONPrevious chest radiograph from 07/01/2020FINDINGSCardiomediastinal structures are stable. Patchy infiltrates are again identified on both sides with no significant interval change since previous exam. Possibility of underlying effusion cannot be excluded on the left. Bony thorax is unremarkable.IMPRESSIONPersistent bilateral pulmonary infiltrates. Findings have not changed significantly since 07/01/2020.Electronically signed by: ZO RYAN (Jul 03, 2020 09:57:30)
--- NOTE | 2020-07-03 17:46 | PCM.PROG ---
Progress Note - Progress Note for Day of Date of Exam: 07/03/20 - Subjective Subjective: Patient remains in critical condition.Mrs. Estes is a 54-year-old white female suffering from complications following COVID-19 pneumonia including hypoxia. We are working with Respiratory and Physical Therapy to aggressively wean the patient off of her supplemental oxygen. She is still requiring BiPAP at night. This morning, the patient was on heated high flow and had been working with physical therapy. She was still noted to be hypoxic this morning with her oxygen saturations in the low 80s. She was tachycardic with a heart rate of 115. Ms. Estes is a 54 year old white female who is being treated for COVID-19 Pneumonia and Hypoxia. She suffered from complications following the COVID-19 virus with hypoxia being the main complication as well as hypertension, diabetes and diffuse generalized weakness. The patient has been gradually tolerating wean per respiratory therapy on supplemental Oxygen and she tolerated heated high flow thru most of the day yesterday. The PO2 this a.m. was in the 40s, on heated high flow at that time, Oxygen saturations were 88 at that time. The patient denies any chest pain and seems to be no more tachypnea or in distress today, however, we will reobtain an ABG later today just today just to confirm this is not a venous mix. The patient has been working well with physical therapy, LTAC referrals in place. Due to the patients high oxygen demands she is not currently been accepted. The patient does have improved periorbital edema, minimal at this point. She has almost completely clear right lung sounds on exam. The left does seem to be much better this week. I would say diminished mid to lower lung. Heart rate has been intermittently tachycardia with a rate around 95-100. The patients white blood cell count 6.6, hemoglobin 10.1, platelets were at 72, BUN 26, creatinine 0.60. The patient has still been on Corticosteroid therapy due to her hypoxia and pneumonia. We will increase the patients basal insulin due to her continued hyperglycemia. - Past Medical Family Social History Past Med/Fam/Surg Hx: No changes since H&P Allergies: Allergies No Known Drug Allergies Allergy (Verified 04/17/18 05:13) - Review of Systems ROS: No change since H&P - Vital Signs and I&O's Vital Signs: Temperature 98.6 F Pulse Rate [Left] 112 Pulse Rate 119 Respiratory Rate 37 Blood Pressure [Right Calf] 136/75 Blood Pressure [Left Arm] 130/88 Blood Pressure [Left Calf] 114/77 Blood Pressure [Right Arm] 114/78 Blood Pressure 127/78 O2 Sat by Pulse Oximetry 90 Intake and Output: Intake & Output 07/01/20 07/02/20 07/03/20 07/04/20 11:59 11:59 11:59 11:59 Intake Total 1937 / 1937 2165 / 2165 812 / 812 600 / 600 Output Total 1700 / 1700 1625 / 1625 1925 / 1925 1600 / 1600 Balance 237 / 237 540 / 540 -1113 / -1113 -1000 / -1000 - Physical Exam Oriented: Normal Eyes: Normal Ear: Normal Nose: Normal Throat: Normal Respiratory: Generalized, Diminished Cardiovascular: Normal : Normal Auscultation: Bowel Sounds: Normal Tenderness: Normal Skin: Decreased Turgur, Wound (stage 1 left lateral hip, stage 2 left lateral lower abdomen, and left lower lateral back/flank), Bruising Musculoskeletal: Right, Left, Knee, Back:Lumbar, Motor Deficit, Instability Psychiatric: Anxiety Mood Description: Depressed, Anxious Affect: Anxious, Depressed Speech Pattern: Clear, Appropriate - Laboratory and Diagnostics Result Diagrams: 07/03/20 05:55 07/03/20 05:55 Labs: 06/24/20 21:01 Urine,Catheterized Urine Culture - Final 06/06/20 15:30 Urine,Clean Catch Urine Culture - Final 05/15/20 12:35 Blood Blood Culture - Final 05/15/20 12:25 Blood Blood Culture - Final Laboratory WBC 6.6 X10^3/uL (3.6-10.0) 07/03/20 05:55 RBC 3.02 X10^6/uL (3.5-5.4) L 07/03/20 05:55 Hgb 10.1 g/dL (12.0-16.0) L 07/03/20 05:55 Hct 29.3 % (36.0-47.0) L 07/03/20 05:55 MCV 96.9 fL (80.0-100.0) 07/03/20 05:55 MCH 33.5 pg (27.0-34.0) 07/03/20 05:55 MCHC 34.5 g/dL (33.0-35.0) 07/03/20 05:55 RDW 22.6 % (11.6-16.5) H 07/03/20 05:55 Plt Count 72 X10^3/uL (150.0-450.0) L 07/03/20 05:55 Plt Count Comment Decreased (ADEQUATE) A 07/03/20 05:55 MPV 8.0 fL (7.4-11.0) 07/03/20 05:55 Neut % (Auto) 80.3 % (42.0-75.0) H 07/03/20 05:55 Lymph % (Auto) 14.2 % (21.0-51.0) L 07/03/20 05:55 [place] % (Auto) 5.0 % (0.0-13.0) 07/03/20 05:55 Eos % (Auto) 0.0 % (0.9-2.9) L 07/03/20 05:55 Baso % (Auto) 0.5 % (0.2-1.0) 07/03/20 05:55 Neut # (Auto) 5.3 x10^3/uL (2.2-4.8) H 07/03/20 05:55 Lymph # (Auto) 0.9 X10^3/uL (1.3-2.9) L 07/03/20 05:55 [place] # (Auto) 0.3 x10^3/uL (0.3-0.8) 07/03/20 05:55 Eos # (Auto) 0.0 x10^3/uL (0.0-0.2) 07/03/20 05:55 Baso # (Auto) 0.0 X10^3/uL (0.0-0.1) 07/03/20 05:55 Absolute Nucleated RBC 1.1 /100WBC 07/03/20 05:55 Total Counted 100 07/03/20 05:55 Neutrophils % (Manual) 86 % (39-76) H 07/03/20 05:55 Band Neutrophils % 1 % (0-10) 07/03/20 05:55 Lymphocytes % (Manual) 10 % (13-43) L 07/03/20 05:55 Monocytes % (Manual) 2 % (4-9) L 07/03/20 05:55 Metamyelocytes % 1 07/03/20 05:55 Myelocytes % 1 06/05/20 15:33 Nucleated RBCs 1 06/28/20 09:59 Plt Clumps, EDTA Rare 06/20/20 06:05 Plt Morphology Comment Normal (NORMAL) 07/03/20 05:55 RBC Morphology Abnormal (NORMAL) A 07/03/20 05:55 Anisocytosis 2+ A 07/03/20 05:55 D-Dimer 0.35 ug/ml (0.0-0.57) 06/24/20 05:45 Sample Site Rr 07/03/20 09:22 ABG pH 7.510 (7.35-7.45) H 07/03/20 09:22 ABG pCO2 48.0 mmHg (35.0-45.0) H 07/03/20 09:22 ABG pO2 43.0 mmHg (80.0-100.0) L* 07/03/20 09:22 ABG HCO3 38.3 mmol/L (22-26) H* 07/03/20 09:22 ABG O2 Saturation 84.0 % (90-100) L* 07/03/20 09:22 ABG Base Excess 13.5 mmol/L (-2.0-2.0) H 07/03/20 09:22 Bigg Test Pos 07/03/20 09:22 A-a Gradient 475.0 mmHg 07/03/20 09:22 FiO2 81.0 07/03/20 09:22 Blood Gas Comments Pt [email or web address] 07/03/20 09:22 Sodium 140 mmol/L (136-145) 07/03/20 05:55 Corrected Sodium 146 mmol/L (136-145) H 07/03/20 05:55 Potassium 3.8 mmol/L (3.5-5.1) 07/03/20 05:55 Chloride 98 mmol/L (98-107) 07/03/20 05:55 Carbon Dioxide 36.4 mmol/L (21-32) H 07/03/20 05:55 BUN 26 mg/dL (7-18) H 07/03/20 05:55 Creatinine 0.60 mg/dL (0.55-1.02) 07/03/20 05:55 Est GFR (MDRD) Af Amer > 60 (>60) 07/03/20 05:55 Est GFR (MDRD) Non-Af > 60 (>60) 07/03/20 05:55 Glucose 334 mg/dL (65-99) H 07/03/20 05:55 POC Glucose (mg/dL) 231 mg/dL (65-99) H 07/03/20 16:49 Hemoglobin A1c 7.7 % 06/13/20 05:40 Calcium 8.5 mg/dL (8.5-10.1) 07/03/20 05:55 Corrected Calcium 9.5 mg/dL (8.5-10.1) 07/03/20 05:55 Magnesium 2.2 mg/dL (1.7-2.9) 06/26/20 05:15 Ferritin 240 ng/mL (8-252) 05/21/20 04:21 Total Bilirubin 1.00 mg/dL (0.2-1.0) 07/03/20 05:55 AST 45 Units/L (15-37) H 07/03/20 05:55 ALT 98 Units/L (12-78) H 07/03/20 05:55 Alkaline Phosphatase 138 Units/L (46-116) H 07/03/20 05:55 C-Reactive Protein < 0.50 mg/L (0-3.0) 06/25/20 05:49 B-Natriuretic Peptide 58.5 pg/mL (0-79) 06/25/20 05:49 Total Protein 5.6 g/dL (6.4-8.2) L 07/03/20 05:55 Albumin 2.8 g/dL (3.4-5.0) L 07/03/20 05:55 Globulin 2.8 g/dL (2.5-4.5) 07/03/20 05:55 Albumin/Globulin Ratio 1.0 Ratio (1.1-2.1) L 07/03/20 05:55 Specimen Type Catherized urine 06/24/20 21:01 Urine Color Brown (YELLOW) 06/24/20 21:01 Urine Appearance Cloudy (CLEAR) 06/24/20 21:01 Urine pH 6.0 (5.0 - 8.0) 06/24/20 21:01 Ur Specific [place] 1.020 (1.000-1.030) 06/24/20 21:01 Urine Protein 2+ (NEGATIVE) 06/24/20 21:01 Urine Glucose (UA) 4+ (NEGATIVE) 06/24/20 21:01 Urine Ketones 1+ (NEGATIVE) 06/24/20 21:01 Urine Occult Blood 5+ (NEGATIVE) 06/24/20 21:01 Urine Nitrite Negative (NEGATIVE) 06/24/20 21:01 Urine Bilirubin Negative (NEGATIVE) 06/24/20 21:01 Urine Urobilinogen 2+ (NORMAL) 06/24/20 21:01 Ur Leukocyte Esterase 3+ (NEGATIVE) 06/24/20 21:01 Urine RBC Tntc /HPF (0-3) A 06/24/20 21:01 Urine WBC 20-30 /HPF (0-5) A 06/24/20 21:01 Ur Squamous Epith Cells Rare /HPF (NEGATIVE) 06/24/20 21:01 Urine Bacteria Trace /HPF (NEGATIVE) 06/24/20 21:01 Urine Yeast Numerous /HPF (NEGATIVE) 06/24/20 21:01 Ur Culture Indicated? Yes/culture set up 06/24/20 21:01 SARS CoV-2 RNA Rapid KIRA Positive (NEGATIVE) A 05/15/20 13:15 Miscellaneous Test Covid 19 06/10/20 06:36 Blood Type O POSITIVE 05/16/20 09:08 - Plan (1) Pneumonia due to COVID-19 virus Status: Acute Plan: COVID-19 pneumonia with hypoxia. We will continue antibiotic therapy, corticosteroids, PT, OT, and RT, aggressive respiratory weaning, wound care, strict i&os blood sugar control
[2020-07-03] MEDS: REQUIP PO SCH (21:54)
[2020-07-03] MEDS: SNACK - Diabetic Appropriate PO SCH (23:25)
[2020-07-03] MEDS: ZANAFLEX PO SCH (23:29)
[2020-07-04] MEDS: XOPENEX 1.25 MG/3 ML NEBULE NEB SCH ×4 (00:04→17:23)
[2020-07-04] MEDS: MUCOMYST (RESPIRATORY USE ONLY) NEB SCH ×4 (00:04→17:23)
[2020-07-04] MEDS: TobraDEX OPHTH SUSP AFFEYE SCH ×4 (04:47→20:37)
[2020-07-04] MEDS: NS 1/2 1000 ML IV 1,000 ML IV SCH ×3 (04:47→22:50)
[2020-07-04 05:25] LABS: ABG BASE EXCESS 16.9 mmol/L (-2.0-2.0)
[2020-07-04 05:26] LABS: ABG ALLEN TEST POS; ABG HCO3 43.2 mmol/L (22-26)
[2020-07-04] MEDS: HumuLIN R SUBCUT PRN ×4 (05:59→20:40)
[2020-07-04] MEDS ORDERED: NS 1/2 1000 ML IV 1,000 ML IV ONE (06:14)
[2020-07-04 07:34] LABS: BASOPHILS % (AUTO) 0.5 % (0.2-1.0); HEMATOCRIT 29.4 % (36.0-47.0); HEMOGLOBIN 10.1 g/dL (12.0-16.0); LYMPHOCYTES # (AUTO) 0.9 X10^3/uL (1.3-2.9); LYMPHOCYTES % (AUTO) 13.8 % (21.0-51.0); MEAN CORPUSCULAR HEMOGLOBIN 33.2 pg (27.0-34.0); MEAN CORPUSCULAR HGB CONC 34.2 g/dL (33.0-35.0); MEAN CORPUSCULAR VOLUME 97.1 fL (80.0-100.0); MONOCYTES # (AUTO) 0.3 x10^3/uL (0.3-0.8); MONOCYTES % (AUTO) 4.9 % (0.0-13.0); NEUTROPHILS # (AUTO) 5.1 x10^3/uL (2.2-4.8); NEUTROPHILS % (AUTO) 80.8 % (42.0-75.0); PLATELET COUNT 74 X10^3/uL (150.0-450.0); RED BLOOD COUNT 3.03 X10^6/uL (3.5-5.4); RED CELL DISTRIBUTION WIDTH 21.5 % (11.6-16.5); WHITE BLOOD COUNT 6.3 X10^3/uL (3.6-10.0)
[2020-07-04 07:56] LABS: ALANINE AMINOTRANSFERASE 93 Units/L (12-78); ALBUMIN 2.7 g/dL (3.4-5.0); ALKALINE PHOSPHATASE 120 Units/L (46-116); ASPARTATE AMINO TRANSFERASE 45 Units/L (15-37); BLOOD UREA NITROGEN 20 mg/dL (7-18); CALCIUM 8.4 mg/dL (8.5-10.1); CARBON DIOXIDE 36.3 mmol/L (21-32); CHLORIDE 99 mmol/L (98-107); COR CA(FOR HYPOALB) 9.4 mg/dL (8.5-10.1); COR NA(FOR HYPERGLY) 145 mmol/L (136-145); CREATININE 0.42 mg/dL (0.55-1.02); MAGNESIUM 1.9 mg/dL (1.7-2.9); SODIUM 140 mmol/L (136-145); TOTAL PROTEIN 5.3 g/dL (6.4-8.2); eGFR NON BLACK RACES > 60 (>60)
[2020-07-04 08:26] LABS: ANISOCYTOSIS 1+; BAND NEUTROPHILS % 6 % (0-10); METAMYELOCYTES % 2; PLATELET MORPHOLOGY COMMENT NORMAL (NORMAL)
[2020-07-04] MEDS: PULMICORT NEB TX 0.5 MG NEB SCH ×2 (08:41→21:51)
[2020-07-04] MEDS: ELIQUIS PO SCH ×2 (08:52→20:30)
[2020-07-04] MEDS: LEVAQUIN PREMIX IV 500 MG 500 MG/100 ML BAG IV SCH (08:53)
[2020-07-04] MEDS: LEVEMIR SC SCH (08:55)
[2020-07-04] MEDS: LASIX IVP SCH (08:55)
[2020-07-04] MEDS: LEVSIN/MAALOX/LIDOC VISC PO SCH ×4 (08:56→22:51)
[2020-07-04] MEDS: NEURONTIN CAP 400 MG PO SCH ×2 (08:57→20:30)
[2020-07-04] MEDS: LIPITOR TAB 40 MG PO SCH (08:57)
[2020-07-04] MEDS: NORVASC TAB 5 MG PO SCH (08:57)
[2020-07-04] MEDS: PAXIL PO SCH (08:58)
[2020-07-04] MEDS: NYSTATIN POWDER TOP SCH ×2 (08:58→22:51)
[2020-07-04] MEDS: PROTONIX INJ 40 MG VIAL IVP SCH ×2 (08:59→20:33)
[2020-07-04] MEDS: ROBITUSSIN DM PO SCH ×5 (09:00→22:53)
[2020-07-04] MEDS ORDERED: LEVEMIR SC SCH (09:00)
[2020-07-04] MEDS: SOLU-Medrol 40 MG VIAL IVP SCH ×2 (09:02→20:50)
[2020-07-04] MEDS: VITAMIN D3 125 mcg (5,000 UNITS) PO SCH (09:02)
[2020-07-04] MEDS: ZINC SULFATE PO SCH ×2 (09:02→20:30)
[2020-07-04] MEDS: ZyrTEC TAB 10 MG PO SCH (09:03)
[2020-07-04] MEDS: NORCO 5/325 MG TAB PO PRN ×2 (09:50→20:45)
[2020-07-04] MEDS: ATIVAN TAB 0.5 MG PO PRN ×2 (09:52→20:45)
[2020-07-04] MEDS: VITAMIN A PO SCH (10:48)
[2020-07-04] MEDS: PEPCID TAB 20 MG PO SCH ×2 (10:48→20:30)
[2020-07-04] MEDS: ZOFRAN INJ 4 MG VIAL IVP PRN (10:51)
[2020-07-04] MEDS: REQUIP PO SCH (20:30)
[2020-07-04] MEDS: MAGNESIUM SULFATE 1 GRAM/100 mL PREMIX 1 GM/100 ML BAG IV PRN ×2 (20:55→22:02)
[2020-07-04] MEDS: SNACK - Diabetic Appropriate PO SCH (22:50)
[2020-07-04] MEDS: ZANAFLEX PO SCH (22:54)
[2020-07-05] MEDS: XOPENEX 1.25 MG/3 ML NEBULE NEB SCH ×4 (00:47→17:20)
[2020-07-05] MEDS: MUCOMYST (RESPIRATORY USE ONLY) NEB SCH ×4 (00:47→17:20)
[2020-07-05] MEDS: TobraDEX OPHTH SUSP AFFEYE SCH ×4 (02:38→20:48)
[2020-07-05] MEDS: HumuLIN R SUBCUT PRN ×4 (05:58→21:08)
--- NOTE | 2020-07-05 06:08 | RAD ---
HISTORYcovid pneumoniaSTUDYPortable AP chestCOMPARISONFebruary 2020FINDINGSThere is probably no change in appearance of the chest although evaluation is significantly limited by technical underpenetration and marked patient rotation. Heart size remains enlarged with diffuse bilateral airspace disease.IMPRESSIONNo definite change, see above description.Electronically signed by: SHAUN MUNROE (Jul 05, 2020 06:07:03)
[2020-07-05] MEDS: ATIVAN TAB 0.5 MG PO PRN ×2 (07:14→20:51)
[2020-07-05] MEDS: NORCO 5/325 MG TAB PO PRN ×2 (07:15→20:50)
[2020-07-05] MEDS: PULMICORT NEB TX 0.5 MG NEB SCH ×2 (08:50→21:46)
[2020-07-05] MEDS: LEVAQUIN PREMIX IV 500 MG 500 MG/100 ML BAG IV SCH (09:55)
[2020-07-05] MEDS: ELIQUIS PO SCH ×2 (09:55→20:47)
[2020-07-05] MEDS: LASIX IVP SCH (09:55)
[2020-07-05] MEDS: LEVEMIR SC SCH (09:56)
[2020-07-05] MEDS: LEVSIN/MAALOX/LIDOC VISC PO SCH ×6 (09:57→22:00)
[2020-07-05] MEDS: LIPITOR TAB 40 MG PO SCH (09:58)
[2020-07-05] MEDS: NYSTATIN POWDER TOP SCH ×2 (09:59→20:49)
[2020-07-05] MEDS: NORVASC TAB 5 MG PO SCH (09:59)
[2020-07-05] MEDS: NEURONTIN CAP 400 MG PO SCH ×2 (09:59→20:49)
[2020-07-05] MEDS: SOLU-Medrol 40 MG VIAL IVP SCH ×2 (10:00→20:46)
[2020-07-05] MEDS: PAXIL PO SCH (10:00)
[2020-07-05] MEDS: PEPCID TAB 20 MG PO SCH ×2 (10:00→20:49)
[2020-07-05] MEDS: PROTONIX INJ 40 MG VIAL IVP SCH ×2 (10:00→20:49)
[2020-07-05] MEDS: ROBITUSSIN DM PO SCH ×4 (10:00→20:48)
[2020-07-05] MEDS: VITAMIN D3 125 mcg (5,000 UNITS) PO SCH (10:01)
[2020-07-05] MEDS: VITAMIN A PO SCH (10:01)
[2020-07-05] MEDS: ZINC SULFATE PO SCH ×2 (10:01→20:48)
[2020-07-05] MEDS: ZyrTEC TAB 10 MG PO SCH (10:02)
[2020-07-05 11:01] LABS: ALANINE AMINOTRANSFERASE 108 Units/L (12-78); ALKALINE PHOSPHATASE 128 Units/L (46-116); ASPARTATE AMINO TRANSFERASE 55 Units/L (15-37); BLOOD UREA NITROGEN 21 mg/dL (7-18); CALCIUM 8.7 mg/dL (8.5-10.1); CARBON DIOXIDE 35.2 mmol/L (21-32); CHLORIDE 99 mmol/L (98-107); COR CA(FOR HYPOALB) 9.5 mg/dL (8.5-10.1); COR NA(FOR HYPERGLY) 141 mmol/L (136-145); CREATININE 0.58 mg/dL (0.55-1.02); SODIUM 139 mmol/L (136-145); TOTAL PROTEIN 5.9 g/dL (6.4-8.2); eGFR NON BLACK RACES > 60 (>60)
[2020-07-05 11:07] LABS: BASOPHILS % (AUTO) 0.3 % (0.2-1.0); EOSINOPHILS % (AUTO) 0.1 % (0.9-2.9); HEMATOCRIT 34.8 % (36.0-47.0); HEMOGLOBIN 11.8 g/dL (12.0-16.0); LYMPHOCYTES # (AUTO) 1.6 X10^3/uL (1.3-2.9); LYMPHOCYTES % (AUTO) 13.6 % (21.0-51.0); MEAN CORPUSCULAR HGB CONC 33.9 g/dL (33.0-35.0); MEAN CORPUSCULAR VOLUME 97.4 fL (80.0-100.0); MEAN PLATELET VOLUME 8.2 fL (7.4-11.0); MONOCYTES # (AUTO) 0.5 x10^3/uL (0.3-0.8); MONOCYTES % (AUTO) 4.1 % (0.0-13.0); NEUTROPHILS # (AUTO) 9.9 x10^3/uL (2.2-4.8); NEUTROPHILS % (AUTO) 81.9 % (42.0-75.0); PLATELET COUNT 107 X10^3/uL (150.0-450.0); RED BLOOD COUNT 3.57 X10^6/uL (3.5-5.4)
[2020-07-05 11:40] LABS: BAND NEUTROPHILS % 3 % (0-10)
[2020-07-05 11:41] LABS: ANISOCYTOSIS 2+; PLATELET MORPHOLOGY COMMENT NORMAL (NORMAL)
[2020-07-05] MEDS: K-DUR TAB 20 MEQ PO PRN (13:08)
[2020-07-05] MEDS: SNACK - Diabetic Appropriate PO SCH (20:46)
[2020-07-05] MEDS: ZANAFLEX PO SCH (20:48)
[2020-07-05] MEDS: REQUIP PO SCH (20:49)
[2020-07-06] MEDS: MUCOMYST (RESPIRATORY USE ONLY) NEB SCH ×4 (01:16→18:00)
[2020-07-06] MEDS: XOPENEX 1.25 MG/3 ML NEBULE NEB SCH ×4 (01:19→18:00)
[2020-07-06] MEDS: TobraDEX OPHTH SUSP AFFEYE SCH ×4 (04:19→21:46)
[2020-07-06] MEDS: HumuLIN R SUBCUT PRN ×3 (06:13→22:43)
[2020-07-06 06:57] LABS: BASOPHILS % (AUTO) 0.4 % (0.2-1.0); LYMPHOCYTES # (AUTO) 0.6 X10^3/uL (1.3-2.9); LYMPHOCYTES % (AUTO) 12.8 % (21.0-51.0); MEAN CORPUSCULAR HEMOGLOBIN 33.9 pg (27.0-34.0); MEAN CORPUSCULAR HGB CONC 34.6 g/dL (33.0-35.0); MEAN CORPUSCULAR VOLUME 98.2 fL (80.0-100.0); MEAN PLATELET VOLUME 7.7 fL (7.4-11.0); MONOCYTES # (AUTO) 0.2 x10^3/uL (0.3-0.8); NEUTROPHILS # (AUTO) 4.2 x10^3/uL (2.2-4.8); NEUTROPHILS % (AUTO) 82.8 % (42.0-75.0); PLATELET COUNT 62 X10^3/uL (150.0-450.0); RED BLOOD COUNT 2.96 X10^6/uL (3.5-5.4); RED CELL DISTRIBUTION WIDTH 22.5 % (11.6-16.5)
[2020-07-06 07:14] LABS: ALANINE AMINOTRANSFERASE 101 Units/L (12-78); ALBUMIN 2.7 g/dL (3.4-5.0); ALKALINE PHOSPHATASE 116 Units/L (46-116); ASPARTATE AMINO TRANSFERASE 47 Units/L (15-37); BLOOD UREA NITROGEN 24 mg/dL (7-18); CALCIUM 8.3 mg/dL (8.5-10.1); CARBON DIOXIDE 34.6 mmol/L (21-32); CHLORIDE 100 mmol/L (98-107); COR CA(FOR HYPOALB) 9.3 mg/dL (8.5-10.1); COR NA(FOR HYPERGLY) 144 mmol/L (136-145); SODIUM 139 mmol/L (136-145); TOTAL PROTEIN 5.2 g/dL (6.4-8.2); eGFR NON BLACK RACES > 60 (>60)
[2020-07-06 08:24] LABS: BAND NEUTROPHILS % 7 % (0-10); METAMYELOCYTES % 2
[2020-07-06 08:25] LABS: ANISOCYTOSIS 2+; PLATELET MORPHOLOGY COMMENT NORMAL (NORMAL); SPHEROCYTES PRESENT
[2020-07-06] MEDS: PULMICORT NEB TX 0.5 MG NEB SCH ×2 (08:40→21:27)
[2020-07-06 08:53] LABS: ABG BASE EXCESS 16.4 mmol/L (-2.0-2.0)
[2020-07-06 08:54] LABS: ABG ALLEN TEST POS; ABG HCO3 42.1 mmol/L (22-26)
[2020-07-06] MEDS: ELIQUIS PO SCH ×2 (09:02→21:46)
[2020-07-06] MEDS: VITAMIN D3 125 mcg (5,000 UNITS) PO SCH (09:03)
[2020-07-06] MEDS: ZyrTEC TAB 10 MG PO SCH (09:03)
[2020-07-06] MEDS: VITAMIN A PO SCH (09:04)
[2020-07-06] MEDS: LASIX IVP SCH (09:04)
[2020-07-06] MEDS: ROBITUSSIN DM PO SCH ×4 (09:05→21:47)
[2020-07-06] MEDS: SOLU-Medrol 40 MG VIAL IVP SCH ×2 (09:05→21:45)
[2020-07-06] MEDS: PEPCID TAB 20 MG PO SCH ×2 (09:06→21:47)
[2020-07-06] MEDS: PROTONIX INJ 40 MG VIAL IVP SCH ×2 (09:06→21:47)
[2020-07-06] MEDS: PAXIL PO SCH (09:06)
[2020-07-06] MEDS: NYSTATIN POWDER TOP SCH ×2 (09:07→21:48)
[2020-07-06] MEDS: NEURONTIN CAP 400 MG PO SCH ×2 (09:07→21:48)
[2020-07-06] MEDS: NORVASC TAB 5 MG PO SCH (09:07)
[2020-07-06] MEDS: LEVSIN/MAALOX/LIDOC VISC PO SCH ×4 (09:08→22:14)
[2020-07-06] MEDS: LIPITOR TAB 40 MG PO SCH (09:08)
[2020-07-06] MEDS: LEVEMIR SC SCH (09:09)
[2020-07-06] MEDS: ZINC SULFATE PO SCH ×2 (09:24→21:46)
[2020-07-06] MEDS: LEVAQUIN PREMIX IV 500 MG 500 MG/100 ML BAG IV SCH (09:25)
[2020-07-06] MEDS ORDERED: NS 1/2 1000 ML IV 1,000 ML IV ONE (14:16)
[2020-07-06] MEDS: NS 1/2 1000 ML IV 1,000 ML IV SCH (14:27)
[2020-07-06] MEDS: SNACK - Diabetic Appropriate PO SCH (21:45)
[2020-07-06] MEDS: ZANAFLEX PO SCH (21:46)
[2020-07-06] MEDS: REQUIP PO SCH (21:47)
[2020-07-06] MEDS: NORCO 5/325 MG TAB PO PRN (21:48)
[2020-07-06] MEDS: ATIVAN TAB 0.5 MG PO PRN (21:50)
[2020-07-06] MEDS ORDERED: ATIVAN TAB 0.5 MG ONE (21:53)
[2020-07-07] MEDS: XOPENEX 1.25 MG/3 ML NEBULE NEB SCH ×4 (00:03→17:45)
[2020-07-07] MEDS: MUCOMYST (RESPIRATORY USE ONLY) NEB SCH ×4 (00:03→17:45)
[2020-07-07] MEDS: NYSTATIN SUSP PO PRN ×2 (00:24→20:05)
[2020-07-07] MEDS: TobraDEX OPHTH SUSP AFFEYE SCH ×4 (02:07→20:06)
[2020-07-07] MEDS: HumuLIN R SUBCUT PRN ×3 (05:58→21:04)
[2020-07-07 06:36] LABS: BASOPHILS % (AUTO) 0.5 % (0.2-1.0); HEMATOCRIT 30.4 % (36.0-47.0); HEMOGLOBIN 10.4 g/dL (12.0-16.0); LYMPHOCYTES # (AUTO) 0.8 X10^3/uL (1.3-2.9); LYMPHOCYTES % (AUTO) 14.5 % (21.0-51.0); MEAN CORPUSCULAR HEMOGLOBIN 33.4 pg (27.0-34.0); MEAN CORPUSCULAR HGB CONC 34.1 g/dL (33.0-35.0); MEAN CORPUSCULAR VOLUME 97.9 fL (80.0-100.0); MEAN PLATELET VOLUME 7.7 fL (7.4-11.0); MONOCYTES # (AUTO) 0.1 x10^3/uL (0.3-0.8); MONOCYTES % (AUTO) 2.5 % (0.0-13.0); NEUTROPHILS # (AUTO) 4.7 x10^3/uL (2.2-4.8); NEUTROPHILS % (AUTO) 82.5 % (42.0-75.0); PLATELET COUNT 62 X10^3/uL (150.0-450.0); RED BLOOD COUNT 3.11 X10^6/uL (3.5-5.4); RED CELL DISTRIBUTION WIDTH 22.5 % (11.6-16.5); WHITE BLOOD COUNT 5.7 X10^3/uL (3.6-10.0)
[2020-07-07 06:48] LABS: ALANINE AMINOTRANSFERASE 104 Units/L (12-78); ALBUMIN 2.8 g/dL (3.4-5.0); ALKALINE PHOSPHATASE 118 Units/L (46-116); ASPARTATE AMINO TRANSFERASE 52 Units/L (15-37); BLOOD UREA NITROGEN 27 mg/dL (7-18); CALCIUM 8.7 mg/dL (8.5-10.1); CHLORIDE 99 mmol/L (98-107); COR CA(FOR HYPOALB) 9.7 mg/dL (8.5-10.1); COR NA(FOR HYPERGLY) 144 mmol/L (136-145); CREATININE 0.56 mg/dL (0.55-1.02); SODIUM 139 mmol/L (136-145); TOTAL PROTEIN 5.5 g/dL (6.4-8.2); eGFR NON BLACK RACES > 60 (>60)
[2020-07-07 07:45] LABS: BAND NEUTROPHILS % 10 % (0-10); METAMYELOCYTES % 5; PLATELET MORPHOLOGY COMMENT NORMAL (NORMAL)
[2020-07-07 07:46] LABS: ANISOCYTOSIS 2+
[2020-07-07] MEDS: PULMICORT NEB TX 0.5 MG NEB SCH ×2 (08:55→20:50)
[2020-07-07] MEDS: ELIQUIS PO SCH ×2 (09:42→20:00)
[2020-07-07] MEDS: ZINC SULFATE PO SCH ×2 (09:43→20:00)
[2020-07-07] MEDS: ZyrTEC TAB 10 MG PO SCH (09:43)
[2020-07-07] MEDS: SOLU-Medrol 40 MG VIAL IVP SCH ×2 (09:44→20:03)
[2020-07-07] MEDS: VITAMIN D3 125 mcg (5,000 UNITS) PO SCH (09:44)
[2020-07-07] MEDS: VITAMIN A PO SCH (09:44)
[2020-07-07] MEDS: NYSTATIN POWDER TOP SCH ×2 (09:45→21:59)
[2020-07-07] MEDS: PEPCID TAB 20 MG PO SCH ×2 (09:45→20:00)
[2020-07-07] MEDS: PAXIL PO SCH (09:45)
[2020-07-07] MEDS: PROTONIX INJ 40 MG VIAL IVP SCH ×2 (09:45→20:02)
[2020-07-07] MEDS: ROBITUSSIN DM PO SCH ×4 (09:45→20:04)
[2020-07-07] MEDS: LIPITOR TAB 40 MG PO SCH (09:46)
[2020-07-07] MEDS: NEURONTIN CAP 400 MG PO SCH ×2 (09:46→20:00)
[2020-07-07] MEDS: LEVSIN/MAALOX/LIDOC VISC PO SCH ×4 (09:46→21:59)
[2020-07-07] MEDS: NORVASC TAB 5 MG PO SCH (09:46)
[2020-07-07] MEDS: LEVEMIR SC SCH (09:47)
[2020-07-07] MEDS: LASIX IVP SCH (09:48)
[2020-07-07] MEDS: LEVAQUIN PREMIX IV 500 MG 500 MG/100 ML BAG IV SCH (09:48)
[2020-07-07] MEDS: ATIVAN TAB 0.5 MG PO PRN (10:31)
[2020-07-07] MEDS: NORCO 5/325 MG TAB PO PRN ×2 (10:32→20:00)
[2020-07-07] MEDS ORDERED: DIFLUCAN PO ONE (17:57)
[2020-07-07] MEDS: NS 1/2 1000 ML IV 1,000 ML IV SCH ×2 (19:13→22:55)
[2020-07-07] MEDS: REQUIP PO SCH (20:00)
[2020-07-07] MEDS: SNACK - Diabetic Appropriate PO SCH (20:00)
[2020-07-07] MEDS: KLONOPIN TAB 0.5 MG PO PRN (20:00)
[2020-07-07] MEDS: ZANAFLEX PO SCH (22:01)
[2020-07-08] MEDS: MUCOMYST (RESPIRATORY USE ONLY) NEB SCH ×4 (00:05→17:21)
[2020-07-08] MEDS: XOPENEX 1.25 MG/3 ML NEBULE NEB SCH ×4 (00:05→17:21)
[2020-07-08] MEDS: TobraDEX OPHTH SUSP AFFEYE SCH ×4 (03:20→20:25)
[2020-07-08] MEDS ORDERED: NS 1/2 1000 ML IV 1,000 ML IV ONE (05:37)
[2020-07-08] MEDS: HumuLIN R SUBCUT PRN ×4 (05:51→20:13)
[2020-07-08] MEDS: NS 1/2 1000 ML IV 1,000 ML IV SCH ×2 (05:52→21:22)
[2020-07-08 06:18] LABS: BASOPHILS % (AUTO) 0.6 % (0.2-1.0); EOSINOPHILS % (AUTO) 0.1 % (0.9-2.9); HEMATOCRIT 28.4 % (36.0-47.0); HEMOGLOBIN 9.8 g/dL (12.0-16.0); LYMPHOCYTES # (AUTO) 0.5 X10^3/uL (1.3-2.9); LYMPHOCYTES % (AUTO) 12.4 % (21.0-51.0); MEAN CORPUSCULAR HEMOGLOBIN 33.8 pg (27.0-34.0); MEAN CORPUSCULAR HGB CONC 34.4 g/dL (33.0-35.0); MEAN CORPUSCULAR VOLUME 98.5 fL (80.0-100.0); MONOCYTES # (AUTO) 0.1 x10^3/uL (0.3-0.8); MONOCYTES % (AUTO) 2.9 % (0.0-13.0); NEUTROPHILS # (AUTO) 3.7 x10^3/uL (2.2-4.8); PLATELET COUNT 55 X10^3/uL (150.0-450.0); RED BLOOD COUNT 2.89 X10^6/uL (3.5-5.4); RED CELL DISTRIBUTION WIDTH 22.4 % (11.6-16.5); WHITE BLOOD COUNT 4.4 X10^3/uL (3.6-10.0)
[2020-07-08 06:22] LABS: ALANINE AMINOTRANSFERASE 99 Units/L (12-78); ALBUMIN 2.7 g/dL (3.4-5.0); ALKALINE PHOSPHATASE 104 Units/L (46-116); ASPARTATE AMINO TRANSFERASE 51 Units/L (15-37); BLOOD UREA NITROGEN 25 mg/dL (7-18); CALCIUM 8.7 mg/dL (8.5-10.1); CARBON DIOXIDE 35.7 mmol/L (21-32); CHLORIDE 98 mmol/L (98-107); COR CA(FOR HYPOALB) 9.7 mg/dL (8.5-10.1); COR NA(FOR HYPERGLY) 143 mmol/L (136-145); CREATININE 0.47 mg/dL (0.55-1.02); SODIUM 138 mmol/L (136-145); TOTAL PROTEIN 5.2 g/dL (6.4-8.2); eGFR NON BLACK RACES > 60 (>60)
[2020-07-08 06:54] LABS: PLATELET MORPHOLOGY COMMENT NORMAL (NORMAL)
[2020-07-08 06:55] LABS: ANISOCYTOSIS 1+
[2020-07-08] MEDS: PULMICORT NEB TX 0.5 MG NEB SCH ×2 (09:10→20:23)
[2020-07-08] MEDS: K-DUR TAB 20 MEQ PO PRN ×2 (09:30→10:09)
[2020-07-08] MEDS: VITAMIN A PO SCH (09:30)
[2020-07-08] MEDS: LASIX IVP SCH (10:00)
[2020-07-08] MEDS: ELIQUIS PO SCH ×2 (10:00→20:08)
[2020-07-08] MEDS: ZINC SULFATE PO SCH ×2 (10:01→20:08)
[2020-07-08] MEDS: ZyrTEC TAB 10 MG PO SCH (10:01)
[2020-07-08] MEDS: VITAMIN D3 125 mcg (5,000 UNITS) PO SCH (10:02)
[2020-07-08] MEDS: ROBITUSSIN DM PO SCH ×4 (10:03→20:09)
[2020-07-08] MEDS: SOLU-Medrol 40 MG VIAL IVP SCH ×2 (10:03→20:11)
[2020-07-08] MEDS: PEPCID TAB 20 MG PO SCH ×2 (10:04→20:08)
[2020-07-08] MEDS: PROTONIX INJ 40 MG VIAL IVP SCH ×2 (10:04→20:12)
[2020-07-08] MEDS: PAXIL PO SCH (10:05)
[2020-07-08] MEDS: NYSTATIN POWDER TOP SCH ×2 (10:05→21:23)
[2020-07-08] MEDS: LIPITOR TAB 40 MG PO SCH (10:06)
[2020-07-08] MEDS: NEURONTIN CAP 400 MG PO SCH ×2 (10:06→20:09)
[2020-07-08] MEDS: NORVASC TAB 5 MG PO SCH (10:06)
[2020-07-08] MEDS: LEVSIN/MAALOX/LIDOC VISC PO SCH ×4 (10:07→21:22)
[2020-07-08] MEDS: LEVEMIR SC SCH (10:08)
[2020-07-08] MEDS: KLONOPIN TAB 0.5 MG PO PRN ×2 (10:10→20:09)
[2020-07-08] MEDS: NORCO 5/325 MG TAB PO PRN ×2 (10:10→20:08)
--- NOTE | 2020-07-08 10:43 | RAD ---
HISTORYPNEUMONIASTUDYCHEST, 1 [id number]/06/2021FINDINGSThe trachea is midline. There is a right IJ catheter with the tip in the SVC, no pneumothorax. There is elevation of the diaphragms left more than right. There is persistent patchy alveolar radiopacities involving the lung bases left more than right with some ground-glass radiopacities in the midlung zones.IMPRESSIONStable patchy reticular alveolar infiltrates at the bases with some ground-glass radiopacities. No significant interval worseningElectronically signed by: Ekaterina Zazueta (Jul 08, 2020 10:41:01)
[2020-07-08 11:08] LABS: BILIRUBIN,URINE 1+ (NEGATIVE); BLOOD/HEMOGLOBIN,URINE 5+ (NEGATIVE); GLUCOSE, URINE 4+ (NEGATIVE); KETONES,URINE NEGATIVE (NEGATIVE); LEUKOCYTE ESTERASE ,URINE 3+ (NEGATIVE); NITRITES,URINE POSITIVE (NEGATIVE); PH,URINE 6.5 (5.0 - 8.0); PROTEIN,URINE 3+ (NEGATIVE); UROBILINOGEN,URINE 3+ (NORMAL)
[2020-07-08 11:21] LABS: APPEARANCE,URINE CLOUDY (CLEAR); COLOR,URINE AMBER (YELLOW); RBC,URINE TNTC /HPF (0-3); SQUAMOUS EPITHELIAL CELL,UR RARE /HPF (NEGATIVE)
[2020-07-08 11:22] LABS: BACTERIA,URINE 3+ /HPF (NEGATIVE)
[2020-07-08 11:23] LABS: CALCIUM OXALATE CRYSTALS,UR FEW /HPF (NEGATIVE)
[2020-07-08 11:24] LABS: YEAST,URINE MODERATE /HPF (NEGATIVE)
[2020-07-08 11:34] LABS: TROPONIN I 0.13 ng/mL (0-1.5)
[2020-07-08] MEDS: DIFLUCAN PO SCH (11:57)
[2020-07-08 16:12] LABS: CKMB % 12.1 % (<4); TROPONIN I 0.12 ng/mL (0-1.5)
[2020-07-08 16:14] LABS: CREATINE KINASE MB 5.3 ng/mL (0-4.0)
[2020-07-08] MEDS: ROCEPHIN 1 GRAM IV PREMIX 1 G/50 ML IV.SOLN. IV SCH (17:00)
--- NOTE | 2020-07-08 18:46 | PCM.PROG ---
Progress Note - Progress Note for Day of Date of Exam: 07/08/20 - Subjective Subjective: Patient remains in critical condition.Mrs. Estes is a 54-year-old white female suffering from complications following COVID-19 pneumonia including hypoxia. We are working with Respiratory and Physical Therapy to aggressively wean the patient off of her supplemental oxygen. She is still requiring BiPAP at night. This morning, the patient was on heated high flow and had been working with physical therapy. She was still noted to be hypoxic this morning with her oxygen saturations in the low 80s. She was tachycardic with a heart rate of 115. The patient has been working well with physical therapy, LTAC referrals in place. Due to the patients high oxygen demands she is not current ly been accepted. The patient does have improved periorbital edema, minimal at this point. She has almost completely clear right lung sounds on exam. The left does seem to be much better this week. I would say diminished mid to lower lung. Heart rate has been intermittently tachycardia with a rate around 95-100. We will increase the patients basal insulin due to her continued hyperglycemia. Pt denies any increased SOB. - Past Medical Family Social History Past Med/Fam/Surg Hx: No changes since H&P Allergies: Allergies No Known Drug Allergies Allergy (Verified 04/17/18 05:13) - Review of Systems ROS: No change since H&P - Vital Signs and I&O's Vital Signs: Temperature 98 F Pulse Rate [Left] 116 Pulse Rate 109 Respiratory Rate 24 Blood Pressure [Right Calf] 145/86 Blood Pressure [Left Arm] 135/78 Blood Pressure [Left Calf] 131/78 Blood Pressure [Right Arm] 126/80 Blood Pressure 127/78 O2 Sat by Pulse Oximetry 83 Intake and Output: Intake & Output 07/06/20 07/07/20 07/08/20 07/09/20 11:59 11:59 11:59 11:59 Intake Total 1520 / 1520 800 / 800 1532 / 1532 420 / 420 Output Total 1100 / 1100 1200 / 1200 1525 / 1525 1000 / 1000 Balance 420 / 420 -400 / -400 7 / -580 / -580 - Physical Exam Oriented: Normal Eyes: Normal Ear: Normal Nose: Normal Throat: Normal Respiratory: Generalized, Diminished Cardiovascular: Normal : Normal Auscultation: Bowel Sounds: Normal Tenderness: Normal Skin: Decreased Turgur, Wound (stage 1 left lateral hip, stage 2 left lateral lower abdomen, and left lower lateral back/flank), Bruising Musculoskeletal: Right, Left, Knee, Back:Lumbar, Motor Deficit, Instability Psychiatric: Anxiety Mood Description: Depressed, Anxious Affect: Anxious, Depressed Speech Pattern: Clear, Appropriate - Laboratory and Diagnostics Result Diagrams: 07/08/20 05:27 07/08/20 05:27 Labs: 06/24/20 21:01 Urine,Catheterized Urine Culture - Final 06/06/20 15:30 Urine,Clean Catch Urine Culture - Final 05/15/20 12:35 Blood Blood Culture - Final 05/15/20 12:25 Blood Blood Culture - Final Laboratory WBC 4.4 X10^3/uL (3.6-10.0) 07/08/20 05:27 RBC 2.89 X10^6/uL (3.5-5.4) L 07/08/20 05:27 Hgb 9.8 g/dL (12.0-16.0) L 07/08/20 05:27 Hct 28.4 % (36.0-47.0) L 07/08/20 05:27 MCV 98.5 fL (80.0-100.0) 07/08/20 05:27 MCH 33.8 pg (27.0-34.0) 07/08/20 05:27 MCHC 34.4 g/dL (33.0-35.0) 07/08/20 05:27 RDW 22.4 % (11.6-16.5) H 07/08/20 05:27 Plt Count 55 X10^3/uL (150.0-450.0) L 07/08/20 05:27 Plt Count Comment Decreased (ADEQUATE) A 07/08/20 05:27 MPV 8.0 fL (7.4-11.0) 07/08/20 05:27 Neut % (Auto) 84.0 % (42.0-75.0) H 07/08/20 05:27 Lymph % (Auto) 12.4 % (21.0-51.0) L 07/08/20 05:27 Harper % (Auto) 2.9 % (0.0-13.0) 07/08/20 05:27 Eos % (Auto) 0.1 % (0.9-2.9) L 07/08/20 05:27 Baso % (Auto) 0.6 % (0.2-1.0) 07/08/20 05:27 Neut # (Auto) 3.7 x10^3/uL (2.2-4.8) 07/08/20 05:27 Lymph # (Auto) 0.5 X10^3/uL (1.3-2.9) L 07/08/20 05:27 Harper # (Auto) 0.1 x10^3/uL (0.3-0.8) L 07/08/20 05:27 Eos # (Auto) 0.0 x10^3/uL (0.0-0.2) 07/08/20 05:27 Baso # (Auto) 0.0 X10^3/uL (0.0-0.1) 07/08/20 05:27 Absolute Nucleated RBC 1.2 /100WBC 07/08/20 05:27 Total Counted 100 07/07/20 05:45 Neutrophils % (Manual) 72 % (39-76) 07/07/20 05:45 Band Neutrophils % 10 % (0-10) 07/07/20 05:45 Lymphocytes % (Manual) 10 % (13-43) L 07/07/20 05:45 Monocytes % (Manual) 3 % (4-9) L 07/07/20 05:45 Metamyelocytes % 5 07/07/20 05:45 Myelocytes % 1 06/05/20 15:33 Nucleated RBCs 1 07/06/20 05:23 Plt Clumps, EDTA Rare 06/20/20 06:05 Plt Morphology Comment Normal (NORMAL) 07/08/20 05:27 RBC Morphology Abnormal (NORMAL) A 07/08/20 05:27 Anisocytosis 1+ A 07/08/20 05:27 Spherocytes Present 07/06/20 05:23 D-Dimer 0.35 ug/ml (0.0-0.57) 06/24/20 05:45 Sample Site Rra 07/06/20 08:49 ABG pH 7.500 (7.35-7.45) H 07/06/20 08:49 ABG pCO2 54.0 mmHg (35.0-45.0) H* 07/06/20 08:49 ABG pO2 61.0 mmHg (80.0-100.0) L 07/06/20 08:49 ABG HCO3 42.1 mmol/L (22-26) H* 07/06/20 08:49 ABG O2 Saturation 93.0 % (90-100) 07/06/20 08:49 ABG Base Excess 16.4 mmol/L (-2.0-2.0) H 07/06/20 08:49 Bigg Test Pos 07/06/20 08:49 A-a Gradient 535.0 mmHg 07/06/20 08:49 FiO2 93.0 07/06/20 08:49 Blood Gas Comments Pt tommy well eb 07/06/20 08:49 Sodium 138 mmol/L (136-145) 07/08/20 05:27 Corrected Sodium 143 mmol/L (136-145) 07/08/20 05:27 Potassium 3.7 mmol/L (3.5-5.1) 07/08/20 05:27 Chloride 98 mmol/L (98-107) 07/08/20 05:27 Carbon Dioxide 35.7 mmol/L (21-32) H 07/08/20 05:27 BUN 25 mg/dL (7-18) H 07/08/20 05:27 Creatinine 0.47 mg/dL (0.55-1.02) L 07/08/20 05:27 Est GFR (MDRD) Af Amer > 60 (>60) 07/08/20 05:27 Est GFR (MDRD) Non-Af > 60 (>60) 07/08/20 05:27 Glucose 292 mg/dL (65-99) H 07/08/20 05:27 POC Glucose (mg/dL) 246 mg/dL (65-99) H 07/08/20 16:25 Hemoglobin A1c 7.7 % 06/13/20 05:40 Calcium 8.7 mg/dL (8.5-10.1) 07/08/20 05:27 Corrected Calcium 9.7 mg/dL (8.5-10.1) 07/08/20 05:27 Magnesium 2.3 mg/dL (1.7-2.9) 07/05/20 05:33 Ferritin 240 ng/mL (8-252) 05/21/20 04:21 Total Bilirubin 1.60 mg/dL (0.2-1.0) H 07/08/20 05:27 AST 51 Units/L (15-37) H 07/08/20 05:27 ALT 99 Units/L (12-78) H 07/08/20 05:27 Alkaline Phosphatase 104 Units/L (46-116) 07/08/20 05:27 Creatine Kinase 44 Units/L (26-192) 07/08/20 15:23 CK-MB (CK-2) 5.3 ng/mL (0-4.0) H* 07/08/20 15:23 CK/CKMB % Calc 12.1 % (<4) 07/08/20 15:23 Troponin I 0.12 ng/mL (0-1.5) 07/08/20 15:23 C-Reactive Protein < 0.50 mg/L (0-3.0) 06/25/20 05:49 B-Natriuretic Peptide 58.5 pg/mL (0-79) 06/25/20 05:49 Total Protein 5.2 g/dL (6.4-8.2) L 07/08/20 05:27 Albumin 2.7 g/dL (3.4-5.0) L 07/08/20 05:27 Globulin 2.5 g/dL (2.5-4.5) 07/08/20 05:27 Albumin/Globulin Ratio 1.1 Ratio (1.1-2.1) 07/08/20 05:27 Specimen Type Catherized urine 07/08/20 11:00 Urine Color Anna (YELLOW) 07/08/20 11:00 Urine Appearance Cloudy (CLEAR) 07/08/20 11:00 Urine pH 6.5 (5.0 - 8.0) 07/08/20 11:00 Ur Specific [place] 1.020 (1.000-1.030) 07/08/20 11:00 Urine Protein 3+ (NEGATIVE) 07/08/20 11:00 Urine Glucose (UA) 4+ (NEGATIVE) 07/08/20 11:00 Urine Ketones Negative (NEGATIVE) 07/08/20 11:00 Urine Occult Blood 5+ (NEGATIVE) 07/08/20 11:00 Urine Nitrite Positive (NEGATIVE) 07/08/20 11:00 Urine Bilirubin 1+ (NEGATIVE) 07/08/20 11:00 Urine Urobilinogen 3+ (NORMAL) 07/08/20 11:00 Ur Leukocyte Esterase 3+ (NEGATIVE) 07/08/20 11:00 Urine RBC Tntc /HPF (0-3) A 07/08/20 11:00 Urine WBC 30-50 /HPF (0-5) A 07/08/20 11:00 Ur Squamous Epith Cells Rare /HPF (NEGATIVE) 07/08/20 11:00 Calcium Oxalate Crystal Few /HPF (NEGATIVE) 07/08/20 11:00 Urine Bacteria 3+ /HPF (NEGATIVE) 07/08/20 11:00 Urine Yeast Moderate /HPF (NEGATIVE) 07/08/20 11:00 Ur Culture Indicated? Yes/culture set up 07/08/20 11:00 SARS CoV-2 RNA Rapid KIRA Positive (NEGATIVE) A 05/15/20 13:15 Miscellaneous Test Covid 19 06/10/20 06:36 Blood Type O POSITIVE 05/16/20 09:08 - Plan (1) Pneumonia due to COVID-19 virus Status: Acute Plan: COVID-19 pneumonia with hypoxia. We will continue antibiotic therapy, corticosteroids, PT, OT, and RT, aggressive respiratory weaning, wound care, strict i&os blood sugar control
[2020-07-08] MEDS: SNACK - Diabetic Appropriate PO SCH (20:00)
[2020-07-08] MEDS: REQUIP PO SCH (20:08)
[2020-07-08] MEDS: NYSTATIN SUSP PO PRN (20:10)
[2020-07-08] MEDS: ZANAFLEX PO SCH (21:25)
[2020-07-08 22:00] LABS: CKMB % 11.4 % (<4); TROPONIN I 0.11 ng/mL (0-1.5)
[2020-07-08] MEDS ORDERED: ATIVAN INJ 2 MG VIAL ONE (22:50)
[2020-07-09] MEDS: NORCO 5/325 MG TAB PO PRN ×3 (00:02→21:51)
[2020-07-09] MEDS: MUCOMYST (RESPIRATORY USE ONLY) NEB SCH ×4 (00:05→16:48)
[2020-07-09] MEDS: XOPENEX 1.25 MG/3 ML NEBULE NEB SCH ×4 (00:05→16:48)
[2020-07-09 03:32] LABS: BASOPHILS % (AUTO) 0.6 % (0.2-1.0); HEMATOCRIT 29.4 % (36.0-47.0); HEMOGLOBIN 9.7 g/dL (12.0-16.0); LYMPHOCYTES # (AUTO) 0.7 X10^3/uL (1.3-2.9); MEAN CORPUSCULAR HEMOGLOBIN 32.9 pg (27.0-34.0); MEAN CORPUSCULAR HGB CONC 33.1 g/dL (33.0-35.0); MEAN CORPUSCULAR VOLUME 99.3 fL (80.0-100.0); MEAN PLATELET VOLUME 7.8 fL (7.4-11.0); MONOCYTES # (AUTO) 0.2 x10^3/uL (0.3-0.8); MONOCYTES % (AUTO) 3.3 % (0.0-13.0); NEUTROPHILS # (AUTO) 4.2 x10^3/uL (2.2-4.8); NEUTROPHILS % (AUTO) 83.1 % (42.0-75.0); PLATELET COUNT 47 X10^3/uL (150.0-450.0); RED BLOOD COUNT 2.96 X10^6/uL (3.5-5.4); RED CELL DISTRIBUTION WIDTH 22.9 % (11.6-16.5)
[2020-07-09] MEDS: TobraDEX OPHTH SUSP AFFEYE SCH ×4 (04:03→20:08)
[2020-07-09 04:10] LABS: ANISOCYTOSIS 2+; PLATELET MORPHOLOGY COMMENT NORMAL (NORMAL)
[2020-07-09 04:24] LABS: ALANINE AMINOTRANSFERASE 99 Units/L (12-78); ALBUMIN 2.6 g/dL (3.4-5.0); ALKALINE PHOSPHATASE 120 Units/L (46-116); ASPARTATE AMINO TRANSFERASE 49 Units/L (15-37); BLOOD UREA NITROGEN 27 mg/dL (7-18); CALCIUM 8.3 mg/dL (8.5-10.1); CARBON DIOXIDE 37.4 mmol/L (21-32); CHLORIDE 99 mmol/L (98-107); CKMB % 12.3 % (<4); COR CA(FOR HYPOALB) 9.4 mg/dL (8.5-10.1); COR NA(FOR HYPERGLY) 144 mmol/L (136-145); CREATINE KINASE 39 Units/L (26-192); SODIUM 139 mmol/L (136-145); TOTAL PROTEIN 5.2 g/dL (6.4-8.2); TROPONIN I 0.11 ng/mL (0-1.5); eGFR NON BLACK RACES > 60 (>60)
[2020-07-09 04:30] LABS: CREATINE KINASE MB 4.8 ng/mL (0-4.0)
[2020-07-09] MEDS: HumuLIN R SUBCUT PRN ×4 (06:02→21:53)
[2020-07-09] MEDS: PULMICORT NEB TX 0.5 MG NEB SCH ×3 (08:19→21:05)
[2020-07-09] MEDS: SOLU-Medrol 40 MG VIAL IVP SCH ×2 (09:21→20:06)
[2020-07-09] MEDS: LEVEMIR SC SCH (09:21)
[2020-07-09] MEDS: LASIX IVP SCH (09:22)
[2020-07-09] MEDS: ROCEPHIN 1 GRAM IV PREMIX 1 G/50 ML IV.SOLN. IV SCH (09:24)
[2020-07-09] MEDS: NEURONTIN CAP 400 MG PO SCH ×2 (09:24→20:03)
[2020-07-09] MEDS: ZINC SULFATE PO SCH ×2 (09:25→20:06)
[2020-07-09] MEDS: LEVSIN/MAALOX/LIDOC VISC PO SCH ×4 (09:25→20:10)
[2020-07-09] MEDS: VITAMIN D3 125 mcg (5,000 UNITS) PO SCH (09:25)
[2020-07-09] MEDS: PEPCID TAB 20 MG PO SCH ×2 (09:25→20:04)
[2020-07-09] MEDS: ROBITUSSIN DM PO SCH ×4 (09:25→20:11)
[2020-07-09] MEDS: NORVASC TAB 5 MG PO SCH (09:25)
[2020-07-09] MEDS: PAXIL PO SCH (09:26)
[2020-07-09] MEDS: LIPITOR TAB 40 MG PO SCH (09:26)
[2020-07-09] MEDS: NYSTATIN POWDER TOP SCH ×2 (09:26→21:51)
[2020-07-09] MEDS: ZyrTEC TAB 10 MG PO SCH (09:26)
[2020-07-09] MEDS: ELIQUIS PO SCH ×2 (09:26→20:03)
[2020-07-09] MEDS: DIFLUCAN PO SCH (09:26)
[2020-07-09] MEDS: PROTONIX INJ 40 MG VIAL IVP SCH ×2 (09:27→20:04)
[2020-07-09] MEDS: VITAMIN A PO SCH (09:28)
[2020-07-09 09:30] LABS: ABG ALLEN TEST POS; ABG BASE EXCESS 13.8 mmol/L (-2.0-2.0)
[2020-07-09] MEDS: KLONOPIN TAB 0.5 MG PO PRN (11:30)
[2020-07-09 11:31] LABS: CKMB % 13.8 % (<4); TROPONIN I 0.11 ng/mL (0-1.5)
[2020-07-09 11:33] LABS: CREATINE KINASE MB 6.2 ng/mL (0-4.0)
[2020-07-09 16:25] LABS: TROPONIN I 0.11 ng/mL (0-1.5)
[2020-07-09 16:34] LABS: CREATINE KINASE MB 5.6 ng/mL (0-4.0)
[2020-07-09] MEDS: VISTARIL PO SCH ×2 (17:46→21:51)
[2020-07-09] MEDS: REQUIP PO SCH (20:05)
[2020-07-09] MEDS: ZANAFLEX PO SCH (20:06)
[2020-07-09] MEDS: NS 1/2 1000 ML IV 1,000 ML IV SCH (20:11)
[2020-07-09] MEDS: SNACK - Diabetic Appropriate PO SCH (21:50)
[2020-07-09 22:06] LABS: CKMB % 12.7 % (<4); TROPONIN I 0.13 ng/mL (0-1.5)
[2020-07-09 22:08] LABS: CREATINE KINASE MB 5.7 ng/mL (0-4.0)
[2020-07-10] MEDS ORDERED: XOPENEX 1.25 MG/3 ML NEBULE NEB ONE (00:06)
[2020-07-10] MEDS: XOPENEX 1.25 MG/3 ML NEBULE NEB SCH ×4 (00:25→18:45)
[2020-07-10] MEDS: MUCOMYST (RESPIRATORY USE ONLY) NEB SCH ×4 (00:25→18:45)
[2020-07-10] MEDS: TobraDEX OPHTH SUSP AFFEYE SCH ×4 (04:31→21:18)
[2020-07-10 06:09] LABS: BASOPHILS % (AUTO) 0.5 % (0.2-1.0); HEMATOCRIT 28.2 % (36.0-47.0); HEMOGLOBIN 9.8 g/dL (12.0-16.0); LYMPHOCYTES # (AUTO) 0.7 X10^3/uL (1.3-2.9); LYMPHOCYTES % (AUTO) 15.4 % (21.0-51.0); MEAN CORPUSCULAR HEMOGLOBIN 34.6 pg (27.0-34.0); MEAN CORPUSCULAR VOLUME 99.1 fL (80.0-100.0); MEAN PLATELET VOLUME 8.1 fL (7.4-11.0); MONOCYTES # (AUTO) 0.2 x10^3/uL (0.3-0.8); MONOCYTES % (AUTO) 3.9 % (0.0-13.0); NEUTROPHILS # (AUTO) 3.6 x10^3/uL (2.2-4.8); NEUTROPHILS % (AUTO) 80.2 % (42.0-75.0); PLATELET COUNT 63 X10^3/uL (150.0-450.0); RED BLOOD COUNT 2.84 X10^6/uL (3.5-5.4); RED CELL DISTRIBUTION WIDTH 22.4 % (11.6-16.5); WHITE BLOOD COUNT 4.5 X10^3/uL (3.6-10.0)
[2020-07-10] MEDS: HumuLIN R SUBCUT PRN ×4 (06:11→22:25)
[2020-07-10 06:22] LABS: ALANINE AMINOTRANSFERASE 102 Units/L (12-78); ALBUMIN 2.6 g/dL (3.4-5.0); ALKALINE PHOSPHATASE 139 Units/L (46-116); ASPARTATE AMINO TRANSFERASE 60 Units/L (15-37); BLOOD UREA NITROGEN 27 mg/dL (7-18); CALCIUM 8.4 mg/dL (8.5-10.1); CHLORIDE 99 mmol/L (98-107); COR CA(FOR HYPOALB) 9.5 mg/dL (8.5-10.1); COR NA(FOR HYPERGLY) 144 mmol/L (136-145); CREATININE 0.53 mg/dL (0.55-1.02); SODIUM 139 mmol/L (136-145); TOTAL PROTEIN 5.3 g/dL (6.4-8.2); eGFR NON BLACK RACES > 60 (>60)
[2020-07-10 06:49] LABS: ANISOCYTOSIS 2+; PLATELET MORPHOLOGY COMMENT NORMAL (NORMAL)
[2020-07-10] MEDS: VISTARIL PO SCH ×4 (06:58→21:15)
[2020-07-10] MEDS: PULMICORT NEB TX 0.5 MG NEB SCH ×2 (08:18→21:30)
[2020-07-10] MEDS ORDERED: LEVEMIR SC SCH (09:00)
[2020-07-10] MEDS: DIFLUCAN PO SCH (09:18)
[2020-07-10] MEDS: ELIQUIS PO SCH ×2 (09:19→21:14)
[2020-07-10] MEDS: LASIX IVP SCH (09:19)
[2020-07-10] MEDS: NEURONTIN CAP 400 MG PO SCH ×2 (09:20→21:13)
[2020-07-10] MEDS: NORVASC TAB 5 MG PO SCH (09:20)
[2020-07-10] MEDS: LIPITOR TAB 40 MG PO SCH (09:20)
[2020-07-10] MEDS: NYSTATIN POWDER TOP SCH ×2 (09:21→22:25)
[2020-07-10] MEDS: PEPCID TAB 20 MG PO SCH ×2 (09:21→21:14)
[2020-07-10] MEDS: PAXIL PO SCH (09:21)
[2020-07-10] MEDS: PROTONIX INJ 40 MG VIAL IVP SCH ×2 (09:21→20:59)
[2020-07-10] MEDS: ROBITUSSIN DM PO SCH ×4 (09:21→21:16)
[2020-07-10] MEDS: ROCEPHIN 1 GRAM IV PREMIX 1 G/50 ML IV.SOLN. IV SCH (09:22)
[2020-07-10] MEDS: VITAMIN A PO SCH (09:22)
[2020-07-10] MEDS: SOLU-Medrol 40 MG VIAL IVP SCH ×2 (09:22→20:59)
[2020-07-10] MEDS: ZINC SULFATE PO SCH ×2 (09:23→21:14)
[2020-07-10] MEDS: VITAMIN D3 125 mcg (5,000 UNITS) PO SCH (09:23)
[2020-07-10] MEDS: ZyrTEC TAB 10 MG PO SCH (09:23)
[2020-07-10 09:45] LABS: CKMB % 13.9 % (<4); TROPONIN I 0.12 ng/mL (0-1.5)
[2020-07-10 09:47] LABS: CREATINE KINASE MB 6.1 ng/mL (0-4.0)
[2020-07-10] MEDS: MICRO K EXTEN CAP 10 MEQ PO PRN (10:10)
[2020-07-10] MEDS: LEVSIN/MAALOX/LIDOC VISC PO SCH ×4 (10:10→22:25)
--- NOTE | 2020-07-10 10:11 | RAD ---
HISTORYPNEUMONIA, COVID-19STUDYCHEST x-ray, 1 VIEWCOMPARISONX-ray 07/08/2020FINDINGSCentral venous catheter terminates in the right atrium of the heart. No pneumothorax is seen. Bilateral lung infiltrates are present, left greater than right. These appear similar to prior study.IMPRESSIONBilateral lung infiltrates appear similar to prior study. Findings are likely due to COVID-19 pneumonia or post infectious changes.Electronically signed by: Marc Granda (Jul 10, 2020 10:09:53)
[2020-07-10] MEDS: ASPIRIN EC 81 MG PO SCH (12:09)
[2020-07-10 16:11] LABS: CKMB % 12.2 % (<4); TROPONIN I 0.13 ng/mL (0-1.5)
[2020-07-10 16:13] LABS: CREATINE KINASE MB 5.5 ng/mL (0-4.0)
[2020-07-10] MEDS ORDERED: NS 1/2 1000 ML IV 1,000 ML IV ONE (16:32)
[2020-07-10] MEDS: NS 1/2 1000 ML IV 1,000 ML IV SCH ×2 (16:48→21:12)
[2020-07-10] MEDS: NORCO 5/325 MG TAB PO PRN (17:28)
[2020-07-10] MEDS ORDERED: ZYVOX 600MG IV 600 MG/300 ML BAG IV SCH (18:00)
[2020-07-10] MEDS ORDERED: PHARMACY CONSULT - VANCOMYCIN XX SCH (18:00)
[2020-07-10 18:41] LABS: ABG BASE EXCESS 11.5 mmol/L (-2.0-2.0)
[2020-07-10 18:42] LABS: ABG HCO3 35.9 mmol/L (22-26)
[2020-07-10 18:43] LABS: ABG ALLEN TEST POS
[2020-07-10] MEDS ORDERED: PREPARATION H OINT RECTAL PRN (19:32)
[2020-07-10] MEDS ORDERED: DULCOLAX SUPPOSITORY 10 MG RECTAL ONE (19:32)
[2020-07-10] MEDS: VANCOMYCIN IV *PREMIX 1.25 G/250 ML BAG 1.25 G/250 ML PIGGYBACK IV SCH (20:56)
[2020-07-10] MEDS: SNACK - Diabetic Appropriate PO SCH (21:12)
[2020-07-10] MEDS: ZANAFLEX PO SCH (21:14)
[2020-07-10] MEDS: REQUIP PO SCH (21:16)
[2020-07-10] MEDS: COLACE SYRUP 100 MG UDC PO SCH (21:17)
--- NOTE | 2020-07-10 21:40 | RAD ---
EXAM: CHEST X-RAYHISTORY: Shortness of breath. Pneumonia.TECHNIQUE: AP chest x-ray dated July 10, 2020 at 9:04 PM.COMPARISON: CXR dated July 10, 2019 at 9:53 AMFINDINGS:Note: Exam degraded by relatively shallow inspiratory effort and patient rotation to the left.There is evidence for cardiomegaly. The pulmonary vascularity and interstitial markings are diffusely prominent, left much greater than right, consistent with asymmetrical CHF or volume overload in the appropriate clinical setting; differential diagnosis includes (but is not limited to) acute pneumonia in the appropriate clinical setting.There is no gross focal lung consolidation, pleural effusion, or pneumothorax seen. The visualized bony structures are within normal limits.IMPRESSION:1. Bilateral lung infiltrates, left greater than right, presumed acute multi lobar pneumonia in the appropriate clinical setting; DDX includes (but is not limited to) asymmetrical cardiogenic or noncardiogenic pulmonary edema.2. Recommend clinical correlation and appropriate follow up CXR evaluation to ensure interval clearance as clinically warranted.3. Consider follow up CT for further characterization and to rule out Covid pneumonia if clinically warranted.Electronically signed by: Michelet Ag (Jul 10, 2020 21:39:18)
[2020-07-10 22:20] LABS: CKMB % 10.4 % (<4); TROPONIN I 0.14 ng/mL (0-1.5)
[2020-07-11] MEDS: MUCOMYST (RESPIRATORY USE ONLY) NEB SCH ×4 (00:10→17:20)
[2020-07-11] MEDS: XOPENEX 1.25 MG/3 ML NEBULE NEB SCH ×4 (00:10→17:20)
[2020-07-11] MEDS: TobraDEX OPHTH SUSP AFFEYE SCH ×3 (03:49→15:43)
[2020-07-11 05:13] LABS: BASOPHILS % (AUTO) 0.6 % (0.2-1.0); EOSINOPHILS % (AUTO) 0.1 % (0.9-2.9); HEMATOCRIT 28.8 % (36.0-47.0); HEMOGLOBIN 9.7 g/dL (12.0-16.0); LYMPHOCYTES # (AUTO) 0.8 X10^3/uL (1.3-2.9); LYMPHOCYTES % (AUTO) 17.2 % (21.0-51.0); MEAN CORPUSCULAR HEMOGLOBIN 33.3 pg (27.0-34.0); MEAN CORPUSCULAR HGB CONC 33.8 g/dL (33.0-35.0); MEAN CORPUSCULAR VOLUME 98.5 fL (80.0-100.0); MONOCYTES # (AUTO) 0.2 x10^3/uL (0.3-0.8); MONOCYTES % (AUTO) 4.4 % (0.0-13.0); NEUTROPHILS # (AUTO) 3.5 x10^3/uL (2.2-4.8); NEUTROPHILS % (AUTO) 77.7 % (42.0-75.0); PLATELET COUNT 68 X10^3/uL (150.0-450.0); RED BLOOD COUNT 2.92 X10^6/uL (3.5-5.4); RED CELL DISTRIBUTION WIDTH 22.5 % (11.6-16.5); WHITE BLOOD COUNT 4.6 X10^3/uL (3.6-10.0)
[2020-07-11] MEDS: VISTARIL PO SCH ×3 (05:32→13:57)
[2020-07-11] MEDS: VANCOMYCIN IV *PREMIX 1.25 G/250 ML BAG 1.25 G/250 ML PIGGYBACK IV SCH (05:32)
[2020-07-11 05:41] LABS: ABG BASE EXCESS 13.1 mmol/L (-2.0-2.0)
[2020-07-11 05:42] LABS: ABG ALLEN TEST POS; ABG HCO3 39.1 mmol/L (22-26)
[2020-07-11 05:50] LABS: ALANINE AMINOTRANSFERASE 100 Units/L (12-78); ALBUMIN 2.6 g/dL (3.4-5.0); ALKALINE PHOSPHATASE 116 Units/L (46-116); ASPARTATE AMINO TRANSFERASE 60 Units/L (15-37); BLOOD UREA NITROGEN 27 mg/dL (7-18); CALCIUM 8.4 mg/dL (8.5-10.1); CARBON DIOXIDE 35.1 mmol/L (21-32); CHLORIDE 100 mmol/L (98-107); CKMB % 11.7 % (<4); COR CA(FOR HYPOALB) 9.5 mg/dL (8.5-10.1); COR NA(FOR HYPERGLY) 142 mmol/L (136-145); CREATINE KINASE 41 Units/L (26-192); CREATININE 0.44 mg/dL (0.55-1.02); SODIUM 138 mmol/L (136-145); TOTAL PROTEIN 5.3 g/dL (6.4-8.2); TROPONIN I 0.13 ng/mL (0-1.5); eGFR NON BLACK RACES > 60 (>60)
[2020-07-11] MEDS: HumuLIN R SUBCUT PRN ×3 (05:52→17:17)
[2020-07-11 06:00] LABS: CREATINE KINASE MB 4.8 ng/mL (0-4.0)
[2020-07-11 06:09] LABS: ANISOCYTOSIS 2+; HYPOCHROMASIA SLIGHT; PLATELET MORPHOLOGY COMMENT NORMAL (NORMAL)
[2020-07-11 06:10] LABS: ROULEAUX PRESENT
[2020-07-11] MEDS: PULMICORT NEB TX 0.5 MG NEB SCH (08:45)
[2020-07-11] MEDS ORDERED: LEVEMIR SC SCH (09:00)
[2020-07-11] MEDS: NORCO 5/325 MG TAB PO PRN ×2 (09:30→16:39)
[2020-07-11] MEDS: ELIQUIS PO SCH (09:34)
[2020-07-11] MEDS: COLACE SYRUP 100 MG UDC PO SCH (09:34)
[2020-07-11] MEDS: ASPIRIN EC 81 MG PO SCH (09:34)
[2020-07-11] MEDS: NEURONTIN CAP 400 MG PO SCH (09:35)
[2020-07-11] MEDS: LASIX IVP SCH (09:35)
[2020-07-11] MEDS: PAXIL PO SCH (09:36)
[2020-07-11] MEDS: PEPCID TAB 20 MG PO SCH (09:36)
[2020-07-11] MEDS: NYSTATIN POWDER TOP SCH (09:36)
[2020-07-11] MEDS: NORVASC TAB 5 MG PO SCH (09:36)
[2020-07-11] MEDS: PROTONIX INJ 40 MG VIAL IVP SCH (09:36)
[2020-07-11] MEDS: ROCEPHIN 1 GRAM IV PREMIX 1 G/50 ML IV.SOLN. IV SCH (09:36)
[2020-07-11] MEDS: VITAMIN A PO SCH (09:37)
[2020-07-11] MEDS: SOLU-Medrol 40 MG VIAL IVP SCH (09:37)
[2020-07-11] MEDS: VITAMIN D3 125 mcg (5,000 UNITS) PO SCH (09:37)
[2020-07-11] MEDS: ZINC SULFATE PO SCH (09:38)
[2020-07-11] MEDS: MICRO K EXTEN CAP 10 MEQ PO PRN (09:38)
[2020-07-11] MEDS: ROBITUSSIN DM PO SCH ×3 (09:38→17:20)
[2020-07-11] MEDS: ZyrTEC TAB 10 MG PO SCH (09:39)
[2020-07-11] MEDS ORDERED: VISTARIL PO ONE ×2 (11:00→11:05)
[2020-07-11] MEDS ORDERED: ZYVOX TAB 600 MG PO SCH (11:00)
[2020-07-11] MEDS: LEVSIN/MAALOX/LIDOC VISC PO SCH ×3 (11:01→17:20)
[2020-07-11] MEDS ORDERED: NS 100 ML IV 100 ML IV ONE (11:06)
--- NOTE | 2020-07-11 12:25 | CT ---
CT angiogram chest with contrastIndication: History of COVID-19 pneumonia. Dyspnea.COMPARISONDecedign[facility] 2019TECHNIQUEHelical images through the abdomen and pelvis with contrast. Coronal and sagittal reformats provided. MIP images providedFINDINGSNorma images the upper abdomen demonstrate probable hepatic steatosis. Review of bone windows demonstrate demonstrates lucency at the inferior endplate of L1.Chest: Aortic arch and branch vessels are patent. Heart size is prominent. No mediastinal abnormality seen. Are position and body habitus causes attenuation leads limits sensitivity. Pulmonary artery bolus timing is suboptimal, with artifact and motion limiting sensitivity. There is no massive central pulmonary artery filling defects seen. Distal vessels cannot be well evaluated.Patchy pulmonary opacities are noted bilaterally, with peribronchial thickening, increased interstitial markings and dependent atelectasis. Ground-glass opacities noted. Tree-in-bud opacities and small peripheral nodules noted.IMPRESSION1. Pulmonary arteries are prominent suggesting pulmonary artery hypertension without massive central pulmonary embolus seen. However, proximal segmental and distal vessels are poorly evaluated due to bolus timing and artifact. Therefore, distal pulmonary embolus cannot be excluded.2. Patchy ground-glass opacities and peripheral tree-in-bud opacities are nonspecific but could reflect sequela of viral pneumonitis. Other infectious or inflammatory etiologies not excluded.3. Cardiomegaly. Given the pulmonary findings, CHF may be present.4. Hepatic steatosis5. Overall the pulmonary opacities have decreased from the initial CT chest from May 15.6. Lesion at L1 incompletely visualized. This appears relatively similar to the MR from April 12, 2019. However, follow-up radiographs recommended to exclude progression or worsening.Electronically signed by: LUAN FRAIRE (Jul 11, 2020 12:23:42)
[2020-07-11 17:25] VITALS: BP 125/74
[2020-07-11] MEDS ORDERED: PHARMACY COMMENT IV SCH (21:15)
== END 2020-07-11 18:45 | disposition short-term general hospital (02) | DRG 177 ==
LOC: ICU → OBSVTOIN 12:09 → MED/SURG 06-10 19:34
PROVIDERS: ADMIT Internal Medicine; ATTEND Internal Medicine
DX: R79.89 Other specified abnormal findings of blood chemistry; L89.221 Pressure ulcer of left hip, stage 1; R62.7 Adult failure to thrive; U07.1 COVID-19; J12.89 Other viral pneumonia; M19.90 Unspecified osteoarthritis, unspecified site; G25.81 Restless legs syndrome; R26.89 Other abnormalities of gait and mobility; R53.1 Weakness; D69.6 Thrombocytopenia, unspecified; N39.0 Urinary tract infection, site not specified; I10 Essential (primary) hypertension; B95.7 Other staphylococcus as the cause of diseases classified elsewhere; R06.02 Shortness of breath; F41.8 Other specified anxiety disorders; I87.2 Venous insufficiency (chronic) (peripheral); M51.36 Other intervertebral disc degeneration, lumbar region; K21.9 Gastro-esophageal reflux disease without esophagitis; E11.65 Type 2 diabetes mellitus with hyperglycemia; R00.0 Tachycardia, unspecified; Z79.01 Long term (current) use of anticoagulants; J96.01 Acute respiratory failure with hypoxia; L89.42 Pressure ulcer of contiguous site of back, buttock and hip, stage 2